=== PATIENT | male | born 1950 | race Caucasian/White ===

== ENCOUNTER 2018-02-27 01:08 | Emergency (ER) | payer OTHER ==
--- NOTE | 2018-02-27 03:27 | ER ---
Nurse's Notes [facility] Name: Kulwinder Zurita Age: 68 yrs Sex: Male : 1950 Arrival Date: 02/27/2018 Time: 01:10 Bed 8 Private MD: Macario Nugent Diagnosis: post procedure bleeding Presentation: 02/27 01:22 Presenting complaint: Patient states: I had a tooth pulled today at 2:00 pm and it tl2 hasn't stopped bleeding. Denies pain. Transition of care: patient was not received from another setting of care. Onset of symptoms was February 26, 2018 at 14:00. Risk Assessment: Do you want to hurt yourself or someone else? Patient reports no desire to harm self or others. Initial Sepsis Screen: Does the patient meet any 2 criteria? No. Patient's initial sepsis screen is negative. Does the patient have a suspected source of infection? No. Patient's initial sepsis screen is negative. Care prior to arrival: None. 01:22 Method Of Arrival: Ambulatory tl2 01:22 Acuity: CHRISTINA 4 tl2 Triage Assessment: :27 General: Appears in no apparent distress. comfortable, Behavior is calm, cooperative, tl2 appropriate for age. Pain: Denies pain. EENT: Absence of teeth noted - upper right first molar (#3) bleeding noted in area where tooth was removed. Neuro: Level of Consciousness is awake, alert, obeys commands, Oriented to person, place, time, situation. Neuro: Denies dizziness. Cardiovascular: Denies chest pain. Respiratory: Airway is patent Respiratory effort is even, unlabored, Respiratory pattern is regular, symmetrical. GI: No signs and/or symptoms were reported involving the gastrointestinal system. : No signs and/or symptoms were reported regarding the genitourinary system. Derm: Skin is pink, warm \T\ dry. Historical: - Allergies: : one form of cortizon; tl2 - Home Meds: metformin 500 mg Oral tab 1 tab 2 times per day [Active]; Toujeo SoloStar 300 unit/mL tl2 (1.5 mL) subcutaneous inpn [Active]; lisinopril 40 mg Oral tab 1 tab BID [Active]; amlodipine 10 mg tab 1 tab once daily [Active]; pravastatin 40 mg oral tab 1 tab once daily [Active]; aspirin 81 mg Oral chew 1 tab once daily [Active]; magnesium oxide 400 mg Oral cap [Active]; - PMHx: 01:27 Diabetes - IDDM; Hyperlipidemia; Hypertension; Prostate Cancer; tl2 - PSHx: 01:27 Tonsillectomy; tl2 - Immunization history:: Adult Immunizations up to date. - Social history:: Smoking status: Patient/guardian denies using tobacco. - Ebola Screening: : No symptoms or risks identified at this time. Screenin:30 Abuse screen: Denies threats or abuse. Nutritional screening: No deficits noted. tl2 Tuberculosis screening: No symptoms or risk factors identified. Fall Risk None identified. Assessment: 01:30 General: see triage assessment. tl2 02:00 Reassessment: instructed pt to gargle ice water. tl2 02:12 Reassessment: gave pt piece of gauze to bite down and apply pressure to area. tl2 03:25 Reassessment: bleeding has slowed down, MD ordered for discharge. tl2 03:38 Reassessment: Patient appears in no apparent distress at this time. Patient and/or tl2 family updated on plan of care and expected duration. Pain level reassessed. Patient is alert, oriented x 3, equal unlabored respirations, skin warm/dry/pink. Pt verbalized understanding of discharge instructions, need for follow up with dentist. Vital Signs: 01:27 BP 166 / 63; Pulse 70; Resp 18; Temp 97.8(O); Pulse Ox 96% on R/A; Weight 163.29 kg; tl2 Height 5 ft. 8 in. (172.72 cm); Pain 0/10; 03:38 BP 143 / 69; Pulse 72; Resp 18; Pulse Ox 96% on R/A; tl2 01:27 Body Mass Index 54.74 (163.29 kg, 172.72 cm) tl2 ED Course: 01:10 Patient arrived in ED. es 01:10 Macario Nugent DO is Private Physician. es 01:22 Varsha Soto, NATALY is Primary Nurse. tl2 01:23 Triage completed. tl2 01:27 Arm band placed on right wrist. tl2 01:30 Patient has correct armband on for positive identification. Bed in low position. Call tl2 light in reach. Side rails up X 1. 01:43 Velasco, Manpreet, MD is Attending Physician. gs 03:38 No provider procedures requiring assistance completed. Patient did not have IV access tl2 during this emergency room visit. Administered Medications: No medications were administered Outcome: 03:26 Discharge ordered by . gs 03:38 Discharged to home ambulatory. tl2 03:38 Condition: stable 03:38 Discharge instructions given to patient, Instructed on discharge instructions, follow up and referral plans. Demonstrated understanding of instructions, follow-up care. 03:39 Patient left the ED. tl2 Signatures: Anila Ribera Taylor RN RN tl2 Manpreet Velasco MD MD
--- NOTE | 2018-02-27 03:27 | EDPHYS ---
Physician Documentation [facility] Name: Kulwinder Zurita Age: 68 yrs Sex: Male : 1950 Arrival Date: 02/27/2018 Time: 01:10 Bed 8 Private MD: Macario Nugent ED Physician Manpreet Velasco HPI: 02/27 03:22 This 68 yrs old Male presents to ER via Ambulatory with complaints of TOOTH gs PULLED WONT STOP BLEEDING. 03:22 The patient presents with bleeding. The problem is located in the upper right second gs molar and upper right first molar extraction site. Onset: The symptoms/episode began/occurred today. Duration: The symptoms are continuous. Associated signs and symptoms: Pertinent negatives: fever. Severity of symptoms: At their worst the symptoms were moderate, in the emergency department the symptoms are unchanged. The patient has been recently seen by a physician: a dentist, with similar presenting complaints. Historical: - Allergies: : one form of cortizon; tl2 - Home Meds: : metformin 500 mg Oral tab 1 tab 2 times per day [Active]; Toujeo SoloStar 300 unit/mL tl2 (1.5 mL) subcutaneous inpn [Active]; lisinopril 40 mg Oral tab 1 tab BID [Active]; amlodipine 10 mg tab 1 tab once daily [Active]; pravastatin 40 mg oral tab 1 tab once daily [Active]; aspirin 81 mg Oral chew 1 tab once daily [Active]; magnesium oxide 400 mg Oral cap [Active]; - PMHx: : Diabetes - IDDM; Hyperlipidemia; Hypertension; Prostate Cancer; tl2 - PSHx: :27 Tonsillectomy; tl2 - Immunization history:: Adult Immunizations up to date. - Social history:: Smoking status: Patient/guardian denies using tobacco. - Ebola Screening: : No symptoms or risks identified at this time. ROS: 03:22 All other systems are negative. gs Exam: 03:22 Eyes: Pupils equal round and reactive to light, extra-ocular motions intact. Lids and gs lashes normal. Conjunctiva and sclera are non-icteric and not injected. Cornea within normal limits. Periorbital areas with no swelling, redness, or edema. Cardiovascular: Regular rate and rhythm with a normal S1 and S2. No gallops, murmurs, or rubs. Normal PMI, no JVD. No pulse deficits. Respiratory: Lungs have equal breath sounds bilaterally, clear to auscultation and percussion. No rales, rhonchi or wheezes noted. No increased work of breathing, no retractions or nasal flaring. 03:22 Constitutional: The patient appears alert, awake. 03:22 ENT: Dental exam: bleeding from extraction site, used guaze surgicel good hemostatsis instructed to use 4x4's and see dentist today. Vital Signs: 01:27 BP 166 / 63; Pulse 70; Resp 18; Temp 97.8(O); Pulse Ox 96% on R/A; Weight 163.29 kg; tl2 Height 5 ft. 8 in. (172.72 cm); Pain 0/10; 03:38 BP 143 / 69; Pulse 72; Resp 18; Pulse Ox 96% on R/A; tl2 01:27 Body Mass Index 54.74 (163.29 kg, 172.72 cm) tl2 MDM: 02:12 Patient medically screened. 03:25 Data reviewed: vital signs, nurses notes. gs Administered Medications: No medications were administered Disposition: 02/27/18 03:26 Discharged to Home. Impression: post procedure bleeding. - Condition is Stable. - Medication Reconciliation Form, Thank You Letter, Antibiotic Education, Prescription Opioid Use form. - Follow up: Private Physician; When: 1 - 2 days; Reason: Re-evaluation by your physician. Signatures: Varsha Soto RN RN tl2 Manpreet Velasco MD MD Corrections: (The following items were deleted from the chart) 03:39 03:26 02/27/2018 03:26 Discharged to Home. Impression: post procedure bleeding. tl2 Condition is Stable. Forms are Medication Reconciliation Form, Thank You Letter, Antibiotic Education, Prescription Opioid Use. Follow up: Private Physician; When: 1 - 2 days; Reason: Re-evaluation by your physician. gs
== END 2018-02-27 03:39 | disposition home or self-care (01) ==
LOC: ER 01:08
DX: K91.840 Postprocedural hemorrhage of a digestive system organ or structure following a digestive system procedure (principal)
CPT/HCPCS: 99281

== ENCOUNTER 2018-05-04 12:08 | Emergency (ER) | payer OTHER ==
--- NOTE | 2018-05-04 14:19 | RAD REPORT ---
EXAM DESCRIPTION: RAD - Chest Single View - 05/04/2018 2:04 pm CLINICAL HISTORY: Cough COMPARISON: None. TECHNIQUE: AP portable chest image was obtained 1401 hours . FINDINGS: No focal lung parenchymal process. Interstitial markings are mildly prominent believed be baseline. Heart and vasculature are normal. No measurable pleural effusion and no pneumothorax. No ac [place] bony abnormality seen. No acute aortic findings suspected. IMPRESSION: No acute cardiopulmonary process.
[2018-05-04 14:45] LABS: Urine Blood TRACE (NEG); Urine Glucose NEGATIVE (NEG); Urine Protein 3+ (NEG)
--- NOTE | 2018-05-04 15:34 | ER ---
Nurse's Notes [facility] Name: Kulwinder Zurita Age: 68 yrs Sex: Male : 1950 Arrival Date: 05/04/2018 Time: 12:12 Bed 26 Private MD: Macario Nugent Diagnosis: Viral infection, unspecified Presentation: 05/04 12:42 Presenting complaint: Patient states: urinary frequency since Friday and chills. Pt aa5 reports cough that began last night. Transition of care: patient was not received from another setting of care. Onset of symptoms was April 2018. Risk Assessment: Do you want to hurt yourself or someone else? Patient reports no desire to harm self or others. Care prior to arrival: None. 12:42 Method Of Arrival: Ambulatory aa5 12:42 Acuity: CHRISTINA 3 aa5 15:46 Initial Sepsis Screen: Does the patient meet any 2 criteria? No. Patient's initial mg2 sepsis screen is negative. Does the patient have a suspected source of infection? No. Patient's initial sepsis screen is negative. Historical: - Allergies: 12:45 Cortisone; aa5 - PMHx: 12:45 Diabetes - IDDM; Hyperlipidemia; Hypertension; Prostate Cancer; aa5 - PSHx: 12:45 Tonsillectomy; aa5 - Immunization history:: Flu vaccine is not up to date. - Social history:: Smoking status: Patient/guardian denies using tobacco. - Ebola Screening: : No symptoms or risks identified at this time. Screenin:45 Abuse screen: Denies threats or abuse. Denies injuries from another. Nutritional aj screening: No deficits noted. Tuberculosis screening: No symptoms or risk factors identified. Fall Risk None identified. Assessment: 13:45 General: Appears in no apparent distress. comfortable, Behavior is calm, cooperative, aj appropriate for age. General: Appears obese. Pain: Denies pain. Neuro: Level of Consciousness is awake, alert, obeys commands, Oriented to person, place, time, situation, Appropriate for age. Respiratory: Reports cough that is persistent Airway is patent Respiratory effort is even, unlabored, Respiratory pattern is regular, symmetrical. Derm: Skin is intact, is healthy with good turgor, Skin is pink, warm \T\ dry. normal. Vital Signs: 12:45 BP 144 / 70; Pulse 77; Resp 18 S; Temp 99.8(O); Pulse Ox 93% on R/A; Weight 163.29 kg aa5 (R); Height 5 ft. 8 in. (172.72 cm) (R); Pain 0/10; 15:44 BP 135 / 80; Pulse 70; Resp 18; Pulse Ox 95% on R/A; Pain 0/10; mg2 12:45 Body Mass Index 54.74 (163.29 kg, 172.72 cm) aa5 ED Course: 12:12 Patient arrived in ED. mr 12:13 Macario Nugent DO is Private Physician. mr 12:42 Arm band placed on. aa5 12:44 Triage completed. aa5 12:47 Aleksandra Kim, NATALY is Primary Nurse. aj 13:02 Moise Ding PA is PHCP. jr8 13:02 Manpreet Velasco MD is Attending Physician. jr8 13:40 Aleksandra Kim RN is Primary Nurse. aj 13:45 Patient has correct armband on for positive identification. aj 13:45 Influenza Screen (a \T\ B) Sent. aj 13:54 Lab(s) recollected, by me, sent to lab. aj 14:01 X-ray completed. Portable x-ray completed in exam room. Patient tolerated procedure sw well. 14:05 XRAY Chest (1 view) In Process Unspecified. EDMS 15:33 Macario Nugent DO is Referral Physician. jr8 15:45 No provider procedures requiring assistance completed. Patient did not have IV access mg2 during this emergency room visit. Administered Medications: No medications were administered Outcome: 15:34 Discharge ordered by . jr8 15:45 Discharged to home ambulatory. mg2 15:45 Condition: stable 15:45 Discharge instructions given to patient, Instructed on discharge instructions, follow up and referral plans. Demonstrated understanding of instructions, follow-up care. 15:46 Patient left the ED. mg2 Signatures: Dispatcher [employer] EDUT Aleksandra Kim, Daria Amador RN mr LaneLeslie RN NATALY aa5 Moise Ding PA PA jr8 Jazmín Schmidt Michele, RN RN mg2
--- NOTE | 2018-05-04 15:35 | EDPHYS ---
Physician Documentation [facility] Name: Kulwinder Zurita Age: 68 yrs Sex: Male : 1950 Arrival Date: 05/04/2018 Time: 12:12 Bed 26 Private MD: Macario Nugent ED Physician Manpreet Velasco HPI: 05/04 14:35 This 68 yrs old Male presents to ER via Ambulatory with complaints of Cough. jr8 14:35 The patient or guardian reports cough, that is intermittent, described as mild, with no jr8 sputum. Onset: The symptoms/episode began/occurred acutely, 3 day(s) ago. Severity of symptoms: At their worst the symptoms were mild, in the emergency department the symptoms are unchanged. Modifying factors: The symptoms are alleviated by nothing, the symptoms are aggravated by nothing. Associated signs and symptoms: Pertinent positives: urinary frequency. The patient has not experienced similar symptoms in the past. The patient has not recently seen a physician. Historical: - Allergies: 12:45 Cortisone; aa5 - PMHx: 12:45 Diabetes - IDDM; Hyperlipidemia; Hypertension; Prostate Cancer; aa5 - PSHx: 12:45 Tonsillectomy; aa5 - Immunization history:: Flu vaccine is not up to date. - Social history:: Smoking status: Patient/guardian denies using tobacco. - Ebola Screening: : No symptoms or risks identified at this time. ROS: 14:35 Eyes: Negative for injury, pain, redness, and discharge, ENT: Negative for injury, jr8 pain, and discharge, Neck: Negative for injury, pain, and swelling, Cardiovascular: Negative for chest pain, palpitations, and edema, Abdomen/GI: Negative for abdominal pain, nausea, vomiting, diarrhea, and constipation, Back: Negative for injury and pain, MS/Extremity: Negative for injury and deformity, Skin: Negative for injury, rash, and discoloration, Neuro: Negative for headache, weakness, numbness, tingling, and seizure. 14:35 Respiratory: Positive for cough, Negative for dyspnea on exertion, shortness of breath, sputum production, wheezing. 14:35 : Positive for urinary symptoms. Exam: 14:35 Eyes: Pupils equal round and reactive to light, extra-ocular motions intact. Lids and jr8 lashes normal. Conjunctiva and sclera are non-icteric and not injected. Cornea within normal limits. Periorbital areas with no swelling, redness, or edema. ENT: Nares patent. No nasal discharge, no septal abnormalities noted. Tympanic membranes are normal and external auditory canals are clear. Oropharynx with no redness, swelling, or masses, exudates, or evidence of obstruction, uvula midline. Mucous membranes moist. Neck: Trachea midline, no thyromegaly or masses palpated, and no cervical lymphadenopathy. Supple, full range of motion without nuchal rigidity, or vertebral point tenderness. No Meningismus. Cardiovascular: Regular rate and rhythm with a normal S1 and S2. No gallops, murmurs, or rubs. Normal PMI, no JVD. No pulse deficits. Respiratory: Lungs have equal breath sounds bilaterally, clear to auscultation and percussion. No rales, rhonchi or wheezes noted. No increased work of breathing, no retractions or nasal flaring. Abdomen/GI: Soft, non-tender, with normal bowel sounds. No distension or tympany. No guarding or rebound. No evidence of tenderness throughout. Back: No spinal tenderness. No costovertebral tenderness. Full range of motion. Skin: Warm, dry with normal turgor. Normal color with no rashes, no lesions, and no evidence of cellulitis. MS/ Extremity: Pulses equal, no cyanosis. Neurovascular intact. Full, normal range of motion. Neuro: Awake and alert, GCS 15, oriented to person, place, time, and situation. Cranial nerves II-XII grossly intact. Motor strength 5/5 in all extremities. Sensory grossly intact. Cerebellar exam normal. Normal gait. Vital Signs: 12:45 BP 144 / 70; Pulse 77; Resp 18 S; Temp 99.8(O); Pulse Ox 93% on R/A; Weight 163.29 kg aa5 (R); Height 5 ft. 8 in. (172.72 cm) (R); Pain 0/10; 15:44 BP 135 / 80; Pulse 70; Resp 18; Pulse Ox 95% on R/A; Pain 0/10; mg2 12:45 Body Mass Index 54.74 (163.29 kg, 172.72 cm) aa5 MDM: 13:06 Patient medically screened. [facility] 15:33 Data reviewed: vital signs, nurses notes, lab test result(s), radiologic studies, plain jr8 films, and as a result, I will discharge patient. Data interpreted: Pulse oximetry: on room air is 95 %. Interpretation: normal. Counseling: I had a detailed discussion with the patient and/or guardian regarding: the historical points, exam findings, and any diagnostic results supporting the discharge/admit diagnosis, lab results, radiology results, the need for outpatient follow up, a family practitioner, to return to the emergency department if symptoms worsen or persist or if there are any questions or concerns that arise at home. 05/04 13:39 Order name: Influenza Screen (a \T\ B); Complete Time: 14:26 jr8 05/04 13:54 Order name: Urine Dipstick--Ancillary (enter results); Complete Time: 14:46 eb 05/04 13:39 Order name: XRAY Chest (1 view); Complete Time: 14:34 jr8 05/04 13:40 Order name: Urine Dipstick-Ancillary (obtain specimen); Complete Time: 14:08 jr8 Administered Medications: No medications were administered Disposition: 17:13 Co-signature as Attending Physician, Manpreet Velasco MD. Disposition: 05/04/18 15:34 Discharged to Home. Impression: Viral infection, unspecified. - Condition is Stable. - Discharge Instructions: Viral Respiratory Infection. - Medication Reconciliation Form, Thank You Letter, Antibiotic Education, Prescription Opioid Use form. - Follow up: Macario Nugent DO; When: 2 - 3 days; Reason: Recheck today's complaints, Continuance of care, Re-evaluation by your physician. - Problem is new. - Symptoms have improved. Signatures: Dispatcher [employer] EDMS Leslie Lane, RN RN aa5 Moise Ding PA PA jr8 Manpreet Velasco MD MD Alex Moreno RN RN mg2 Corrections: (The following items were deleted from the chart) 15:46 15:34 05/04/2018 15:34 Discharged to Home. Impression: Viral infection, unspecified. mg2 Condition is Stable. Forms are Medication Reconciliation Form, Thank You Letter, Antibiotic Education, Prescription Opioid Use. Follow up: Macario Nugent; When: 2 - 3 days; Reason: Recheck today's complaints, Continuance of care, Re-evaluation by your physician. Problem is new. Symptoms have improved. jr8
== END 2018-05-04 15:46 | disposition home or self-care (01) ==
LOC: ER 12:08
DX: B34.9 Viral infection, unspecified (principal); I10 Essential (primary) hypertension; Z85.46 Personal history of malignant neoplasm of prostate; Z88.8 Allergy status to other drugs, medicaments and biological substances
CPT/HCPCS: 71045; 81003; 87804; 99283

== ENCOUNTER 2019-01-02 17:04 | Emergency (ER) | payer OTHER ==
[2019-01-02 18:02] LABS: Urine Bacteria <20 /HPF (NONE SEEN); Urine Culture Reflex Order NOT NEEDED
--- NOTE | 2019-01-02 18:15 | RAD REPORT ---
EXAM DESCRIPTION: CT - Stone Protocol - 01/02/2019 6:05 pm CLINICAL HISTORY: Flank pain. HEMATURIA COMPARISON: Stone Protocol dated 05/06/2017 TECHNIQUE: Axial images were obtained without oral or IV contrast. Lack of contrast limits solid org an and vascular assessment. The [id number] spans the entirety of the system partially obscuring uppermost abdomen and lung bases. Coronal reformatted images were obtained and reviewed. All CT scans are performed using dose optimization technique as appropriate and may include automated exposure control or mA/KV adjustment according to patient size. FINDINGS: The lower lung matute are clear. Diffuse fatty liver is seen. The spleen is normal sized. The pancreas and adrenal glands are normal. No pathologic lymphadenopathy in the abdomen or pelvis. Chronic dilatation left renal pelvis is seen suggesting chronic left UPJ obstruction. There is no obs tructing calculus seen on either side. Several small cysts are present in both kidneys some with comp altagracia hyperdense appearance. Punctate calculus is seen in the inferior calyx of the right kidney. No bowel obstruction, free air, free fluid or abscess. Normal appendix noted.Prostate beads are seen. No significant bony abnormality. IMPRESSION: Chronic left UPJ obstruction is noted. Punctate calculus is seen in the inferior right kidney.
--- NOTE | 2019-01-02 18:23 | ER ---
Nurse's Notes [facility] Name: Kulwinder Zurita Age: 68 yrs Sex: Male : 1950 Arrival Date: 01/02/2019 Time: 17:07 Bed 5 Private MD: Diagnosis: Hematuria, unspecified;Dysuria Presentation: 01/02 17:18 Presenting complaint: Patient states: urinary urgency, blood in urine x 3 days. la1 Transition of care: patient was not received from another setting of care. Onset of symptoms was January 02, 2019. Risk Assessment: Do you want to hurt yourself or someone else? Patient reports no desire to harm self or others. Initial Sepsis Screen: Does the patient meet any 2 criteria? No. Patient's initial sepsis screen is negative. Does the patient have a suspected source of infection? No. Patient's initial sepsis screen is negative. Care prior to arrival: None. 17:18 Method Of Arrival: Ambulatory la1 17:18 Acuity: CHRISTINA 3 la1 Triage Assessment: 17:27 General: Appears in no apparent distress. comfortable, obese, Behavior is calm, bp cooperative, appropriate for age. Pain: Complains of pain in pelvis. EENT: No deficits noted. Neuro: No deficits noted. Cardiovascular: No deficits noted. Respiratory: No deficits noted. GI: No signs and/or symptoms were reported involving the gastrointestinal system. : Reports burning with urination. Derm: No deficits noted. Musculoskeletal: No deficits noted. Historical: - Allergies: 17:18 Cortisone; la1 - PMHx: 17:18 Diabetes - IDDM; Hyperlipidemia; Hypertension; Prostate Cancer; la1 - Immunization history:: Adult Immunizations up to date. - Social history:: Smoking status: Patient/guardian denies using tobacco. - Ebola Screening: : No symptoms or risks identified at this time. Screenin:28 Abuse screen: Denies threats or abuse. Denies injuries from another. Nutritional bp screening: No deficits noted. Tuberculosis screening: No symptoms or risk factors identified. Fall Risk None identified. Assessment: 17:28 General: SEE TRIAGE NOTE. bp 18:29 Reassessment: PT D/C HOME AMBULATORY, DX WITH HEMATURIA AND DYSURIA. bp Vital Signs: 17:18 BP 164 / 96; Pulse 79; Resp 16; Temp 98.4; Pulse Ox 100% on R/A; la1 18:28 BP 157 / 95; Pulse 81; Resp 17; Temp 98.5; Pulse Ox 99% ; bp ED Course: 17:07 Patient arrived in ED. mr 17:18 Triage completed. la1 17:19 Arm band placed on left wrist. la1 17:20 Reginaldo Mix NP is PHCP. pm1 17:20 David Green MD is Attending Physician. pm1 17:20 Kali Tay, RN is Primary Nurse. bp 17:28 Patient has correct armband on for positive identification. Bed in low position. Call bp light in reach. Side rails up X2. 18:02 CT completed. Patient tolerated procedure well. Patient moved back from CT. bq 18:04 CT [facility] Protocol In Process Unspecified. EDMS 18:21 Concha Dunbar MD is Referral Physician. pm1 18:29 No provider procedures requiring assistance completed. Patient did not have IV access bp during this emergency room visit. Administered Medications: No medications were administered Outcome: 18:21 Discharge ordered by MD. pm1 18:29 Discharged to home ambulatory. bp 18:29 Condition: stable 18:29 Discharge instructions given to patient, Instructed on discharge instructions, follow up and referral plans. medication usage, Demonstrated understanding of instructions, follow-up care, medications, Prescriptions given X 1. 18:40 Patient left the ED. bp Signatures: Dispatcher [employer] [facility] Corey Mihaela Duarte Gabriel Rooney RN RN la1 Reginaldo Mix, RADHA [employer] PROFESS[employer] pm1 Kali Tay, RN RN bp
--- NOTE | 2019-01-02 18:23 | EDPHYS ---
Physician Documentation [facility] Name: Kulwinder Zurita Age: 68 yrs Sex: Male : 1950 Arrival Date: 01/02/2019 Time: 17:07 Bed 5 Private MD: ED Physician David Green HPI: 01/02 17:49 This 68 yrs old Male presents to ER via Ambulatory with complaints of Urinary pm1 Problem. 17:49 The patient presents with urinary symptoms, dysuria, urinary frequency, hematuria. pm1 Onset: The symptoms/episode began/occurred yesterday. Modifying factors: The symptoms are alleviated by nothing, the symptoms are aggravated by urinating. Associated signs and symptoms: Pertinent negatives: abdominal pain, diarrhea, fever, nausea, vomiting, flank pain. Severity of symptoms: in the emergency department the symptoms have improved. The patient has experienced similar episodes in the past, a few times, many years ago. had blood work and renal and bladder ultrasound on 12/23/2018 with sleeve bottom feller. Has not gotten results yet. Has history of prostate cancer in remission and chronic kidney disease. Historical: - Allergies: 17:18 Cortisone; la1 - PMHx: 17:18 Diabetes - IDDM; Hyperlipidemia; Hypertension; Prostate Cancer; la1 - Immunization history:: Adult Immunizations up to date. - Social history:: Smoking status: Patient/guardian denies using tobacco. - Ebola Screening: : No symptoms or risks identified at this time. ROS: 17:49 Constitutional: Negative for fever, chills, and weight loss, Cardiovascular: Negative pm1 for chest pain, palpitations, and edema, Respiratory: Negative for shortness of breath, cough, wheezing, and pleuritic chest pain, Abdomen/GI: Negative for abdominal pain, nausea, vomiting, diarrhea, and constipation, Back: Negative for injury and pain. 17:49 Skin: Negative for injury, rash, and discoloration, Neuro: Negative for headache, weakness, numbness, tingling, and seizure. 17:49 : Positive for urinary frequency, hematuria, burning with urination, Negative for flank pain, penile discharge, testicular pain Exam: 17:49 Constitutional: This is a well developed, well nourished patient who is awake, alert, pm1 and in no acute distress. Head/Face: Normocephalic, atraumatic. Neck: Trachea midline, no thyromegaly or masses palpated, and no cervical lymphadenopathy. Supple, full range of motion without nuchal rigidity, or vertebral point tenderness. No Meningismus. Chest/axilla: Normal chest wall appearance and motion. Nontender with no deformity. No lesions are appreciated. Cardiovascular: Regular rate and rhythm with a normal S1 and S2. No gallops, murmurs, or rubs. Normal PMI, no JVD. No pulse deficits. Respiratory: Lungs have equal breath sounds bilaterally, clear to auscultation and percussion. No rales, rhonchi or wheezes noted. No increased work of breathing, no retractions or nasal flaring. Abdomen/GI: Soft, non-tender, with normal bowel sounds. No distension or tympany. No guarding or rebound. No evidence of tenderness throughout. Back: No spinal tenderness. No costovertebral tenderness. Full range of motion. Skin: Warm, dry with normal turgor. Normal color with no rashes, no lesions, and no evidence of cellulitis. MS/ Extremity: Pulses equal, no cyanosis. Neurovascular intact. Full, normal range of motion. 17:49 Neuro: Orientation: is normal, Motor: is normal, moves all fours, Gait: is steady, at a normal pace, without difficulty. Vital Signs: 17:18 BP 164 / 96; Pulse 79; Resp 16; Temp 98.4; Pulse Ox 100% on R/A; la1 18:28 BP 157 / 95; Pulse 81; Resp 17; Temp 98.5; Pulse Ox 99% ; bp MDM: 17:41 Patient medically screened. pm1 18:20 Data reviewed: vital signs. Data interpreted: Pulse oximetry: on room air is 100 %. pm1 Interpretation: normal. Counseling: I had a detailed discussion with the patient and/or guardian regarding: the historical points, exam findings, and any diagnostic results supporting the discharge/admit diagnosis, lab results, radiology results, the need for outpatient follow up, for definitive care, a urologist, to return to the emergency department if symptoms worsen or persist or if there are any questions or concerns that arise at home. 18:20 ED course: Creatinine clearance greater than 81.5 on Cockcroft-Gault. Patient with pm1 symptoms suggesting UTI. Will treat with Bactrim and instructed patient to follow up with urology for evaluation of hematuria. 01/02 17:44 Order name: Urine Microscopic Only; Complete Time: 18:03 pm1 01/02 17:56 Order name: Urine Dipstick--Ancillary (enter results) ms 01/02 17:44 Order name: Urine Dipstick-Ancillary (obtain specimen); Complete Time: 17:52 pm1 01/02 17:44 Order name: CT Stone Protocol; Complete Time: 18:19 pm1 Administered Medications: No medications were administered Disposition: 01/03 07:16 Co-signature as Attending Physician, David Green MD I agree with the assessment and kdr plan of care. Disposition: 01/02/19 18:21 Discharged to Home. Impression: Hematuria, unspecified, Dysuria. - Condition is Stable. - Discharge Instructions: Dysuria, Hematuria, Adult. - Prescriptions for Bactrim DS 800- 160 mg Oral Tablet - take 1 tablet by ORAL route every 12 hours for 10 days; 20 tablet. - Medication Reconciliation Form, Thank You Letter, Antibiotic Education, Prescription Opioid Use form. - Follow up: Emergency Department; When: As needed; Reason: Worsening of condition. Follow up: Private Physician; When: 2 - 3 days; Reason: Recheck today's complaints, Continuance of care, Re-evaluation by your physician. Follow up: Concha Dunbar MD; When: 2 - 3 days; Reason: Recheck today's complaints, Continuance of care, Re-evaluation by your physician. - Problem is new. - Symptoms have improved. Signatures: Dispatcher [employer] EDMS David Green MD MD kdr Attema, Lee RN RN la1 Reginaldo Mix NP [employer] pm1 Kali Tay, NATALY RN bp Corrections: (The following items were deleted from the chart) 01/02 18:40 18:21 01/02/2019 18:21 Discharged to Home. Impression: Hematuria, unspecified; Dysuria. bp Condition is Stable. Forms are Medication Reconciliation Form, Thank You Letter, Antibiotic Education, Prescription Opioid Use. Follow up: Emergency Department; When: As needed; Reason: Worsening of condition. Follow up: Private Physician; When: 2 - 3 days; Reason: Recheck today's complaints, Continuance of care, Re-evaluation by your physician. Follow up: Concha Dunbar; When: 2 - 3 days; Reason: Recheck today's complaints, Continuance of care, Re-evaluation by your physician. Problem is new. Symptoms have improved. pm1
[2019-01-02 19:33] VITALS: BP 157/95; TEMP 98.5; O2SAT 99
[2019-01-02 20:13] LABS: Urine Blood 3+ (NEG); Urine Glucose NEGATIVE (NEG); Urine Protein 3+ (NEG); Urine Specific Gravity 1.025 (1.005-1.030)
== END 2019-01-02 18:40 | disposition home or self-care (01) ==
LOC: ER 17:04
DX: R31.9 Hematuria, unspecified (principal); I10 Essential (primary) hypertension; Z85.46 Personal history of malignant neoplasm of prostate; Z88.8 Allergy status to other drugs, medicaments and biological substances
CPT/HCPCS: 74176; 76377; 81003; 81015; 99284

== ENCOUNTER 2019-01-31 17:08 | Emergency (ER) | payer OTHER ==
[2019-01-31 17:59] LABS: Absolute Lymphocytes (CBC) 1.3 K/uL (0.7-4.9); Basophils % 0.6 % (0-1.3); Hematocrit 39.1 % (39.6-49.0); Lymphocytes % 20.3 % (15.3-44.8); MPV 7.7 fL (7.6-11.3); RBC Red Blood Cell Count 4.47 M/uL (4.33-5.43)
[2019-01-31 18:14] LABS: ALT/SGPT 54 U/L (12-78); AST/SGOT 28 U/L (15-37); Albumin 3.3 g/dL (3.4-5.0); Alkaline Phosphatase 54 U/L (45-117); BUN Blood Urea Nitrogen 28 mg/dL (7-18); Bicarbonate 24 mmol/L (21-32); Bilirubin Direct < 0.1 mg/dL (0-0.2); Bilirubin Total 0.2 mg/dL (0.2-1.0); Glucose Level 160 mg/dL (74-106); Lipase 101 U/L (73-393); Potassium 4.1 mmol/L (3.5-5.1); Protein, Total 7.2 g/dL (6.4-8.2); Sodium Level 141 mmol/L (136-145)
--- NOTE | 2019-01-31 18:36 | RAD REPORT ---
EXAM DESCRIPTION: CT - Stone Protocol - 01/31/2019 6:07 pm CLINICAL HISTORY: Abdominal pain. Left flank pain COMPARISON: December 2018 TECHNIQUE: Computed axial tomography of the abdomen pelvis was obtained without oral or IV contrast. Lack of IV and oral contrast limits evaluation of solid organs, bowel, and vessels. Coronal reformat janes images were obtained and reviewed. All CT scans are performed using dose optimization technique as appropriate and may include automated exposure control or mA/KV adjustment according to patient size. FINDINGS: 1 millimeter nonobstructing right renal calculus. Small right renal cyst 7 centimeter cystic structure in the region of the left renal pelvis. It is without significant simental e from the prior exam but is more prominent than in 2018. Areas of left renal cortical thinning are p resent. Tiny bilateral proteinaceous/hemorrhagic renal cysts Fatty liver Spleen, pancreas and left adrenal appear grossly normal. Small right adrenal adenoma is suspected There is no evidence of diverticulitis. . Prostatic internal radiation beams are in place IMPRESSION: 7 centimeter cystic structure in the region of the left renal pelvis. This may represent a parapelvic cyst or UPJ obstruction secondary to stricture. Further evaluation with either an enhan tiffanie CT scan with delayed images or a renal nuclear Medicine scan recommended
--- NOTE | 2019-01-31 18:59 | ER ---
Nurse's Notes [facility] Name: Kulwinder Zurita Age: 69 yrs Sex: Male : 1950 Arrival Date: 01/31/2019 Time: 17:12 Bed 8 Private MD: Diagnosis: Other abdominal pain Presentation: 01/31 17:14 Presenting complaint: Patient states: I have been having pain in my left flank area for la1 the last few days but today it is much worse, pt denies N/V/D or fevers at home, denies urinary sx. Transition of care: patient was not received from another setting of care. Onset of symptoms was January 31, 2019. Risk Assessment: Do you want to hurt yourself or someone else? Patient reports no desire to harm self or others. Initial Sepsis Screen: Does the patient meet any 2 criteria? No. Patient's initial sepsis screen is negative. Does the patient have a suspected source of infection? No. Patient's initial sepsis screen is negative. Care prior to arrival: None. 17:14 Method Of Arrival: Ambulatory la1 17:14 Acuity: CHRISTINA 3 la1 Triage Assessment: 19:06 General: Appears. hb Historical: - Allergies: 17:15 Cortisone; la1 - PMHx: 17:15 Diabetes - IDDM; Hyperlipidemia; Hypertension; Prostate Cancer; la1 - Immunization history:: Adult Immunizations up to date. - Social history:: Smoking status: Patient/guardian denies using tobacco, Patient/guardian denies using alcohol, street drugs, The patient lives with family. - Ebola Screening: : No symptoms or risks identified at this time. - Family history:: not pertinent. Screenin:15 Abuse screen: Denies threats or abuse. Denies injuries from another. Nutritional hb screening: No deficits noted. Tuberculosis screening: No symptoms or risk factors identified. Fall Risk None identified. Assessment: 17:20 Reassessment: Patient appears in no apparent distress at this time. Patient and/or sg family updated on plan of care and expected duration. Pain level reassessed. 18:15 Reassessment: Patient appears in no apparent distress at this time. Patient and/or hb family updated on plan of care and expected duration. Pain level reassessed. Patient is alert, oriented x 3, equal unlabored respirations, skin warm/dry/pink. Vital Signs: 17:16 BP 198 / 80; Pulse 78; Resp 16; Temp 98.6; Pulse Ox 100% on R/A; Weight 158.76 kg; la1 Height 5 ft. 8 in. (172.72 cm); 17:16 Body Mass Index 53.22 (158.76 kg, 172.72 cm) ct1 ED Course: 17:12 Patient arrived in ED. mr 17:15 Triage completed. la1 17:15 Inserted saline lock: 20 gauge in right antecubital area, using aseptic technique. hb Blood collected. 17:16 Arm band placed on right wrist. la1 17:19 Mala Polk MD is Attending Physician. ma2 17:57 Sobia Prasad, RN is Primary Nurse. hb 18:07 CT completed. Patient tolerated procedure well. Patient moved back from CT. 2 18:08 CT Stone Protocol In Process Unspecified. EDMS 18:15 Patient has correct armband on for positive identification. Bed in low position. Call hb light in reach. Side rails up X 1. 19:06 No provider procedures requiring assistance completed. IV discontinued, intact, hb bleeding controlled, No redness/swelling at site. Pressure dressing applied. Administered Medications: No medications were administered Outcome: 18:58 Discharge ordered by . [facility] 19:06 Discharged to home ambulatory. hb 19:06 Condition: stable 19:06 Discharge instructions given to patient, Instructed on discharge instructions, follow up and referral plans. medication usage, Demonstrated understanding of instructions, follow-up care, medications. 19:07 Patient left the ED. hb Signatures: Dispatcher [employer] EDMS Raphael Vázquez RN RN sg Corey Daria Ledesma, NATALY Rios RN [facility] Sobia Prasad, Andreia Rice RN 2 Mala Polk MD MD nhJustin
--- NOTE | 2019-01-31 18:59 | EDPHYS ---
Physician Documentation [facility] Name: Kulwinder Zurita Age: 69 yrs Sex: Male : 1950 Arrival Date: 01/31/2019 Time: 17:12 Bed 8 Private MD: ED Physician Mala Polk HPI: 01/31 17:38 This 69 yrs old Male presents to ER via Ambulatory with complaints of Flank ma2 Pain. 17:38 The patient complains of pain in the mid back area and left mid back. The pain does not ma2 radiate. Associated signs and symptoms: Pertinent negatives: dysuria, urinary frequency, hematuria, nausea. Severity of pain: At its worst the pain was mild in the emergency department the pain is unchanged. The patient has not experienced similar symptoms in the past. decline pain medicine . Historical: - Allergies: 17:15 Cortisone; la1 - PMHx: 17:15 Diabetes - IDDM; Hyperlipidemia; Hypertension; Prostate Cancer; la1 - Immunization history:: Adult Immunizations up to date. - Social history:: Smoking status: Patient/guardian denies using tobacco, Patient/guardian denies using alcohol, street drugs, The patient lives with family. - Ebola Screening: : No symptoms or risks identified at this time. - Family history:: not pertinent. ROS: 17:38 Constitutional: Negative for fever, chills, and weight loss. ma2 17:38 All other systems are negative. Exam: 17:38 Constitutional: This is a well developed, well nourished patient who is awake, alert, ma2 and in no acute distress. Chest/axilla: Normal chest wall appearance and motion. Nontender with no deformity. No lesions are appreciated. Cardiovascular: Regular rate and rhythm with a normal S1 and S2. No gallops, murmurs, or rubs. Normal PMI, no JVD. No pulse deficits. Respiratory: Lungs have equal breath sounds bilaterally, clear to auscultation and percussion. No rales, rhonchi or wheezes noted. No increased work of breathing, no retractions or nasal flaring. Abdomen/GI: Soft, non-tender, with normal bowel sounds. No distension or tympany. No guarding or rebound. No evidence of tenderness throughout. Back: No spinal tenderness. No costovertebral tenderness. Full range of motion. MS/ Extremity: Pulses equal, no cyanosis. Neurovascular intact. Full, normal range of motion. Neuro: Awake and alert, GCS 15, oriented to person, place, time, and situation. Cranial nerves II-XII grossly intact. Motor strength 5/5 in all extremities. Sensory grossly intact. Cerebellar exam normal. Normal gait. Vital Signs: 17:16 BP 198 / 80; Pulse 78; Resp 16; Temp 98.6; Pulse Ox 100% on R/A; Weight 158.76 kg; la1 Height 5 ft. 8 in. (172.72 cm); 17:16 Body Mass Index 53.22 (158.76 kg, 172.72 cm) la1 MDM: 17:19 Patient medically screened. ar2 17:38 Differential diagnosis: nephrolithiasis, pyelonephritis, UTI, muscle sprain. [facility] 18:57 Data reviewed: vital signs, nurses notes. Counseling: I had a detailed discussion with ma2 the patient and/or guardian regarding: the historical points, exam findings, and any diagnostic results supporting the discharge/admit diagnosis, the presence of at least one elevated blood pressure reading (>120/80) during this emergency department visit, the need for outpatient follow up. Response to treatment: the patient's symptoms have markedly improved after treatment. 01/31 17:37 Order name: Basic Metabolic Panel; Complete Time: 18:49 [facility] 01/31 18:58 Interpretation: Within normal limits: GFR 32. [facility] 01/31 17:37 Order name: CBC with Diff; Complete Time: 18:11 [facility] 01/31 17:37 Order name: Creatinine for Radiology; Complete Time: 18:49 ar2 01/31 17:37 Order name: Hepatic Function; Complete Time: 18:49 [facility] 01/31 17:37 Order name: Lipase; Complete Time: 18:49 [facility] 01/31 18:35 Order name: Urine Dipstick--Ancillary (enter results) 01/31 17:37 Order name: IV Saline Lock; Complete Time: 17:57 [facility] 01/31 17:37 Order name: Labs collected and sent; Complete Time: 17:57 [facility] 01/31 17:37 Order name: CT Stone Protocol [facility] 01/31 17:37 Order name: Urine Dipstick-Ancillary (obtain specimen); Complete Time: 18:34 ma2 Administered Medications: No medications were administered Disposition: 01/31/19 18:58 Discharged to Home. Impression: Other abdominal pain. - Condition is Stable. - Discharge Instructions: Abdominal Pain, Adult. - Medication Reconciliation Form, Thank You Letter, Antibiotic Education, Prescription Opioid Use form. - Follow up: Private Physician; When: Tomorrow; Reason: Continuance of care. Signatures: Dispatcher [employer] EDSC Gabriel Ledesma RN RN la Sobia Prasad RN RN Mala Polk MD MD ma2 Corrections: (The following items were deleted from the chart) 19:07 18:58 01/31/2019 18:58 Discharged to Home. Impression: Other abdominal pain. Condition hb is Stable. Forms are Medication Reconciliation Form, Thank You Letter, Antibiotic Education, Prescription Opioid Use. Follow up: Private Physician; When: Tomorrow; Reason: Continuance of care. ma2
[2019-01-31 19:17] VITALS: BP 198/80; TEMP 98.6; O2SAT 100
[2019-01-31 20:45] LABS: Urine Blood TRACE (NEG); Urine Glucose NEGATIVE (NEG); Urine Protein 3+ (NEG); Urine pH 5.5 (5.0-7.0)
== END 2019-01-31 19:07 | disposition home or self-care (01) ==
LOC: ER 17:08
DX: R10.9 Unspecified abdominal pain (principal); I10 Essential (primary) hypertension; Z88.8 Allergy status to other drugs, medicaments and biological substances; Z85.46 Personal history of malignant neoplasm of prostate
CPT/HCPCS: 36415; 74176; 76377; 80048; 80076; 81003; 83690; 85025; 99284

== ENCOUNTER 2019-05-03 14:43 | Emergency (ER) | payer OTHER ==
--- OUTSIDE RECORDS SUMMARY | 2019-05-03 14:45 | XMS REPORT ---
:1950 Author Organization [facility] Address [address] [place] [address] Dr. Gu [address] [place] [id number] Care Team Providers Name Role Phone Unavailable Unavailable Unavailable Problems This patient has no known problems. Allergies, Adverse Reactions, Alerts This patient has no known allergies or adverse reactions. Medications This patient has no known medications.
[2019-05-03] MEDS ORDERED: AZITHROMYCIN 250 MG TAB ONE (16:23)
[2019-05-03] MEDS ORDERED: OSELTAMIVIR 75 MG CAP ONE (17:10)
--- NOTE | 2019-05-03 19:14 | ER ---
Nurse's Notes [facility] Name: Kulwinder Zurita Age: 69 yrs Sex: Male : 1950 Arrival Date: 05/03/2019 Time: 14:50 Bed 10 Private MD: Diagnosis: Acute upper respiratory infection, unspecified;Fever, unspecified;Influenza due to identified novel influenza A virus Presentation: 05/03 15:19 Presenting complaint: Patient states: Congestion and cough started yesterday evening. ca1 C/O throat irritation from coughing and headache. "I am worried this is the flu since I am taking care of my 90yo parent". Transition of care: patient was not received from another setting of care. Onset of symptoms was May 03, 2019. Risk Assessment: Do you want to hurt yourself or someone else? Patient reports no desire to harm self or others. Initial Sepsis Screen: Does the patient meet any 2 criteria? No. Patient's initial sepsis screen is negative. Does the patient have a suspected source of infection? No. Patient's initial sepsis screen is negative. Care prior to arrival: None. 15:19 Method Of Arrival: Ambulatory ca1 15:19 Acuity: CHRISTINA 4 ca1 Historical: - Allergies: 15:25 Cortisone; ca1 - Home Meds: 15:25 metformin 500 mg Oral tab 1 tab 2 times per day [Active]; lisinopril 40 mg Oral tab 1 ca1 tab BID [Active]; aspirin 81 mg Oral chew 1 tab once daily [Active]; magnesium oxide 400 mg Oral cap [Active]; terazosin 2 mg oral cap 1 cap once daily [Active]; Tresiba FlexTouch U-100 100 unit/mL (3 mL) subcutaneous inpn [Active]; finasteride 1 mg oral tab 1 tab once daily [Active]; allopurinol 300 mg Oral tab 1 tab once daily [Active]; - PMHx: 15:25 Diabetes - IDDM; Hyperlipidemia; Hypertension; Prostate Cancer; ca1 - PSHx: 15:25 Tonsillectomy; Vasectomy; ca1 - Immunization history:: Adult Immunizations up to date, Pneumococcal vaccine is not up to date, Flu vaccine is not up to date. - Coronavirus screen:: The patient has NOT traveled to [place], [place], or [place] in the past 14 days. The patient has NOT had contact with known/suspected case of Coronavirus?. - Social history:: Smoking status: Patient denies any tobacco usage or history of. - Family history:: not pertinent. - Ebola Screening: : Patient negative for fever greater than or equal to 101.5 degrees Fahrenheit, and additional compatible Ebola Virus Disease symptoms Patient denies exposure to infectious person Patient denies travel to an Ebola-affected area in the 21 days before illness onset No symptoms or risks identified at this time. Screenin:01 Abuse screen: Denies threats or abuse. Denies injuries from another. Nutritional ca1 screening: No deficits noted. Tuberculosis screening: No symptoms or risk factors identified. Fall Risk None identified. Assessment: 16:01 General: Appears in no apparent distress. comfortable, Behavior is calm, cooperative, ca1 appropriate for age. Pain: Denies pain. Neuro: Level of Consciousness is awake, alert, obeys commands, Oriented to person, place, time, situation, Appropriate for age Reports headache in entire since last night. Respiratory: Reports cough that is since last night Airway is patent Respiratory effort is even, unlabored, Respiratory pattern is regular, symmetrical, Breath sounds are clear bilaterally. EENT: Reports nasal congestion since last night. Derm: Skin is intact, is healthy with good turgor, Skin is pink, warm \\T\\ dry. Musculoskeletal: Circulation, motion, and sensation intact. Capillary refill < 3 seconds. Vital Signs: 15:25 BP 191 / 96; Pulse 73 RA; Resp 19 S; Temp 98.3(O); Pulse Ox 96% on R/A; Weight 158.76 ca1 kg (R); Height 5 ft. 8 in. (172.72 cm) (R); 15:25 Body Mass Index 53.22 (158.76 kg, 172.72 cm) ca1 ED Course: 14:50 Patient arrived in ED. fj1 15:21 Triage completed. ca1 15:25 Arm band placed on right wrist. ca1 15:30 Flu and/or RSV swab sent to lab. Strep swab sent to lab. ca1 15:59 Abel Lancaster MD is Attending Physician. [facility] 16:00 Kathryn López, NATALY is Primary Nurse. iw 16:01 Patient has correct armband on for positive identification. Bed in low position. Call ca1 light in reach. Side rails up X 1. 17:14 No provider procedures requiring assistance completed. Patient did not have IV access iw during this emergency room visit. Administered Medications: 16:20 Drug: Zithromax 500 mg Route: PO; ca1 Outcome: 16:36 Discharge ordered by . genie 17:14 Discharged to home ambulatory. iw 17:14 Condition: good 17:14 Discharge instructions given to patient, Instructed on discharge instructions, follow up and referral plans. medication usage, Demonstrated understanding of instructions, follow-up care, medications, Prescriptions given X 2. 17:15 Patient left the ED. iw Signatures: Abel Lancaster MD MD cha Williams, Irene, RN RN iw Bonita Ennis RN RN ca1 Camilo Lizarraga fj1 Corrections: (The following items were deleted from the chart) 16:00 15:19 Presenting complaint: Patient states: Congestion and cough started yesterday ca1 evening. C/O throat irritation from coughing headache. ca1
--- NOTE | 2019-05-03 19:14 | EDPHYS ---
Physician Documentation [facility] Name: Kulwinder Zurita Age: 69 yrs Sex: Male : 1950 Arrival Date: 05/03/2019 Time: 14:50 Bed 10 Private MD: CM Physician Abel Lancaster HPI: 05/03 16:12 This 69 yrs old Male presents to ER via Ambulatory with complaints of genie Headache > 24hrs Old, Congestion, Stiff Neck. 16:12 The patient complains of pain to the top of head, forehead, left frontal area, left genie side of the back of head, left occipital area, right frontal area, right side of the back of head and right occipital area. 16:13 The patient describes the headache as aching. fever , cough, malaise. Severity of genie symptoms: At its worst the pain was mild, in the emergency department the pain is unchanged. The patient or guardian reports cough, flu symptoms, arthralgias, low-grade fever, myalgias. Historical: - Allergies: 15:25 Cortisone; ca1 - Home Meds: 15:25 metformin 500 mg Oral tab 1 tab 2 times per day [Active]; lisinopril 40 mg Oral tab 1 ca1 tab BID [Active]; aspirin 81 mg Oral chew 1 tab once daily [Active]; magnesium oxide 400 mg Oral cap [Active]; terazosin 2 mg oral cap 1 cap once daily [Active]; Tresiba FlexTouch U-100 100 unit/mL (3 mL) subcutaneous inpn [Active]; finasteride 1 mg oral tab 1 tab once daily [Active]; allopurinol 300 mg Oral tab 1 tab once daily [Active]; - PMHx: 15:25 Diabetes - IDDM; Hyperlipidemia; Hypertension; Prostate Cancer; ca1 - PSHx: 15:25 Tonsillectomy; Vasectomy; ca1 - Immunization history:: Adult Immunizations up to date, Pneumococcal vaccine is not up to date, Flu vaccine is not up to date. - Coronavirus screen:: The patient has NOT traveled to [place], [place], or [place] in the past 14 days. The patient has NOT had contact with known/suspected case of Coronavirus?. - Social history:: Smoking status: Patient denies any tobacco usage or history of. - Family history:: not pertinent. - Ebola Screening: : Patient negative for fever greater than or equal to 101.5 degrees Fahrenheit, and additional compatible Ebola Virus Disease symptoms Patient denies exposure to infectious person Patient denies travel to an Ebola-affected area in the 21 days before illness onset No symptoms or risks identified at this time. ROS: 16:13 Constitutional: Negative for fever, chills, and weight loss, Eyes: Negative for injury, genie pain, redness, and discharge, ENT: Negative for injury, pain, and discharge, Neck: Negative for injury, pain, and swelling, Cardiovascular: Negative for chest pain, palpitations, and edema, Back: Negative for injury and pain, : Negative for injury, bleeding, discharge, and swelling, MS/Extremity: Negative for injury and deformity, Skin: Negative for injury, rash, and discoloration, Neuro: Negative for headache, weakness, numbness, tingling, and seizure. 16:13 ENT: Positive for sore throat. 16:13 Respiratory: Positive for cough, shortness of breath. Exam: 16:13 Constitutional: This is a well developed, well nourished patient who is awake, alert, genie and in no acute distress. Head/Face: Normocephalic, atraumatic. Eyes: Pupils equal round and reactive to light, extra-ocular motions intact. Lids and lashes normal. Conjunctiva and sclera are non-icteric and not injected. Cornea within normal limits. Periorbital areas with no swelling, redness, or edema. Neck: Trachea midline, no thyromegaly or masses palpated, and no cervical lymphadenopathy. Supple, full range of motion without nuchal rigidity, or vertebral point tenderness. No Meningismus. Chest/axilla: Normal chest wall appearance and motion. Nontender with no deformity. No lesions are appreciated. Cardiovascular: Regular rate and rhythm with a normal S1 and S2. No gallops, murmurs, or rubs. Normal PMI, no JVD. No pulse deficits. Abdomen/GI: Soft, non-tender, with normal bowel sounds. No distension or tympany. No guarding or rebound. No evidence of tenderness throughout. Back: No spinal tenderness. No costovertebral tenderness. Full range of motion. Male : Normal genitalia with no discharge or lesions. Skin: Warm, dry with normal turgor. Normal color with no rashes, no lesions, and no evidence of cellulitis. MS/ Extremity: Pulses equal, no cyanosis. Neurovascular intact. Full, normal range of motion. Neuro: Awake and alert, GCS 15, oriented to person, place, time, and situation. Cranial nerves II-XII grossly intact. Motor strength 5/5 in all extremities. Sensory grossly intact. Cerebellar exam normal. Normal gait. Psych: Awake, alert, with orientation to person, place and time. Behavior, mood, and affect are within normal limits. 16:13 ENT: Posterior pharynx: erythema, that is mild. 16:13 Respiratory: the patient does not display signs of respiratory distress, Respirations: normal, no acute changes, labored breathing, is not present, Breath sounds: bronchial sounds, that are mild, are scattered, rhonchi, that are mild, are scattered. Vital Signs: 15:25 BP 191 / 96; Pulse 73 RA; Resp 19 S; Temp 98.3(O); Pulse Ox 96% on R/A; Weight 158.76 ca1 kg (R); Height 5 ft. 8 in. (172.72 cm) (R); 15:25 Body Mass Index 53.22 (158.76 kg, 172.72 cm) ca1 MDM: 15:59 Patient medically screened. [facility] 16:16 Data reviewed: vital signs, nurses notes, lab test result(s). [facility] 05/03 15:24 Order name: Strep rv 05/03 15:24 Order name: Flu 05/03 16:29 Order name: Group A Streptococcus Rapid Sc; Complete Time: 16:36 EDMS 05/03 16:29 Order name: Influenza Screen (A ; Complete Time: 16:36 EDMS Administered Medications: 16:20 Drug: Zithromax 500 mg Route: PO; ca1 Disposition: 05/03/19 16:36 Discharged to Home. Impression: Acute upper respiratory infection, unspecified, Fever, unspecified, Influenza due to identified novel influenza A virus. - Condition is Fair. - Discharge Instructions: Fever, Adult, Influenza, Adult, Upper Respiratory Infection, Adult, Cool Mist Vaporizer, Upper Respiratory Infection, Adult, [id number], Influenza, Adult, [id number], Cough, Adult. - Prescriptions for Tamiflu 75 mg Oral Capsule - take 1 tablet by ORAL route every 12 hours for 5 days; 10 tablet. Zithromax 500 mg Oral Tablet - take 1 tablet by ORAL route once daily for 5 days; 5 tablet. Cheratussin AC 10- 100 mg/5 mL Oral liquid - take 10 milliliter by ORAL route every 6 hours; 160 milliliter. - Medication Reconciliation Form, Thank You Letter, Antibiotic Education, Prescription Opioid Use form. - Follow up: Private Physician; When: 2 - 3 days; Reason: Recheck today's complaints, Continuance of care, Re-evaluation by your physician. - Problem is new. - Symptoms have improved. Signatures: Dispatcher [employer] EDAbel Clay MD MD cha Williams, Irene, RN RN iw Robertoob, Bonita RN RN ca1 Corrections: (The following items were deleted from the chart) 17:15 16:36 05/03/2019 16:36 Discharged to Home. Impression: Acute upper respiratory iw infection, unspecified; Fever, unspecified; Influenza due to identified novel influenza A virus. Condition is Fair. Discharge Instructions: Fever, Adult, Upper Respiratory Infection, Adult, Cool Mist Vaporizer, Upper Respiratory Infection, Adult, [id number], Cough, Adult. Prescriptions for Tamiflu 75 mg Oral Capsule - take 1 tablet by ORAL route every 12 hours for 5 days; 10 tablet, Zithromax 500 mg Oral Tablet - take 1 tablet by ORAL route once daily for 5 days; 5 tablet, Cheratussin AC 10-100 mg/5 mL Oral liquid - take 10 milliliter by ORAL route every 6 hours; 160 milliliter. and Forms are Medication Reconciliation Form, Thank You Letter, Antibiotic Education, Prescription Opioid Use. Follow up: Private Physician; When: 2 - 3 days; Reason: Recheck today's complaints, Continuance of care, Re-evaluation by your physician. Problem is new. Symptoms have improved. genie
[2019-05-05 00:39] VITALS: BP 191/96; TEMP 98.3; O2SAT 96
== END 2019-05-03 17:15 | disposition home or self-care (01) ==
LOC: ER 14:43
DX: J10.1 Influenza due to other identified influenza virus with other respiratory manifestations (principal); R50.9 Fever, unspecified; I10 Essential (primary) hypertension; E11.9 Type 2 diabetes mellitus without complications; E78.5 Hyperlipidemia, unspecified; Z79.82 Long term (current) use of aspirin; Z79.4 Long term (current) use of insulin; Z88.8 Allergy status to other drugs, medicaments and biological substances; Z85.46 Personal history of malignant neoplasm of prostate
CPT/HCPCS: 87070; 87081; 87804; 99283

== ENCOUNTER 2019-07-19 21:47 | Emergency (ER) | payer OTHER, BC ==
--- OUTSIDE RECORDS SUMMARY | 2019-07-19 21:50 | XMS REPORT ---
:1950 Author Organization [facility] t Address [address] [place] [address] Dr. Gu [address] [place] [id number] Care Team Providers Name Role Phone Unavailable Unavailable Unavailable Problems This patient has no known problems. Allergies, Adverse Reactions, Alerts This patient has no known allergies or adverse reactions. Medications This patient has no known medications.
[2019-07-19] MEDS ORDERED: ACETAMINOPHEN 500 MG TAB ONE (23:26)
[2019-07-19] MEDS ORDERED: NA CHLORIDE 0.9% 1,000 ML ONE (23:46)
[2019-07-19 23:50] LABS: Absolute Lymphocytes (CBC) 0.9 K/uL (0.7-4.9); Basophils % 0.2 % (0-1.3); Hematocrit 40.8 % (39.6-49.0); Lymphocytes % 5.8 % (15.3-44.8); MPV 7.5 fL (7.6-11.3); RBC Red Blood Cell Count 4.58 M/uL (4.33-5.43)
[2019-07-19 23:54] LABS: Protime INR 1.08
[2019-07-20] MEDS ORDERED: CEFTRIAXONE/SWI 1gm 1 GM/10 ML SYR ONE (00:20)
[2019-07-20 00:24] LABS: Albumin 3.3 g/dL (3.4-5.0); Bilirubin Direct 0.1 mg/dL (0-0.2); Bilirubin Total 0.2 mg/dL (0.2-1.0); CKMB Creatine Kinase MB 1.3 ng/mL (0.3-3.6); Potassium 4.4 mmol/L (3.5-5.1); Protein, Total 7.6 g/dL (6.4-8.2)
[2019-07-20 01:05] LABS: Blood Morphology Comment NOT SEEN (NOT SEEN); Platelet Estimate ADEQ
[2019-07-20 01:20] LABS: Urine Blood TRACE (NEG); Urine Glucose NEGATIVE (NEG); Urine Protein 3+ (NEG); Urine Specific Gravity 1.025 (1.005-1.030); Urine pH 5.5 (5.0-7.0)
[2019-07-20 01:20] LABS: Urine Bacteria <20 /HPF (NONE SEEN); Urine RBC <5 /HPF (NONE SEEN)
[2019-07-20] MEDS ORDERED: NA CHLORIDE 0.9% 1,000 ML ONE (01:22)
[2019-07-20 01:27] LABS: Urine Culture Reflex Order NOT NEEDED
--- NOTE | 2019-07-20 01:54 | EDPHYS ---
Physician Documentation [facility] Name: Kulwinder Zurita Age: 69 yrs Sex: Male : 1950 Arrival Date: 07/19/2019 Time: 21:49 Bed 8 Private MD: ED Physician Abel Lancaster HPI: 07/18 22:31 This 69 yrs old Male presents to ER via Ambulatory with complaints of chills. pm1 22:31 The patient or guardian reports Chills. Onset: The symptoms/episode began/occurred 1.5 pm1 hour(s) ago. Severity of symptoms: in the emergency department the symptoms are unchanged, a " 0" out of "10". Modifying factors: The symptoms are alleviated by nothing, the symptoms are aggravated by nothing. Associated signs and symptoms: Pertinent positives: urinary frequency, Pertinent negatives: chest pain, diarrhea, nausea, sore throat, vomiting, cough, burning with urination. Historical: - Allergies: 22:28 Cortisone; jd3 - Home Meds: 22:28 terazosin 2 mg Oral cap 1 cap once daily [Active]; allopurinol 300 mg Oral tab 1 tab jd3 once daily [Active]; amlodipine 10 mg tab 1 tab once daily [Active]; finasteride 1 mg Oral tab 1 tab once daily [Active]; aspirin 81 mg Oral chew 1 tab once daily [Active]; lisinopril 40 mg Oral tab 1 tab BID [Active]; magnesium oxide 400 mg Oral cap [Active]; metformin 500 mg Oral tab 1 tab 2 times per day [Active]; pravastatin 40 mg Oral tab 1 tab once daily [Active]; Toujeo SoloStar 300 unit/mL (1.5 mL) subcutaneous inpn [Active]; Tresiba FlexTouch U-100 100 unit/mL (3 mL) subcutaneous inpn [Active]; - PMHx: 22:28 Hypertension; Hyperlipidemia; Prostate Cancer; Diabetes - IDDM; jd3 - PSHx: 22:28 Tonsillectomy; Vasectomy; jd3 - Immunization history:: Adult Immunizations up to date. - Social history:: Smoking status: Patient denies any tobacco usage or history of. ROS: 22:31 Eyes: Negative for injury, pain, redness, and discharge, ENT: Negative for injury, pm1 pain, and discharge, Neck: Negative for injury, pain, and swelling, Cardiovascular: Negative for chest pain, palpitations, and edema, Respiratory: Negative for shortness of breath, cough, wheezing, and pleuritic chest pain, Abdomen/GI: Negative for abdominal pain, nausea, vomiting, diarrhea, and constipation, Back: Negative for injury and pain. 22:31 MS/Extremity: Negative for injury and deformity, Skin: Negative for injury, rash, and discoloration, Neuro: Negative for headache, weakness, numbness, tingling, and seizure. 22:31 Constitutional: Positive for chills, Negative for body aches, fever, poor PO intake. 22:31 : Positive for urinary frequency, his baseline, Negative for flank pain, burning with urination. Exam: 22:31 Constitutional: This is a well developed, well nourished patient who is awake, alert, pm1 and in no acute distress. Head/Face: Normocephalic, atraumatic. Eyes: Pupils equal round and reactive to light, extra-ocular motions intact. Lids and lashes normal. Conjunctiva and sclera are non-icteric and not injected. Cornea within normal limits. Periorbital areas with no swelling, redness, or edema. ENT: Nares patent. No nasal discharge, no septal abnormalities noted. Tympanic membranes are normal and external auditory canals are clear. Oropharynx with no redness, swelling, or masses, exudates, or evidence of obstruction, uvula midline. Mucous membranes moist. Neck: Trachea midline, no thyromegaly or masses palpated, and no cervical lymphadenopathy. Supple, full range of motion without nuchal rigidity, or vertebral point tenderness. No Meningismus. Chest/axilla: Normal chest wall appearance and motion. Nontender with no deformity. No lesions are appreciated. 22:31 Abdomen/GI: Soft, non-tender, with normal bowel sounds. No distension or tympany. No guarding or rebound. No evidence of tenderness throughout. Back: No spinal tenderness. No costovertebral tenderness. Full range of motion. Skin: Warm, dry with normal turgor. Normal color with no rashes, no lesions, and no evidence of cellulitis. MS/ Extremity: Pulses equal, no cyanosis. Neurovascular intact. Full, normal range of motion. 22:31 Cardiovascular: Rate: tachycardic, Rhythm: regular, Pulses: no pulse deficits are appreciated, Edema: is not appreciated. 22:31 Respiratory: Exam negative for acute changes, chest pain, respiratory distress, shortness of breath, wheezing. 22:31 Neuro: Exam negative for acute changes, Orientation: is normal, Mentation: is normal, Motor: is normal, moves all fours, Sensation: is normal, no obvious gross deficits. Vital Signs: 22:23 BP 195 / 93; Pulse 107; Resp 20 S; Temp 102.5(A); Pulse Ox 95% on R/A; Weight 104.33 kg [facility] (R); Height 5 ft. 8 in. (172.72 cm) (R); Pain 0/10; 23:51 Pulse 110; Resp 20 S; Pulse Ox 96% on R/A; [facility] 07/19 00:27 BP 164 / 65; Pulse 108; Resp 19 S; Pulse Ox 98% on 2 lpm NC; [facility] 01:25 BP 154 / 57; Pulse 107; Resp 19 S; Temp 101.4(O); Pulse Ox 93% on 2 lpm NC; d3 02:40 BP 150 / 69; Pulse 105; Resp 19 S; Temp 100.4(O); Pulse Ox 96% on 2 lpm NC; [facility] 07/18 22:23 Body Mass Index 34.97 (104.33 kg, 172.72 cm) [facility] MDM: 07/18 22:06 Patient medically screened. [facility] 07/19 01:52 Data reviewed: vital signs. Data interpreted: Pulse oximetry: on room air is 95 %. pm1 Interpretation: normal. Counseling: I had a detailed discussion with the patient and/or guardian regarding: the historical points, exam findings, and any diagnostic results supporting the discharge/admit diagnosis, lab results, radiology results, the need for outpatient follow up, to return to the emergency department if symptoms worsen or persist or if there are any questions or concerns that arise at home. 02:14 ED course: Patient without any other complaints than chills. No pneumonia present on pm1 chest X-ray. Urine negative. Negative flu and strep. Patient swabbed for COVID. Informed patient on taking Tylenol. Possible benefit for treatment with azithromycin early during infection of COVID. Will discharge home with azithromycin . 07/18 22:29 Order name: Amylase, Serum pm1 07/18 22:29 Order name: Basic Metabolic Panel 07/18 22:29 Order name: Blood Culture Adult (2) pm07/18 22:29 Order name: CBC with Diff 07/18 22:29 Order name: Ckmb 07/18 22:29 Order name: CPK pm07/18 22:29 Order name: Lactate 07/18 22:29 Order name: LFT's pm07/18 22:29 Order name: Lipase 07/18 22:29 Order name: Procalcitonin 07/18 22:29 Order name: Protime (+inr) 07/18 22:29 Order name: Ptt, Activated; Complete Time: 00:10 pm07/18 22:29 Order name: Urine Microscopic Only; Complete Time: 01:43 pm07/18 22:29 Order name: COVID-19; Complete Time: 22:19 pm07/18 22:29 Order name: Flu; Complete Time: 00:10 pm07/18 22:29 Order name: Strep; Complete Time: 00:10 pm07/18 22:30 Order name: Amylase Level; Complete Time: 00:41 EDMS 07/18 22:30 Order name: Basic Metabolic Panel; Complete Time: 00:41 EDMS 07/18 22:30 Order name: Blood Culture ED07/18 22:30 Order name: CBC with Automated Diff; Complete Time: 01:07 ED07/18 22:30 Order name: CKMB Creatine Kinase MB; Complete Time: 00:41 ED07/18 22:30 Order name: Creatine Phosphokinase; Complete Time: 00:41 EDMS 07/18 22:30 Order name: Lactate; Complete Time: 00:41 EDMS 07/18 22:30 Order name: Liver (Hepatic) Function; Complete Time: 00:41 EDMS 07/18 22:30 Order name: Lipase; Complete Time: 00:41 EDMS 07/18 22:30 Order name: Procalcitonin; Complete Time: 00:41 EDMS 07/18 22:30 Order name: Protime (+INR); Complete Time: 00:10 EDMS 07/18 23:53 Order name: Manual Differential; Complete Time: 01:07 EDMS 07/19 00:13 Order name: Throat Culture EDMS 07/19 01:07 Order name: Urine Dipstick--Ancillary (enter results); Complete Time: 01:23 mt 07/18 22:29 Order name: Chest Single View XRAY; Complete Time: 22:19 pm1 07/18 22:29 Order name: Accucheck; Complete Time: 23:51 pm1 07/18 22:29 Order name: Cardiac monitoring; Complete Time: 23:50 pm1 07/18 22:29 Order name: EKG - Nurse/Tech; Complete Time: 23:50 pm1 07/18 22:29 Order name: IV Saline Lock - Large Bore; Complete Time: 23:51 pm1 07/18 22:29 Order name: Labs collected and sent; Complete Time: 23:51 pm1 07/18 22:29 Order name: O2 Per Protocol; Complete Time: 22:33 pm1 07/18 22:29 Order name: O2 Sat Monitoring; Complete Time: 22:33 pm1 07/18 22:29 Order name: Urine Dipstick-Ancillary (obtain specimen); Complete Time: 22:33 pm1 Administered Medications: 07/18 23:50 Drug: Tylenol 1000 mg Route: PO; [facility] 07/19 00:50 Follow up: Response: No adverse reaction [facility] 07/18 23:50 Drug: NS 0.9% 1000 ml Route: IV; Rate: 1000 ml; Site: right forearm; jd3 07/19 00:50 Follow up: Response: No adverse reaction; IV Status: Completed infusion; IV Intake: jd3 1000ml 00:26 Drug: Rocephin 1 grams Route: IV; Rate: calculated rate; Site: right forearm; jd3 00:30 Follow up: Response: No adverse reaction; IV Status: Completed infusion; IV Intake: [id number] 01:23 Drug: NS 0.9% 1000 ml Route: IV; Rate: 1000 ml; Site: right forearm; jd3 02:20 Follow up: Response: No adverse reaction; IV Status: Completed infusion; IV Intake: jd3 1000ml Disposition: 11:07 Co-signature as Attending Physician, Abel JENSEN I agree with the assessment and genie plan of care. Disposition: 07/20/19 01:54 Discharged to Home. Impression: Viral infection, unspecified. - Condition is Stable. - Discharge Instructions: Viral Respiratory Infection. - Prescriptions for Zithromax Z- Rory 250 mg Oral Tablet - take 1 tablet by ORAL route as directed for 5 days Day 1 - take two (2) tablets one time. Day 2, 3, 4 , 5 take one (1) tablet once daily.; 6 tablet. - Medication Reconciliation Form, Thank You Letter, Antibiotic Education, Prescription Opioid Use form. - Follow up: Emergency Department; When: As needed; Reason: Worsening of condition. Follow up: Private Physician; When: 2 - 3 days; Reason: Recheck today's complaints, Continuance of care, Re-evaluation by your physician. - Problem is new. - Symptoms have improved. Signatures: Dispatcher [employer] EDMS Abel Lancaster MD MD cha Marinas, Patrick PLATEN PRESS OPERATOR APPRENTICE PLATEN PRESS OPERATOR APPRENTICE pm1 Richardson Garcias RN RN jd3 Corrections: (The following items were deleted from the chart) 02:41 01:54 07/20/2019 01:54 Discharged to Home. Impression: Viral infection, unspecified. jd3 Condition is Stable. Forms are Medication Reconciliation Form, Thank You Letter, Antibiotic Education, Prescription Opioid Use. Follow up: Emergency Department; When: As needed; Reason: Worsening of condition. Follow up: Private Physician; When: 2 - 3 days; Reason: Recheck today's complaints, Continuance of care, Re-evaluation by your physician. Problem is new. Symptoms have improved. pm1
--- NOTE | 2019-07-20 01:54 | ER ---
Nurse's Notes [facility] Name: Kulwinder Zurita Age: 69 yrs Sex: Male : 1950 Arrival Date: 07/19/2019 Time: 21:49 Bed 8 Private MD: Diagnosis: Viral infection, unspecified Presentation: 07/18 22:24 Chief complaint: Patient states: "Here in the last hour and a half or so I just started jd3 getting really cold and can't stop shivering. I don't have a fever that I know of. no pain and I don't have a cough. I just keep shivering.". Coronavirus screen: Surgical mask placed on patient. Patient moved to private room, placed in contact and droplet isolation with eye protection until further assessment. Patient denies a cough. Patient denies shortness of breath or difficulty breathing. Patient reports a measured and/or subjective temperature greater than 100.4F. Patient denies travel on a cruise ship or to a country the [facility] currently lists as an affected area. Patient denies contact with known and/or suspected case of COVID-19. Ebola Screen: Patient negative for fever greater than or equal to 101.5 degrees Fahrenheit, and additional compatible Ebola Virus Disease symptoms. Initial Sepsis Screen: Does the patient meet any 2 criteria? Temp <36.0*C (96.8*F)) or > 38.3*C (100.9*F). HR > 90 bpm. Yes Does the patient have a suspected source of infection? No. Patient's initial sepsis screen is negative. Risk Assessment: Do you want to hurt yourself or someone else? Patient reports no desire to harm self or others. Onset of symptoms was July 19, 2019. 22:24 Method Of Arrival: Ambulatory jd3 22:24 Acuity: CHRISTINA 3 jd3 Historical: - Allergies: 22:28 Cortisone; jd3 - Home Meds: 22:28 terazosin 2 mg Oral cap 1 cap once daily [Active]; allopurinol 300 mg Oral tab 1 tab jd3 once daily [Active]; amlodipine 10 mg tab 1 tab once daily [Active]; finasteride 1 mg Oral tab 1 tab once daily [Active]; aspirin 81 mg Oral chew 1 tab once daily [Active]; lisinopril 40 mg Oral tab 1 tab BID [Active]; magnesium oxide 400 mg Oral cap [Active]; metformin 500 mg Oral tab 1 tab 2 times per day [Active]; pravastatin 40 mg Oral tab 1 tab once daily [Active]; Toujeo SoloStar 300 unit/mL (1.5 mL) subcutaneous inpn [Active]; Tresiba FlexTouch U-100 100 unit/mL (3 mL) subcutaneous inpn [Active]; - PMHx: 22:28 Hypertension; Hyperlipidemia; Prostate Cancer; Diabetes - IDDM; jd3 - PSHx: 22:28 Tonsillectomy; Vasectomy; jd3 - Immunization history:: Adult Immunizations up to date. - Social history:: Smoking status: Patient denies any tobacco usage or history of. Screenin:31 Abuse screen: Denies threats or abuse. Nutritional screening: No deficits noted. jd3 Tuberculosis screening: No symptoms or risk factors identified. Fall Risk Ambulatory Aid- None/Bed Rest/Nurse Assist (0 pts). Gait- Normal/Bed Rest/Wheelchair (0 pts) Mental Status- Oriented to own ability (0 pts). Total Canales Fall Scale indicates No Risk (0-24 pts). Assessment: 22:28 General: Appears in no apparent distress. comfortable, Behavior is calm, cooperative, jd3 appropriate for age, Reports chills for 0-12 hours. Pain: Denies pain. Neuro: Level of Consciousness is awake, alert, obeys commands, Oriented to person, place, time, situation. Cardiovascular: Denies chest pain, Capillary refill < 3 seconds Patient's skin is warm and dry. Respiratory: Airway is patent Respiratory effort is even, unlabored, Respiratory pattern is regular, symmetrical, Denies cough, shortness of breath. GI: No signs and/or symptoms were reported involving the gastrointestinal system. Patient currently denies constipation, diarrhea, nausea, vomiting. : No signs and/or symptoms were reported regarding the genitourinary system. EENT: No signs and/or symptoms were reported regarding the EENT system. Derm: Skin is intact, Skin is dry, Skin is normal, Skin temperature is warm. Musculoskeletal: Circulation, motion, and sensation intact. Range of motion: intact in all extremities. 23:51 Reassessment: No changes from previously documented assessment. Patient and/or family jd3 updated on plan of care and expected duration. Pain level reassessed. Patient is alert, oriented x 3, equal unlabored respirations, skin warm/dry/pink. phlebotomy at bedside drawing remainder of blood. 07/19 00:27 Reassessment: No changes from previously documented assessment. Patient and/or family jd3 updated on plan of care and expected duration. Pain level reassessed. Patient is alert, oriented x 3, equal unlabored respirations, skin warm/dry/pink. General: Reports chills for 0-12 hours. Pain: Denies pain. Cardiovascular: Denies chest pain. Respiratory: Denies cough, shortness of breath. GI: No signs and/or symptoms were reported involving the gastrointestinal system. 01:25 Reassessment: Patient and/or family updated on plan of care and expected duration. Pain jd3 level reassessed. Patient is alert, oriented x 3, equal unlabored respirations, skin warm/dry/pink. Patient denies pain at this time. Patient states feeling better. General: Denies chills. 02:40 Reassessment: Patient appears in no apparent distress at this time. Patient and/or jd3 family updated on plan of care and expected duration. Pain level reassessed. Patient is alert, oriented x 3, equal unlabored respirations, skin warm/dry/pink. Patient denies pain at this time. Patient states feeling better. Vital Signs: 07/18 22:23 BP 195 / 93; Pulse 107; Resp 20 S; Temp 102.5(A); Pulse Ox 95% on R/A; Weight 104.33 kg j (R); Height 5 ft. 8 in. (172.72 cm) (R); Pain 0/10; 23:51 Pulse 110; Resp 20 S; Pulse Ox 96% on R/A; jd3 07/19 00:27 BP 164 / 65; Pulse 108; Resp 19 S; Pulse Ox 98% on 2 lpm NC; jd3 01:25 BP 154 / 57; Pulse 107; Resp 19 S; Temp 101.4(O); Pulse Ox 93% on 2 lpm NC; jd3 02:40 BP 150 / 69; Pulse 105; Resp 19 S; Temp 100.4(O); Pulse Ox 96% on 2 lpm NC; jd3 07/18 22:23 Body Mass Index 34.97 (104.33 kg, 172.72 cm) jd3 ED Course: 07/18 21:49 Patient arrived in ED. fj1 22:00 Reginaldo Mix NP is PHCP. pm1 22:00 Abel Lancaster MD is Attending Physician. pm1 22:23 Richardson Garcias RN is Primary Nurse. jd3 22:24 Arm band placed on. jd3 22:27 Triage completed. jd3 22:31 Patient has correct armband on for positive identification. Bed in low position. Call jd3 light in reach. Side rails up X 1. child monitor on. Pulse ox on. NIBP on. 22:56 Chest Single View XRAY In Process Unspecified. EDMS 07/19 02:40 No provider procedures requiring assistance completed. IV discontinued, intact, jd3 bleeding controlled, No redness/swelling at site. Pressure dressing applied. Administered Medications: 07/18 23:50 Drug: Tylenol 1000 mg Route: PO; jd3 07/19 00:50 Follow up: Response: No adverse reaction jd3 07/18 23:50 Drug: NS 0.9% 1000 ml Route: IV; Rate: 1000 ml; Site: right forearm; jd3 07/19 00:50 Follow up: Response: No adverse reaction; IV Status: Completed infusion; IV Intake: jd3 1000ml 00:26 Drug: Rocephin 1 grams Route: IV; Rate: calculated rate; Site: right forearm; jd3 00:30 Follow up: Response: No adverse reaction; IV Status: Completed infusion; IV Intake: [id number] 01:23 Drug: NS 0.9% 1000 ml Route: IV; Rate: 1000 ml; Site: right forearm; jd3 02:20 Follow up: Response: No adverse reaction; IV Status: Completed infusion; IV Intake: jd3 1000ml Intake: 00:30 IV: 10ml; Total: 10ml. jd3 00:50 IV: 1000ml; Total: 1010ml. jd3 02:20 IV: 1000ml; Total: 2010ml. jd3 Outcome: 01:54 Discharge ordered by . pm1 02:41 Discharged to home via wheelchair. jd3 02:41 Condition: stable 02:41 Discharge instructions given to patient, Instructed on discharge instructions, follow up and referral plans. medication usage, Demonstrated understanding of instructions, follow-up care, medications, Prescriptions given X 1. 02:41 Patient left the ED. jd3 Addendum: 07/21/2019 18:35 Addendum: Other Pt notified of negative covid swab results, instructed to remain h b isolated until fever free for 3 days without medication and 7 days from s/s onset, and to return to ED if symptoms worsen. Pt verbalized understanding of instructions. Signatures: Dispatcher [employer] EDGA Rgeinaldo Mix, RADHA ENZYME CHEMIST pm1 Sobia Prasad RN RN Richardson Garcias RN RN jd3 James, Frank fj1 Corrections: (The following items were deleted from the chart) 07/18 23:59 23:51 Reassessment: No changes from previously documented assessment. Patient and/or jd3 family updated on plan of care and expected duration. Pain level reassessed. Patient is alert, oriented x 3, equal unlabored respirations, skin warm/dry/pink. jd3 07/19 00:27 07/18 22:28 General: Appears in no apparent distress. comfortable, Behavior is calm, jd3 cooperative, appropriate for age, jd3
[2019-07-20 02:53] VITALS: BP 150/69; TEMP 100.4; O2SAT 96
--- NOTE | 2019-07-20 08:16 | RAD REPORT ---
EXAM DESCRIPTION: RAD - Chest Single View - 07/19/2019 10:56 pm CLINICAL HISTORY: FEVER COMPARISON: Portable May 04, 2018 TECHNIQUE: AP portable chest image was obtained 07/19/2019 10:56 pm . FINDINGS: No peripheral mass or consolidation. Interstitial pattern is not clearly different from co mparison. Lung volume is slightly reduced which accentuates vasculature and lung markings. Large body habitus contribute to the exam limitations. Heart and vasculature are normal. No measurable pleural effusion and no pneumothorax. No acute bony abnormality seen. No acute aortic findings suspected. IMPRESSION: No focal mass or consolidation. Vasculature and lung markings are accentuated due to shallow inspiration. Minimal edema or infiltrate not entirely excluded. As warranted, follow-up two-view examination could be obtained if the patient remains symptomatic
--- NOTE | 2019-07-21 06:51 | EKG ---
Test Date: 2019-07-19 Test Time: 23:44:11 Coffee Host: STANLEY MEASUREMENT RESULTS: Intervals: Rate: 109 SD: 196 QRSD: 92 QT: 334 QTc: 449 [place]: P: 39 SD: 196 QRS: 35 T: 68 INTERPRETIVE STATEMENTS: Poor data quality, interpretation may be adversely affected Sinus tachycardia Nonspecific ST and T wave abnormality Abnormal ECG No previous ECG available for comparison Electronically Signed On 07-21-19 06:49:17 CDT by Be Rivera
== END 2019-07-20 02:41 | disposition home or self-care (01) ==
LOC: ER 21:47
DX: B34.9 Viral infection, unspecified (principal); Z20.828 Contact with and (suspected) exposure to other viral communicable diseases; I10 Essential (primary) hypertension; E78.5 Hyperlipidemia, unspecified; E11.9 Type 2 diabetes mellitus without complications; Z79.82 Long term (current) use of aspirin; Z79.4 Long term (current) use of insulin; Z85.46 Personal history of malignant neoplasm of prostate
CPT/HCPCS: 96361; 93005; 87040 ×2; 87070; 85025; 80048; 36415; 82150; 82550; 87205; 85610; 80076; 87081; 83605; 85730; 81003; 81015; 82553; 83690; 84145; 87804 ×2; 71045; 96374; 99284; U0001; J0696; J7030 ×2

== ENCOUNTER 2019-12-25 22:14 | Emergency (ER) | payer OTHER, BC ==
--- NOTE | 2019-12-26 01:29 | EDPHYS ---
Physician Documentation [facility] Name: Kulwinder Zurita Age: 69 yrs Sex: Male : 1950 Arrival Date: 12/25/2019 Time: 22:18 Bed 19 Private MD: ED Physician Amanuel Gonzalez HPI: 12/25 01:24 This 69 yrs old Male presents to ER via Ambulatory with complaints of High mh7 Blood Pressure. 01:24 The patient has elevated blood pressure and discovered this at home, with a home mh7 device. Onset: The symptoms/episode began/occurred yesterday. Modifying factors: The symptoms are aggravated by nothing, The symptoms are alleviated by prescription meds, clonidine. Associated signs and symptoms: Pertinent negatives: chest pain, dizziness, dyspnea, headache, lightheadedness, nausea, visual changes, vomiting, weakness. Severity of symptoms: At its worst the blood pressure was moderate, yesterday, in the emergency department the blood pressure is improved, markedly, 147 mm Hg. The patient has experienced similar episodes in the past, multiple times. Historical: - Allergies: 12/24 22:47 Cortisone; lp1 - Home Meds: 22:47 allopurinol 300 mg Oral tab 1 tab once daily [Active]; clonidine HCl 0.2 mg Oral tab 2 lp1 tabs [Active]; metoprolol tartrate 50 mg Oral tab 1 tab 2 times per day [Active]; hydroxychloroquine 200 mg oral tab 2 times per day [Active]; lisinopril 40 mg Oral tab 1 tab BID [Active]; terazosin 2 mg Oral cap 1 cap once daily [Active]; pravastatin 40 mg Oral tab 1 tab once daily [Active]; aspirin 81 mg Oral chew 1 tab once daily [Active]; magnesium oxide 400 mg Oral cap daily [Active]; Tresiba FlexTouch U-100 100 unit/mL (3 mL) subcutaneous inpn 50 unit daily [Active]; finasteride 5 mg oral tab once daily [Active]; - PMHx: 22:47 Diabetes - IDDM; Hyperlipidemia; Hypertension; Prostate Cancer; lp1 - PSHx: 22:47 Tonsillectomy; Vasectomy; lp1 - Immunization history:: Adult Immunizations up to date. - Social history:: Smoking status: Patient denies any tobacco usage or history of. ROS: 10/04 01:24 Constitutional: Negative for fever, chills, and weight loss, Eyes: Negative for injury, mh7 pain, redness, and discharge, ENT: Negative for injury, pain, and discharge, Neck: Negative for injury, pain, and swelling, Cardiovascular: Negative for chest pain, palpitations, and edema, Respiratory: Negative for shortness of breath, cough, wheezing, and pleuritic chest pain, Abdomen/GI: Negative for abdominal pain, nausea, vomiting, diarrhea, and constipation, Back: Negative for injury and pain, : Negative for injury, bleeding, discharge, and swelling, MS/Extremity: Negative for injury and deformity, Skin: Negative for injury, rash, and discoloration, Neuro: Negative for headache, weakness, numbness, tingling, and seizure, Psych: Negative for depression, anxiety, suicide ideation, homicidal ideation, and hallucinations, Allergy/Immunology: Negative for hives, rash, and allergies, Endocrine: Negative for neck swelling, polydipsia, polyuria, polyphagia, and marked weight changes, Hematologic/Lymphatic: Negative for swollen nodes, abnormal bleeding, and unusual bruising. Exam: 01:24 Constitutional: This is a well developed, well nourished patient who is awake, alert, mh7 and in no acute distress. Head/Face: Normocephalic, atraumatic. Eyes: Pupils equal round and reactive to light, extra-ocular motions intact. Lids and lashes normal. Conjunctiva and sclera are non-icteric and not injected. Cornea within normal limits. Periorbital areas with no swelling, redness, or edema. Neck: Trachea midline, no thyromegaly or masses palpated, and no cervical lymphadenopathy. Supple, full range of motion without nuchal rigidity, or vertebral point tenderness. No Meningismus. Chest/axilla: Normal chest wall appearance and motion. Nontender with no deformity. No lesions are appreciated. Cardiovascular: Regular rate and rhythm with a normal S1 and S2. No gallops, murmurs, or rubs. Normal PMI, no JVD. No pulse deficits. Respiratory: Lungs have equal breath sounds bilaterally, clear to auscultation and percussion. No rales, rhonchi or wheezes noted. No increased work of breathing, no retractions or nasal flaring. Abdomen/GI: Soft, non-tender, with normal bowel sounds. No distension or tympany. No guarding or rebound. No evidence of tenderness throughout. Back: No spinal tenderness. No costovertebral tenderness. Full range of motion. Skin: Warm, dry with normal turgor. Normal color with no rashes, no lesions, and no evidence of cellulitis. MS/ Extremity: Pulses equal, no cyanosis. Neurovascular intact. Full, normal range of motion. Neuro: Awake and alert, GCS 15, oriented to person, place, time, and situation. Cranial nerves II-XII grossly intact. Motor strength 5/5 in all extremities. Sensory grossly intact. Cerebellar exam normal. Normal gait. Psych: Awake, alert, with orientation to person, place and time. Behavior, mood, and affect are within normal limits. Vital Signs: 12/24 22:48 BP 143 / 56 RA; Pulse 61; Resp 18; Temp 97.6(TE); Pulse Ox 97% on R/A; Weight 154.22 kg lp1 (R); Height 5 ft. 8 in. (172.72 cm); Pain 0/10; 22:55 BP 158 / 72 LA; Pulse 60; lp1 12/25 01:00 BP 147 / 66; Pulse 59; Resp 17; Pulse Ox 96% on R/A; ll2 12/24 22:48 Body Mass Index 51.70 (154.22 kg, 172.72 cm) lp1 MDM: 01:24 Patient medically screened. mh7 01:24 Differential diagnosis: hypertensive crisis, Malignant HTN, Hypertension, Medication mh7 Noncompliance. Data reviewed: vital signs, nurses notes. Data interpreted: Pulse oximetry: on room air is 96 %. Interpretation: normal. Counseling: I had a detailed discussion with the patient and/or guardian regarding: the historical points, exam findings, and any diagnostic results supporting the discharge/admit diagnosis, the presence of at least one elevated blood pressure reading (>120/80) during this emergency department visit, the need for outpatient follow up, to return to the emergency department if symptoms worsen or persist or if there are any questions or concerns that arise at home. Response to treatment: the patient's symptoms have markedly improved after treatment. Administered Medications: No medications were administered Disposition: 12/26/19 01:29 Discharged to Home. Impression: Hypertension. - Condition is Stable. - Discharge Instructions: Hypertension, [id number]. - Medication Reconciliation Form, Thank You Letter, Antibiotic Education, Prescription Opioid Use form. - Follow up: Private Physician; When: 1 - 2 days; Reason: Worsening of condition, Recheck today's complaints, Continuance of care, Re-evaluation by your physician. - Problem is an ongoing problem. - Symptoms have improved. Signatures: Joanne Lloyd RN RN lp1 Mireya Garza RN RN ll2 Amanuel Gonzalez MD MD mh7 Corrections: (The following items were deleted from the chart) 01:33 01:29 12/26/2019 01:29 Discharged to Home. Impression: Hypertension. Condition is ll2 Stable. Forms are Medication Reconciliation Form, Thank You Letter, Antibiotic Education, Prescription Opioid Use. Follow up: Private Physician; When: 1 - 2 days; Reason: Worsening of condition, Recheck today's complaints, Continuance of care, Re-evaluation by your physician. Problem is an ongoing problem. Symptoms have improved. mh7
--- NOTE | 2019-12-26 01:29 | ER ---
Nurse's Notes [facility] Name: Kulwinder Zurita Age: 69 yrs Sex: Male : 1950 Arrival Date: 12/25/2019 Time: 22:18 Bed 19 Private MD: Diagnosis: Hypertension Presentation: 12/24 22:48 Chief complaint: Patient states: Went to arthritis doctor this week, BP was 200 lp1 systolic, recommended to go to ER for check up; Prescribed Clonidine; Patient took BP throughout today, elevated BP's; Denies chest pain, shortness of breath, headache, dizziness; "I feel fine". Coronavirus screen: Client denies travel out of the [place] in the last 14 days. At this time, the client does not indicate any symptoms associated with coronavirus-19. Ebola Screen: No symptoms or risks identified at this time. Initial Sepsis Screen: Does the patient meet any 2 criteria? No. Patient's initial sepsis screen is negative. Does the patient have a suspected source of infection? No. Patient's initial sepsis screen is negative. Risk Assessment: Do you want to hurt yourself or someone else? Patient reports no desire to harm self or others. Onset of symptoms was December 25, 2019. 22:48 Method Of Arrival: Ambulatory lp1 22:48 Acuity: CHRISTINA 3 lp1 Historical: - Allergies: 22:47 Cortisone; lp1 - Home Meds: 22:47 allopurinol 300 mg Oral tab 1 tab once daily [Active]; clonidine HCl 0.2 mg Oral tab 2 lp1 tabs [Active]; metoprolol tartrate 50 mg Oral tab 1 tab 2 times per day [Active]; hydroxychloroquine 200 mg oral tab 2 times per day [Active]; lisinopril 40 mg Oral tab 1 tab BID [Active]; terazosin 2 mg Oral cap 1 cap once daily [Active]; pravastatin 40 mg Oral tab 1 tab once daily [Active]; aspirin 81 mg Oral chew 1 tab once daily [Active]; magnesium oxide 400 mg Oral cap daily [Active]; Tresiba FlexTouch U-100 100 unit/mL (3 mL) subcutaneous inpn 50 unit daily [Active]; finasteride 5 mg oral tab once daily [Active]; - PMHx: 22:47 Diabetes - IDDM; Hyperlipidemia; Hypertension; Prostate Cancer; lp1 - PSHx: 22:47 Tonsillectomy; Vasectomy; lp1 - Immunization history:: Adult Immunizations up to date. - Social history:: Smoking status: Patient denies any tobacco usage or history of. Screenin/04 00:59 Abuse screen: Denies threats or abuse. Nutritional screening: No deficits noted. ll2 Tuberculosis screening: No symptoms or risk factors identified. Fall Risk None identified. Assessment: 00:58 Reassessment: see triage assessment. General: Appears in no apparent distress. Behavior ll2 is calm, cooperative, appropriate for age. Pain: Denies pain. Neuro: Level of Consciousness is awake, alert, obeys commands, Oriented to person, place, time, situation. Cardiovascular: Capillary refill < 3 seconds Patient's skin is warm and dry. Respiratory: Airway is patent Respiratory effort is even, unlabored, Respiratory pattern is regular, symmetrical. GI: No signs and/or symptoms were reported involving the gastrointestinal system. : No signs and/or symptoms were reported regarding the genitourinary system. EENT: No signs and/or symptoms were reported regarding the EENT system. Derm: Skin is intact, is healthy with good turgor, Skin is dry, Skin is pink, warm \\T\\ dry. Skin temperature is warm. Musculoskeletal: Circulation, motion, and sensation intact. Range of motion: intact in all extremities. 01:14 Reassessment: Pt reports he had labs drawn on at [facility], brought them in to [facility] the er, reviewed by CARMELA. 01:33 Reassessment: Patient and/or family updated on plan of care and expected duration. Pain ea level reassessed. Patient is alert, oriented x 3, equal unlabored respirations, skin warm/dry/pink. Discharge instruction given to patient,verbalized the understanding of instruction. Pt left ED ambulatory tolerating well. Vital Signs: 12/24 22:48 BP 143 / 56 RA; Pulse 61; Resp 18; Temp 97.6(TE); Pulse Ox 97% on R/A; Weight 154.22 kg lp1 (R); Height 5 ft. 8 in. (172.72 cm); Pain 0/10; 22:55 BP 158 / 72 LA; Pulse 60; lp1 12/25 01:00 BP 147 / 66; Pulse 59; Resp 17; Pulse Ox 96% on R/A; ll2 12/24 22:48 Body Mass Index 51.70 (154.22 kg, 172.72 cm) lp1 ED Course: 12/24 22:18 Patient arrived in ED. bp1 22:47 Arm band placed on. lp1 22:54 Triage completed. lp1 12/25 00:58 Mireya Garza, RN is Primary Nurse. ll2 01:00 Patient has correct armband on for positive identification. Bed in low position. Call ll2 light in reach. Side rails up X 1. warping machine operator on. Pulse ox on. NIBP on. Warm blanket given. Pillow given. 01:00 EKG done, by reliability technologist. 2 01:06 Amanuel Gonzalez MD is Attending Physician. [facility] 01:32 No provider procedures requiring assistance completed. Patient did not have IV access ea during this emergency room visit. Administered Medications: No medications were administered Outcome: 01:29 Discharge ordered by . [facility] 01:32 Discharged to home ambulatory. ea 01:32 Condition: stable 01:32 Discharge instructions given to patient, Instructed on discharge instructions, follow up and referral plans. Demonstrated understanding of instructions, follow-up care. 01:33 Patient left the ED. 2 Signatures: Joanne Lloyd RN NATALY 1 Blanka Wood RN RN ea [place], Lacie, RN NATALY 2 Chayo Benoit Maurice, MD MD [facility]
[2019-12-26 01:59] VITALS: TEMP 97.6
[2019-12-26 02:02] VITALS: BP 147/66; O2SAT 96
--- OUTSIDE RECORDS SUMMARY | 2019-12-29 23:39 | XMS REPORT | Continuity of Care Document ---
:1950 Author Organization [facility] t Address 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, Not In Primary Care Physician Unavailable Monroe JENSEN, Elmo Attending Clinician Krysta Prado MD Attending Clinician Radha JENSEN Attending Clinician Payers Payer Name Policy Type Policy Effective Date Expiration Date Sour ce Number MEDICAREMEDICARE PART [id number] 2014 Frankie harpreet Carl AND 00:00:00 Zoroastrianism [id number] 2014 [place], [place]BS [id number] 2019 [place] MEDICARE 9 00:00:00 Zoroastrianism [id number] -Present[facility] BCBSBCBS OUT OF [id number] 2019 [facility]:00:00 Met abril 2019-PPO Problems This patient has no known problems. Allergies, Adverse Reactions, Alerts Allergy Allergy Status Severity Reaction(s) Onset Inactive Treating Comm ents Source Name Type Date Date Clinician Marsha Cordova Active Unknown [place] ty to Reaction 09-27 [facility] adverse 00:00: st reaction 00 s to drug Social History Social Habit Start Date Stop Date Quantity Comments Source History SDOH [place] [facility] Alcohol Std Drinks History [facility] Meth odist Alcohol Binge Sex Assigned At [facility] ethodist Tobacco use and 2019-12-23 2019-12-23 Never used [facility] ethodist exposure 00:00:00 00:00:00 Alcohol intake 2019-12-23 2019-12-23 Lifetime [facility] thodist 00:00:00 00:00:00 non-drinker (finding) History SDOH 2019-12-23 2019-12-23 1 [facility] odist Alcohol Frequency 00:00:00 00:00:00 Smoking Status Start Date Stop Date Source Never smoker [place] [facility] t Medications Ordered Filled Start Stop Current Ordering Indication Dosage Frequency Signature Comments Components Source Medication Medication Date Date Medication? Clinician (SIG) Name Name clonIDINE 2019-03 2020- Yes .2mg Q.5D Take 1 [place] HCl 01-21 tablet [facility] (CATAPRES) 00:00: 23:59 (0.[address] 0.2 MG 00 :00 total) by tablet mouth 2 (two) times a day for 30 days. cholecalcif 2019- Yes 1{capsu Take 1 [place] oukem thompson, 09-27 le} capsule by [facility] vitamin D3, 10:14: mouth. st 1,250 mcg 54 (50,000 unit) capsule diclofenac 2019-0 Yes [place] (VOLTAREN) 7 [facility] 1 % gel 00:00: st 00 hydrOXYchlo 2019-0 Yes [place] roQUINE 09-22 [facility] (PLAQUENIL) 00:00: st 200 mg 00 tablet Tresiba 2019-0 Yes [place] U-100 6-17 [facility] Insulin 100 00:00: st unit/mL 00 solution terazosin 2019-0 Yes [place] (HYTRIN) 2 6-17 [facility] MG capsule 00:00: st 00 allopurinoL 2019-0 Yes TAKE 1 [place] (ZYLOPRIM) 518 TABLET BY Meth vladimir 300 MG 00:00: MOUTH st tablet 00 EVERY DAY lisinopriL 2019-0 Yes [place] (PRINIVIL) 5- [facility] 40 mg 00:00: st tablet 00 metoprolol 2019-0 Yes [place] tartrate 5- [facility] (LOPRESSOR) 00:00: st 50 mg 00 tablet pravastatin 2019-0 Yes [place] (PRAVACHOL) 5-01 [facility] 40 mg 00:00: st tablet 00 finasteride 2019-0 Yes [place] (PROSCAR) 5 4-17 [facility] mg tablet 00:00: st 00 Vital Signs Vital Name Observation Time Observation Value Comments Source Systolic blood 2019-12-23 16:15:00 138 mm[Hg] [place] Zoroastrianism pressure Diastolic blood 2019-12-23 16:15:00 69 mm[Hg] [place] Zoroastrianism pressure Heart rate 2019-12-23 16:15:00 62 /min Ryan Alfredo Respiratory rate 2019-12-23 16:15:00 18 /min [place] Alfredo Oxygen saturation in 2019-12-23 16:15:00 96 /min Ryan Alfredo Arterial blood by Pulse oximetry Body temperature 2019-12-23 14:30:00 37.11 Madeline Calderon Alfredo Body height 2019-12-23 14:28:00 172.7 cm Ryan Alfredo Procedures Procedure Date / Time Performing Clinician Source Performed HC COMPLETE BLD COUNT 2019-12-23 15:08:00 Tu, Jg Alfredo W/AUTO DIFF PROTHROMBIN TIME WITH INR 2019-12-23 15:08:00 Tu, Jg Alfredo PARTIAL THROMBOPLASTIN 2019-12-23 15:08:00 Tu, Jg Alfredo TIME (PTT) COMPREHENSIVE METABOLIC 2019-12-23 15:08:00 Tu, Jg Alfredo PANEL TROPONIN 2019-12-23 15:08:00 Tu, Jg Alfredo B NATRIURETIC PEPTIDE 2019-12-23 15:08:00 Tu, Jg Alfredo ESTIMATED GFR 2019-12-23 15:08:00 Tu, Jg Alfredo ECG 12-LEAD 2019-12-23 14:43:08 Tu, Jg Alfredo XR CHEST 1 VW PORTABLE 2019-12-23 14:43:00 Tu, Jg Alfredo LA ARTHROCENTESIS 2019-09-28 10:00:00 Sima Prado ethodist ASPIR&/INJ SMALL JT/BURSA W/O US XR HANDS 3 VW BILATERAL 2019-09-02 16:35:30 Leatha Garcia XR FOOT 3 VW BILATERAL 2019-09-02 16:35:00 Alim, Leatha [place] Zoroastrianism Plan of Care Planned Activity Planned Date Details Comments Source Future Scheduled 2019-10-23 INFLUENZA VACCINE [place] [facility] Test 00:00:00 [code = INFLUENZA VACCINE] Future Scheduled 2015 65+ PNEUMOCOCCAL [place] [facility] Test 00:00:00 VACCINE (1 of 1 - PPSV23) [code = 65+ PNEUMOCOCCAL VACCINE (1 of 1 - PPSV23)] Future Scheduled 2000-01-17 COLONOSCOPY SCREENING Ho harpreet Zoroastrianism Test 00:00:00 [code = COLONOSCOPY SCREENING] Future Scheduled 2000-01-17 SHINGLES VACCINES (#1) [place] [facility] Test 00:00:00 [code = SHINGLES VACCINES (#1)] Future Scheduled 1960-01-17 DIABETIC FOOT EXAM [place] [facility]astrianism Test 00:00:00 [code = DIABETIC FOOT EXAM] Future Scheduled 1950 DIABETIC RETINAL EYE Rachael stomanuela Zoroastrianism Test 00:00:00 EXAM [code = DIABETIC RETINAL EYE EXAM] Encounters Start End Encounter Admission Attending Care Care Encounter Source Date/Time Date/Time Type Type Clinicians Facility Department ID 2019-12-23 2019-12-23 Emergency TU, YEN-TE [facility] [id number] [place] 00:00:00 00:00:[address] 2019-09-28 2019-09-28 Outpatient PRADO, [facility] [id number] [place] 00:00:00 00:00:00 SIMA [address] 2019-09-02 2019-09-02 Outpatient ALI, [facility] [id number] 925 [place] 00:00:00 00:00:00 LEATHA [address] 2019-09-02 2019-09-02 Outpatient ALIM, [facility] [id number] 926 [place] 00:00:00 00:00:[address] LEATHA [address] Results Test Description Test Time Test Comments Results Result Comments Source ECG 12 lead 2019-12-24 22:33:13 Test Item Value Reference Range Interpretation Comme nts Ventricular rate (test code = 253) 62 Atrial rate (test code = 255) 300 QRSD interval (test code = 260) 108 QT interval (test code = 264) 454 QTC interval (test code = 265) 460 QRS axis 1 (test code = 268) 50 T wave axis (test code = 270) 60 EKG impression (test code = 273) ^^^ Poor data quality, interpretat ion may be adversely affected-Normal sinus rhythm-Abnormal ECG-No previous ECGs available- anuela (test code = PXN) Jg Childress MD - 12/23/2019 2:43 PM CDT Emergency Department Provider NoteLocation[facility]PARTMENTPatient ID: Tejas Sauceda is a 69 y.o. male.Arrival Date/Time: 12/23/2019 1425Chief Complaint Chief Complaint Patient presents with Hypertension pt was seen by PCP and was advised to come to ED due to HTN (213/98) pt reports taking prescribed lisinopril and metoprolol. Pt denies any OLMEDO,CP, SOB. Pt has no complaints at this time History of Present Illness Tejas Sauceda is a 69 y.o. male with a PMHx of HTN and DM. The pt presents to the ED with HTN. Patient was sent in by his PCP for a bp of 213/98, otherwise patient is currently asymptomatic and denies any other sxs otherwise. The patient is currently on lisinopril and metoprolol and appears to have been taking them as prescribed. The patient is currently asymptomatic and is only hypertensive. 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 blood pressures: 213/98Context: not medication change Associated symptoms: no blurred vision, no chest pain, no dizziness, no fever, no headaches, no nausea, no shortness of breath and not vomiting Risk factors: diabetes History AllergiesNo Known AllergiesPast Medical HistoryPast Medical History: Diagnosis Date Cancer (HCC) Diabetes mellitus (HCC) Hypertension Past Surgical HistoryPast Surgical History: Procedure Laterality Date TONSILLECTOMY VASECTOMY Past Family HistoryNo family history on file.Past Social HistorySocial History Tobacco Use Smoking status: Never Smoke r Smokeless tobacco: Never Used Substance and Sexual Activity Alcohol use: Never Freque ncy: Never Drug use: Never Sexual activity: Not on file Social History Narrative Not on file Medications ED Medications Medication Sig Disc. Start Date End Date Taking? Authorizing Provider clonIDINE HCl (CATAPRES) 0.2 MG tablet Take 1 tablet (0.2 mg total) by mouth 2 (two) times a day for 30 days. 12/23/19 01/22/20 Jg Childress MD Review of Systems Review of Systems Constitutional: Negative for chills and fever. HENT: Negative for sore throat. Eyes: Negative for blurred vision and blurred vision. Respiratory: Negative for shortness of breath. Cardiovascular: Negative for chest pain. Gastrointestinal: Negative for diarrhea, nausea and vomiting. Allergic/Immunologic: Negative for recurrent infections. Neurological: Negative for dizziness and headaches. All other systems reviewed and are negative. Physical Exam ED Triage Vitals [12/23/19 1430] Temp Pulse Resp BP SpO2 98.8 F 63 18 (!) 209/96 98 % Temp src Heart Rate Source Patient Position BP Location FiO2 % Oral Monitor Sitting Right arm -- Physical ExamVitals signs and nursing note reviewed. Constitutional: General: He is not in acute distress. Appearance: He is well-developed. He is obese. HENT: Head: Normocephalic and atraumatic. Eyes: Conjunctiva/sclera: Right eye: Right conjunctiva is not injected. Left eye: Left conjunctiva is not injected. Neck: Vascular: No JVD. Trachea: No tracheal deviation. Cardiovascular: Rate and Rhythm: Normal rate and regular rhythm. Pulmonary: Effort: No respiratory distress. Chest: Chest wall: No tenderness. Abdominal: General: Bowel sounds are normal. There is no distension. Palpations: Abdomen is soft. Tenderness: There is no abdominal tenderness. There is no guarding or rebound. Comments: No tympany. Skin: Findings: No rash. Neurological: Mental Status: He is alert and oriented to person, place, and time. Cranial Nerves: No cranial nerve deficit. Comments: Moving all extremities ED Course ED Course as of Dec 22 1706 Delphine Dec 23, 20191607 The patient's blood pressure has improved, will discharge the patient. [AR] 1638 Revaluated the patient, they were made aware of the results of the labs and scans. The patient was informed of their disposition as well as return precautions. [AR] ED Course User Index[AR] Trey Ybarra Clinical Impressions as of Dec 22 1706 Secondary hypertension MDM MDMNumber of Diagnoses or Management OptionsSecondary hypertension: new and requires workup Amount and/or Complexity of Data ReviewedClinical lab tests: reviewed and orderedTests in the radiology section of CPT: ordered and reviewedTests in the medicine section of CPT: ordered and reviewedReview and summarize past medical records: yesIndependent visualization of images, tracings, or specimens: yesRisk of Complications, Morbidity, and/or MortalityPresenting problems: highDiagnostic procedures: highManagement options: highPatient ProgressPatient progress: improvedLabsResults for orders placed or performed during the hospital encounter of 12/23/19 CBC with platelet and differential Result Value Ref Range WBC 6.47 4.50 - 11.00 k/uL RBC 4.48 4.40 - 6.00 m/uL HGB 12.9 (L) 14.0 - 18.0 g/dL HCT 40.3 (L) 41.0 - 51.0 % MCV 90.0 82.0 - 100.0 fL MCH 28.8 27.0 - 34.0 pg MCHC 32.0 31.0 - 37.0 g/dL RDW - SD 43.5 37.0 - 55.0 fL MPV 9.3 8.8 - 13.2 fL Platelet count 184 150 - 400 k/uL Nucleated RBC 0.00 /100 WBC Neutrophils 60.7 39.0 - 69.0 % Lymphocytes 24.7 (L) 25.0 - 45.0 % Monocytes 9.6 0.0 - 10.0 % Eosinophils 4.2 0.0 - 5.0 % Basophils 0.3 0.0 - 1.0 % Immature granulocytes 0.5 0.0 - 1.0 % Prothrombin time with INR Result Value Ref Range Prothrombin time 14.0 11.5 - 14.5 sec INR 1.1 Partial thromboplastin time, activated Result Value Ref Range PTT 30.4 23.0 - 36.0 sec Comprehensive metabolic panel Result Value Ref Range Sodium 144 135 - 148 mEq/L Potassium 4.4 3.5 - 5.0 mEq/L Chloride 105 98 - 112 mEq/L CO2 25 24 - 31 mEq/L Anion gap 14@ANIO 7 - 15 mEq/L BUN 32 (H) 8 - 23 mg/dL Creatinine 2.19 (H) 0.70 - 1.20 mg/dL Glucose 89 65 - 99 mg/dL Calcium 9.2 8.8 - 10.2 mg/dL Protein 7.0 6.3 - 8.3 g/dL Albumin 3.5 3.5 - 5.0 g/dL A/G ratio 1.0 0.7 - 3.8 Alkaline phosphatase 49 40 - 129 U/L AST 22 10 - 50 U/L ALT 32 5 - 50 U/L Total bilirubin <0.2 0.0 - 1.2 mg/dL Troponin Result Value Ref Range Troponin 0.012 0.000 - 0.040 ng/mL B natriuretic peptide Result Value Ref Range BNP 162 (H) 0 - 100 pg/mL Estimated GFR Result Value Ref Range Estimated GFR 29 (A) mL/min/1.73 m2 ECG 12 lead Result Value Ref Range Ventricular rate 62 Atrial rate 300 QRSD interval 108 QT interval 454 QTC interval 460 QRS axis 1 50 T wave axis 60 EKG impression Junctional rhythm-T wave abnormality, consider lateral ischemia-Prolonged QT-Abnormal ECG-No previous ECGs available RadiologyXr Chest 1 Vw PortableResult Date: 12/23/2019Narrative: EXAMINATION: XR CHEST 1 VW PORTABLE CLINICAL HISTORY: chest pain COMPARISON: None. IMPRESSION: 1.Lungs are clear. 2.No evidence of pleural effusion. 3.Mediastinal contours and cardiac silhouette are unremarkable. 4.No acute osseous abnormality. [id number] ProceduresECG 12 leadDate/Time: 12/23/2019 2:43 PMPerformed by: Jg Childress MDAuthorized by: Jg Childress MD ECG reviewed by ED Physician in the absence of a focus puller: yes Interpretation: Interpretation: abnormal Quality: Tracing quality: Limited by artifact (movement)Rate: ECG rate: 62 ECG rate assessment: normal Rhythm: Rhythm: sinus rhythm Ectopy: Ectopy: none Conduction: Conduction: normal ST segments: ST segments: NormalT waves: T waves: normal Differential Diagnoses This patient has a differential diagnosis that includes but is not limited to: hypertensive urgency, hypertensive emergency, essential hypertension, noncompliance, uncontrolled HTN.Final Diagnoses Final diagnoses: Secondary hypertension Disposition This patient has a disposition of Discharge.Pt feeling better and declining further medical evaluation and treatment. Pt wishes to go home and will return if condition worsens. Will comply with pt s request. Follow up with outpatient and return to ED if problem worsens. Labs ordered, reviewed, and interpreted by me.ED Attestations Scribe Attestation: This document is recorded by Sabrina Ward and Trey Ybarra acting as a scribe under the direction and presence of Jg Childress MD.Provider attestation of scribe: Jg Childress MD: I personally performed the services recorded by the scribe in my presence. I confirm the scribe's documentation has been reviewed by me to accurately record my work, treatment, procedures, and medical decision making.Sabrina Ward12/23/19 1645 Trey Ybarra12/23/19 1707 Jg Childress MD12/25/19 0940 Lab Interpretation (test code = Abnormal 32829-3) Ryan [id number] 15:56:58 Test Item Value Reference Range Interpretation Comments Troponin (test code 0.012 ng/mL 0-0.04 In patie nts suspected = 21830-8) of having a raymond cardial infarction, navjot perkins with all other appro priate clinical measur es and actions includi ng ECG and other diagn ostics as appropriate, measure Ultra TnI at 0 hrs and at 3 hrs.Myocar dial infarction VERY LIKELYThe 0 hr TnI level is > 0.10 ng/mL -------- -------- -------- --------Myocard ial infarction LIKE LYThe 0 hr TnI level is > 0.04 ng/mL and 3 hr level is increased or de creased by at least 0.0 20 ng/mL -------- -------- -------- ---Myocardial infarction VERY UNLIKELYBoth th e 0 hr and 3 hr TnI le vels <= 0.04 ng/mL(with in normal limits) OR 0 hr is > 0.04 ng/mL and 3 hr is increased OR decreased by le ss than 0.020 ng/mL [facility] MethodistB natriuretic [id number] 15:56:44 Test Item Value Reference Range Interpretation Comments BNP (test code = 05127-7) 162 pg/mL 0-100 H Lab Interpretation (test code = Abnormal 48613-4) Ryan AlfredoComprehensive metabolic [id number] 15:55:03 Test Item Value Reference Range Interpretation Comments Sodium (test code = 144 135- 148 mEq/L 2951-2) Potassium (test code = 4.4 3.5- 5.0 mEq/L 2823-3) Chloride (test code = 105 98- 112 mEq/L 2074-0) CO2 (test code = 2027-9) 25 24- 31 mEq/L Anion gap (test code = 14@ANIO 7- 15 mEq/L 49964-5) BUN (test code = 3094-0) 32 mg/dL 8-23 H Creatinine (test code = 2.19 mg/dL 0.7-1.2 H 2160-0) Glucose (test code = 89 mg/dL 65-99 5-7) Calcium (test code = 9.2 mg/dL 8.8-10.2 20840-7) Protein (test code = 7.0 g/dL 6.3-8.3 -[place] n 2885-2) 4.6-7.0 g/dL1 week 4.4-7 .6 g/dL7 months-1y ear 5.1-7 .3 g/dL1-2 years 5.6-7 .5 g/dL>3 years 6.0-8 .0 g/nF09-755 6.3-8 .3 g/dL Albumin (test code = 3.5 g/dL 3.5-5 1750-7) A/G ratio (test code = 1.0 0.7-3.8 1759-0) Alkaline phosphatase 49 U/L 40-129 (test code = 6768-6) AST (test code = 1920-8) 22 U/L 10-50 ALT (test code = 1742-6) 32 U/L 5-50 Total bilirubin (test <0.2 0-1.2 code = 1975-2) Lab Interpretation (test Abnormal code = 87478-4) Ryan MethodistEstimated [id number] 15:55:03 Test Item Value Reference Range Interpretation Comments Estimated GFR (test 29 mL/min/1.73 m2 Siddhartha douglas Units code = 5488) InterpretationG 1 >=90 Harper l or highG2 60-89 Mildly decrease dG3a 45-59 Mil dly to moderately decr ixlhrX3b 30-44 Moderately to s everely decreasedG4 15-29 Severe ly decreasedG5 <15 Kidney garret lureThe eGFR was calcul ated using the [facility] Kidney Disease Epidemiology Collaboration ( CKD-EPI) equation. Interpretation is based on recommendati ons of the National [facility]-Kidn ey Disease Outcome s Quality Initiat emily (NKF-KDOQI) pub lished in 2013. Lab Interpretation Abnormal (test code = 28695-0) Ryan MethodistPartial thromboplastin time, [id number] 15:46:18 Test Item Value Reference Range Interpretation Comments PTT (test code = 30.4 23.0- 36.0 [place] [address]-8) unfractionated heparin is61.0-112.0 se conds which corresponds to Anti-Xa0.3-0.7 U/ml. Ryan MethodistProthrombin time with [id number] 15:45:41 Test Item Value Reference Range Interpretation Comments Prothrombin time (test 14.0 11.5- 14.5 sec code = 5902-2) INR (test code = 1.1 The Interna tional 36543-1) Normalized Rati o (INR) is a therapeutic m onitoring tool for patien ts who are stable on oral anticoagulant t herapy. An INR of 2.0-3.0 is suggested for d eep vein thrombosis/pulm onary embolism. Ryan MethodistCBC with platelet and [id number] 15:27:33 Test Item Value Reference Range Interpretation Comments WBC (test code = 28339-5) 6.47 4.50- 11.00 k/uL RBC (test code = 14100-6) 4.48 m/uL 4.4-6 HGB (test code = 718-7) 12.9 g/dL 14-18 L HCT (test code = 4544-3) 40.3 % 41-51 L MCV (test code = 787-2) 90.0 fL 82-100 MCH (test code = 785-6) 28.8 pg 27-34 MCHC (test code = 786-4) 32.0 g/dL 31-37 RDW - SD (test code = 43.5 fL 37-55 19783-2) MPV (test code = 49708-4) 9.3 fL 8.8-13.2 Platelet count (test code 184 150- 400 k/uL = 38605-1) Nucleated RBC (test code 0.00 /100 WBC = 43624-7) Neutrophils (test code = 60.7 % 39-69 23443-1) Lymphocytes (test code = 24.7 % 25-45 L 44812-3) Monocytes (test code = 9.6 % 0-10 14951-8) Eosinophils (test code = 4.2 % 0-5 66999-1) Basophils (test code = 0.3 % 0-1 40737-0) Immature granulocytes 0.5 % 0-1 "Immat ure (test code = 97117-0) granul ocytes" (promyelocytes, myelocytes, metamyelocytes) Lab Interpretation (test Abnormal code = 82632-7) [facility] MethodistXR Chest 1 [id number] 14:59:04Hm Interface, Radiology Results - 12/23/2019 3:02 PM CDTEXAMINATION: XR CHEST 1 VW PORTABLECLINICAL HISTORY: chest painCOMPARISON: None.IMPRESSION:1.Lungs are clear.2.No evidence of pleural effusion.3.Mediastinal contours and cardiac silhouette are unremarkable.4.No acute osseous abnormality.[id number] [facility] MethodistSmall Joint Arthrocentesis: index finger, L index [id number] 10:00:00Sima Prado MD 09/28/2019 10:37 AMSmall Joint Arthrocentesis: index finger, L index PIPConsent given by: patientSupporting DocumentationIndications: pain and joint swelling Procedure DetailsLocation: index finger - L index PIP Left side:Needle size: 25 GLeft index finger medications administered: 6 mg betamethasone acetate & sodium phosphate 6 mg/mL; 1 mL lidocaine 10 mg/mL (1 %)Patient tolerance: patient tolerated the procedure well with no immediate complicationsFort Worth MethodistXR Hands 3 Vw [id number] 21:41:10Hm Interface, Radiology Results 09/02/2019 9:44 PM CDTEXAMINATIONS: XR HANDS 3 VW BILATERALCLINICAL HISTORY: M25.50 Pain in unspecified joint, m25.50COMPARISON: None availableFINDINGS:1. Ra diographs of the right and left hand are submitted for interpretation.2. The bones are mildly demineralized.3. No acute fracture of the right hand. Severe right small finger proximal interphalangeal joint narrowing with suspected central erosions raising the possibility of an element of erosive and/or inflammatory arthropathy, clinical correlation recommended. Moderate to severe thumb carpometacarpaland mild triscaphe joint osteoarthritis. Multifocal moderate proximal and distal interphalangeal joint osteoarthritis.4. No acute fracture of the left hand. Severe index finger distal interphalangeal and thumb interphalangeal joint pace narrowing with suspected central erosions raising the possibilityof an element of erosive and/or inflammatory arthropathy, clinical correlation recommended. Moderateto severe thumb carpometacarpal and mild triscaphe joint osteoarthritis. Multifocal severe proximal and distal interphalangeal joint osteoarthritis.5. Multifocal periarticular soft tissue prominence.IMPRESSION: Findings suspicious for an inflammatory or erosive arthropathy. While erosive osteoarthritis is possible, other inflammatory (non rheumatoid) arthropathies may be entertained. Correlation withrheumatology serologies as indicatedNo acute fracture of either hand.[facility]-[id number] MethodistXR Foot 3 Vw [id number] 18:35:19Hm Interface, Radiology Results 09/02/2019 6:38 PM CDTEXAMINATIONS: XR FOOT 3 VW BILATERA LCLINICAL HISTORY: M25.50 Pain in unspecified joint, m25.50COMPARISON: None availableFINDINGS: 1. Radiographs of the left and right foot are submitted for interpretation.2. Approximately age and gender appropriate mineralization of the osseous structures. 3. No acute fracture of the left foot. Chronic subluxation at the right second toe distal interphalangeal joint. Mild midfoot osteoarthritis. No radiographically evident osseous erosion. Mild hallux metatarsophalangeal.4. No acute fracture of the right foot. Chronic subluxation at the right second toe distal interphalangeal joint. Moderate midfoot osteoarthritis. No radiographically evident osseous erosion. Mild hallux metatarsophalangeal and hallux interphalangeal joint osteoarthritis.5. No focal soft tissue abnormality. Heterotopic ossification at the Achilles insertions bilaterally.IMPRESSION:No radiographic evidence of acute inflammatory or erosive arthropathy.[facility]-[id number] Zoroastrianism
--- OUTSIDE RECORDS SUMMARY | 2019-12-29 23:39 | XMS REPORT | Clinical Summary ---
:1950 Author Organization [facility] Address [address] [place] [address] Care Team Providers Name Role Phone System, Not In KNOCK OUT HAND-C Primary Care Provider Unavailable Allergies Active Allergy Reactions Severity Noted Date Comments Cortisone Unknown Reaction 09/28/2019 Medications Medication Sig Dispensed Refills Start Date End Date Status allopurinoL (ZYLOPRIM) TAKE 1 TABLET 0 08/09/2019 Active 300 MG tablet BY MOUTH EVERY DAY cholecalciferol, vitamin Take 1 capsule 0 Active D3, 1,250 mcg (50,000 by mouth. unit) capsule diclofenac (VOLTAREN) 1 % 0 09/24/2019 Active gel finasteride (PROSCAR) 5 0 07/09/2019 Active mg tablet hydrOXYchloroQUINE 0 09/23/2019 Active (PLAQUENIL) 200 mg tablet Tresiba U-100 Insulin 100 0 09/08/2019 Active unit/mL solution lisinopriL (PRINIVIL) 40 0 07/23/2019 Active mg tablet metoprolol tartrate 0 07/23/2019 Active (LOPRESSOR) 50 mg tablet pravastatin (PRAVACHOL) 0 07/23/2019 Active 40 mg tablet terazosin (HYTRIN) 2 MG 0 09/08/2019 Active capsule clonIDINE HCl (CATAPRES) Take 1 tablet 60 tablet 0 12/23/2019 01/22/2020 Active 0.2 MG tablet (0.2 mg total) by mouth 2 (two) times a day for 30 days. Active Problems Not on file Encounters Date Type Specialty Care Team Description 12/23/2019 Emergency Emergency Medicine Jg Childress Secondary hypertension MD Elmo (Primary Dx) 09/28/2019 Office Visit Orthopedic Surgery Melo Prado of finger of left hand (Primary Dx); MD Krysta Pain of hand, u nspecified laterality 09/28/2019 Travel 09/22/2019 Travel 09/02/2019 Hospital Encounter Radiology Vashti Garcia, Pain in unspecified MD joint 09/02/2019 Hospital Encounter Radiology Lakshmi Garciaureen, Pain in unspecified MD joint 09/02/2019 Travel 09/02/2019 Transcribe Orders Access Vashti Garcia, Pain in unspecified MD joint (Primary Dx) after 12/28/2018 Surgical History Surgery Date Site/Laterality Comments VASECTOMY TONSILLECTOMY Medical History Medical History Date Comments Hypertension Diabetes mellitus (HCC) Cancer (HCC) Social History Tobacco Use Types Packs/Day Years Used Date Never Smoker Smokeless Tobacco: Never Used Alcohol Use Drinks/Week oz/Week Comments Never Alcohol Habits Answer Date Recorded How often do you have a drink containing alcohol? Never 12/23/2019 How many drinks containing alcohol do you have on a typical Not asked day when you are drinking? How often do you have six or more drinks on one occasion? No t asked Sex Assigned at Date Recorded Not on file Last Filed Vital Signs Vital Sign Reading Time Taken Comments Blood Pressure 138/69 12/23/2019 4:15 PM CDT Pulse 62 12/23/2019 4:15 PM CDT Temperature 37.1 C (98.8 F) 12/23/2019 2:30 PM CDT Respiratory Rate 18 12/23/2019 4:15 PM CDT Oxygen Saturation 96% 12/23/2019 4:15 PM CDT Inhaled Oxygen Concentration - - Weight - - Height 172.7 cm (5' 8") 12/23/2019 2:28 PM CDT Body Mass Index - - Plan of Treatment Health Maintenance Due Date Last Done Comments DIABETIC RETINAL EYE EXAM 1950 DIABETIC FOOT EXAM 01/17/1960 COLONOSCOPY SCREENING 01/17/2000 SHINGLES VACCINES (#1) 01/17/2000 65+ PNEUMOCOCCAL VACCINE (1 of 1 - PPSV23) 2015 INFLUENZA VACCINE 10/23/2019 Procedures Procedure Name Priority Date/Time Associated Comments Diagnosis ESTIMATED GFR Routine 12/23/2019 3:08 Results fo r this PM CDT procedure are i n the results section. B NATRIURETIC PEPTIDE Routine 12/23/2019 3:08 Re sults for this PM CDT procedure are i n the results section. TROPONIN Routine 12/23/2019 3:08 Results for this PM CDT procedure are i n the results section. COMPREHENSIVE METABOLIC Routine 12/23/2019 3:08 Results for this PANEL PM CDT procedure are i n the results section. PARTIAL THROMBOPLASTIN Routine 12/23/2019 3:08 R esults for this TIME (PTT) PM CDT procedure are i n the results section. PROTHROMBIN TIME WITH Routine 12/23/2019 3:08 Re sults for this INR PM CDT procedure are i n the results section. HC COMPLETE BLD COUNT Routine 12/23/2019 3:08 Re sults for this W/AUTO DIFF PM CDT procedure are i n the results section. ECG 12-LEAD STAT 12/23/2019 2:43 Results for this PM CDT procedure are i n the results section. XR CHEST 1 VW PORTABLE STAT 12/23/2019 2:43 R esults for this PM CDT procedure are i n the results section. KS ARTHROCENTESIS Routine 09/28/2019 10:00 Arthritis of finger Results for this ASPIR&/INJ SMALL AM CDT of left hand procedure a re in JT/BURSA W/O US the results section. XR HANDS 3 VW BILATERAL Routine 09/02/2019 4:35 Pain in unspe cified Results for this PM CDT joint procedure are i n the results section. XR FOOT 3 VW BILATERAL Routine 09/02/2019 4:35 Pain in unspec ified Results for this PM CDT joint procedure are i n the results section. after 12/28/2018 Results Estimated GFR (12/23/2019 3:08 PM CDT) Estimated GFR 29 (A) mL/min/1.73 [facility] Comment: m2 HOSPITAL Catergory Units Interpretation G1 >=90 Normal or high G2 60-89 Mildly decreased G3a 45-59 Mildly to moderately decreas ed G3b 30-44 Moderately to severely decre ased G4 15-29 Severely decreased G5 <15 Kidney failure The eGFR was calculated using the Chronic Kidney Disea se Epidemiology Collaboration (CKD-EPI) equation. Interpretation is based on recommendations of the National Kidney Foundation-Kidney Disease Outcomes Migule lity Initiative (NKF-KDOQI) published in 2014. Specimen Performing Organization Address City/State/ZIP Code Phon e Number [facility] DEPARTMENT OF PATHOLOGY AND [address] [place], [place] [address] [facility] [address] [place] [address] Troponin (12/23/2019 3:08 PM CDT) [facility] Troponin 0.012 0.000 - 0.040 [facility] Comment: ng/mL HOSPITAL In patients suspected of having a myocardial infarctio n, along with all other appropriate clinical measures and actions includ ing ECG and other diagnostics as appropriate, measure Ultra TnI at 0 hrs and at 3 hrs. Myocardial infarction VERY LIKELY The 0 hr TnI level is > 0.10 ng/mL Myocardial infarction LIKELY The 0 hr TnI level is > 0.04 ng/mL and 3 hr level is i ncreased or decreased by at least 0.020 ng/mL Myocardial infarction VERY UNLIKELY Both the 0 hr and 3 hr TnI levels <= 0.04 ng/mL(within normal limits) OR 0 hr is > 0.04 ng/mL and 3 hr is increased OR decreased by less than 0.020 ng/mL Specimen Blood Performing Organization Address City/State/[facility] Code Phon e Number [facility] DEPARTMENT OF PATHOLOGY AND [address] [place], [place] [address] [facility] [address] [place] [address] Partial thromboplastin time, activated (12/23/2019 3:08 PM CDT) [facility] PTT 30.4 23.0 - 36.0 [facility] Comment: [facility] HOSPITAL PTT therapeutic range for unfractionated heparin is 61.0-112.0 seconds which corresponds to Anti-Xa 0.3-0.7 U/ml. Specimen Blood Performing Organization Address City/[facility] Phon e Number [facility] DEPARTMENT OF PATHOLOGY AND [address], [place] [address] [facility] [address] [place] [address] Prothrombin time with INR (12/23/2019 3:08 PM CDT) Prothrombin time 14.0 11.5 - 14.5 [facility] INR 1.1 [facility] Comment: [facility] International Normalized Ratio (INR) is a [facility] HOSPITAL monitoring tool for patients who are stable on oral anticoagulant therapy. An INR of 2.0-3.0 is suggested for deep vein thrombosis/pulmonary embolism. Specimen Blood Performing Organization Address City/[facility] Phon e Number [facility] DEPARTMENT OF PATHOLOGY AND [address] [place] [address] [phone] [address] CBC with platelet and differential (12/23/2019 3:08 PM CDT) WBC 6.47 4.50 - 11.00 [facility] [place] RBC 4.48 4.40 - 6.00 [facility] HGB 12.9 (L) 14.0 - 18.0 [facility] HCT 40.3 (L) 41.0 - 51.0 % [facility] MCV 90.0 82.0 - 100.0 [facility] MCH 28.8 27.0 - 34.0 pg [facility] MCHC 32.0 31.0 - 37.0 [facility] RDW - SD 43.5 37.0 - 55.0 fL [facility] MPV 9.3 8.8 - 13.2 fL [facility] Platelet count 184 150 - 400 k/uL [facility] Nucleated RBC 0.00 /100 WBC [facility] Neutrophils 60.7 39.0 - 69.0 % [facility] Lymphocytes 24.7 (L) 25.0 - 45.0 % [facility] Monocytes 9.6 0.0 - 10.0 % [facility] Eosinophils 4.2 0.0 - 5.0 % [facility] Basophils 0.3 0.0 - 1.0 % [facility] Immature granulocytes 0.5Comment: 0.0 - 1.0 % [facility] "Immature HOSPITAL granulocytes" (promyelocytes , myelocytes, metamyelocytes ) Specimen Blood Performing Organization Address City/[facility] Phon e Number [facility] DEPARTMENT OF PATHOLOGY AND [address] [place] [phone] [facility] [address] [place] [address] B natriuretic peptide (12/23/2019 3:08 PM CDT) Pathologist Sig nature BNP 162 (H) 0 - 100 pg/mL [facility] Specimen Blood Performing Organization Address City/[facility] Phon e Number [facility] DEPARTMENT OF PATHOLOGY AND [address] [place] [phone] [facility] [address] [place] [phone] Comprehensive metabolic panel (12/23/2019 3:08 PM CDT) Sodium 144 135 - 148 [facility] mEq/L [facility] Potassium 4.4 3.5 - 5.0 [facility] mEq/L [facility] Chloride 105 98 - 112 [facility] mEq/L [facility] CO2 25 24 - 31 mEq/L [facility] Anion gap 14@ANIO 7 - 15 mEq/L [facility] BUN 32 (H) 8 - 23 mg/dL [facility] Creatinine 2.19 (H) 0.70 - 1.20 [facility] mg/dL [facility] Glucose 89 65 - 99 mg/dL [facility] Calcium 9.2 8.8 - 10.2 [facility] mg/dL [facility] Protein 7.0 6.3 - 8.3 [facility] Comment: g/dL HOSPITAL - 4.6-7.0 g/dL 1 week 4.4-7.6 g/dL 7 months-1year 5.1-7.3 g/dL 1-2 years 5.6-7.5 g/dL >3 years 6.0-8.0 g/dL 18-150 6.3-8.3 g/dL Albumin 3.5 3.5 - 5.0 [facility] g/dL [facility] A/G ratio 1.0 0.7 - 3.8 [facility] Alkaline phosphatase 49 40 - 129 U/L [facility] AST 22 10 - 50 U/L [facility] ALT 32 5 - 50 U/L [facility] Total bilirubin <0.2 0.0 - 1.2 [facility] mg/dL HOSPITAL Specimen Blood Performing Organization Address City/State/ZIP Code Phon e Number [facility] DEPARTMENT OF PATHOLOGY AND [address], [place] [address] [facility]IC[facility] [address] [place] [address] ECG 12 lead (12/23/2019 2:43 PM CDT) Pathologist Sig nature Ventricular rate 62 [facility] Atrial rate 300 [facility] QRSD interval 108 [facility] QT interval 454 [facility] QTC interval 460 [facility] QRS axis 1 50 [facility] T wave axis 60 [facility] EKG impression ^^^ Poor data quality, [facility] interpretation may be adversely affected-Normal sinus rhythm-Abnormal ECG-No previous ECGs available- Specimen Narrative Performed At This result has an attachment that is no t available. Procedure Note Jg Childress MD - 12/23/2019 2 :43 PM CDT Emergency Department Provider Note Location: [facility] DE[facility] Patient ID: Kulwinder Zurita is a 69 y.o. ma le. Arrival Date/Time: 12/23/2019 1425 Chief Complaint Chief Complaint Patient presents with Hypertension pt was seen by PCP and was adv ised to come to ED due to HTN (213/98) pt reports taking prescribed lisinopril and metoprolol. Pt denies any OLMEDO,CP, SOB. Pt has no complaints at this time History of Present Illness Kulwinder Zurita is a 69 y.o. male with a PM Hx of HTN and DM. The pt presents to the ED with HTN. Patient was sent in by his PCP for a bp of 213/98, otherwise patient is currently asymptomatic and denies any other sxs otherwise. The patient is currently on l isinopril and metoprolol and appears to have been taking them as prescribed. The patient is currently asymptomatic and is only hypertensive. 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 Past Social History Social History Tobacco Use Smoking status: Never Smoker Smokeless tobacco: Never Used Substance and Sexual Activity Alcohol use: Never Frequency: Never Drug use: Never Sexual activity: Not on file Social History Narrative Not on file Medications ED Medications Medication Sig Disc. Start Date End Date Taking? Authorizing Provider clonIDINE HCl (CATAPRES) 0.2 MG tablet T omkar 1 tablet (0.2 mg total) by mouth 2 (two) times a day for 30 days. 12/23/19 01/22/20 Jg Childress MD Review of Systems Review of Systems Constitutional: Negative for chills and fever. HENT: Negative for sore throat. Eyes: Negative for blurred vision and bl urred vision. Respiratory: Negative for shortness of b reath. Cardiovascular: Negative for chest pain. Gastrointestinal: Negative for diarrhea, nausea and vomiting. Allergic/Immunologic: Negative for recur rent infections. Neurological: Negative for dizziness and headaches. All other systems reviewed and are negat emily. Physical Exam ED Triage Vitals [12/23/19 1430] Temp Pulse Resp BP SpO2 98.8 F 63 18 (!) 209/96 98 % Temp src Heart Rate Source Patient Posit ion BP Location FiO2 % Oral Monitor Sitting Right arm -- Physical Exam Vitals signs and nursing note reviewed. Constitutional: General: He is not in acute distress. Appearance: He is well-developed. He is obese. HENT: Head: Normocephalic and atraumatic. Eyes: Conjunctiva/sclera: Right eye: Right conjunctiva is not i njected. Left eye: Left conjunctiva is not inj ected. Neck: Vascular: No JVD. Trachea: No tracheal deviation. Cardiovascular: Rate and Rhythm: Normal rate and regu lar rhythm. Pulmonary: Effort: No respiratory distress. Chest: Chest wall: No tenderness. Abdominal: General: Bowel sounds are normal. The re is no distension. Palpations: Abdomen is soft. Tenderness: There is no abdominal ten derness. There is no guarding or rebound. Comments: No tympany. Skin: Findings: No rash. Neurological: Mental Status: He is alert and orient ed to person, place, and time. Cranial Nerves: No cranial nerve defi cit. Comments: Moving all extremities ED Course ED Course as of Dec 22 1706 Delphine Dec 23, 2019 1608 The patient's blood pressure has im proved, will discharge the patient. [AR] 1638 Revaluated the patient, they were m mahin aware of the results of the labs and scans. The patient was informed of their disposition as well as return precautions. [AR] ED Course User Index [AR] Trey Ybarra Clinical Impressions as of Dec 22 1706 Secondary hypertension MDM MDM Number of Diagnoses or Management Option s Secondary hypertension: new and requires workup Amount and/or Complexity of Data Reviewe d Clinical lab tests: reviewed and ordered Tests in the radiology section of CPT: ordered and reviewed Tests in the medicine section of CPT: ordered and reviewed Review and summarize past medical record s: yes Independent visualization of images, tra cings, or specimens: yes Risk of Complications, Morbidity, and/or Mortality Presenting problems: high Diagnostic procedures: high Management options: high Patient Progress Patient progress: improved Labs Results for orders placed or performed d uring the hospital encounter of 12/23/19 CBC with [...] Junctional rhythm-T wave abnormality, consider lateral ischemia-Prolonged QT- Abnormal ECG-No previous ECGs available Radiology Xr Chest 1 Vw Portable Result Date: 12/23/2019 Narrative: EXAMINATION: XR CHEST 1 VW P ORTABLE CLINICAL HISTORY: chest pain COMPARISON: None. IMPRESSION: 1.Lungs are clear. 2.No evidence of pleural effusion. 3.Mediastinal contours and cardiac silhouette are unremarkable. 4.No acute osseous abnorma lity. [id number] Procedures ECG 12 lead Date/Time: 12/23/2019 2:43 PM Performed by: Jg Childress MD Authorized by: Jg Childress MD ECG reviewed by ED Physician in the abse nce of a licensed sales assistant: yes Interpretation: Interpretation: abnormal Quality: Tracing quality: Limited by artifact (movement) Rate: ECG rate: 62 ECG rate assessment: normal Rhythm: Rhythm: sinus rhythm Ectopy: Ectopy: none Conduction: Conduction: normal ST segments: ST segments: Normal T waves: T waves: normal Differential Diagnoses This patient has a differential diagnosi s that includes but is not limited to: hypertensive urgency, hypertensive emergency, essential hypertension, noncompliance, uncontrolled HTN. Final Diagnoses Final diagnoses: Secondary hypertension Disposition This patient has a disposition of Discha rge. Pt feeling better and declining further medical evaluation and treatment. Pt wishes to go home and will return if condition worsens. Will comply with pt s request. Follow up with outpatient and return to ED if problem worsens. Labs ordered, reviewed, and int erpreted by me. ED Attestations Scribe Attestation: This document is rec orded by Sabrina Ward and Trey Ybarra acting as a scribe under the direction and presence of Jg Childress MD. Provider attestation of scribe: Jg Childress MD: I personally performed the services recorded by the scribe in my presence. I confirm the scribe's documentation has been reviewed by me to accurately record my work, treatment, procedures, and medical decision making. Sabrina Ward 12/23/19 1645 Trey Ybarra 12/23/19 1707 Jg Childress MD 12/25/19 0900 Performing Organization Address City/State/ZIP Code Phon e Number [facility] [address] [place] [address] XR Chest 1 Vw Portable (12/23/2019 2:43 PM CDT) Specimen Narrative Performed At EXAMINATION: XR CHEST 1 VW PORTABLE RADIANT CLINICAL HISTORY: chest pain COMPARISON: None. IMPRESSION: 1.Lungs are clear. 2.No evidence of pleural effusion. 3.Mediastinal contours and cardiac silho uette are unremarkable. 4.No acute osseous abnormality. [id number] Procedure Note Hm Interface, Radiology Results Incoming - 12/23/2019 3:02 PM CDT EXAMINATION: XR CHEST 1 VW PORTABLE CLINICAL HISTORY: chest pain COMPARISON: None. IMPRESSION: 1.Lungs are clear. 2.No evidence of pleural effusion. 3.Mediastinal contours and cardiac silho uette are unremarkable. 4.No acute osseous abnormality. [id number] Performing Organization Address City/State/ZIP Code Phon e Number [facility] [address] [place] [address] Small Joint Arthrocentesis: index finger, L index PIP (09/28/2019 10:00 AM CDT) Narrative Performed At Melo Prado MD 09/28/2019 10:3 7 AM Small Joint Arthrocentesis: index finger , L index PIP Consent given by: patient Supporting Documentation Indications: pain and joint swelling Procedure Details Location: index finger - L index PIP Left side: Needle size: 25 G Left index finger medications administered: 6 mg betam ethasone acetate & sodium phosphate 6 mg/mL; 1 mL lidocaine 10 mg/mL (1 %) Patient tolerance: patient tolerated the procedure wel l with no immediate complications XR Hands 3 Vw Bilateral (09/02/2019 4:35 PM CDT) Specimen Narrative Performed At EXAMINATIONS: [facility] XR HANDS 3 VW BILATERAL CLINICAL HISTORY: M25.50 Pain in unspe cified joint, m25.50 COMPARISON: None available FINDINGS: 1. Radiographs of the right and left hand are submitte d for interpretation. 2. The bones are mildly demineralized. 3. No acute fracture of the right hand. Severe right s mall finger proximal interphalangeal joint narrowing with suspecte d central erosions raising the possibility of an element of erosive and/o r inflammatory arthropathy, clinical correlation recomm ended. Moderate to severe thumb carpometacarpal and mild tri scaphe joint osteoarthritis. Multifocal moderate proximal and dista l interphalangeal joint osteoarthritis. 4. No acute fracture of the left hand. Severe index fi nger distal interphalangeal and thumb interphalangeal joint pace n arrowing with suspected central erosions raising the possibility of an element of erosive and/or inflammatory arthropathy, clinical correlation recommended. Moderate to severe thumb carp ometacarpal and mild triscaphe joint osteoarthritis. Multifocal severe proximal and distal interphalangeal joint osteoarthri tis. 5. Multifocal periarticular soft tissue prominence. IMPRESSION: Findings suspicious for an inflammatory or erosive art hropathy. While erosive osteoarthritis is possible, other inflammatory (non rheumatoid) arthropathies may be entertained. Correlation with rhe umatology serologies as indicated No acute fracture of either hand. [id number] Procedure Note Hm Interface, Radiology Results Incoming - 09/02/2019 9:44 PM CDT EXAMINATIONS: XR HANDS 3 VW BILATERAL CLINICAL HISTORY: M25.50 Pain in unspec ified joint, m25.50 COMPARISON: None available FINDINGS: 1. Radiographs of the right and left gibbs d are submitted for interpretation. 2. The bones are mildly demineralized. 3. No acute fracture of the right hand. Severe right small finger proximal interphalangeal joint narrowing with suspected central erosions raising the possibility of an element of erosive and/or inflammatory arthropathy, clinical correlation recommended. Moderate to severe thumb carpometacarpa l and mild triscaphe joint osteoarthritis. Multifocal moderate proximal and distal interphalangeal joint osteoarthritis. 4. No acute fracture of the left hand. S evere index finger distal interphalangeal and thumb interphalangeal joint pace narrowing with suspected central erosions raising the possibility of an element of erosive and/or inflammatory arthropathy, clinical correlation recommended. Moderate to sev ere thumb carpometacarpal and mild triscaphe joint osteoarthritis. Multifocal severe proximal and distal interphalangeal joint osteoarthritis. 5. Multifocal periarticular soft tissue prominence. IMPRESSION: Findings suspicious for an inflammatory or erosive arthropathy. While erosive osteoarthritis is possible, other inflammatory (non rheumatoid) arthropathies may be entertained. Correlation with rheumatology serologies as indicated No acute fracture of either hand. [id number] Performing Organization Address City/State/ZIP Code Phon e Number [facility] [address] [place] [address] XR Foot 3 Vw Bilateral (09/02/2019 4:35 PM CDT) Specimen Narrative Performed At EXAMINATIONS: [facility] XR FOOT 3 VW BILATERAL CLINICAL HISTORY: M25.50 Pain in unspe cified joint, m25.50 COMPARISON: None available FINDINGS: 1. Radiographs of the left and right foot are submitte d for interpretation. 2. Approximately age and gender appropriate mineraliza tion of the osseous structures. 3. No acute fracture of the left foot. Chronic subluxa tion at the right second toe distal interphalangeal joint. Mild midfoot osteoarthritis. No radiographically evident osseous erosion. Mild hallux metatarsophalangeal. 4. No acute fracture of the right foot. Chronic sublux ation at the right second toe distal interphalangeal joint. Moderate midf oot osteoarthritis. No radiographically evident osseous er osion. Mild hallux metatarsophalangeal and hallux interphal angeal joint osteoarthritis. 5. No focal soft tissue abnormality. Heterotopic ossif ication at the Achilles insertions bilaterally. IMPRESSION: No radiographic evidence of acute inflam matory or erosive arthropathy. [facility]-[id number] Procedure Note Interface, Radiology Results Incoming - 09/02/2019 6:38 PM CDT EXAMINATIONS: XR FOOT 3 VW BILATERAL CLINICAL HISTORY: M25.50 Pain in unspec ified joint, m25.50 COMPARISON: None available FINDINGS: 1. Radiographs of the left and right neil t are submitted for interpretation. 2. Approximately age and gender appropri ate mineralization of the osseous structures. 3. No acute fracture of the left foot. C hronic subluxation at the right second toe distal interphalangeal joint. Mild midfoot osteoarthritis. No radiographically evident osseous erosion. Mild hallux metatarsophalangeal. 4. No acute fracture of the right foot. Chronic subluxation at the right second toe distal interphalangeal joint. Moderate midfoot osteoarthritis. No radiographically evident osseous erosion. Mild hallux metatarsophalangeal and hallux interphal angeal joint osteoarthritis. 5. No focal soft tissue abnormality. Het erotopic ossification at the Achilles insertions bilaterally. IMPRESSION: No radiographic evidence of acute inflam matory or erosive arthropathy. [facility]-[id number] Performing Organization Address City/State/ZIP Code Phon e Number [facility] [address] [place] [address] after 12/28/2018 Insurance Payer Benefit Plan / Subscriber ID Effective Phone Address T ype Group Dates MEDICARE MEDICARE PART A [id number] 2014-Pre [place], [place] Medicare AND B sent MEDICARE MEDICARE PART A [id number] 2014-Pre [place], [place] Medicare AND B sent BCBS COMMERCIAL BCBS MEDICARE [id number] 2019-Pres Commercial SUPPLEMENT ent BCBS BCBS OUT OF [id number] 2019-Pres P STATE ent Advance Directives For more information, please contact: [phone] Type Date Recorded Patient Pit Tanner Explanati on Advance Directives, Living Will and Medical Power of Customer Agent Advance Directives, Living Will 12/23/2019 3:13 PM and Medical Power of Customer Agent
== END 2019-12-26 01:33 | disposition home or self-care (01) ==
LOC: ER 22:14
DX: I10 Essential (primary) hypertension (principal); E11.9 Type 2 diabetes mellitus without complications; E78.5 Hyperlipidemia, unspecified; Z79.82 Long term (current) use of aspirin; Z79.4 Long term (current) use of insulin; Z85.46 Personal history of malignant neoplasm of prostate
CPT/HCPCS: 93005; 99284

== ENCOUNTER 2020-01-17 07:20 | Day surgery (SDC) | payer OTHER, BC ==
[2020-01-12 13:39] LABS: Potassium 4.3 mmol/L (3.5-5.1)
[2020-01-12 13:47] LABS: Absolute Lymphocytes (CBC) 1.7 K/uL (0.7-4.9); Basophils % 0.4 % (0-1.3); Hematocrit 38.4 % (39.6-49.0); Lymphocytes % 25.3 % (15.3-44.8); RBC Red Blood Cell Count 4.44 M/uL (4.33-5.43)
[2020-01-12 13:51] LABS: Protime INR 1.05
[~2020-01-17 07:20] MED LIST: HEPA 1000U/500MLS 1,000 UNIT/500 ML BAG IV ONE; LIDOCAINE 1% MPF 30 ML VIAL ONE
--- OUTSIDE RECORDS SUMMARY | 2020-01-17 07:23 | XMS REPORT | Clinical Summary ---
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 [place] ARTHROCENTESIS Routine 09/28/2019 10:00 Arthritis of finger [...] are i n the results section. after 2019 Results Estimated GFR (12/23/2019 3:08 PM CDT) Estimated GFR 29 (A) mL/min/1.73 [facility] Comment: m2 HOSPITAL Catergory Units Interpretation G1 >=90 Normal or high G2 60-89 Mildly decreased G3a 45-59 Mildly to moderately decreas ed G3b 30-44 Moderately to severely decre ased G4 15-29 Severely decreased G5 <15 Kidney failure The eGFR was calculated using the Chronic Kidney Disea se Epidemiology Collaboration (CKD-EPI) equation. Interpretation is based on recommendations of the National Kidney Foundation-Kidney Disease Outcomes Miguel lity Initiative (NKF-KDOQI) published in 2014. Specimen Performing Organization Address City/State/ZIP Code Phon e Number [facility] DEPARTMENT OF PATHOLOGY AND [address] [place], [place] [address] [facility] [address] [place] [id number] Troponin (12/23/2019 3:08 PM CDT) [facility] Troponin 0.012 0.000 - 0.040 [facility] Comment: ng/mL HOSPITAL In patients suspected [...] [place] Code Phon e Number [facility] DEPARTMENT OF PATHOLOGY AND [address] [place], [place] [address] [facility] [address] [place] [address] Partial thromboplastin time, activated (12/23/2019 3:08 PM CDT) [facility] PTT 30.4 23.0 - 36.0 [facility] Comment: [facility] HOSPITAL PTT therapeutic range for unfractionated heparin is 61.0-112.0 seconds which corresponds to Anti-Xa 0.3-0.7 U/ml. Specimen Blood Performing Organization Address City/[facility]/ZIP [facility] Phon e Number [facility] DEPARTMENT OF PATHOLOGY AND [address] [place] [address] [phone] [address] Prothrombin time with INR (12/23/2019 3:08 PM CDT) Pathologist [facility] Prothrombin time 14.0 11.5 - 14.5 [facility] INR 1.1 [place] Comment: [facility] International Normalized Ratio (INR) is a [facility] monitoring tool for patients who are stable on oral anticoagulant therapy. An INR of 2.0-3.0 is suggested for deep vein thrombosis/pulmonary embolism. Specimen Blood Performing Organization Address City/[facility] Phon e Number [facility] DEPARTMENT OF PATHOLOGY AND [address] [place] [address] [phone] [address] CBC with platelet and differential (12/23/2019 3:08 PM CDT) Pathologist [facility] WBC 6.47 4.50 - 11.00 [facility] RBC 4.48 4.40 - 6.[address] [facility] HGB 12.9 (L) 14.0 - 18.0 [facility] HCT 40.3 (L) 41.0 - 51.0 % [facility] MCV 90.0 82.0 - 100.0 [facility] MCH 28.8 27.0 - 34.0 pg [facility] MCHC 32.0 31.0 - 37.0 [facility] RDW - SD 43.5 37.0 - 55.0 fL [facility] MPV 9.3 8.8 - 13.2 fL [facility] Platelet count 184 150 - 400 k/uL [facility] Nucleated RBC 0.00 /100 WBC [facility] Neutrophils 60.7 39.0 - 69.0 % [facility] Lymphocytes 24.7 (L) 25.0 - 45.0 % [facility] Monocytes 9.6 0.0 - 10.0 % [facility] Eosinophils 4.2 0.0 - 5.0 % [facility] Basophils 0.3 0.0 - 1.0 % [facility] Immature granulocytes 0.5Comment: 0.0 - 1.0 % [facility] "Immature HOSPITAL granulocytes" (promyelocytes , myelocytes, metamyelocytes ) Specimen Blood Performing Organization Address City/[facility] Phon e Number [facility] DEPARTMENT OF PATHOLOGY AND [address] [place] [phone] [facility] [address] [place] [address] B natriuretic peptide (12/23/2019 3:08 PM CDT) Pathologist Sig nature BNP 162 (H) 0 - 100 pg/mL [facility] Specimen Blood Performing Organization Address City/[facility] Phon e Number [facility] DEPARTMENT OF PATHOLOGY AND [address] [place] [address] [phone] [address] Comprehensive metabolic panel (12/23/2019 3:08 PM CDT) Sodium 144 135 - 148 [facility] mEq/L [facility] Potassium 4.4 3.5 - 5.0 [facility] mEq/L [facility] Chloride 105 98 - 112 [facility] mEq/L [facility] CO2 25 24 - 31 mEq/L [facility] Anion gap 14@ANIO 7 - 15 mEq/L [facility] BUN 32 (H) 8 - 23 mg/dL [facility] Creatinine 2.19 (H) 0.70 - 1.20 [facility] mg/dL [facility] Glucose 89 65 - 99 mg/dL [facility] Calcium 9.2 8.8 - 10.2 [facility] mg/dL [facility] Protein 7.0 6.3 - 8.3 [facility] Comment: g/dL HOSPITAL - [place] 4.6-7.0 g/dL 1 week 4.4-7.6 g/dL 7 months-1year 5.1-7.3 g/dL 1-2 years 5.6-7.5 g/dL >3 years 6.0-8.0 g/dL 18-150 6.3-8.3 g/dL Albumin 3.5 3.5 - 5.0 [facility] g/dL [facility] A/G ratio 1.0 0.7 - 3.8 [facility] Alkaline phosphatase 49 40 - 129 U/L [facility] AST 22 10 - 50 U/L [facility] ALT 32 5 - 50 U/L [facility] Total bilirubin <0.2 0.0 - 1.2 [facility] mg/dL HOSPITAL Specimen Blood Performing Organization Address City/State/ZIP Code Phon e Number [facility] DEPARTMENT OF PATHOLOGY AND [address] [place], [place] [address] GENOMIC MEDICINE [facility] [address] [place] [address] ECG 12 lead (12/23/2019 2:43 PM CDT) Pathologist Sig nature Ventricular rate 62 [facility] Atrial rate 300 [facility] QRSD interval 108 [facility] QT interval 454 [facility] QTC interval 460 [facility] QRS axis 1 50 [facility] T wave axis 60 [facility] EKG impression ^^^ Poor data quality, [facility] MUSE interpretation may be adversely affected-Normal sinus rhythm-Abnormal ECG-No previous ECGs available- Specimen Narrative Performed At This result has an attachment that is no t available. Procedure Note Jg Childress MD - 12/23/2019 2 :43 PM CDT Emergency Department Provider Note Location: [facility] DEPARTMENT Patient ID: Kulwinder Zurita is a [...] provided by: Patient and medica l records science interpreter used: No Hypertension Severity: Severe Onset quality: Sudden Timing: Constant Progression: Worsening Chronicity: New Notable FILM LIBRARY CLERK blood pressures: 213/98 Context: not medication change [...] Results for orders placed or performed d nichelleing the hospital encounter of 12/23/19 CBC with [...] are unremarkable. 4.No acute osseous abnorma lity. [id number] Procedures ECG 12 lead Date/Time: 12/23/2019 2:43 PM Performed by: Jg Childress MD Authorized by: Jg Childress MD ECG reviewed by ED Physician in the abse nce of a mattress maker: yes Interpretation: Interpretation: abnormal Quality: Tracing quality: [...] medical decision making. Sabrina Ward 12/23/19 1645 rTey Ybarra 12/23/19 1707 Jg Childress MD 12/25/19 0972 Performing Organization Address City/State/ZIP Code [facility] e Number [facility] MUSE [address] [place] [address] XR Chest 1 Vw Portable (12/23/2019 2:43 PM CDT) Specimen Narrative Performed At EXAMINATION: XR CHEST 1 VW PORTABLE [facility] CLINICAL HISTORY: chest pain COMPARISON: None. IMPRESSION: 1.Lungs are clear. 2.No evidence of pleural effusion. 3.Mediastinal contours and cardiac silho uette are unremarkable. 4.No acute osseous abnormality. [id number] Procedure Note Hm Interface, Radiology Results Incoming - 12/23/2019 3:02 PM CDT EXAMINATION: XR CHEST 1 VW PORTABLE CLINICAL HISTORY: chest pain COMPARISON: None. IMPRESSION: 1.Lungs are clear. 2.No evidence of pleural effusion. 3.Mediastinal contours and cardiac silho uette are unremarkable. 4.No acute osseous abnormality. [id number] Performing Organization Address City/State/ZIP Code Phon e Number [facility] [address] [place] [address] Small Joint Arthrocentesis: index finger, L index [...] PM CDT) Specimen Narrative Performed At EXAMINATIONS: ANGELAANSHU XR HANDS 3 VW BILATERAL CLINICAL HISTORY: [...] indicated No acute fracture of either hand. [facility]-[id number] Procedure Note Hm Interface, Radiology Results Incoming [...] indicated No acute fracture of either hand. [facility]-[id number] Performing Organization Address City/State/ZIP Code Phon e Number [facility] [address] [place] [address] XR Foot 3 Vw Bilateral (09/02/2019 4:35 PM CDT) Specimen Narrative Performed At EXAMINATIONS: ANGELAANSHU XR FOOT 3 VW BILATERAL CLINICAL HISTORY: [...] of acute inflam matory or erosive arthropathy. [facility]-[id number] Procedure Note Interface, Radiology Results Incoming - [...] of acute inflam matory or erosive arthropathy. [facility]-[id number] Performing Organization Address City/State/ZIP Code Phon e Number [facility] [address] [place] [address] after 2019 Insurance Payer Benefit Plan / Subscriber ID Effective Phone Address T ype Group Dates MEDICARE MEDICARE PART A [id number] 2014-Pre [place], [place] Medicare AND B sent MEDICARE MEDICARE PART A [id number] 2014-Pre [place], [place] Medicare AND B sent BCBS COMMERCIAL BCBS MEDICARE [id number] 2019-Pres Commercial SUPPLEMENT ent BCBS BCBS OUT OF [id number] 2019-Pres P STATE ent Advance Directives For more information, please contact: [phone] Type Date Recorded Patient Quiller Runner Explanati on Advance Directives, Living Will and 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
--- OUTSIDE RECORDS SUMMARY | 2020-01-17 07:23 | XMS REPORT | Continuity of Care Document ---
:1950 Author Organization [facility] t Address 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, Not In Primary Care Physician Unavailable Monroe JENSEN, Elmo Attending Clinician Krysta Prado MD Attending Clinician Issa JENSEN Attending Clinician Payers Payer Name Policy Type Policy Effective Date Expiration Date Sour ce Number MEDICAREMEDICARE PART [id number] 2014 Frankie harpreet Carl AND 00:00:00 [employer] [id number] 2014 [place], [place] [id number] 2019 [place] MEDICARE 9 00:00:00 [employer] [id number] -PresentFormerly [facility] ercial BCBSBCBS OUT OF [id number] 2019 [facility] Met hodist 2019-PPO Problems This patient has no known problems. Allergies, Adverse Reactions, Alerts Allergy Allergy Status Severity Reaction(s) Onset Inactive Treating Comm ents Source Name Type Date Date Clinician Marsha Cordova Active Unknown [place] e ty to Reaction 09-27 [facility] adverse 00:00: st reaction 00 s to drug Social History Social Habit Start Date Stop Date Quantity Comments Source History SDOH [place] [facility] Alcohol Std Drinks History [facility] Meth odist Alcohol Binge Sex Assigned At [place] [facility] ethodist Tobacco use and 2019-12-23 2019-12-23 Never used [facility] ethodist exposure 00:00:00 00:00:00 Alcohol intake 2019-12-23 2019-12-23 Lifetime [facility] thodist 00:00:00 00:00:00 non-drinker (finding) History SDOH 2019-12-23 2019-12-23 1 [place] [facility] Alcohol Frequency 00:00:00 00:00:00 Smoking Status Start Date Stop Date Source Never smoker [place] [facility] t Medications Ordered Filled Start Stop Current Ordering Indication Dosage Frequency Signature Comments Components Source Medication Medication Date Date Medication? Clinician (SIG) Name Name clonIDINE 2019-03- Yes .2mg Q.5D Take 1 [place] HCl 01-21 tablet [facility] (CATAPRES) 00:00: 23:59 (0.[address] 0.2 MG 00 :00 total) by tablet mouth 2 (two) times a day for 30 days. cholecalcif 2019- Yes 1{capsu Take 1 H rianna thompson 09-27 le} capsule by [facility] vitamin D3, 10:14: mouth. st 1,250 mcg 54 (50,000 unit) capsule diclofenac Yes [place] (VOLTAREN) 09-23 [facility] 1 % gel 00:00: st 00 hydrOXYchlo Yes [place] roQUINE 09-22 [facility] (PLAQUENIL) 00:00: st 200 mg 00 tablet Tresiba 2019- Yes [place] U-100 6-17 [facility] Insulin 100 00:00: st unit/mL 00 solution terazosin Yes [place] (HYTRIN) 2 6-17 [facility] MG capsule 00:00: st 00 allopurinoL Yes TAKE 1 [place] (ZYLOPRIM) 08-08 TABLET BY Meth vladimir 300 MG 00:00: MOUTH st tablet 00 EVERY DAY lisinopriL 2019-0 Yes [place] (PRINIVIL) 07-22 [facility] 40 mg 00:00: st tablet 00 metoprolol 2019- Yes [place] tartrate 07-22 [facility] (LOPRESSOR) 00:00: st 50 mg 00 tablet pravastatin Yes [place] (PRAVACHOL) 07-22 [facility] 40 mg 00:00: st tablet 00 finasteride 2020-0 Yes [place] (PROSCAR) 5 4-17 [facility] mg tablet 00:00: st 00 Vital Signs Vital Name Observation Time Observation Value Comments Source Systolic blood 2019-12-23 16:15:00 138 mm[Hg] [place] [facility] pressure Diastolic blood 2019-12-23 16:15:00 69 mm[Hg] [place] [facility] pressure Heart rate 2019-12-23 16:15:00 62 /min [...] VW PORTABLE 2019-12-23 14:43:00 Tu, Jg Alfredo DE ARTHROCENTESIS 2019-09-28 10:00:00 Sima Prado ethodist ASPIR&/INJ SMALL JT/BURSA W/O US XR HANDS 3 VW BILATERAL 2019-09-02 16:35:30 Leatha Garcia XR FOOT 3 VW BILATERAL 2019-09-02 16:35:00 Leatha Garica on [facility] Plan of Care Planned Activity Planned Date Details Comments Source Future Scheduled 2019-10-23 INFLUENZA VACCINE [place] [facility] Test 00:00:00 [code = INFLUENZA VACCINE] Future Scheduled 2015 65+ PNEUMOCOCCAL [place] [facility] Test 00:00:00 VACCINE (1 of 1 - PPSV23) [code = 65+ PNEUMOCOCCAL VACCINE (1 of 1 - PPSV23)] Future Scheduled 2000-01-17 COLONOSCOPY SCREENING [place] [facility] Test 00:00:00 [code = COLONOSCOPY SCREENING] Future Scheduled 2000-01-17 SHINGLES VACCINES (#1) [place] [facility] Test 00:00:00 [code = SHINGLES VACCINES (#1)] Future Scheduled 1960-01-17 DIABETES: RETINAL EYE [place] [facility] Test 00:00:00 EXAM [code = DIABETES: RETINAL EYE EXAM] Future Scheduled 1960-01-17 DIABETIC FOOT EXAM [place] on [facility] Test 00:00:00 [code = DIABETIC FOOT EXAM] Encounters Start End Encounter Admission Attending Care Care Encounter Source Date/Time Date/Time Type Type Clinicians Facility Department ID 2019-12-23 2019-12-23 Emergency TU, YEN-TE [facility] [id number] [place] 00:00:00 00:00:[address] 2019-09-28 2019-09-28 Outpatient PRADO [facility] [id number] [place] 00:00:00 00:00:00 SIMA [address] 2019-09-02 2019-09-02 Outpatient ISSA [facility] [id number] [place] 00:00:00 00:00:00 LEATHA [address] 2019-09-02 2019-09-02 Outpatient ISSA, [facility] [id number] [place] 00:00:00 00:00:00 LEATHA [address] [...] affected-Normal sinus rhythm-Abnormal ECG-No previous ECGs available- (test code = PXN) Jg Childress MD - 12/23/2019 2:43 PM CDT Emergency Department Provider NoteLocation: [facility]ENCY DEPARTMENTPatient ID: Tejas Sauceda is a [...] History provided by: Patient and medical recordsLanguage american sign language interpreter used: No HypertensionSeverity: SevereOnset quality: SuddenTiming: ConstantProgression: WorseningChronicity: NewNotable ON SITE SERVICES SPECIALIST blood pressures: 213/98Context: not medication change Associated [...] Course ED Course as of Dec 22 1707 Delphine Dec 23, 2019 1608 The patient's blood pressure has improved, will [...] silhouette are unremarkable. 4.No acute osseous abnormality. [id number] ProceduresECG 12 leadDate/Time: 12/23/2019 2:43 PMPerformed by: Jg Childress MDAuthorized by: Jg Childress MD ECG reviewed by ED Physician in the absence of a seafood manager: yes Interpretation: Interpretation: abnormal Quality: Tracing quality: [...] 1645 Trey Ybarra12/23/19 1707 Jg Childress MD12/25/19 0942 Lab Interpretation (test code = Abnormal 55156-7) [place] PtapjegdtIoqjrcle5446-28-70 15:56:58 Test Item Value Reference Range Interpretation Comments Troponin (test code 0.012 ng/mL 0-0.04 In patie nts suspected = 12717-4) of having a raymond cardial infarction, navjot [...] by le ss than 0.020 ng/mL Ryan AlfredoB natriuretic [id number] 15:56:44 Test Item Value Reference Range Interpretation Comments BNP (test code = 26818-1) 162 pg/mL 0-100 H Lab Interpretation (test code = Abnormal 48528-7) [place] ScientologyComprehensive metabolic [id number] 15:55:03 Test Item Value Reference Range Interpretation Comments Sodium (test code = 144 135- 148 mEq/L 2951-2) Potassium (test code = 4.4 3.5- 5.0 mEq/L 2823-3) Chloride (test code = 105 98- 112 mEq/L 5-0) CO2 (test code = 2027-9) 25 24- 31 mEq/L Anion gap (test code = 14@ANIO 7- 15 mEq/L 85039-6) BUN (test code = 3094-0) 32 mg/dL 8-23 H Creatinine (test code = 2.19 mg/dL 0.7-1.2 H 2160-0) Glucose (test code = 89 mg/dL 65-99 5-7) Calcium (test code = 9.2 mg/dL 8.8-10.2 14813-4) Protein (test code = 7.0 g/dL 6.3-8.3 -[place] n 2885-2) 4.6-7.0 g/dL1 week 4.4-7 .6 g/dL7 months-1y ear 5.1-7 .3 g/dL1-2 years 5.6-7 .5 g/dL>3 years 6.0-8 .0 g/cB65-413 6.3-8 .3 g/dL Albumin (test code = 3.5 g/dL 3.5-5 1750-7) A/G ratio (test code = 1.0 0.7-3.8 1759-0) Alkaline phosphatase 49 U/L 40-129 (test code = 6768-6) AST (test code = 1920-8) 22 U/L 10-50 ALT (test code = 1742-6) 32 U/L 5-50 Total bilirubin (test <0.2 0-1.2 code = 1975-2) Lab Interpretation (test Abnormal code = 89193-1) [facility] MethodistEstimated [id number] 15:55:03 Test Item Value Reference Range Interpretation Comments Estimated GFR (test 29 mL/min/1.73 m2 Siddhartha douglas Units code = 5488) InterpretationG 1 >=90 Harper l or highG2 60-89 Mildly decrease dG3a 45-59 Mil dly to moderately decr hlcvwO4a 30-44 Moderately to s everely decreasedG4 15-29 Severe ly decreasedG5 <15 Kidney garret lureThe eGFR was calcul ated using the Chron Kidney Disease Epidemiology Collaboration ( CKD-EPI) equation. Interpretation is based on recommendati ons of the [facility]-Kidn ey Disease Outcome s Quality Initiat emily (NKF-KDOQI) pub lished in 2013. Lab Interpretation Abnormal (test code = 37051-6) [facility] MethodistPartial thromboplastin time, [id number] 15:46:18 Test Item Value Reference Range Interpretation Comments PTT (test code = 30.4 23.0- 36.0 [place] [address]-3) unfractionated heparin is61.0-112.0 se conds which corresponds to Anti-Xa0.3-0.7 U/ml. [facility] MethodistProthrombin time with [id number] 15:45:41 Test Item Value Reference Range Interpretation Comments Prothrombin time (test 14.0 11.5- 14.5 sec code = 5902-2) INR (test code = 1.1 The Interna tional 33630-7) Normalized Rati o (INR) is a therapeutic m onitoring tool for patien ts who are stable on oral anticoagulant t herapy. An INR of 2.0-3.0 is suggested for d eep vein thrombosis/pulm onary embolism. [facility] MethodistCBC with platelet and [id number] 15:27:33 Test Item Value Reference Range Interpretation Comments WBC (test code = 24615-0) 6.47 4.50- 11.00 k/uL RBC (test code = 87538-3) 4.48 m/uL 4.4-6 HGB (test code = 718-7) 12.9 g/dL 14-18 L HCT (test code = 4544-3) 40.3 % 41-51 L MCV (test code = 787-2) 90.0 fL 82-100 MCH (test code = 785-6) 28.8 pg 27-34 MCHC (test code = 786-4) 32.0 g/dL 31-37 RDW - SD (test code = 43.5 fL 37-55 57177-2) MPV (test code = 96020-3) 9.3 fL 8.8-13.2 Platelet count (test code 184 150- 400 k/uL = 25962-4) Nucleated RBC (test code 0.00 /100 WBC = 06426-0) Neutrophils (test code = 60.7 % 39-69 63943-0) Lymphocytes (test code = 24.7 % 25-45 L 84069-2) Monocytes (test code = 9.6 % 0-10 21271-8) Eosinophils (test code = 4.2 % 0-5 27182-0) Basophils (test code = 0.3 % 0-1 85700-6) Immature granulocytes 0.5 % 0-1 "Immat ure (test code = 46245-7) granul ocytes" (promyelocytes, myelocytes, metamyelocytes) Lab Interpretation (test Abnormal code = 95681-8) [place] MethodistXR Chest 1 [id number] 14:59:04Hm Interface, Radiology Results 12/23/2019 3:02 PM CDTEXAMINATION: XR CHEST 1 PORTABLECLINICAL HISTORY: chest painCOMPARISON: None.IMPRESSION:1.Lungs are clear.2.No evidence of pleural effusion.3.Mediastinal contours and cardiac silhouette are unremarkable.4.No acute osseous abnormality.[id number] [place] MethodistSmall Joint Arthrocentesis: index finger, L index [id number] 10:00:00Sima Prado MD 09/28/2019 10:37 AMSmall Joint Arthrocentesis: index finger, L index PIPConsent given by: patientSupporting DocumentationIndications: pain and joint swelling Procedure DetailsLocation: index finger - L index PIP Left side:Needle size: 25 GLeft index finger medications administered: 6 mg betamethasone acetate & sodium phosphate 6 mg/mL; 1 mL lidocaine 10 mg/mL (1 %)Patient tolerance: patient tolerated the procedure well with no immediate complicationsB[place] MethodistXR Hands 3 Vw [id number] 21:41:10Hm Interface, Radiology Results 09/02/2019 9:44 PM [...] serologies as indicatedNo acute fracture of either hand.H-FJ37TSNYSxaghel MethodistXR Foot 3 Vw [id number] 18:35:19Hm Interface, Radiology Results 09/02/2019 6:38 PM [...] radiographic evidence of acute inflammatory or erosive arthropathy.[facility]-QV60YNSOYkxztza Scientology
[2020-01-17] MEDS ORDERED: NA CHLORIDE 0.9% 500 ML ONE (07:40)
[2020-01-17] MEDS ORDERED: HEPARIN 5000 UNIT/ML 1 ML VIAL ONE (08:01)
[2020-01-17] MEDS ORDERED: MIDAZOLAM HCL 2 MG/2 ML INJ ONE (08:01)
[2020-01-17] MEDS ORDERED: FENTANYL CITR 100 MCG/2 ML ONE (08:01)
[2020-01-17] MEDS ORDERED: ATROPINE SULF 1 MG/10 ML SYR IV ONE (08:02)
[2020-01-17] MEDS ORDERED: HEPA 1000U/500MLS 1,000 UNIT/500 ML BAG IV ONE (08:06)
[2020-01-17] MEDS ORDERED: FLUMAZENIL 0.1 MG/ML (5 mL VIAL) IV ONE (08:17)
[2020-01-17 09:50] VITALS: TEMP 97.1
[2020-01-17 10:42] VITALS: BP 145/55; O2SAT 99
--- NOTE | 2020-01-17 13:28 | OP ---
Date of Procedure: 01/17/2020 Surgeon: Be Rivera MD Supervisor [employer]: Prosper Velasquez. Procedure: Abdominal aortic angiogram and selective bilateral renal angiogram. Indication: Uncontrolled hypertension and abnormal renal artery Doppler. Description Of Procedure: Mr. Zurita is a 70-year-old white male, who is a patient of Dr. Nugent. Has severe hypertension, uncontrolled with multiple medications. Renal Doppler was able to detect a normal renal artery and normal right kidney, but could not visualize the left kidney. We decided ang iography was the best approach. He was brought to the lab director as an outpatient. Given Versed for s edation. A 6-Upper Sorbian sheath introduced in the right common femoral artery successfully. A JR4 cathet er was initially used to select the right coronary and the right and left renal, but the visualizatio n was very poor. This was exchanged with a long wire to a pigtail catheter. Angiography there showe d normal right renal artery, normal right kidney. The left renal artery was small. The left kidney appeared to be small and atrophied with a very few blood vessels in it. There was about a 70% stenos is in the left renal artery. The patient tolerated the procedure well. Blood Loss: 5 mL. Complications: There were no complications. Final Diagnosis: Renal artery stenosis on the left plus possible atrophy of the left kidney. Anesthesia: Total conscious sedation was 30 minutes. Plan: The plan is for him to go home. We will increase his metoprolol to 100 b.i.d. We will contin ue the Lotrel as well as Hytrin. We will be happy to start him on hydrochlorothiazide. I think he m ay be taking hydralazine as well. He also takes clonidine p.r.n. with intent to stop down the road. I may have him do a CT angio of the abdomen to look at the left kidney more in the morning details, keep Dr. Nugent up-to-date. Angiography done of the right common femoral artery was normal. Angio- Seal was used to close the case. The patient will remain at bedrest for 2 hours. He will go home. He will see me in the office next week. HENRIK/ROBBL Voice ID: [id number] Report ID: [id number]
== END 2020-01-17 11:07 | disposition home or self-care (01) ==
LOC: CCL 07:20
DX: I70.1 Atherosclerosis of renal artery (principal); N26.1 Atrophy of kidney (terminal); I10 Essential (primary) hypertension; Z20.828 Contact with and (suspected) exposure to other viral communicable diseases
CPT/HCPCS: 85025; 80048; 36415; 85610; 82947; 85730; 36200; 36252; U0002; C1893; C1760; J2250; J3010; J7040; J1644 ×2

== ENCOUNTER 2020-04-08 18:23 | Emergency (ER) | payer BC, OTHER ==
--- OUTSIDE RECORDS SUMMARY | 2020-04-08 18:26 | XMS REPORT | Continuity of Care Document ---
:1950 Author Organization [facility] t Address [address] [place] [address] Care Team Providers Name Role Phone System ROVING CARRIER-C, Not In Primary Care Physician Unavailable Apolonia Galvan MD Attending Clinician [phone] Elmo Childress MD Attending Clinician Krysta Prado MD Attending Clinician Issa JENSEN Attending Clinician Payers Payer Name Policy Type Policy Effective Date Expiration Date Sour ce Number MEDICAREMEDICARE A [id number] FARA [place] [id number] 2015 00:00:00 - [facility] BLUE CROSS/BLUE [id number] 2020 FARA [facility] SHIELDBCBS INDEMNITY 9 00:00:00 - [facility] [phone] [id number], [place] [address]OTR MEDICAREMEDICARE PART [id number] 2014 Frankie Carl AND 00:00:00 Jainism [id number] 2015 -[facility] [place] BCBS COMMERCIALBCBS 2019 [place] MED[place]ARE 9 00:00:00 Jainism [id number] -PresentComm ercial Problems This patient has no known problems. Allergies, Adverse Reactions, Alerts Allergy Allergy Status Severity Reaction(s) Onset Inactive Treating Comm ents Source Name Type Date Date Clinician Marsha Cordova Active Unknown 2019-0 [place] ty to Reaction 09-27 [facility] adverse 00:00: st reaction 00 s to drug Social History Social Habit Start Date Stop Date Quantity Comments Source History [facility] Meth odist Alcohol Std Drinks History [facility] Meth odist Alcohol Binge Sex Assigned At [facility] ethodist Tobacco use and 2019-12-23 2019-12-23 Never used [facility] ethodist exposure 00:00:00 00:00:00 Alcohol intake 2019-12-23 2019-12-23 Lifetime [facility] thodist 00:00:00 00:00:00 non-drinker (finding) History [facility] 2019-12-23 2019-12-23 1 [place] [facility] Alcohol Frequency 00:00:00 00:00:00 Smoking Status Start Date Stop Date Source [facility] Ordered Filled Start Stop Current Ordering Indication Dosage Frequency Signature Comments Components Source Medication Medication Date Date Medication? Clinician (SIG) Name Name clonIDINE 2019-03 2020- No .2mg Q.5D Take 1 [place] HCl 01-21 tablet [facility] (CATAPRES) 00:00: 23:59 (0.[address] 0.2 MG 00 :00 total) by tablet mouth 2 (two) times a day for 30 days. cholecalcif 2019-0 Yes 1{capsu Take 1 H [facility] jay, 09-27 le} capsule by [facility] vitamin D3, 10:14: mouth. st 1,250 mcg 54 (50,000 unit) capsule diclofenac 2019-0 Yes [place] (VOLTAREN) 09-23 [facility] 1 % gel 00:00: st 00 hydrOXYchlo 2020-0 Yes [place] roQUINE 02 [facility] (PLAQUENIL) 00:00: st 200 mg 00 tablet Tresiba 2019-0 Yes [place] U-100 617 [facility] Insulin 100 00:00: st unit/mL 00 solution terazosin 2019-0 Yes [place] (HYTRIN) 2 09-07 [facility] MG capsule 00:00: st 00 allopurinoL 2019-0 Yes TAKE 1 [place] (ZYLOPRIM) 5-18 TABLET BY Meth vladimir 300 MG 00:00: MOUTH st tablet 00 EVERY DAY lisinopriL Yes Ryan (PRINIVIL) 07-22 [facility] 40 mg 00:00: st tablet 00 metoprolol Yes Ryan tartrate 07-22 [facility] (LOPRESSOR) 00:00: st 50 mg 00 tablet pravastatin Yes Wei n (PRAVACHOL) 07-22 [facility] 40 mg 00:00: st tablet 00 finasteride Yes Wei n (PROSCAR) 5 -17 [facility] mg tablet 00:00: st 00 Vital Signs Vital Name Observation Time Observation Value Comments Source Systolic blood 2019-12-23 16:15:00 138 mm[Hg] [place] n Jainism pressure Diastolic blood 2019-12-23 16:15:00 69 mm[Hg] Carolee on Jainism pressure Heart rate 2019-12-23 16:15:00 62 /min Ryan Alfredo Respiratory rate 2019-12-23 16:15:00 18 /min Calder[place] Alfredo Oxygen saturation in 2019-12-23 16:15:00 96 /min Ryan Alfredo Arterial blood by Pulse oximetry Body temperature 2019-12-23 14:30:00 37.11 Madeline Calderon Alfredo Body height 2019-12-23 14:28:00 172.7 cm Ryan Alfredo Procedures Procedure Date / Time Performing Clinician Source Performed HC COMPLETE BLD COUNT 2019-12-23 15:08:00 Tu, Abelardo Alfredo W/AUTO DIFF PROTHROMBIN TIME WITH INR 2019-12-23 15:08:00 Tu, Abelardo Alfredo PARTIAL THROMBOPLASTIN 2019-12-23 15:08:00 Tu, Abelardo Alfredo TIME (PTT) COMPREHENSIVE METABOLIC 2019-12-23 15:08:00 Tu, Abelardo Alfredo PANEL TROPONIN 2019-12-23 15:08:00 Tu, Abelardo Alfredo B NATRIURETIC PEPTIDE 2019-12-23 15:08:00 Tu, Abelardo Alfredo ESTIMATED GFR 2019-12-23 15:08:00 Tu, Abelardo Alfredo ECG 12-LEAD 2019-12-23 14:43:08 Tu, Abelardo Alfredo XR CHEST 1 VW PORTABLE 2019-12-23 14:43:00 Abelardo Childress [place] [facility] MI ARTHROCENTESIS 2019-09-28 10:00:00 Sima Prado ethodist ASPIR&/INJ SMALL JT/BURSA W/O US XR HANDS 3 VW BILATERAL 2019-09-02 16:35:30 Leatha Garcia Jainism XR FOOT 3 VW BILATERAL 2019-09-02 16:35:00 Leatha Garcia on Jainism Plan of Care Planned Activity Planned Date Details Comments Source Future Scheduled Test 2019-10-23 INFLUENZA VACCINE H [facility] Jainism 00:00:00 [code = INFLUENZA VACCINE] Future Scheduled Test 2015 65+ PNEUMOCOCCAL [facility] 00:00:00 VACCINE (1 of 1 - PPSV23) [code = 65+ PNEUMOCOCCAL VACCINE (1 of 1 - PPSV23)] Future Scheduled Test 2000-01-17 COLONOSCOPY SCREENING [facility] 00:00:00 [code = COLONOSCOPY SCREENING] Future Scheduled Test 2000-01-17 SHINGLES VACCINES [facility]ainism 00:00:00 (#1) [code = SHINGLES VACCINES (#1)] Future Scheduled Test 1966 COVID-19 VACCINE (1 [place] [facility] 00:00:00 of 2) [code = COVID-19 VACCINE (1 of 2)] Future Scheduled Test 1960-01-17 DIABETES: RETINAL EYE [facility] 00:00:00 EXAM [code = DIABETES: RETINAL EYE EXAM] Future Scheduled Test 1960-01-17 DIABETIC FOOT EXAM [facility] 00:00:00 [code = DIABETIC FOOT EXAM] Future Appointment 2020-04-[address] [place] [address] [facility] 11:00:[address], [place] [address] Future Appointment 2020-04-[address] [place] [address] [facility] - 11:00:[address], [place] [address] Encounters Start End Encounter Admission Attending Care Care Encounter Source Date/Time Date/Time Type Type Clinicians Facility Department ID 2019-12-23 2019-12-23 Emergency [facility] [id number] [place] 00:00:00 00:00:[address] 2019-09-28 2019-09-28 Outpatient [facility], [facility] [id number] [place] 00:00:00 00:00:00 SIMA [address] 2019-09-02 2019-09-02 Outpatient ISSA [facility] [id number] [place] 00:00:00 00:00:00 LEATHA [address] 2019-09-02 2019-09-02 Outpatient ISSA [facility] [id number] [place] 00:00:00 00:00:00 LEATHA [address] [...] previous ECGs available- (test code = PXN) Radha Childress-Neil Borrego MD - 12/23/2019 2:43 PM CDT Emergency Department Provider NoteLocation[facility] EMERGENCY DEPARTMENTPatient ID: Tejas Sauceda [...] History provided by: Patient and medical recordsLanguage certified court/medical interpreter used: No HypertensionSeverity: SevereOnset quality: SuddenTiming: ConstantProgression: WorseningChronicity: NewNotable MODEL AND MOLD MAKER blood pressures: 213/98Context: not medication change Associated [...] a day for 30 days. 12/23/19 01/22/20 Tu, Abelardo Borrego MD Review of Systems Review of Systems [...] silhouette are unremarkable. 4.No acute osseous abnormality. [id number] ProceduresECG 12 leadDate/Time: 12/23/2019 2:43 PMPerformed by: Abelardo Childress MDAuthorized by: Abelardo Childress MD ECG reviewed by ED Physician in the absence of a staffing administrator: yes Interpretation: Interpretation: abnormal Quality: Tracing quality: [...] scribe under the direction and presence of Abelardo Childress MD.Provider attestation of scribe: Abelardo Childress MD: I personally performed the services recorded by the scribe in my presence. I confirm the scribe's documentation has been reviewed by me to accurately record my work, treatment, procedures, and medical decision making.Sabrina Ward12/23/19 1645 Trey Ybarra12/23/19 1707 Abelardo Childress MD12/25/19 0952 Lab Interpretation (test code = Abnormal 20538-7) Ryan DuronZsbsmbzqeTtndemcr3594-02-05 15:56:58 Test Item Value Reference Range Interpretation Comments Troponin (test code 0.012 ng/mL 0-0.04 In patie nts suspected = 57547-3) of having a raymond cardial infarction, navjot [...] ss than 0.020 ng/mL Ryan AlfredoB natriuretic [id number] 15:56:44 Test Item Value Reference Range Interpretation Comments BNP (test code = 85893-1) 162 pg/mL 0-100 H Lab Interpretation (test code = Abnormal 44549-4) Ryan AlfredoComprehensive metabolic [id number] 15:55:03 Test Item Value Reference Range Interpretation Comments Sodium (test code = 144 135- 148 mEq/L 2951-2) Potassium (test code = 4.4 3.5- 5.0 mEq/L 2823-3) Chloride (test code = 105 98- 112 mEq/L 2074-0) CO2 (test code = 2027-) 25 24- 31 mEq/L Anion gap (test code = 14@ANIO 7- 15 mEq/L 46696-3) BUN (test code = 3094-0) 32 mg/dL 8-23 H Creatinine (test code = 2.19 mg/dL 0.7-1.2 H 2160-0) Glucose (test code = 89 mg/dL 65-99 5-7) Calcium (test code = 9.2 mg/dL 8.8-10.2 95662-0) Protein (test code = 7.0 g/dL 6.3-8.3 -[place] n 2885-2) 4.6-7.0 g/dL1 week 4.4-7 .6 g/dL7 months-1y ear 5.1-7 .3 g/dL1-2 years 5.6-7 .5 g/dL>3 years 6.0-8 .0 g/pU27-163 6.3-8 .3 g/dL Albumin (test code = 3.5 g/dL 3.5-5 175-7) A/G ratio (test code = 1.0 0.7-3.8 1759-0) Alkaline phosphatase 49 U/L 40-129 (test code = 6768-6) AST (test code = 1920-8) 22 U/L 10-50 ALT (test code = 1742-6) 32 U/L 5-50 Total bilirubin (test <0.2 0-1.2 code = 1974-) Lab Interpretation (test Abnormal code = 88881-6) Ryan MethodistEstimated [id number] 15:55:03 Test Item Value Reference Range Interpretation Comments Estimated GFR (test 29 mL/min/1.73 m2 Siddhartha douglas Units code = 5488) InterpretationG 1 >=90 Harper l or highG2 60-89 Mildly decrease dG3a 45-59 Mil dly to moderately decr logqjF7x 30-44 Moderately to s everely decreasedG4 15-29 Severe ly decreasedG5 <15 Kidney garret lureThe eGFR was calcul ated using the Chron ic Kidney Disease Epidemiology Collaboration ( CKD-EPI) equation. Interpretation is based on recommendati ons of the National Ki dney Foundation-Kidn ey Disease Outcome s Quality Initiat emily (NKF-KDOQI) pub lished in 2013. Lab Interpretation Abnormal (test code = 81484-3) Ryan MethodistPartial thromboplastin time, rltecoqmm8162-05-03 15:46:18 Test Item Value Reference Range Interpretation Comments PTT (test code = 30.4 23.0- 36.0 [place] [address]-0) unfractionated heparin is61.0-112.0 se conds which corresponds to Anti-Xa0.3-0.7 U/ml. Davis MethodistProthrombin time with [id number] 15:45:41 Test Item Value Reference Range Interpretation Comments Prothrombin time (test 14.0 11.5- 14.5 sec code = 5902-2) INR (test code = 1.1 The Interna tional 81840-3) Normalized Rati o (INR) is a therapeutic m onitoring tool for patien ts who are stable on oral anticoagulant t herapy. An INR of 2.0-3.0 is suggested for d eep vein thrombosis/pulm onary embolism. Davis MethodistCBC with platelet and tmounfxunltu5592-19-94 15:27:33 Test Item Value Reference Range Interpretation Comments WBC (test code = 54203-6) 6.47 4.50- 11.00 k/uL RBC (test code = 47666-6) 4.48 m/uL 4.4-6 HGB (test code = 718-7) 12.9 g/dL 14-18 L HCT (test code = 4544-3) 40.3 % 41-51 L MCV (test code = 787-2) 90.0 fL 82-100 MCH (test code = 785-6) 28.8 pg 27-34 MCHC (test code = 786-4) 32.0 g/dL 31-37 RDW - SD (test code = 43.5 fL 37-55 27428-8) MPV (test code = 23555-4) 9.3 fL 8.8-13.2 Platelet count (test code 184 150- 400 k/uL = 80650-4) Nucleated RBC (test code 0.00 /100 WBC = 10522-3) Neutrophils (test code = 60.7 % 39-69 97708-0) Lymphocytes (test code = 24.7 % 25-45 L 39905-7) Monocytes (test code = 9.6 % 0-10 36190-8) Eosinophils (test code = 4.2 % 0-5 39431-6) Basophils (test code = 0.3 % 0-1 23805-8) Immature granulocytes 0.5 % 0-1 "Immat ure (test code = 62621-9) granul ocytes" (promyelocytes, myelocytes, metamyelocytes) Lab Interpretation (test Abnormal code = 46366-1) Davis MethodistXR Chest 1 Vw Ojfripqz0317-60-56 14:59:04Hm Interface, Radiology Results Incoming - 12/23/2019 3:02 PM CDTEXAMINATION: XR CHEST 1 VW PORTABLECLINICAL HISTORY: chest painCOMPARISON: None.IMPRESSION:1.Lungs are clear.2.No evidence of pleural effusion.3.Mediastinal contours and cardiac silhouette are unremarkable.4.No acute osseous abnormality.[id number] [place] MethodistSmall Joint Arthrocentesis: index finger, L index [id number] 10:00:00Sima Prado MD 09/28/2019 10:37 AMSmall Joint Arthrocentesis: index finger, L index PIPConsent given by: patientSupporting DocumentationIndications: pain and joint swelling Procedure DetailsLocation: index finger - L index PIP Left side:Needle size: 25 GLeft index finger medications administered: 6 mg betamethasone acetate & sodium phosphate 6 mg/mL; 1 mL lidocaine 10 mg/mL (1 %)Patient tolerance: patient tolerated the procedure well with no immediate complications[place] ElviraistXR Hands 3 Vw Kbqufnddo3639-45-22 21:41:10Hm Interface, Radiology Results 09/02/2019 9:44 PM [...] serologies as indicatedNo acute fracture of either hand.[facility]-OL19HTPESvxcelz MethodistXR Foot 3 Vw Kcinnlzoi2818-53-75 18:35:19Hm Interface, Radiology Results 09/02/2019 6:38 PM [...] radiographic evidence of acute inflammatory or erosive arthropathy.[facility]-QN59WTDBLqscqka Jainism
--- OUTSIDE RECORDS SUMMARY | 2020-04-08 18:26 | XMS REPORT | Clinical Summary ---
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 diclofenac (VOLTAREN) 1 % 0 09/24/2019 Active [...] 1 tablet 60 tablet 0 12/23/2019 01/22/2020 0.2 MG tablet (0.2 mg total) by mouth 2 (two) times a day for 30 days. Active Problems Not on file Encounters Date Type Specialty Care Team Description 12/23/2019 Emergency Emergency Medicine Radha Childress-Neil Secondary hypertension MD Elmo (Primary Dx) 09/28/2019 Office Visit Orthopedic Surgery Melo Prado of finger of left hand (Primary Dx); MD Krysta Pain of hand, u nspecified laterality 09/28/2019 Travel 09/22/2019 Travel 09/02/2019 Hospital Encounter Radiology Vashti Garcia, Pain in unspecified MD joint 09/02/2019 Hospital Encounter Radiology Lakshmi Garciaureen, Pain in unspecified MD joint 09/02/2019 Travel 09/02/2019 Transcribe Orders Access Lakshmi Garciaureen, Pain in unspecified MD joint (Primary Dx) after 04/08/2019 Surgical History Surgery Date Site/Laterality Comments VASECTOMY [...] EYE EXAM 01/17/1960 DIABETIC FOOT EXAM 01/17/1960 COVID-19 VACCINE (1 of 2) 1966 COLONOSCOPY SCREENING 01/17/2000 SHINGLES VACCINES (#1) 01/17/2000 [...] are i n the results section. after 04/08/2019 Results Estimated GFR (12/23/2019 3:08 PM CDT) Estimated GFR 29 (A) mL/min/1.73 [facility] Comment: m2 HOSPITAL Catergory Units Interpretation G1 [...] published in 2014. Specimen Performing Organization Address City/[facility] Phon e Number [facility] DEPARTMENT OF PATHOLOGY AND [address] [place], [place] [address] [place] [id number] [place] [address] Troponin (12/23/2019 3:08 PM CDT) Pathologist [facility] Troponin 0.012 0.000 - 0.040 [facility] Comment: ng/mL HOSPITAL In patients suspected of [...] 0.020 ng/mL Specimen Blood Performing Organization Address City/[facility] Phon e Number [facility] DEPARTMENT OF PATHOLOGY AND [address] [place], [place] [address] [facility] [address] [place] [address] Partial thromboplastin time, activated (12/23/2019 3:08 PM CDT) PTT 30.4 23.0 - 36.0 [facility] Comment: [facility] HOSPITAL PTT therapeutic range for unfractionated heparin is 61.0-112.0 seconds which corresponds to Anti-Xa 0.3-0.7 U/ml. Specimen Blood Performing Organization Address City/[facility] Phon e Number [facility] DEPARTMENT OF PATHOLOGY AND [address] [place] [address] [address] Prothrombin time with INR (12/23/2019 3:08 PM CDT) Pathologist [facility] Prothrombin time 14.0 11.5 - 14.5 [facility] INR 1.1 [place] Comment: [facility] International Normalized Ratio (INR) is a [facility] monitoring tool for patients who are stable on oral anticoagulant therapy. An INR of 2.0-3.0 is suggested for deep vein thrombosis/pulmonary embolism. Specimen Blood Performing Organization Address City/[facility] Phon e Number [facility] DEPARTMENT OF PATHOLOGY AND [address] [place], [place] [address] [address] [address] CBC with platelet and differential (12/23/2019 3:08 PM CDT) Pathologist [facility] WBC 6.47 4.50 - 11.00 [facility]/uL [facility] RBC 4.48 4.40 - 6.00 [facility] HGB 12.9 (L) 14.0 - 18.0 [facility]/dL [facility] HCT 40.3 (L) 41.0 - 51.0 % [facility] MCV 90.0 82.0 - 100.0 [facility] MCH 28.8 27.0 - 34.0 pg [facility] MCHC 32.0 31.0 - 37.0 [facility] RDW - SD 43.5 37.0 - 55.0 fL [facility] MPV 9.3 8.8 - 13.2 fL [facility] Platelet count 184 150 - 400 k/uL [facility] Nucleated RBC 0.00 /100 WBC [facility] Neutrophils 60.7 39.0 - 69.0 % [facility] Lymphocytes 24.7 (L) 25.0 - 45.0 % [facility] Monocytes 9.6 0.0 - 10.0 % [facility] Eosinophils 4.2 0.0 - 5.0 % [facility] Basophils 0.3 0.0 - 1.0 % [facility] Immature granulocytes 0.5Comment: 0.0 - 1.0 % [facility] "Immature HOSPITAL granulocytes" (promyelocytes , myelocytes, metamyelocytes ) Specimen Blood Performing Organization Address City/[facility] Phon e Number [facility] DEPARTMENT OF PATHOLOGY AND [address] [place], [place] [address] [address] B natriuretic peptide (12/23/2019 3:08 PM CDT) Pathologist Sig nature BNP 162 (H) 0 - 100 pg/mL [facility] Specimen Blood Performing Organization Address City/[facility] Phon e Number [facility] DEPARTMENT OF PATHOLOGY AND [address] [place] [address] [facility] [address] [place] [address] Comprehensive metabolic panel (12/23/2019 3:08 PM CDT) Sodium 144 135 - 148 [facility] mEq/L [facility] Potassium 4.4 3.5 - 5.0 [facility] mEq/L [facility] Chloride 105 98 - 112 [facility] mEq/L [facility] CO2 25 24 - 31 mEq/L [facility] Anion gap 14@ANIO 7 - 15 mEq/L [facility] BUN 32 (H) 8 - 23 mg/dL [facility] Creatinine 2.19 (H) 0.70 - 1.20 [facility] mg/dL [facility] Glucose 89 65 - 99 mg/dL [facility] Calcium 9.2 8.8 - 10.2 [facility] mg/dL [facility] Protein 7.0 6.3 - 8.3 [facility] Comment: g/dL HOSPITAL - [place] 4.6-7.0 g/dL 1 week 4.4-7.6 g/dL 7 months-1year 5.1-7.3 g/dL 1-2 years 5.6-7.5 g/dL >3 years 6.0-8.0 g/dL 18-150 6.3-8.3 g/dL Albumin 3.5 3.5 - 5.0 [facility] g/dL [facility] A/G ratio 1.0 0.7 - 3.8 [facility] Alkaline phosphatase 49 40 - 129 U/L [facility] AST 22 10 - 50 U/L [facility] ALT 32 5 - 50 U/L [facility] Total bilirubin <0.2 0.0 - 1.2 [facility] mg/dL HOSPITAL Specimen Blood Performing Organization Address City/State/ZIP Code Phon e Number [facility] DEPARTMENT OF PATHOLOGY AND [address] [place], [place] [address] [facility] [address] [place] [address] ECG 12 lead (12/23/2019 2:43 PM CDT) Pathologist Sig nature Ventricular rate 62 [facility] Atrial rate 300 [facility] QRSD interval 108 [facility] QT interval 454 [facility] QTC interval 460 [facility] QRS axis 1 50 [facility] T wave axis 60 [facility] EKG impression ^^^ Poor data quality, [facility] MUSE interpretation may be adversely affected-Normal sinus rhythm-Abnormal ECG-No previous ECGs available- Specimen Narrative Performed At This result has an attachment that is no t available. Procedure Note Jg Childress MD - 12/23/2019 2 :43 PM CDT Emergency Department Provider Note Location: 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 4.No acute osseous abnorma lity. [id number] Procedures ECG 12 lead Date/Time: 12/23/2019 2:43 PM Performed by: Jg Childress MD Authorized by: Jg Childress MD ECG reviewed by ED Physician in the abse nce of a optometrist president/practice owner: yes Interpretation: Interpretation: abnormal Quality: Tracing quality: [...] Ybarra 12/23/19 1707 Jg Childress MD 12/25/19 0938 Performing Organization Address City/State/ZIP Code Phon e Number [facility] MUSE [address] [place] [address] XR Chest 1 Vw Portable (12/23/2019 2:43 PM CDT) Specimen Narrative Performed At EXAMINATION: XR CHEST 1 VW PORTABLE RADIANT CLINICAL HISTORY: chest pain COMPARISON: None. IMPRESSION: 1.Lungs are clear. 2.No evidence of pleural effusion. 3.Mediastinal contours and cardiac silho uette are unremarkable. 4.No acute osseous abnormality. [id number] Procedure Note Hm Interface, Radiology Results Incoming - 12/23/2019 3:02 PM CDT EXAMINATION: XR CHEST 1 VW PORTABLE CLINICAL HISTORY: chest pain COMPARISON: None. IMPRESSION: 1.Lungs are clear. 2.No evidence of pleural effusion. 3.Mediastinal contours and cardiac silho uette are unremarkable. 4.No acute osseous abnormality. [id number] Performing Organization Address City/State/ZIP Code Phon e Number [facility] [address] [place] [address] Small Joint Arthrocentesis: index finger, L index [...] indicated No acute fracture of either hand. [id number] Procedure Note Hm Interface, Radiology Results Incoming [...] indicated No acute fracture of either hand. [id number] Performing Organization Address City/State/ZIP Code Phon e Number [facility] [address] [place] [address] XR Foot 3 Vw Bilateral (09/02/2019 4:35 PM CDT) Specimen Narrative Performed At EXAMINATIONS: PURVI CLINE XR FOOT 3 VW BILATERAL CLINICAL HISTORY: [...] of acute inflam matory or erosive arthropathy. [id number] Procedure Note [facility], Radiology Results Incoming - 09/02/2019 6:38 PM [...] of acute inflam matory or erosive arthropathy. [id number] Performing Organization Address City/State/ZIP Code Phon e Number [facility] [address] [place] [address] after 04/08/2019 Insurance Payer Benefit Plan / Subscriber ID Effective Phone Address T ype Group Dates MEDICARE MEDICARE PART A [id number] 2014-Pre [place], [place] Medicare AND B sent BCBS COMMERCIAL BCBS MEDICARE [id number] 2019-Pres Commercial SUPPLEMENT ent Advance Directives For more information, please contact: [phone] Type Date Recorded Patient Court Officer Explanati on Advance Directives, Living Will and Medical Power of Blanket Winder Helper Advance Directives, Living Will 12/23/2019 3:13 PM and Medical Power of Blanket Winder Helper
--- OUTSIDE RECORDS SUMMARY | 2020-04-08 18:26 | XMS REPORT | Clinical Summary ---
:1950 Author Organization [facility] Address [address] [place] [address] Care Team Providers Name Role Phone Unavailable Primary Care Provider Unavailable Allergies Not on File Medications Not on file Active Problems Not on file Encounters Date Type Specialty Care Team Description 04/07/2020 Orders Only Gastroenterology Lucien Galvan carine cancer screening MD [place] (Primary Dx) after 04/08/2019 Social History Tobacco Use Types Packs/Day Years Used Date Never Assessed Sex Assigned at Date Recorded Not on file Last Filed Vital Signs Not on file Plan of Treatment Date Type Specialty Care Team Description 04/24/2020 Hospital Encounter Gastroenterology Eduin Galvan MD [address] [place], [place] [address] [phone] 04/24/2020 Surgery Gastroenterology Lucien Galvan LONOSCOPY MD [place] [address] [place], [place] [address] [phone] Results Not on fileafter 04/08/2019 Insurance Payer Benefit Plan / Subscriber ID Effective Phone Address T ype Group Dates MEDICARE MEDICARE A B [id number] 2014-Pres Medicare ent BLUE BCBS INDEMNITY [id number] 2020-Pres [phone] [address] PPO CROSS/BLUE [place] [id number] [place] [address]
--- NOTE | 2020-04-08 22:46 | ER ---
Nurse's Notes [facility] Name: Kulwinder Zurita Age: 70 yrs Sex: Male : 1950 Arrival Date: 04/08/2020 Time: 18:25 Bed Waiting Private MD: Diagnosis: Presentation: 04/08 18:39 Coronavirus screen: Client denies travel out of the [place] in the last 14 days. At this ll1 time, the client does not indicate any symptoms associated with coronavirus-19. Ebola Screen: Patient denies travel to an Ebola-affected area in the 21 days before illness onset. Initial Sepsis Screen: Does the patient meet any 2 criteria? No. Patient's initial sepsis screen is negative. Does the patient have a suspected source of infection? Yes: Bone or joint infection. Risk Assessment: Do you want to hurt yourself or someone else? Patient reports no desire to harm self or others. Onset of symptoms was April 06, 2020. 18:39 Method Of Arrival: Ambulatory ll1 18:39 Acuity: CHRISTINA 3 ll1 Triage Assessment: 18:40 General: Appears in no apparent distress. Behavior is calm, cooperative, appropriate ll1 for age. Pain: Complains of pain in R lower back Quality of pain is described as aching, Aggravated by increased activity. Neuro: No deficits noted. Cardiovascular: No deficits noted. Respiratory: No deficits noted. GI: No deficits noted. : No deficits noted. Musculoskeletal: Circulation, motion, and sensation intact. Capillary refill < 3 seconds, Reports pain in R lower back. Historical: - Allergies: 18:38 Cortisone; ll1 - PMHx: 18:38 Diabetes - IDDM; Hyperlipidemia; Hypertension; Prostate Cancer; ll1 - PSHx: 18:38 Tonsillectomy; Vasectomy; ll1 - Immunization history:: Flu vaccine is not up to date. - Social history:: Smoking status: Patient denies any tobacco usage or history of. Vital Signs: 18:39 BP 158 / 61; Pulse 66; Resp 18; Temp 98.6; Pulse Ox 96% ; Weight 158.76 kg; Height 5 ll1 ft. 8 in. (172.72 cm); Pain 8/10; 18:39 Body Mass Index 53.22 (158.76 kg, 172.72 cm) ll1 ED Course: 18:25 Patient arrived in ED. rg4 18:38 Arm band placed on. ll1 18:40 Triage completed. ll1 Administered Medications: No medications were administered Outcome: :45 Eloped from waiting room, before seeing physician Time discovered patient gone: March lp1 2020 at 22:45 Nurse informed by Registration staff 22:45 Patient left the ED. lp1 Signatures: Joanne Lloyd RN RN lp1 Addie Gomez rg4 Melissa Lakhani RN RN 1
[2020-04-08 22:51] VITALS: BP 158/61; TEMP 98.6; O2SAT 96
== END 2020-04-08 22:45 | disposition left against medical advice (07) ==
LOC: ER 18:23
DX: Z53.21 Procedure and treatment not carried out due to patient leaving prior to being seen by health care provider (principal)
CPT/HCPCS: 99281

== ENCOUNTER 2020-11-02 06:39 | Day surgery (SDC) | payer OTHER, BC ==
[2020-10-30 17:39] LABS: Absolute Lymphocytes (CBC) 1.8 K/uL (0.7-4.9); Basophils % 0.6 % (0-1.3); Hematocrit 38.3 % (39.6-49.0); Lymphocytes % 22.6 % (15.3-44.8); MPV 7.4 fL (7.6-11.3); RBC Red Blood Cell Count 4.22 M/uL (4.33-5.43)
[2020-10-30 17:42] LABS: Protime INR 1.03
--- NOTE | 2020-10-30 17:57 | RAD REPORT ---
EXAM DESCRIPTION: RAD - Chest Pa And Lat (2 Views) - 10/30/2020 5:34 pm CLINICAL HISTORY: preop COMPARISON: Chest Single View dated 07/19/2019; Chest Single View dated 05/04/2018 FINDINGS: No evidence of edema or pneumonia. The heart size is within normal limits.No acute osseous abnormality. No significant pleural effusions or pneumothorax. IMPRESSION: No acute cardiopulmonary disease.
--- NOTE | 2020-10-31 13:05 | EKG ---
Test Date: 2020-10-30 Test Time: 15:37:21 Business Objects Consultant: DEYA MEASUREMENT RESULTS: Intervals: Rate: 66 NV: 192 QRSD: 126 QT: 418 QTc: 438 Haskins: P: 60 NV: 192 QRS: 57 T: 44 INTERPRETIVE STATEMENTS: Normal sinus rhythm Nonspecific intraventricular block Abnormal ECG Compared to ECG 12/26/2019 01:05:51 Sinus bradycardia no longer present First degree AV block no longer present Intraventricular conduction delay no longer present Electronically Signed On 10-31-20 13:04:42 CDT by Be Rivera
[2020-11-02] MEDS ORDERED: NA CHLORIDE 0.9% 500 ML ONE (07:20)
[2020-11-02] MEDS ORDERED: LIDOCAINE 1% 20 ML MDV ONE (07:41)
[2020-11-02] MEDS ORDERED: HEPA 1000U/500MLS 0 UNIT/0 ML BAG IV ONE (07:41)
[2020-11-02] MEDS ORDERED: MIDAZOLAM HCL 2 MG/2 ML INJ ONE (07:45)
[2020-11-02] MEDS ORDERED: ATROPINE SULF 1 MG/10 ML SYR IV ONE (07:46)
[2020-11-02] MEDS ORDERED: NA CHLORIDE 0.9% 0 ML ONE (07:46)
[2020-11-02] MEDS ORDERED: FENTANYL CITR 100 MCG/2 ML ONE (07:46)
[2020-11-02] MEDS ORDERED: NITROGLYCERIN 100 MCG/ML SYR (for cath lab use only) IV ONE (07:46)
[2020-11-02] MEDS ORDERED: NITROGLYCERIN/D5W 25 MG/250 ML BTL IV ONE (07:46)
[2020-11-02] MEDS ORDERED: ACETYLCYST 20% 4 ML VIAL IH ONE (07:51)
[2020-11-02] MEDS ORDERED: NA CHLORIDE 0.9% 100 ML IV ONE (08:02)
[2020-11-02] MEDS ORDERED: HEPA 1000U/500MLS 1,000 UNIT/500 ML BAG IV ONE (08:04)
[2020-11-02] MEDS ORDERED: ACETYLCYST 20% 800 MG/4 ML VIAL PO ONE (09:15)
[2020-11-02 10:19] VITALS: BP 119/52; TEMP 97.6; O2SAT 98
--- NOTE | 2020-11-02 15:37 | OP ---
Surgeon: Be Rivera MD [employer] Team Member: Mr. Elie Frias. The patient had a creatinine of 2.8 before the procedure. Before the procedure, benazepril was disco ntinued. He will continue Norvasc. Mucomyst was given before and will be given after the case. The patient will remain in the hospital for 2 hours, and I will see him in the office in the next week o r 2 to make plans for a possible TAVR and a GRACIE. Reason For Admission: Left and right heart catheterization, selective coronary arteriogram, O2 satur ation measurements, cardiac output measurement. Indication: Aortic stenosis and unstable angina. Procedure In Detail: The patient was brought to the laborer pie bakery, prepped and draped in the routine ster ile fashion. Given Versed and fentanyl for sedation. A 6-Cook Islander sheath was introduced in the right common femoral artery. A 6-[place]er sheath was introduced in the right common femoral vein. Angiograp hy there was normal. StarClose was used to close the case. Pressure was held for the vein sheath af ter the procedure. Right heart catheterization first was started with a Penfield-Ramon catheter that was advanced through the venous sheath all the way to the right atrium and then right ventricle and then pulmonary artery then wedge pressure. Pressures were measured all along. Right atrial pressure was 28/17, right ventricular pressure was 45/9, PA pressure was 49/19 with a wedge pressure of 21. O2 sa turations were pending. Cardiac output was 8.3 L/min. The Penfield-Ramon catheter was then removed. A J udkins catheter left and right were used to do the diagnostic catheterization. Minimal contrast was used. He was found to have 100% distal RCA with collaterals from the circ and the LAD. He had a nor mal left main. He had mild diffuse plaquing in the LAD and the circumflex. The patient tolerated th e procedure well. There were no complications. Blood Loss: 5 mL. Postoperative Diagnoses: 1.Severe aortic stenosis. 2.Severe coronary artery disease, single-vessel, with collaterals from the left system to the right coronary artery. 3.Severe pulmonary hypertension. Plan: For possible TAVR. I may have him do a transesophageal echocardiogram before that. HENRIK/CARLA Voice ID: [id number] Report ID: [id number]
== END 2020-11-02 10:11 | disposition home or self-care (01) ==
LOC: CCL 06:39
DX: I25.110 Atherosclerotic heart disease of native coronary artery with unstable angina pectoris (principal); I25.82 Chronic total occlusion of coronary artery; I35.0 Nonrheumatic aortic (valve) stenosis; I12.9 Hypertensive chronic kidney disease with stage 1 through stage 4 chronic kidney disease, or unspecified chronic kidney disease; I27.20 Pulmonary hypertension, unspecified; E11.22 Type 2 diabetes mellitus with diabetic chronic kidney disease; N18.4 Chronic kidney disease, stage 4 (severe); I34.0 Nonrheumatic mitral (valve) insufficiency; E78.2 Mixed hyperlipidemia; M10.00 Idiopathic gout, unspecified site; E66.01 Morbid (severe) obesity due to excess calories; Z68.43 Body mass index [BMI] 50.0-59.9, adult; Z20.822 Contact with and (suspected) exposure to COVID-19; Z79.4 Long term (current) use of insulin; Z88.8 Allergy status to other drugs, medicaments and biological substances; Z82.49 Family history of ischemic heart disease and other diseases of the circulatory system
CPT/HCPCS: 93005; 85025; 80048; 36415; 85610; 82947 ×3; 85730; 71046; 93460; U0003; C1893; J2250; J3010; J7040; J1644; 93456; J0583

== ENCOUNTER 2021-11-03 23:40 | Observation (INO) | payer OTHER, BC ==
--- OUTSIDE RECORDS SUMMARY | 2021-11-03 23:43 | XMS REPORT | Continuity of Care Document ---
:1950 Author Organization [facility] t Address [address] [place] [address] Care Team Providers Name Role Phone SOFÍAASAMamadou STEVEN Baugh Primary Care Physician Unavailable SHAGGY GALVAN Attending Clinician Unavail able Abel Spencer RN Attending Clinician Unavailable Only, Ang Db Test Attending Clinician Unavailable Shruti Pina Attending Clinician SHRUTI MARTE Attending Clinician Unavailable Doctor Unassigned, Jenkins Attending Clinician Unavailable Marta Gramajo RN Attending Clinician Unavailable Mroelia Nam Attending Clinician KG MASCORRO Attending Clinician Unavailable MARIAA MOON Attending Clinician Unavailable DIOGO VIZCAINO Attending Clinician Unavailable MD DIOGO VIZCAINO Attending Clinician Unavailable Lapin_S Attending Clinician Unavailable Carmelo Huntley Attending Clinician [phone] RAMON CASTRO Attending Clinician Unavailable CARMELO LOVETT Attending Clinician Unavailable STEPHANIA WAGGONER Attending Clinician Unavailable ALEISHA, YENMaiTE Attending Clinician Unavailable SIMA ESQUIVEL Attending Clinician Unavailable LEATHA PARSONS Attending Clinician Unavailable SHAGGY GALVAN Admitting Clinician Unavail able DIOGO VIZCAINO Admitting Clinician Unavailable MD DIOGO VIZCAINO Admitting Clinician Unavailable KG MASCORRO Admitting Clinician Unavailable Lapin_S Admitting Clinician Unavailable NASRA TIJERINA Admitting Clinician Unavailable Payers Payer Name Policy Type Policy Number Effective Date Expiration Date S mesha MEDICARE A B [id number] 2014 00:00:00 [place] [id number] 2020 [place] 00:00:00 [place] [id number] 2014 [place] [employer] 00:00:00 [place] [id number] 2020 [place] (MEDICARE 00:00:00 SUPPLEMENT) Problems Condition Condition Condition Status Onset Resolution Last Treating Co mments Source Name Details Category Date Date Treatment Clinician Date No known No known Disease Unive rs active active ity of problems problems [facility] Allergies, Adverse Reactions, Alerts Allergy Allergy Status Severity Reaction(s) Onset Inactive Treating Comm ents Source Name Type Date Date Clinician CORTISON Allergy Active Med [facility] NO KNOWN Drug Active Univers ALLERGIE Class ity of S [facility] Social History Social Habit Start Date Stop Date Quantity Comments Source Exposure to 2021-07-22 2021-08-01 Not sure [facility] SARS-CoV-2 (event) 00:00:00 18:50:00 Medica l Branch Sex Ass[birth year] At [birth year] [facility] 00:00:00 00:00:00 [facility] Smoking Status Start Date Stop Date Source Unknown if ever smoked [facility] Medications Ordered Filled Start Stop Current Ordering Indication Dosage Frequency Signature Comments Components Source Medication Medication Date Date Medication? Clinician (SIG) Name Name finasteride 2018-03 Yes 5mg Take 5 mg U nivers 5 mg tablet 2-24 by mouth ity of 12:01: daily. [address] allopurinol 2018-03 Yes 300mg Take 300 U nivers 300 mg 2-24 mg by ity of tablet 12:01: mouth [place] [address] daily. [facility] Branch finasteride 2018-03 Yes 5mg Take 5 mg U nivers 5 mg tablet 2-24 by mouth ity of 12:01: daily. [address] allopurinol 2018-03 Yes 300mg Take 300 U nivers 300 mg 2-24 mg by ity of tablet 12:01: mouth [place] [address] daily. [facility] Branch finasteride 2018-03 Yes 5mg Take 5 mg U nivers 5 mg tablet 2-24 by mouth ity of 12:01: daily. [place] [address] Medical Branch allopurinol 2018-03 Yes 300mg Take 300 U nivers 300 mg 2-24 mg by ity of tablet 12:01: mouth [place] [address] daily. Medical Branch finasteride 2018-03 Yes 5mg Take 5 mg U nivers 5 mg tablet 2-24 by mouth ity of 12:01: daily. [place] [address] Medical Branch allopurinol 2018-03 Yes 300mg Take 300 U nivers 300 mg 2-24 mg by ity of tablet 12:01: mouth [place] [address] daily. Medical Branch finasteride 2018-03 Yes 5mg Take 5 mg U nivers 5 mg tablet 2-24 by mouth ity of 12:01: daily. [place] [address] Medical Branch allopurinol 2018-03 Yes 300mg Take 300 U nivers 300 mg 2-24 mg by ity of tablet 12:01: mouth [place] [address] daily. Medical Branch terazosin 2 2018-03 Yes 2mg Take 2 mg U nivers mg capsule 2-24 by mouth ity o f 12:01: at [place] [address] bedtime. Medical Branch pravastatin 2018-03 Yes 40mg Take 40 mg Univers 40 mg 2-24 by mouth ity of tablet 12:01: at [place] [address] bedtime. Medical Branch aspirin 81 2018-03 Yes 81mg Take 81 mg U nivers mg chewable 2-24 by mouth ity of tablet 12:01: daily. [place] [address] Medical Branch magnesium 2018-03 Yes 400mg Take 400 Uni vers gluconate 2-24 mg by ity of 200 mg 12:01: mouth 2 [facility] 37 (two) Medical times Branch daily. insulin 2018-03 Yes 50U inject 50 Unive rs degludec 2-24 Units ity of (TRESIBA 12:01: under the [facility] s U-100 37 skin Medical INSULIN SC) daily. Branch metFORMIN 2018-03 Yes 500mg Take 500 Uni vers 1,000 mg 2-24 mg by ity of tablet 12:01: mouth 2 [place] 37 (two) Medical times Branch daily with meals. lisinopril 2018-03 Yes 40mg Take 40 mg U nivers 40 mg 2-24 by mouth ity of tablet 12:01: daily. [place] [address] Medical Branch terazosin 2 2018-03 Yes 2mg Take 2 mg U nivers mg capsule 2-24 by mouth ity o f 12:01: at [place] [address] bedtime. Medical Branch pravastatin 2018-03 Yes 40mg Take 40 mg Univers 40 mg 2-24 by mouth ity of tablet 12:01: at [place] [address] bedtime. Medical Branch aspirin 81 2018-03 Yes 81mg Take 81 mg U nivers mg chewable 2-24 by mouth ity of tablet 12:01: daily. [place] [address] Medical Branch magnesium 2018-03 Yes 400mg Take 400 Uni vers gluconate 2-24 mg by ity of 200 mg 12:01: mouth 2 [place] tablet 37 (two) Medical times Branch daily. insulin 2018-03 Yes 50U inject 50 Unive rs degludec 2-24 Units ity of (TRES[place] 12:01: under the [place] U-100 37 skin Medical INSULIN [place]) daily. Branch metFORMIN 2018-03 Yes 500mg Take 500 Uni vers 1,000 mg 2-24 mg by ity of tablet 12:01: mouth 2 [place] [address] ([facility]) Medical times [place] daily with meals. lisinopril 2018-03 Yes 40mg Take 40 mg U nivers 40 mg 2-24 by mouth ity of tablet 12:01: daily. [address] Branch terazosin 2 2018-03 Yes 2mg Take 2 mg U nivers mg capsule 2-24 by mouth ity o f 12:01: at [place] [address] bedtime. Medical Branch pravastatin 2018-03 Yes 40mg Take 40 mg Univers 40 mg 2-24 by mouth ity of tablet 12:01: at [place] [address] bedtime. Medical Branch aspirin 81 2018-03 Yes 81mg Take 81 mg U nivers mg chewable 2-24 by mouth ity of tablet 12:01: daily. [place] [address] Medical Branch magnesium 2018-03 Yes 400mg Take 400 Uni vers gluconate 2-24 mg by ity of 200 mg 12:01: mouth 2 [place] tablet 37 (two) Medical times [place] daily. insulin 2018-03 Yes 50U inject 50 Unive rs degludec 2-24 Units ity of ([place] 12:01: [place] the [place] U-100 37 skin Medical INSULIN [place]) daily. Branch metFORMIN 2018-03 Yes 500mg Take 500 Uni vers 1,000 mg 2-24 mg by ity of tablet 12:01: mouth 2 [place] [address] (two) Medical times [place] daily with meals. lisinopril 2018-03 Yes 40mg Take 40 mg U nivers 40 mg 2-24 by mouth ity of tablet 12:01: daily. [place] [address] Medical Branch terazosin 2 2018-03 Yes 2mg Take 2 mg U nivers mg capsule 2-24 by mouth ity o f 12:01: at [place] [address] bedtime. Medical Branch pravastatin 2018-03 Yes 40mg Take 40 mg Univers 40 mg 2-24 by mouth ity of tablet 12:01: at [place] [address] bedtime. Medical Branch aspirin 81 2018-03 Yes 81mg Take 81 mg U nivers mg chewable 2-24 by mouth ity of tablet 12:01: daily. [place] [address] Medical Branch magnesium 2018-03 Yes 400mg Take 400 Uni vers gluconate 2-24 mg by ity of 200 mg 12:01: mouth 2 [place] tablet 37 (two) Medical times [place] daily. insulin 2018-03 Yes 50U inject 50 Unive rs degludec 2-24 Units ity of (TRESIBA 12:01: under the [facility] s U-100 37 skin Medical INSULIN SC) daily. Branch metFORMIN 2018-03 Yes 500mg Take 500 Uni vers 1,000 mg 2-24 mg by ity of tablet 12:01: mouth 2 [place] [address] (two) Medical times [place] daily with meals. lisinopril 2018-03 Yes 40mg Take 40 mg U nivers 40 mg 2-24 by mouth ity of tablet 12:01: daily. [address] Branch terazosin 2 2018-03 Yes 2mg Take 2 mg U nivers mg capsule 2-24 by mouth ity o f 12:01: at [place] [address] bedtime. Medical Branch pravastatin 2018-03 Yes 40mg Take 40 mg Univers 40 mg 2-24 by mouth ity of tablet 12:01: at [place] [address] bedtime. Medical Branch aspirin 81 2018-03 Yes 81mg Take 81 mg U nivers mg chewable 2-24 by mouth ity of tablet 12:01: daily. [place] [address] Medical Branch magnesium 2018-03 Yes 400mg Take 400 Uni vers gluconate 2-24 mg by ity of 200 mg 12:01: mouth 2 [place] tablet 37 (two) Medical times [place] daily. insulin 2018-03 Yes 50U inject 50 Unive rs degludec 2-24 Units ity of ([place] 12:01: [place] U-100 37 skin Medical INSULIN [place]) daily. Branch metFORMIN 2018-03 Yes 500mg Take 500 Uni vers 1,000 mg 2-24 mg by ity of tablet 12:01: mouth 2 [place] [address] (two) Medical times [place] daily with meals. lisinopril 2018-03 Yes 40mg Take 40 mg U nivers 40 mg 2-24 by mouth ity of tablet 12:01: daily. [address] Immunizations Ordered Filled Immunization Date Status Comments [facility] e Immunization Name Name SARS-COV-2 COVID-19 2020-06-10 Completed Unive rsity of PFIZER VACCINE 00:00:00 [facility] SARS-COV-2 COVID-19 2020-06-10 Completed Unive rsity of PFIZER VACCINE 00:00:00 [facility] SARS-COV-2 COVID-19 2020-06-10 Completed Unive rsity of PFIZER VACCINE 00:00:00 [facility] SARS-COV-2 COVID-19 2020-06-10 Completed Unive rsity of PFIZER VACCINE 00:00:00 [facility] SARS-COV-2 COVID-19 2020-06-10 Completed Unive rsity of PFIZER VACCINE 00:00:00 [facility] SARS-COV-2 COVID-19 2020-05-20 Completed Unive rsity of PFIZER VACCINE 00:00:00 [facility] SARS-COV-2 COVID-19 2020-05-20 Completed Unive rsity of PFIZER VACCINE 00:00:00 [facility] SARS-COV-2 COVID-19 2020-05-20 Completed Unive rsity of PFIZER VACCINE 00:00:00 [facility] SARS-COV-2 COVID-19 2020-05-20 Completed Unive rsity of PFIZER VACCINE 00:00:00 [facility] SARS-COV-2 COVID-19 2020-05-20 Completed Unive rsity of PFIZER VACCINE 00:00:00 [facility] Td 2019-03-16 Completed University of 00:00:00 [facility] Td 2019-03-16 Completed University of 00:00:00 [facility] Td 2019-03-16 Completed University of 00:00:00 [facility] Td 2019-03-16 Completed University of 00:00:00 [facility] Td 2019-03-16 Completed University of 00:00:00 [facility] Vital Signs Vital Name Observation Time Observation Value Comments Source HEIGHT 2020-04-24 09:34:00 172.7 cm WEIGHT 2020-04-24 09:34:00 152.953 kg HEIGHT 2020-04-18 09:35:00 172.7 cm WEIGHT 2020-04-18 09:35:00 158.759 kg HEIGHT 2021-08-06 09:06:00 172.7 cm WEIGHT 2021-08-06 09:06:00 162.07 kg HEIGHT 2021-07-30 15:47:00 172.7 cm WEIGHT 2021-07-30 15:47:00 163.295 kg HEIGHT 2021-08-06 09:06:00 172.7 cm WEIGHT 2021-08-06 09:06:00 162.07 kg HEIGHT 2021-07-30 15:47:00 172.7 cm WEIGHT 2021-07-30 15:47:00 163.295 kg HEIGHT 2020-04-24 09:34:00 172.7 cm WEIGHT 2020-04-24 09:34:00 152.953 kg HEIGHT 2020-04-18 09:35:00 172.7 cm WEIGHT 2020-04-18 09:35:00 158.759 kg Procedures Procedure Date / Time Performed Performing Clinician [facility] e ASSIGNMENT OF BENEFITS 2021-08-01 23:42:52 Doctor Unassigned, No [facility] Encounters Start End Encounter Admission Attending Care Care Encounter Source Date/Time Date/Time Type Type Clinicians Facility Department ID 2020-12-29 Outpatient RENATA [facility] Surgery [id number] SLE 23:08:45 HARSHINIE 2021-08-06 2021-08-06 Outpatient EL AMSHANNA [facility] Surgery [id number] SLE 07:20:00 11:50:00 HARSHINIE 2021-08-02 2021-08-02 Letter MOOK Spencer [id number] Univers 00:00:00 00:00:00 (Out) Abel CASON 350.1.13.10 [facility] 4.2.7.2.686 Luis as [id number] [address] 2021-08-01 2021-08-01 Laboratory Only, Ang Db Test [facility] 1.2.8 40.114 [id number] Univers 19:15:00 19:30:00 Only Shruti Marte HEALTH 350.1.13.10 ity of [place] 4.2.7.2.686 Luis as MANJEET?BLEA [id number] [address] MEDICAL OFFICE [facility] 2021-08-01 2021-08-01 Outpatient R ROSANNA [facility] [id number] Univers 19:15:00 19:15:00 SHRUTI ity of [facility] 2021-08-01 2021-08-01 Orders Doctor MOOK [id number] Univers 00:00:00 00:00:00 Only Unassigned, YOAV 350.1.13.10 ity of [facility] 4.2.7.2.686 Luis as [id number] [address] 2021-07-30 2021-07-30 Outpatient [facility] [id number] [address] [place] [address] 16:20:44 23:59:00 2021-04-07 2021-04-07 Telephone Marta Gramajo [id number] Univers 00:00:00 00:00:00 YOAV 350.1.13.10 it y of [facility] 4.2.7.2.686 Luis as [id number] [facility] 019 [place] 2021-04-06 2021-04-06 Laboratory Only, Ang Db Test [facility] 1.2.8 40.114 [id number] Univers 09:45:00 09:45:00 Only Martha, Rania HEALTH 350.1.13.10 ity of [place] 4.2.7.2.686 Luis as MANJEET?BLEA [id number] [address] OFFICE [facility] 2021-03-01 2021-03-01 Outpatient LUDWIN [facility] [id number] [place] 00:00:00 00:00:00 KG 301 Method i 2021-03-01 2021-03-01 Outpatient LUDWIN, [facility] [id number] [place] 00:00:00 00:00:00 KG 787 Method i 2021-03-012021-03-01 Outpatient LUDWIN, [facility] [id number] [place] 00:00:00 00:00:00 KG [address] 2021-02-12 2021-02-13 Outpatient MARIAA MOON [facility] [id number] [place] 00:00:00 00:00:[address] 2021-01-30 2021-01-31 Inpatient CARRILLO, [facility] [id number] [place] 00:00:00 00:00:00 DIOGO [address] 2021-01-26 2021-01-26 Outpatient CARRILLO, [facility] [id number] [place] 00:00:00 00:00:00 DIOGO [address] 2021-01-26 2021-01-26 Outpatient CARRILLO, [facility] [id number] [place] 00:00:00 00:00:00 DIOGO [address] 2021-01-26 2021-01-26 Outpatient CARRILLO, [facility] [id number] [place] 00:00:00 00:00:00 DIOGO [address] 2021-01-26 2021-01-26 Outpatient CARRILLO, [facility] [id number] [place] 00:00:00 00:00:00 DIOGO [address] 2021-01-26 2021-01-26 Outpatient CARRILLO, [facility] [id number] [place] 00:00:00 00:00:00 DIOGO [address] 2021-01-18 2021-01-18 Outpatient LUDWIN, [facility] [id number] [place] 00:00:00 00:00:00 KG [address] 2021-01-18 2021-01-18 Outpatient LUDWIN, [facility] [id number] [place] 00:00:00 00:00:00 KG [address] 2021-01-09 2021-01-09 Outpatient Lapin_S [facility] [id number] [place] 04:59:00 04:59:00 [id number] [facility] 2021-01-09 2021-01-09 Outpatient Lapin, [facility] [id number] 00:00:00 00:00:00 Carmelo [id number] Lahn [id number] 2021-01-05 2021-01-05 Outpatient LUDWIN, [facility] [id number] [place] 00:00:00 00:00:00 KG [address] 2021-01-04 2021-01-04 Outpatient Lapin_S [facility] [id number] [place] 04:57:00 04:57:00 [id number] [facility] 2021-01-03 2021-01-03 Outpatient Lapin_S [facility] [id number] [place] 05:35:00 05:35:00 [id number] [facility] 2021-01-03 2021-01-03 Outpatient MARIAA MOON [facility] [id number] [place] 00:00:00 00:00:[address] 2020-12-21 2020-12-21 Outpatient MATTHEW [facility] [id number] [place] 00:00:00 00:00:00 , RAMON 639 [facility] [address] 2020-12-21 2020-12-21 Outpatient LUDWIN, [facility] [id number] [place] 00:00:00 00:00:00 KG [address] 2020-12-12 2020-12-12 Outpatient MATTHEW [facility] [id number] [facility] 00:00:00 00:00:00 , RAMON [address] 2020-12-12 2020-12-12 Outpatient MATTHEW [facility] [id number] [facility] 00:00:00 00:00:00 , RAMON 749 [facility] [address] 2020-12-12 2020-12-12 Outpatient BONY, [facility] [id number] [place] 00:00:00 00:00:00 CARMELO [address] 2020-12-06 2020-12-07 Outpatient MARIAA MOON [facility] [id number] [place] 00:00:00 00:00:[address] 2020-11-09 2020-11-09 Outpatient EDILSON, [facility] [id number] [place] 00:00:00 00:00:00 STEPHANIA [address] 2020-04-18 2020-04-18 Outpatient [facility] [id number] [facility] 00:00:00 00:00:00 2019-12-23 2019-12-23 Emergency TU, YEN-TE [facility] [id number] [facility] 00:00:00 00:00:[address] 2019-09-28 2019-09-28 Outpatient SIERRA, [facility] [id number] [place] 00:00:00 00:00:00 SIMA [address] 2019-09-02 2019-09-02 Outpatient ISSA, [facility] [id number] [place] 00:00:00 00:00:00 LEATHA [address] 2019-09-02 2019-09-02 Outpatient ISSA, [facility] [id number] [place] 00:00:00 00:00:00 LEATHA [address] Results Test Description Test Time Test Comments Results Result Comments Source TISSUE EXAM 2021-08-07 Surgical Pathology 16:59:52 Report Case: [id number] Authorizing Provider: Shaggy Galvan Collected: 08/06/2021 10:01 CONCEPCION Barksdale MD Ordering Location: [facility] Endoscopy Received: 08/06/2021 12:01 PM Services Pathologist: Padmini [place] MD Specimen: Polyp, Colon - Cecum, via hot snare CECAL POLYP, BIOPSY: - TUBULAR ADENOMACC/pl Signing Pathologist Direct Phone Line: [phone] nically signed by Padmini [place] MD on 08/07/2021 at 4:59 [id number] history of colonic polypsA. Polyp, Colon - Cecum.Received in formalin labeled with the patient's name, medical record number and "cecal polyp" are two pieces of noble-white mucosa ranging in size from 0.3 x 0.3 x 0.2 to 0.4 x 0.4 x 0.3 cm. The specimen is submitted in toto in A1.Performed POCT-GLUCOSE METER 2021-08-06 10:43:40 Test Item Value Reference Range Interpretation Comme nts POC-GLUCOSE METER (BEAKER) 89 mg/dL 70-110 : TESTED AT [facility] 67[address] HETAL (test code = 1538) SIMIN Zepeda, [address]: Moisture Meter Operator/Techni cesia ID = [id number] for Jaime Joanne POCT-GLUCOSE [id number] 09:36:28 Test Item Value Reference Range Interpretation Comments POC-GLUCOSE METER 81 mg/dL 70-110 : TESTED A T [facility] 6720 ([place]) (test code = OLENA DUVAL ME, 1538) 91173: Moisture Meter Operator/Techni cesia ID = [id number] for FIGUEROA Keller, SHOLA SARS-CoV-2 (COVID-19) RNA [Presence] in Respiratory specimen by ROXI with probe [id number] 16:05:12 Test Item Value Reference Range Interpretation Comments SARS-CoV-2 (COVID-19) RNA Not detected Not-Detected [Presence] in Respiratory specimen by ROXI with probe detection (test code = 05158-2) Whether patient is employed in a healthcare setting (test code = 14783-9) Whether the patient has symptoms related to condition of interest (test code = 06935-0) Patient was hospitalized because of this condition (test code = 97202-3) Whether the patient was admitted to intensive care unit (ICU) for condition of interest (test code = 18153-0) Whether patient resides in a congregate care setting (test code = 39399-5) TISSUE [id number] 15:38:00Surgical Pathology Report Case: [id number] Authorizing Provider: Shaggy Galvan Collected: 04/24/2020 12:23 PM MD Apolonia Ordering Location: [facility] Endoscopy Received: 04/24/2020 02:15 PM Services Pathologist: Blanquita Perez MD Specimens: A) - Polyp, Colon - Cecum, via forcep x 1 B) - Polyp, Colon - Right/Ascending, via frcp C) - Polyp, Colon - Sigmoid, via hot snare A.CECUM, POLYPECTOMY:- HYPERPLASTIC POLYPB. COLON, ASCENDING, POLYPECTOMY:- POLYPOID COLONIC MUCOSAC. C OLON, SIGMOID, POLYPECTOMY:- TUBULAR ADENOMA WITH FOCAL SUPERFICIAL HIGH-GRADE DYSPLASIA Signing Pathologist Direct Phone Line: [phone] signed by Blanquita Perez MD on 04/26/2020 at 3:38 [id number] 3Screening for colon cancer.A. Polyp, colon-cecum B. Polyp, colon-right ascen dingC. Polyp, colon-sigmoidPart A. Received in formalin labeled "cecum, polyp" consists of two noble tissue fragments, the smaller one measuring 0.2 x 0.2 x 0.2 cm, the larger one measuring 0.4 x 0.2 x 0.2 cm. The specimen is submitted in toto in cassette A1, following filtration.Part B. Received in formalin labeled "ascending colon, polyp" consists of a single noble-pink piece of soft tissue fragment measuring 0.4 x 0.3 x 0.2 cm. The specimen is submitted in toto in cassette B1, following filtration.Part C. Received in formalin labeled "sigmoid colon, polyp" consists of a single noble-pink polypoidal tissue measuring 0.7 x 0.6 x 0.5 cm. The polyp is bisected and submitted in its entirety in cassette C1. SA/Raya. Sections of the cecal polyp show a hyperplastic polyp. No dysplasia or malignancy is identified.B. Sections of the ascending colon show a polypoid piece of colonic mucosa. No adenomatous change, high-grade dysplasia, or malignancy is identified. No features of colitis are identified.C. Sections of the sigmoid colon polypectomy show a tubular adenoma with focal superficial high-grade dysplasia. No malignancy is identified.[facility], Department of Pathology, [address] [place] [address], [facility], [address] [place] [address], [facility], Department of Pathology, [address] [place] [address] 12[address], EYIH-GLUCOSE [id number] 13:09:00 Test Item Value Reference Range Interpretation Comments POC-GLUCOSE METER 80 mg/dL 70-110 : TESTED A T [place] [address] ([facility]) (test code = OLENA [place] [facility], 1538) 01126: Moisture Meter Operator/Techni cesia ID = [id number] for Stevie Villegas [id number] 11:54:00 Test Item Value Reference Range Interpretation Comments POC-POTASSIUM 4.3 meq/L 3.6-5.5 : TESTED AT [place] [address] ([facility]) (test code [facility], = 1540) 48277: Moisture Meter Operator/Techni cesia ID = [id number] for MCDO NALD (V), TEDDY [id number] 11:54:00 Test Item Value Reference Range Interpretation Comments POC-POTASSIUM 5.8 meq/L 3.6-5.5 H : TESTED AT [place] [address] ([facility]) (test code [facility], = 1540) 70643: Moisture Meter Operator/Techni cesia ID = [id number] for MCDO NALD (V), TEDDY POCT-GLUCOSE [id number] 10:22:00 Test Item Value Reference Range Interpretation Comments POC-GLUCOSE METER 80 mg/dL 70-110 : TESTED A T [place] [address] ([facility]) (test code = OLENA [place] [facility], 1538) 52791: Moisture Meter Operator/Techni cesia ID = [id number] for MCDO NALD (V), TEDDY
[2021-11-04 00:30] LABS: Absolute Lymphocytes (CBC) 1.4 K/uL (0.7-4.9); Hematocrit 37.7 % (39.6-49.0); Lymphocytes % 21.1 % (15.3-44.8); MCV 86.7 fL (80-100); MPV 7.1 fL (7.6-11.3); RBC Red Blood Cell Count 4.35 M/uL (4.33-5.43)
[2021-11-04 00:50] LABS: Potassium 4.2 mmol/L (3.5-5.1); Troponin High Sensitivity 24.9 pg/mL (<58.9)
--- NOTE | 2021-11-04 00:59 | ER ---
Nurse's Notes [facility] Name: Kulwinder Zurita Age: 71 yrs Sex: Male : 1950 Arrival Date: 11/03/2021 Time: 23:43 Bed 30 Private MD: Diagnosis: Chest pain, unspecified;Essential (primary) hypertension;Obesity, unspecified Presentation: 11/03 23:50 Chief complaint: Patient states: i feel pressure on my chest, no pain, i feel tired aa9 even though I've been in bed all day. Coronavirus screen: Vaccine status: Patient reports receiving the 2nd dose of the covid vaccine. Ebola Screen: No symptoms or risks identified at this time. Initial Sepsis Screen: Does the patient meet any 2 criteria? No. Patient's initial sepsis screen is negative. Does the patient have a suspected source of infection? No. Patient's initial sepsis screen is negative. Risk Assessment: Do you want to hurt yourself or someone else? Patient reports no desire to harm self or others. Onset of symptoms was November 03, 2021. 23:50 Method Of Arrival: Ambulatory aa9 23:50 Acuity: CHRISTINA 3 aa9 Triage Assessment: 23:54 General: Appears in no apparent distress. comfortable, Behavior is calm, cooperative. aa9 Pain: Denies pain. 23:56 Cardiovascular: Reports "no pain, chest pressure that is about low to medium" Denies aa9 chest pain. Historical: - Allergies: 23:52 Cortisone; aa9 - PMHx: 23:52 Diabetes - IDDM; Hypertension; Hyperlipidemia; Prostate Cancer; Kidney disease; aa9 - Immunization history:: Client reports receiving the 2nd dose of the Covid vaccine. - Social history:: Smoking status: Patient denies any tobacco usage or history of. Screenin:57 Abuse screen: Denies threats or abuse. Denies injuries from another. Nutritional aa9 screening: No deficits noted. Tuberculosis screening: No symptoms or risk factors identified. Fall Risk None identified. Assessment: 11/04 00:19 General: Appears in no apparent distress. Behavior is calm, cooperative. Pain: Denies hb pain. Neuro: Level of Consciousness is awake, alert, obeys commands, Oriented to person, place, time, situation. Cardiovascular: Reports since chest tightness Patient's skin is warm and dry. Respiratory: Respiratory effort is even, unlabored, Respiratory pattern is regular, symmetrical. GI: No signs and/or symptoms were reported involving the gastrointestinal system. : No signs and/or symptoms were reported regarding the genitourinary system. EENT: No signs and/or symptoms were reported regarding the EENT system. Derm: Skin is pink, warm \\T\\ dry. Musculoskeletal: No signs and/or symptoms reported regarding the musculoskeletal system. Vital Signs: 11/03 23:50 BP 187 / 94; Pulse 79; Resp 16 S; Temp 98.5(O); Pulse Ox 96% on R/A; Weight 158.76 kg aa9 (R); Height 5 ft. 8 in. (172.72 cm) (R); Pain 0/10; 11/04 02:19 BP 173 / 76; Pulse 56; Resp 14 S; Pulse Ox 97% on R/A; as6 11/03 23:50 Body Mass Index 53.22 (158.76 kg, 172.72 cm) aa9 ED Course: 11/03 23:43 Patient arrived in ED. ja2 23:52 Triage completed. aa9 23:54 Arm band placed on. aa9 23:57 Patient has correct armband on for positive identification. aa9 23:58 Shabbir Funez DO is Attending Physician. ms3 11/04 00:03 Richard Fairbanks, NATALY is Primary Nurse. as6 00:14 Inserted saline lock: 20 gauge in right wrist, using aseptic technique. Blood collected.hb 00:19 Client placed on continuous cardiac and pulse oximetry monitoring. NIBP monitoring hb applied. 00:19 Patient maintains SpO2 saturation greater than 95% on room air. hb 00:46 XRAY Chest (1 view) In Process Unspecified. EDMS 00:58 Nehemias Stroud MD is Hospitalizing Provider. ms3 04:29 No provider procedures requiring assistance completed. Patient admitted, IV remains in as6 place. 19:11 Primary Nurse role handed off by Richard Fairbanks, NATALY tw5 19:11 Gely Talbot is Primary Nurse. tw5 Administered Medications: 00:57 Drug: Aspirin Chewable Tablet 324 mg Route: PO; hb 04:29 Follow up: Response: No adverse reaction as6 Medication: 00:19 VIS not applicable for this client. hb Outcome: 00:58 Decision to Hospitalize by Provider. ms3 04:29 Admitted to ER Hold. Please see [facility] for further documentation. as6 04:29 Condition: stable 04:29 Instructed on the need for admit. 20:37 Admitted to Med/surg Report called to Attempted to call report. No answer tw5 20:46 Admitted to Med/surg Report called to attempted to call report placed on hold for 3 tw5 min. 21:07 Admitted to Med/surg Report called to attempted to call report no answer tw5 21:45 Patient left the ED. tw5 Signatures: Dispatcher [employer] EDMS Sobia Prasad, RN RN Shabbir Funez, DO ms3 Ifeoma Moy Tiffany tw5 Richard Fairbanks, RN RN as6 Lynn Osorio, RN RN aa9
--- NOTE | 2021-11-04 00:59 | EDPHYS ---
Physician Documentation [facility] Name: Kulwinder Zurita Age: 71 yrs Sex: Male : 1950 Arrival Date: 11/03/2021 Time: 23:43 Bed 30 Private MD: ED Physician Shabbir Funez HPI: 11/04 01:11 This 71 yrs old Male presents to ER via Ambulatory with complaints of Chest Pressure, ms3 Lack of Energy. 01:11 The patient or guardian reports chest pain that is located primarily in the substernal ms3 area. Onset: 1 hour(s) ago. The pain does not radiate. Associated signs and symptoms: Pertinent positives: Pertinent negatives: nausea, shortness of breath, vomiting. The chest pain is described as a pressure. Duration: The patient or guardian reports a single episode, that is still ongoing, and unchanged. Modifying factors: The symptoms are alleviated by nothing. the symptoms are aggravated by nothing. Severity of pain: At its worst the pain was moderate in the emergency department the pain is unchanged. 71-year-old male with past medical history of diabetes, hypertension, hyperlipidemia, prostate cancer presents for fatigue that his been persistent today. Patient states he went to bed at 11 PM and developed chest pressure which prompted him to come to the emergency department. Patient states his discomfort is a 2-3 over 10. Patient denies alleviating or inciting factors. Historical: - Allergies: 11/03 23:52 Cortisone; aa9 - PMHx: 23:52 Diabetes - IDDM; Hypertension; Hyperlipidemia; Prostate Cancer; Kidney disease; aa9 - Immunization history:: Client reports receiving the 2nd dose of the Covid vaccine. - Social history:: Smoking status: Patient denies any tobacco usage or history of. ROS: 11/04 01:11 Constitutional: Negative for fever, and chills. Positive for fatigue Neck: Negative ms3 for injury, pain, and swelling, Respiratory: Negative for shortness of breath, cough, wheezing, and pleuritic chest pain, Abdomen/GI: Negative for abdominal pain, nausea, vomiting, diarrhea, and constipation, Skin: Negative for injury, rash, and discoloration, Neuro: Negative for headache, weakness, numbness, tingling. Cardiovascular: Positive for chest pain. All other systems are negative. Exam: 00:07 ECG was reviewed by the Attending Physician. ms3 01:11 Constitutional: This is a well developed, well nourished patient who is awake, alert, ms3 and in no acute distress. Head/Face: Normocephalic, atraumatic. Neck: Trachea midline, no cervical lymphadenopathy. Supple, full range of motion without nuchal rigidity, or vertebral point tenderness. No Meningismus. Chest/axilla: Normal chest wall appearance and motion. Nontender with no deformity. Cardiovascular: Regular rate and rhythm with a normal S1 and S2. No gallops, murmurs, or rubs. Normal PMI, no JVD. No pulse deficits. Respiratory: Lungs have equal breath sounds bilaterally, clear to auscultation and percussion. No rales, rhonchi or wheezes noted. No increased work of breathing, no retractions or nasal flaring. Abdomen/GI: Soft, non-tender, with normal bowel sounds. No distension or tympany. No guarding or rebound. No evidence of tenderness throughout. Skin: Warm, dry with normal turgor. Normal color with no rashes, no lesions, and no evidence of cellulitis. MS/ Extremity: Pulses equal, no cyanosis. Neurovascular intact. Full, normal range of motion. Psych: Awake, alert, with orientation to person, place and time. Behavior, mood, and affect are within normal limits. Vital Signs: 11/03 23:50 BP 187 / 94; Pulse 79; Resp 16 S; Temp 98.5(O); Pulse Ox 96% on R/A; Weight 158.76 kg aa9 (R); Height 5 ft. 8 in. (172.72 cm) (R); Pain 0/10; 11/04 02:19 BP 173 / 76; Pulse 56; Resp 14 S; Pulse Ox 97% on R/A; as6 11/03 23:50 Body Mass Index 53.22 (158.76 kg, 172.72 cm) aa9 MDM: 00:24 Patient medically screened. ms3 01:11 Differential diagnosis: abnormal EKG, acute myocardial infarction, coronary artery ms3 disease chest wall pain, pneumonia. HEART Score: History: Slightly Suspicious (0), ECG: Normal (0), Age: > or = 65 years (2), Risk Factors: > or = 3 Risk factors for atherosclerotic disease (2), [Hypercholesterolemia] [Hypertension] [DM] [Obesity] Troponin: < or = 1 x Normal Limit (0), Total Score = 4. The patient was given aspirin in the Emergency Department. Data reviewed: vital signs, nurses notes, lab test result(s), radiologic studies, and as a result, I will admit patient. Data interpreted: media monitor: rate is 79 beats/min, rhythm is normal sinus rhythm, with no ectopy, Interpretation: normal rate, normal rhythm. Counseling: I had a detailed discussion with the patient and/or guardian regarding: the historical points, exam findings, and any diagnostic results supporting the discharge/admit diagnosis, lab results, radiology results, the need for further work-up and treatment in the hospital. ED course: Discussed case with Dr Stroud and he accepts patient as observation. Discussed plan with patient and he understands/ agrees with plan.. 11/03 23:58 Order name: Basic Metabolic Panel; Complete Time: 00:53 ms3 11/03 23:58 Order name: CBC with Diff; Complete Time: 00:53 ms3 11/03 23:58 Order name: NT PRO-BNP; Complete Time: 00:53 ms3 11/03 23:58 Order name: Troponin HS; Complete Time: 00:53 ms3 11/04 01:07 Order name: Basic Metabolic Panel EDNM 11/04 01:07 Order name: Basic Metabolic Panel EDNM 11/04 01:07 Order name: CBC with Automated Diff EDMS 11/04 01:07 Order name: CBC with Automated Diff EDMS 11/04 01:07 Order name: Troponin High Sensitivity EDMS 11/04 01:07 Order name: Troponin High Sensitivity EDMS 11/04 01:07 Order name: Troponin High Sensitivity EDMS 11/04 01:18 Order name: SARS RAPID as6 11/04 02:27 Order name: SARS-COV-2 Antigen Rapid EDMS 11/04 10:49 Order name: PT-INR vg1 11/03 23:58 Order name: XRAY Chest (1 view) ms3 11/03 23:58 Order name: EKG; Complete Time: 00:01 ms3 11/04 10:49 Order name: Ptt, Activated vg1 11/04 11:17 Order name: Protime (+INR) EDMS 11/04 11:17 Order name: PTT, Activated Partial Thromb EDMS 11/04 15:37 Order name: PT-INR vg1 11/04 15:37 Order name: Ptt, Activated vg1 11/04 16:10 Order name: Protime (+INR) EDMS 11/04 16:10 Order name: PTT, Activated Partial Thromb EDMS 11/04 17:36 Order name: Glucose, Ancillary Testing EDMS 11/04 20:23 Order name: PT-INR tw5 11/04 20:23 Order name: Ptt, Activated tw5 11/04 20:37 Order name: Glucose, Ancillary Testing EDMS 11/04 20:59 Order name: Protime (+INR) EDMS 11/04 20:59 Order name: PTT, Activated Partial Thromb EDMS 11/03 23:58 Order name: Cardiac monitoring; Complete Time: 00:19 ms3 11/03 23:58 Order name: EKG - Nurse/Tech; Complete Time: 00:19 ms3 11/03 23:58 Order name: IV Saline Lock; Complete Time: 00:19 ms3 11/03 23:58 Order name: Labs collected and sent; Complete Time: 00:19 ms3 11/03 23:58 Order name: O2 Per Protocol; Complete Time: 00:19 ms3 11/03 23:58 Order name: O2 Sat Monitoring; Complete Time: 00:19 ms3 11/04 01:07 Order name: 60g Consistent Carbohydrate (ADA 1800/2000) EDMS 11/04 01:07 Order name: EKG Electrocardiogram EDMS 11/04 01:07 Order name: EKG Electrocardiogram EDMS 11/04 01:07 Order name: EKG Electrocardiogram EDMS 11/04 01:07 Order name: EKG Electrocardiogram EDNM EC:07 Rate is 65 beats/min. Rhythm is regular. QRS [place] is Normal. [place] interval is prolonged. ms3 QRS interval is normal. Clinical impression: Normal ECG. Interpreted by me. Reviewed by me. Administered Medications: 00:57 Drug: Aspirin Chewable Tablet 324 mg Route: PO; hb 04:29 Follow up: Response: No adverse reaction as6 Disposition Summary: 11/04/21 00:58 Hospitalization Ordered Hospitalization Status: Observation ms3 Provider: Nehemias Stroud ms3 Condition: Stable ms3 Problem: new ms3 Symptoms: are unchanged ms3 Bed/Room Type: Standard ms3 Location: Telemetry/MedSurg (Inpatient)(11/04/21 20:06) dw Room Assignment: 216(11/04/21 20:06) dw Diagnosis - Chest pain, unspecified ms3 - Essential (primary) hypertension ms3 - Obesity, unspecified ms3 Forms: - Medication Reconciliation Form ms3 - SBAR form ms3 Signatures: Dispatcher [employer] EDElaine Borjas RN RN mw Woody, Diana RN RN Sobia Simmons RN NATALY Shabbir Funez DO DO ms3 Lynn Osorio RN RN aa9 Richard Fairbanks RN as6 Corrections: (The following items were deleted from the chart) 01:17 00:58 Telemetry/MedSurg (observation) ms3 mw 01:17 00:58 ms3 mw 20:06 01:17 [facility] ER HOLD mw dw 20:06 01:17 ERHOLD- mw dw
[2021-11-04] MEDS ORDERED: ACETAMINOPHEN 500 MG TAB PO PRN (01:02)
[2021-11-04] MEDS ORDERED: MORPHINE 4 MG/ML SYR IV PRN (01:02)
[2021-11-04] MEDS ORDERED: ASPIRIN 81 MG CHEWABLE TABLET ONE (01:04)
[2021-11-04 02:27] LABS: SARS-CoV-2 Antigen Rapid Res Negative (Negative)
[2021-11-04 04:30] VITALS: BMI 53.1
[2021-11-04] MEDS ORDERED: ASPIRIN EC 81 MG TAB PO ONE (08:22)
[2021-11-04] MEDS: ASPIRIN EC 81 MG TAB PO SCH (08:28)
[2021-11-04] MEDS ORDERED: HEPARIN/D5W 25,000 UNIT/500 ML BAG IV ONE (10:59)
[2021-11-04 11:16] LABS: Protime INR 1.09
[2021-11-04] MEDS ORDERED: METOPROLOL TAR 50 MG TAB PO ONE (11:30)
[2021-11-04] MEDS: HEPARIN/D5W 25,000 UNIT/500 ML BAG IV PRN (11:50)
--- NOTE | 2021-11-04 13:23 | HP ---
Date of Admission: 11/04/2021 Chief Complaint: Chest pain. History Of Present Illness: This is a 71-year-old pleasant male patient, who was doing fine in his normal usual state of health until he says yesterday he felt just little tired than usual, so all day he decided to just rest and take it easy, but did not have any other specific complaints until sometime last night he felt like he had some chest discomfort and describes it as pressure type of feeling and denies any associated symptoms like shortness of breath or diaphoresis. With this chest pain complaint, he came into the emergency room and after he was evaluated, he was admitted to the hospital. The patient's chest pain lasted 4-5 hours and after that period, his pain disappeared and has not returned. This morning when I saw him, he was asymptomatic, lying in bed, did not have any complaints this morning when I saw him. Allergies: TO CORTISONE AND IT MAKES HIM FEEL WEAK, SHAKY AND HOT. Medications: Allopurinol 300 mg daily, aspirin 81 mg daily, amlodipine 10 mg daily, vitamin D3 5000 units daily, colchicine 0.6 mg 2 times a day as needed for gout, finasteride 5 mg daily, hydralazine 10 mg 2 times a day, hydroxychloroquine 200 mg 2 times a day, metoprolol tartrate 50 mg takes 2 tablets by mouth 2 times a day, Tresiba insulin takes 40 units subcutaneous injection at bedtime, tamsulosin 0.4 mg daily, and atorvastatin 40 mg daily at bedtime. Review of Systems: Cardiovascular: As mentioned above. All other systems reviewed and negative. Past Medical History: Significant for type 2 diabetes mellitus, pulmonary hypertension, hyperlipidemia, hypertension, coronary artery disease, aortic stenosis, renal cyst, left renal artery stenosis with atrophic left kidney, prostate cancer which was diagnosed and treated in 2017, anemia due to chronic kidney disease and has chronic kidney disease stage 4. The patient had cardiac cath done on 11/02/2020, showed 100% stenosis of distal RCA and mild diffuse plaquing of LAD and circumflex. Left main is normal and at that time, he was noted to have severe aortic stenosis and severe pulmonary hypertension and after this cardiac cath, he had aortic valve replacement surgery. The patient had renal artery angiogram January 17, 2020 showed 70% stenosis of left renal artery with atrophic left kidney. Past Surgical History: Cataract surgery, tonsillectomy, had aortic valve replacement, TAVR on 01/30/2021 and had a vasectomy. Family History: Father . Mother , had dementia and stroke. Brother, diabetes and hypertension. Sister alive and well. Social History: Negative for smoking and use of alcohol negative. Physical Examination: Vital Signs: Height 5 feet 8 inches, weight 350 pounds, temperature 97.7, pulse 58, respiratory rate 17, blood pressure 163/64, oxygen saturation 97% and this was on room air. General: Awake, alert, oriented, not in distress. HEENT: Head atraumatic, normocephalic. Conjunctivae nonerythematous. Sclerae white. Mouth, no thrush or edema noted. Ears/Nose, no mass, lesion, discharge noted. Neck: Supple. No JVD, lymph nodes, bruit, thyromegaly noted. Lungs: Bilateral good equal air entry. Clear to auscultation. No rhonchi. No rales. Heart: Normal heart sounds, no murmur or gallop. Abdomen: Soft, bowel sounds normal. No guarding, rigidity, tenderness, mass, hepatosplenomegaly, distention, or bruit noted. Extremities: No leg edema. No calf tenderness. Skin: No rash, ulcer, cellulitis. Lymphatics: No lymph node enlargement in neck, supraclavicular, infraclavicular region. Neuro: No focal neurological deficit. Chest: Unremarkable. External Genitalia: Deferred. Rectal: Deferred. Laboratory Data: White count 6.5, hemoglobin 12.5, platelets 197. Sodium 141, potassium 4.2, chloride 109, bicarb 26, BUN 41, creatinine 2.64, glucose 192. Initial troponin 24.9 and last troponin this morning was 102.1. Impression: 1. Non-ST segment elevation myocardial infarction. 2. Coronary artery disease. 3. Chronic kidney disease, stage 4. 4. Hypertension. 5. Diabetes mellitus with chronic kidney disease. 6. Left renal artery stenosis. 7. Hyperlipidemia. 8. Anemia due to chronic kidney disease. 9. Pulmonary hypertension. 10. Prostate cancer. Plan: We will admit the patient to hospital for further evaluation and management of this problem. The patient is appropriate for inpatient and is expected to spend 2 midnights in hospital. We will continue aspirin. Continue beta-alex. High dose statin therapy will be continued. We will get lipid profile done tomorrow morning and consult plant pathology teacher, Dr. Rivera and I will communicate details with him. Also explained it to the patient regarding our plan of treatment and heparin drip will be started per protocol without using any bolus. After I left the emergency room, the patient's wanted to talk to me and I did call and discussed all the details and initially she wanted us to go ahead and transfer him to [facility], but I explained her the findings of in view of last cardiac cath results about a year ago. I explained to her that at this point the patient probably will not require any further invasive procedures like cardiac cath or any further intervention and very likely will just need medical management, but I have encouraged her to communicate with plant pathology teacher, Dr. Rivera before the patient and make a final decision and request for transfer, and she understands and agrees with that. So at this point, we are not going to initiate any transfer request and will communicate with Dr. Rivera and the patient will also communicate with him and then they will make a decision on what to do next. MICHELE/MODL Voice ID: [id number] RAVIN
[2021-11-04] MEDS ORDERED: GLUCAGON 1 MG/VIAL IM PRN (13:47)
[2021-11-04] MEDS ORDERED: D10W 250 ML BAG IV PRN (14:01)
[2021-11-04 16:10] LABS: Protime INR 1.13
[2021-11-04] MEDS: INSULIN -REGULAR HUMAN 50 UNIT/0.5 ML ML SQ SCH ×2 (16:30→21:00)
[2021-11-04] MEDS ORDERED: KETOROLAC 30 MG/ML INJ ONE (20:57)
[2021-11-04 20:58] LABS: Protime INR 1.13
[2021-11-04] MEDS ORDERED: ATORVASTATIN 40 MG TAB PO SCH (21:00)
[2021-11-04] MEDS ORDERED: INSULIN GLARGINE 100 UNIT/ML SQ SCH (21:00)
[2021-11-04] MEDS: HYDRALAZINE HCL 10 MG TABLET PO SCH (21:59)
[2021-11-04] MEDS: METOPROLOL TAR 50 MG TAB PO SCH (21:59)
--- NOTE | 2021-11-04 23:30 | CON ---
Date of Consultation: 11/04/2021 Reason For Consultations: Elevated troponin. History Of Present Illness: This is a 71-year-old pleasant male, history of coronary artery disease and aortic valve stenosis, status post TAVR, January 2021, presented to the emergency room with ches t pressure and shortness of breath at rest while watching TV, so presented to the ER. At the present time, he is asymptomatic. Past Medical History: Diabetes, hypertension, dyslipidemia, chronic kidney disease, coronary artery disease, and aortic valve stenosis. Past Surgical History: Recent TAVR, January 30, 2021 with [employer]. Medications: Refer reconciliation sheet for detailed list. Allergies: CORTISONE. Family History: No premature coronary artery disease or cancer.. Review of Systems: All systems reviewed. They were negative except as mentioned in the HPI. Physical Examination: Vital Signs: Temperature is 98.4, pulse 59, breathing at 17, blood pressure 161/70, saturating 96% o n room air. General: Pleasant elderly male, no apparent distress. Head and Neck: Pupils are equal, reactive to light. Intact eye movements. No JVD. No cervical lym phadenopathy. Neck supple. Thyroid is not enlarged. Lungs: Clear to auscultation bilaterally. No crackles. No accessory muscle use. Heart: Regular rate and rhythm. No extra sounds. Abdomen: Soft, nontender. Bowel sounds positive. No organomegaly. No masses or hernia. No rigidi ty or rebound. Extremities: No edema, clubbing. Intact pulses. Skin: No rashes. No nodules. Neurologic: Alert, awake, oriented x3. No acute focal deficits appreciated. Investigations: Troponin is 24.9 and then peaked at 103. Assessment And Recommendation: 1.Chest pain with elevated troponin, likely [id number] myocardial infarction. Agree with hepa rin and aspirin, and trend troponins. Obtain a nuclear stress test tomorrow morning as well as an ec ho. If the stress test is abnormal, then further discussion, that should involve Nephrology to plan for possible coronary angiogram for further definitive anatomical evaluation of his coronary arteries . Agree with metoprolol as well and statin. 2.Hypertension. Blood pressure is elevated. Recommend to add coronary vasodilator like Imdur 30 mg daily and reassess. 3.Dyslipidemia. Continue statin. SR/MODL Voice ID: [id number] Report ID: [id number]
[2021-11-05] MEDS: HEPARIN/D5W 25,000 UNIT/500 ML BAG IV PRN (03:40)
[2021-11-05 04:46] LABS: Absolute Lymphocytes (CBC) 1.4 K/uL (0.7-4.9); Hematocrit 34.1 % (39.6-49.0); MCV 86.8 fL (80-100); RBC Red Blood Cell Count 3.93 M/uL (4.33-5.43)
[2021-11-05 05:06] LABS: ALT/SGPT 30 U/L (12-78); AST/SGOT 17 U/L (15-37); Albumin 2.9 g/dL (3.4-5.0); Alkaline Phosphatase 55 U/L (45-117); BUN Blood Urea Nitrogen 35 mg/dL (7-18); Bicarbonate 28 mmol/L (21-32); Bilirubin Total 0.3 mg/dL (0.2-1.0); Glomerular Filtration Rate 29 ml/min (=/>90); Glucose Level 105 mg/dL (74-106); HDL Cholesterol 36 mg/dL (40-60); LDL Cholesterol, Calculated 57 mg/dL (<130); Protein, Total 6.1 g/dL (6.4-8.2); Sodium Level 143 mmol/L (136-145); Troponin High Sensitivity 56.6 pg/mL (<58.9)
[2021-11-05 05:31] LABS: Bilirubin Direct < 0.1 mg/dL (0-0.2)
[2021-11-05] MEDS: INSULIN -REGULAR HUMAN 50 UNIT/0.5 ML ML SQ SCH (07:30)
[2021-11-05] MEDS ORDERED: TAMSULOSIN 0.4 MG SR CAP PO SCH (09:00)
[2021-11-05] MEDS ORDERED: allopurinoL 300 MG TAB PO SCH (09:00)
[2021-11-05] MEDS ORDERED: ISOSORBIDE MONO SR 30 MG TAB PO SCH (09:00)
[2021-11-05] MEDS ORDERED: FINASTERIDE 5 MG TAB PO SCH (09:00)
[2021-11-05] MEDS ORDERED: AMLODIPINE 10 MG TAB PO SCH (09:00)
[2021-11-05] MEDS: METOPROLOL TAR 50 MG TAB PO SCH (10:15)
[2021-11-05] MEDS: ASPIRIN EC 81 MG TAB PO SCH (10:17)
[2021-11-05] MEDS: HYDRALAZINE HCL 10 MG TABLET PO SCH (10:18)
[2021-11-05 10:31] VITALS: O2SAT 94
[2021-11-05 11:48] VITALS: BP 162/59; TEMP 98.4
--- NOTE | 2021-11-05 12:26 | RAD REPORT ---
EXAM DESCRIPTION: Chest Single View CLINICAL HISTORY: 71 years Male, CHEST PAIN TECHNIQUE: 1 view (Single frontal view of the chest) COMPARISON: None. FINDINGS: Projection magnification secondary to patient's body habitus. LINES AND TUBES: None. CARDIOVASCULAR STRUCTURES: Normal heart size. No pulmonary venous congestion. LUNGS: No confluent areas of acute consolidation. PLEURA: No layering pleural effusions. No pneumothorax. BONES: No acute osseous abnormality of the thorax. IMPRESSION: 1. No acute cardiopulmonary disease. Electronically signed by: Tato Sosa MD 11/04/2021 1:05 AM CDT Due to temporary technical issues with the PACS/Fluency reporting system, reports are being signed by the in house radiologists without review as a courtesy to insure prompt reporting. The interpreting radiologist is fully responsible for the content of the report.
--- NOTE | 2021-11-05 13:40 | ECHO ---
HEIGHT: 5 ft 8 in WEIGHT: 350 lb 0 oz DATE OF STUDY: 11/05/[address]: Akhil Pinto 2-DIMENSIONAL: YES M.MODE: YES DOPPLER: YES COLOR FLOW: YES TDS: NO PORTABLE: YES DEFINITY: NO BUBBLE STUDY: NO DIAGNOSIS: ELEVATED TROPONIN CARDIAC HISTORY: CATHERIZATION: YES SURGERY: YES PROSTHETIC VALVE: YES PACEMAKER: NO MEASUREMENTS (cm) DIASTOLIC (NORMALS) SYSTOLIC (NORMALS) IVSd 1.4 (0.6-1.2) LA Diam 3.0 (1.9-4.0) LVEF 66% LVIDd 6.2 (3.5-5.7) LVIDs 3.9 (2.0-3.5) %FS 37% LVPWd 1.4 (0.6-1.2) Ao Diam 2.7 (2.0-3.7) 2 DIMENSIONAL ASSESSMENT: RIGHT ATRIUM: NORMAL LEFT ATRIUM: NORMAL RIGHT VENTRICLE: NORMAL LEFT VENTRICLE: MILD LEFT VENTRICULAR HYPERTROPHY TRICUSPID VALVE: NORMAL MITRAL VALVE: MILD MITRAL REGURGITATION PULMONIC VALVE: NORMAL AORTIC VALVE: TISSUE VALVE IS PRESENT PERICARDIAL EFFUSION: NONE AORTIC ROOT: NORMAL LEFT VENTRICULAR WALL MOTION: NORMAL. DOPPLER/COLOR FLOW: SEE BELOW. COMMENTS: NORMAL LEFT VENTRICULAR EJECTION FRACTION 55-60% WITH NORMAL WALL MOTION. MILD CONCENTRIC LEFT VENTRICULAR HYPERTROPHY. MILD MITRAL REGURGITATION. AORTIC VALVE BIOPROSTHESIS IS SEATED WELL AND FUNCTIONING WELL. TECHNOLOGIST: JENNY CONTRERAS
--- NOTE | 2021-11-05 20:48 | DS ---
Date of Discharge: 11/05/2021 Disposition: Discharged to go home. Physical Examination: HEENT: Unremarkable. Lungs: Clear to auscultation. Heart: Sounds normal. Abdomen: Soft. Bowel sounds normal. No guarding, rigidity, tenderness, or distention. Extremities: No leg edema. Discharge Medications And Instructions: Continue all prior home medication except following changes; 1.Increase hydralazine dose to 10 mg, the patient to take 2 tablets by mouth 2 times a day until you run out and then change it to 25 mg, take 1 tablet by mouth 2 times a day. 2.Start nitroglycerin sublingual tablets 0.4 mg, take 1 tablet under tongue every 5 minutes x3 as ne eded for chest pain. 3.Isosorbide mononitrate 30 mg, take 1 tablet by mouth daily. 4.Clopidogrel 75 mg 1 tablet by mouth daily. 5.Follow up at my office next week. 6.Follow up with pulp house supervisor per his recommendation and pulp house supervisor's office will contact the thierno ent to schedule outpatient stress test at his office. Hospital Course: This is a 71-year-old very pleasant male patient, admitted to the hospital with com plaints of chest pain. Please see dictated H and P for more information. After the patient was eval uated in the emergency room, he was admitted to the hospital. The patient's chest pain lasted for 4- 5 hours, but after his admission to the hospital, his pain actually resolved and has not had any recu rrence of chest pain. His initial cardiac enzyme was normal, and second and third set were slightly elevated, and fourth cardiac enzyme this morning was normal again. Cardiology consultation was reque sted from Dr. Pinto, who evaluated the patient and started the patient on isosorbide mononitrate and also he recommended echocardiogram which was done today and he also recommended a stress test which was scheduled to be done today, but was not done because of the weight limit. I did discuss this wit h Dr. Pinto today and he has suggested that he will perform the stress test as an outpatient through his office and he has given his okay for the patient to go home. Medically, the patient is stable f or discharge and he agrees with starting the patient on Plavix. I did discuss all these details afte r visiting with the patient this morning and at that time, was there, so we did discuss all the treatment plan, but after I saw the patient and after my communication with the pulp house supervisor, I did c all the patient's and communicated with the patient and the patient's both. The patient wa s discharged to go home in stable condition. Laboratory Data: Upon admission; white count 6.5, hemoglobin 12.5, platelets 197. Repeat white coun t today 5.7, hemoglobin 11.3, platelets 162. Upon admission; sodium 141, potassium 4.2, chloride 109 , bicarb 26, BUN 41, creatinine 2.64, glucose 192. Initial troponin 24.9, second set 102.1, third se t 103.8, and fourth set this morning 56.6. BUN this morning was 35, creatinine 2.32. It is importan t to note that the patient received IV heparin drip, which was started yesterday and this was continu ed until time of discharge. Final Diagnoses: 1.Non-ST segment elevation myocardial infarction. 2.Coronary artery disease. 3.Chronic kidney disease, stage 4. 4.Hypertension. 5.Diabetes mellitus with chronic kidney disease. 6.Left renal artery stenosis. 7.Hyperlipidemia. 8.Anemia due to chronic kidney disease. 9.Pulmonary hypertension. 10.Prostate cancer. MICHELE/MODL Voice ID: [id number] Report ID: [id number]
--- NOTE | 2021-11-06 08:21 | EKG ---
Test Date: 2021-11-04 Test Time: 00:07:45 [employer] Employee: SILVINA MEASUREMENT RESULTS: Intervals: Rate: 65 FL: 216 QRSD: 122 QT: 452 QTc: 470 [place]: P: 70 FL: 216 QRS: 57 T: 42 INTERPRETIVE STATEMENTS: Sinus rhythm with 1st degree AV block Nonspecific intraventricular conduction delay Borderline ECG Compared to ECG 10/30/2020 15:37:21 First degree AV block now present Intraventricular conduction delay now present Electronically Signed On 11-06-21 08:12:19 CDT by Be Rivera
== END 2021-11-05 13:16 | disposition home or self-care (01) ==
LOC: ER 23:40 → ERHOLD 11-04 01:01 → OBSVTOIN 11-04 01:01 → INTOOBSV 11-04 01:01 → 2ND 11-04 20:35 → INTOOBSV 11-04 21:01 → OBSVTOIN 11-04 21:01
PROVIDERS: ADMIT Internal Medicine; ATTEND Internal Medicine
DX: I21.4 Non-ST elevation (NSTEMI) myocardial infarction (principal); I25.10 Atherosclerotic heart disease of native coronary artery without angina pectoris; I25.82 Chronic total occlusion of coronary artery; I12.9 Hypertensive chronic kidney disease with stage 1 through stage 4 chronic kidney disease, or unspecified chronic kidney disease; E11.22 Type 2 diabetes mellitus with diabetic chronic kidney disease; N18.4 Chronic kidney disease, stage 4 (severe); D63.1 Anemia in chronic kidney disease; I70.1 Atherosclerosis of renal artery; E78.5 Hyperlipidemia, unspecified; I27.20 Pulmonary hypertension, unspecified; C61 Malignant neoplasm of prostate; N28.1 Cyst of kidney, acquired; E66.9 Obesity, unspecified; Z68.43 Body mass index [BMI] 50.0-59.9, adult; Z95.2 Presence of prosthetic heart valve; Z79.82 Long term (current) use of aspirin; Z79.4 Long term (current) use of insulin; Z79.899 Other long term (current) drug therapy; Z88.8 Allergy status to other drugs, medicaments and biological substances; Z98.52 Vasectomy status; Z20.822 Contact with and (suspected) exposure to COVID-19; Z82.3 Family history of stroke; Z83.3 Family history of diabetes mellitus; Z82.49 Family history of ischemic heart disease and other diseases of the circulatory system; Z82.0 Family history of epilepsy and other diseases of the nervous system
CPT/HCPCS: 36415; 71045; 80048; 80061; 80076; 82947; 83880; 84484; 85025; 85610; 85730; 87811; 93005; 93306; 99285; G0378; J1644

== ENCOUNTER 2022-01-13 18:39 | Inpatient (IN) | payer OTHER, BC ==
--- OUTSIDE RECORDS SUMMARY | 2022-01-13 18:46 | XMS REPORT | Continuity of Care Document ---
:1950 Author Organization [facility] t Address [address] [place] [address] Care Team Providers Name Role Phone Pcp, Patient Does Not Have A Primary Care Physician [phone] SHAGGY GALVAN Attending Clinician Unavail able Андрей Kirk Attending Clinician Unavailable Ludwin JENSEN, Nghia Rhodes Attending Clinician Shaggy Galvan MD Attending Clinician [phone] Windy Gardner MD Attending Clinician Sobia Montoya Attending Clinician Abel Spencer RN Attending Clinician Unavailable Only, Ang Db Test Attending Clinician Unavailable Jimmy Pina Attending Clinician JIMMY MARTE Attending Clinician Unavailable Doctor Unassigned, [place] Attending Clinician Unavailable Ramu INGRAM, Marisol Attending Clinician Unavailable Marta Gramajo RN Attending Clinician Unavailable Morelia Nam Attending Clinician Lilian Freeman MA Attending Clinician Unavailable Mariaa Moon MD Attending Clinician Agnieszka Armas MA Attending Clinician Unavailable Marianela Ayala MA Attending Clinician Unavailable Camelia JENSEN, Diogo Stephenson Attending Clinician [phone] Petey Reyes MD Attending Clinician Celina Rogers Attending Clinician [phone] Jossie Bateman MD, Rito Berkowitz Attending Clinician [phone] MD DIOGO DENISE Attending Clinician Unavailable Elaine Zamora MA Attending Clinician Unavailable Julius RNJulio Cesar Attending Clinician Unavailable Antonio JENSEN, Pawel Morse Attending Clinician Cayetano Ocampo Attending Clinician [phone] Dominog INGRAM, Silvana Attending Clinician Unavailable Matthew JENSEN, Ramon Clements Attending Clinician [phone] Lapin_S Attending Clinician Unavailable Carmelo Huntley Attending Clinician [phone] CARMELO LOVETT Attending Clinician Unavailable STEPHANIA WAGGONER Attending Clinician Unavailable ABELARDO MORAES Attending Clinician Unavailable SIMA ESQUIVEL Attending Clinician Unavailable LEATHA PARSONS Attending Clinician Unavailable JUAN HENAO Attending Clinician Unavailable SHAGGY GALVAN Admitting Clinician Unavail able Андрей Kirk Admitting Clinician Unavailable DIOGO DENISE Admitting Clinician Unavailable MD DIOGO DENISE Admitting Clinician Unavailable NGHIA OMER Admitting Clinician Unavailable Lapkameron_Rachid Admitting Clinician Unavailable NASRA TIJERINA Admitting Clinician Unavailable JUAN HENAO Admitting Clinician Unavailable Payers Payer Name Policy Type Policy Number Effective Date Expiration Date S mesha [place] [id number] 2014 [place] 00:[place]:00 [place] [id number] 2020 [place] ([place]ICARE 00:00:00 SUPPLEMENT) Problems Condition Condition Condition Status Onset Resolution Last Treating Co mments Source Name Details Category Date Date Treatment Clinician Date 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 Ashkan n (disorder) (disorder) Active Problem 01/04/2022 [facility] Gout Gout Problem Active 2022-01-04 Memor ia (disorder) (disorder) 07:04:03 l Active [place] Problem 01/04/2022 [facility] No known No known Disease Unive rs active active ity of problems problems [facility] Allergies, Adverse Reactions, Alerts Allergy Allergy Status Severity Reaction(s) Onset Inactive Treating Comm ents Source Name Type Date Date Clinician [place] Drug Active Other (See Shaking[facility] Allergy Comments) 04-18 weakness [facility] 00:[facility]: Medical 00 Center CORTISON Allergy Active Med [facility] [place] Propensi Active Unknown Metho di e ty to Reaction 09-27 st adverse 00:00: Hospita reaction 00 l s to drug NO KNOWN Drug Active [facility] ALLERGIE Class ity of S [facility] cortison cortison Active Moderate hot Enmanuel madelyn e e sensation, l Tremor K[place]hal (finding) Family History Family Member Diagnosis Comments Start Date Stop Date Source Natural father Heart disease [facility] Natural mother No Known Problems Met [facility] Social History Social Habit Start Date Stop Date Quantity Comments Source History SDNY Yarsanism Frankie spital Alcohol Std Drinks History SDNY Yarsanism [facility] Alcohol Binge Exposure to 2021-07-22 2021-08-01 Not sure [facility]-CoV-2 00:00:00 18:50:00 [facility] (event) [place] Alcohol intake 2021-03-01 2021-03-01 [facility] 00:00:00 00:00:00 non-drinker (finding) Tobacco use and 2020-04-18 2020-04-[address] [facility] [address] [facility] exposure 00:00:00 00:00:00 Medical Center History [facility] 2019-12-23 2019-12-23 1 Yarsanism Frankie spital Alcohol Frequency 00:00:00 00:00:00 Sex Assigned At [address] [facility] 00:00:00 00:00:00 Medical Center Smoking Status Start Date Stop Date Source Unknown if ever smoked [facility] Medications Ordered Filled Start Stop Current Ordering Indication Dosage Frequency Signature Comments Components Source Medication Medication Date Date Medication? Clinician (SIG) Name Name allopurinoL Yes 300mg QD Take [address] (ZYLOPRIM) 5-16 mg by [facility] 300 MG 12:08: mouth Medical tablet 32 daily. [place] finasteride Yes 5mg QD Take [address] (PROSCAR) 5 5-16 by mouth Luke s mg tablet 12:08: daily. Medica l 32 Center insulin Yes 40U QD Inject 40 [facility] t degludec 5-16 Units [facility] (TRESIBA 12:08: subcutaneo Med ical FLEXTOUCH 32 usly daily Cent er U-100 SUBQ) . cloNIDine Yes .1mg Q.5D Take 0.[address] HCL 5-16 mg by [facility] (CATAPRES) 12:08: mouth 2 Medi rema 0.1 MG 32 (two) Center tablet times daily Prn bp > 160/100 . hydroCHLORO 2021-0 Yes 50mg QD Take [address] thiazide 5-16 by mouth [facility] (HYDRODIURI 12:08: daily. Medi rema L) 50 MG 32 Center tablet NIFEdipine 2021-0 Yes 60mg QD Take [address] (ADALAT CC) 5-16 by mouth Luke s 60 MG 24 hr 12:08: daily. Medi rema tablet 32 Center amlodipine- 2021-0 Yes 1{tbl} QD Take [address] olmesartan 5-16 tablet by Luke s (REKHA) 12:08: mouth Medical 10-40 mg 32 daily. Center per tablet hydrALAZINE 2021-0 Yes 10mg Q.5D Take [address] (APRESOLINE 5-16 by mouth 2 Zita kes ) 10 MG 12:08: (two) Medical tablet 32 times Center daily. metoprolol 2021-0 Yes 50mg Q.25D Take [address] tartrate 5-16 by mouth 4 [facility] (LOPRESSOR) 12:08: (four) Medi rmea 50 MG 32 times Center tablet daily. amLODIPine 0 Yes 10mg QD Take [address] (NORVASC) 5-16 by mouth [facility] 10 MG 12:08: daily. Medical tablet 32 Center tamsulosin 0 Yes .4mg QD Take 0.[address] (FLOMAX) 5-16 mg by [facility] 0.4 mg Cap 12:08: mouth Medica l 24 hr 32 daily. Center capsule hydrOXYchlo 2021-0 Yes Q.5D Take by [facility] roQUINE 5-16 mouth 2 [facility] (PLAQUENIL) 12:08: (two) Medic al 200 mg 32 times Center tablet daily. pravastatin 2021-0 Yes 40mg QD Take [address] (PRAVACHOL) 5-16 by mouth Luke s 40 MG 12:08: daily. Medical tablet 32 Center multivitami 2021-0 Yes 1{capsu QD Take [address] n capsule 5-16 le} capsule by Luke s 12:08: mouth Medical 32 daily. Center CHOLECALCIF 2021-0 Yes Take by [facility] JOSSELIN, 5-16 mouth. [facility] VITAMIN D3, 12:08: Medica l ORAL 32 Center metoprolol 2022-0 2022- No 100mg Q.5D Take [address] tartrate 08-06-16 mg by [facility] (LOPRESSOR) 10:16: 00:00 mouth 2 Me dical 100 MG 58 :00 (two) Center tablet times daily. aspirin 81 2021- No 81mg QD Take [address] MG EC 08-06-16 by mouth [facility] tablet 10:16: 00:00 daily. Medical 58 :00 Center pravastatin 2021- No 40mg QD Take [address] (PRAVACHOL) 07-30 by mouth Soo es 40 MG 16:09: 00:00 daily. Medical tablet 12 :00 Center hydrOXYchlo 2021- No QD Take by I [facility] roQUINE 07-30 mouth [facility] (PLAQUENIL) 16:08: 00:00 daily. Med ical 200 mg 38 :00 Center tablet ergocalcife [place] 66607V Q7D Take [facility] rol 07-30 50,000 [facility] (Vitamin 16:08: 00:00 Units by Medi rema D2) 1,250 23 :00 mouth once Cent er mcg (50,000 a week. unit) capsule docusate 2021- No 100mg Q.5D Take [address] sodium 07-30- mg by [facility]ukes (COLACE) 16:08: 00:00 mouth 2 Medic al 100 MG 13 :00 (two) Center capsule times daily. cholecalcif 2020-03 Yes 1{capsu QD Take 1 M ethodi josselin, 05-02 le} capsule by st vitamin D3, 15:00: mouth Hospi ta 5,000 unit 03 daily. l capsule tamsulosin 2020-03 Yes .4mg QD Take 0.4 Met hodi (FLOMAX) 2-[address] 0.4 mg 15:00: mouth Hospita capsule 03 every l morning. amLODIPine 2020-03 Yes 10mg QD Take 10 mg M ethodi (NORVASC) 2-[address] 10 mg 15:00: daily. Hospita tablet 03 l aspirin 2020-03 Yes 81mg QD Take 81 mg Meth vladimir (ECOTRIN) 2-[address] 81 MG 15:00: every Hospita enteric 03 evening. l coated tablet multivitami 2020-03 Yes 1{tbl} QD Take 1 Me thodi n tablet 2-[address] 15:00: mouth Hospita 03 daily. l cholecalcif 2020-03 Yes 1{capsu QD Take 1 M ethodi josselin, 2-09 le} capsule by st vitamin D3, 15:00: mouth Hospi ta 5,000 unit 03 daily. l capsule tamsulosin 2020-03 Yes .4mg QD Take 0.4 Met hodi (FLOMAX) 2-[address] 0.4 mg 15:00: mouth Hospita capsule 03 every l morning. amLODIPine 2020-03 Yes 10mg QD Take 10 mg M ethodi (NORVASC) 2-[address] 10 mg 15:00: daily. Hospita tablet 03 l aspirin 2020-03 Yes 81mg QD Take 81 mg Meth vladimir (ECOTRIN) 2-[address] 81 MG 15:00: every Hospita enteric 03 evening. l coated tablet multivitami 2020-03 Yes 1{tbl} QD Take 1 Me thodi n tablet 2-[address] 15:00: mouth Hospita 03 daily. l gabapentin 2020-03- No 100mg Take 100 M ethodi (NEURONTIN) 0-27 10-[address] 100 mg 09:23: 00:00 mouth. Hospita capsule 21 :00 l gabapentin 2020-03- No 100mg Take 100 M ethodi (NEURONTIN) 0-27 10-[address] 100 mg 09:23: 00:00 mouth. Hospita capsule 21 :00 l clonIDINE 2019-03- No .2mg Take 0.2 Met hodi HCl 0-01 10-[address] (CATAPRES) 00:00: 00:00 mouth. Hosp jax 0.2 MG 00 :00 l tablet clonIDINE 2019-03- No .2mg Take 0.2 Met hodi HCl 0-01 10-[address] (CATAPRES) 00:00: 00:00 mouth. Hosp jax 0.2 MG 00 :00 l tablet hydrOXYchlo 2020-0 Yes 200mg Q.5D Take 200 M ethodi roQUINE 7-[address] (PLAQUENIL) 00:00: mouth 2 Hos acacia 200 mg 00 (two) l tablet times a day. hydrOXYchlo 2020-0 Yes 200mg Q.5D Take 200 M ethodi roQUINE 7-[address] (PLAQUENIL) 00:00: mouth 2 Hos acacia 200 mg 00 (two) l tablet times a day. Tresiba 2020-0 Yes 50U QD 50 Units Method i U-100 6-[address] Insulin 100 00:00: evening. Ho spita unit/mL 00 l solution Tresiba 2020-0 Yes 50U QD 50 Units Method i U-100 6-[address] Insulin 100 00:00: evening. Ho spita unit/mL 00 l solution allopurinoL 2020-0 Yes 300mg QD Take 300 M ethodi (ZYLOPRIM) 5-[address] 300 MG 00:00: mouth Hospita tablet 00 every l evening. allopurinoL 2020-0 Yes 300mg QD Take 300 M ethodi (ZYLOPRIM) 5-[address] 300 MG 00:00: mouth Hospita tablet 00 every l evening. metoprolol 2020-0 Yes 100mg Q.5D Take 100 Me thodi tartrate 5-[address] (LOPRESSOR) 00:00: mouth 2 Hos acacia 50 mg 00 (two) l tablet times a day. pravastatin 2020-0 Yes 40mg QD Take 40 mg Methodi (PRAVACHOL) 5-[address] 40 mg 00:00: every Hospita tablet 00 evening. l metoprolol 2020-0 Yes 100mg Q.5D Take 100 Me thodi tartrate 5-[address] (LOPRESSOR) 00:00: mouth 2 Hos acacia 50 mg 00 (two) l tablet times a day. pravastatin 2020-0 Yes 40mg QD Take 40 mg Methodi (PRAVACHOL) 5-[address] 40 mg 00:00: every Hospita tablet 00 evening. l finasteride 2020-0 Yes 5mg QD Take 5 mg M ethodi (PROSCAR) 5 4-[address] mg tablet 00:00: daily. Hospit a l finasteride 2020-0 Yes 5mg QD Take 5 mg M ethodi (PROSCAR) 5 4-[address] mg tablet 00:00: daily. Hospit a l finasteride 2019-1 Yes 5mg Take 5 mg U nivers 5 mg tablet 2-24 by mouth ity of 12:01: daily. [place] [address] Medical Branch allopurinol 2018-03 Yes 300mg Take 300 U nivers 300 mg 2-24 mg by ity of tablet 12:01: mouth [place] [address] daily. Medical Branch finasteride 2018-03 Yes 5mg Take 5 mg U nivers 5 mg tablet 2-24 by mouth ity of 12:01: daily. [place] [address] Medical Branch allopurinol 2018-03 Yes 300mg Take 300 U nivers 300 mg 2-24 mg by ity of tablet 12:01: mouth [place] [address] daily. Medical Branch finasteride 2018-03 Yes 5mg Take 5 mg U nivers 5 mg tablet 2-24 by mouth ity of 12:01: daily. [place] [address] Medical Branch allopurinol 2018-03 Yes 300mg Take 300 U nivers 300 mg 2-24 mg by ity of tablet 12:01: mouth [place] [address] daily. Medical Branch finasteride 2018-03 Yes 5mg Take 5 mg U nivers 5 mg tablet 2-24 by mouth ity of 12:01: daily. [place] [address] Medical Branch allopurinol 2018-03 Yes 300mg Take 300 U nivers 300 mg 2-24 mg by ity of tablet 12:01: mouth [place] [address] daily. Medical Branch finasteride 2018-03 Yes 5mg Take 5 mg U nivers 5 mg tablet 2-24 by mouth ity of 12:01: daily. [place] [address] Medical Branch allopurinol 2018-03 Yes 300mg Take 300 U nivers 300 mg 2-24 mg by ity of tablet 12:01: mouth [place] [address] daily. Medical Branch metFORMIN 2018-03 Yes 500mg Take 500 Uni vers 1,000 mg 2-24 mg by ity of tablet 12:01: mouth 2 [place] [address] (two) Medical times Branch daily with meals. lisinopril 2018-03 Yes 40mg Take 40 mg U nivers 40 mg 2-24 by mouth ity of tablet 12:01: daily. [place] [address] Medical Branch terazosin 2 2018-03 Yes 2mg Take 2 mg U nivers mg capsule 2-24 by mouth ity o f 12:01: at [place] [address] bedtime. Medical Branch pravastatin 2018-03 Yes 40mg Take 40 mg Univers 40 mg 2-24 by mouth ity of tablet 12:01: at [place] [address] bedtime. Medical Branch aspirin 81 2018-03 Yes 81mg Take 81 mg U nivers mg chewable 2-24 by mouth ity of tablet 12:01: daily. [place] [address] Medical Branch magnesium 2018-03 Yes 400mg Take 400 Uni vers gluconate 2-24 mg by ity of 200 mg 12:01: mouth 2 [place] tablet 37 (two) Medical times Branch daily. insulin 2018-03 Yes 50U inject 50 Unive rs degludec 2-24 Units ity of (TRESIBA 12:01: [facility] skin Medical INSULIN SC) daily. Branch metFORMIN 2018-03 Yes 500mg Take 500 Uni vers 1,000 mg 2-24 mg by ity of tablet 12:01: mouth 2 [place] [address] (two) Medical times [place] daily with meals. lisinopril 2018-03 Yes 40mg Take 40 mg U nivers 40 mg 2-24 by mouth ity of tablet 12:01: daily. [address] Branch terazosin 2 2018-03 Yes 2mg Take 2 mg U nivers mg capsule 2-24 by mouth ity o f 12:01: at [place] [address] bedtime. Medical Branch pravastatin 2018-03 Yes 40mg Take 40 mg Univers 40 mg 2-24 by mouth ity of tablet 12:01: at [place] [address] bedtime. Medical Branch aspirin 81 2018-03 Yes 81mg Take 81 mg U nivers mg chewable 2-24 by mouth ity of tablet 12:01: daily. [place] [address] Medical Branch magnesium 2018-03 Yes 400mg Take 400 Uni vers gluconate 2-24 mg by ity of 200 mg 12:01: mouth 2 [place] tablet 37 (two) Medical times [place] daily. insulin 2018-03 Yes 50U inject 50 Unive rs degludec 2-24 Units ity of (TRESIBA 12:01: [facility] skin Medical INSULIN [place]) daily. Branch metFORMIN 2018-03 Yes 500mg Take 500 Uni vers 1,000 mg 2-24 mg by ity of tablet 12:01: mouth 2 [place] [address] (two) Medical times [place] daily with meals. lisinopril 2018-03 Yes 40mg Take 40 mg U nivers 40 mg 2-24 by mouth ity of tablet 12:01: daily. [address] Branch terazosin 2 2018-03 Yes 2mg Take 2 mg U nivers mg capsule 2-24 by mouth ity o f 12:01: at [place] [address] bedtime. Medical Branch pravastatin 2018-03 Yes 40mg Take 40 mg Univers 40 mg 2-24 by mouth ity of tablet 12:01: at [place] [address] bedtime. Medical Branch aspirin 81 2018-03 Yes 81mg Take 81 mg U nivers mg chewable 2-24 by mouth ity of tablet 12:01: daily. [place] [address] Medical Branch magnesium 2018-03 Yes 400mg Take 400 Uni vers gluconate 2-24 mg by ity of 200 mg 12:01: mouth 2 [place] tablet 37 (two) Medical times [place] daily. insulin 2018-03 Yes 50U inject 50 Unive rs degludec 2-24 Units ity of (TRESIBA 12:01: [place] the [place] U-100 37 skin Medical INSULIN [place]) daily. Branch metFORMIN 2018-03 Yes 500mg Take 500 Uni vers 1,000 mg 2-24 mg by ity of tablet 12:01: mouth 2 [place] [address] ([facility]) [facility] times [place] daily with meals. lisinopril 2018-03 Yes 40mg Take 40 mg U nivers 40 mg 2-24 by mouth ity of tablet 12:01: daily. [address] Branch terazosin 2 2018-03 Yes 2mg Take 2 mg U nivers mg capsule 2-24 by mouth ity o f 12:01: at [place] [address] bedtime. Medical Branch pravastatin 2018-03 Yes 40mg Take 40 mg Univers 40 mg 2-24 by mouth ity of tablet 12:01: at [place] [address] bedtime. Medical Branch aspirin 81 2018-03 Yes 81mg Take 81 mg U nivers mg chewable 2-24 by mouth ity of tablet 12:01: daily. [place] [address] Medical Branch magnesium 2018-03 Yes 400mg Take 400 Uni vers gluconate 2-24 mg by ity of 200 mg 12:01: mouth 2 [place] tablet 37 (two) Medical times [place] daily. insulin 2018-03 Yes 50U inject 50 Unive rs degludec 2-24 Units ity of (TR[place]IBA 12:01: [place] U-[place] 37 skin Medical INSULIN [place]) daily. Branch metFORMIN 2018-03 Yes 500mg Take 500 Uni vers 1,000 mg 2-24 mg by ity of tablet 12:01: mouth 2 [place] [address] ([facility]) Medical times [place] daily with meals. lisinopril 2018-03 Yes 40mg Take 40 mg U nivers 40 mg 2-24 by mouth ity of tablet 12:01: daily. [place] [address] Medical Branch terazosin 2 2018-03 Yes 2mg Take 2 mg U nivers mg capsule 2-24 by mouth ity o f 12:01: at [place] [address] bedtime. Medical Branch pravastatin 2018-03 Yes 40mg Take 40 mg Univers 40 mg 2-24 by mouth ity of tablet 12:01: at [place] [address] bedtime. Medical Branch aspirin 81 2018-03 Yes 81mg Take 81 mg U nivers mg chewable 2-24 by mouth ity of tablet 12:01: daily. [place] [address] Medical Branch magnesium 2018-03 Yes 400mg Take 400 Uni vers gluconate 2-24 mg by ity of 200 mg 12:01: mouth 2 [place] tablet 37 (two) Medical times Branch daily. insulin 2018-03 Yes 50U inject 50 Unive rs degludec 2-24 Units ity of (TRESIBA 12:01: under the [facility] s U-100 37 skin Medical INSULIN SC) daily. Branch allopurinol Yes 300 mg = 1 Memoria 300 mg oral 08 tabs, l tablet 21:48: Oral, [place] 00 Daily Fish Oil Yes 1,000 mg = Mem oria 1000 mg 11-29 1 caps, l oral 21:48: Oral, BID [place] capsule 00 Toujeo Yes 50 units, Memori a SoloStar 11-29 Subcutaneo l 21:47: us, Daily [place] 00 pioglitazon Yes 30 mg = 1 M emoria e 30 mg 11-29 tabs, l oral tablet 21:47: Oral, Paulette nn 00 Daily Vitamin D3 Yes 5,000 Memori a 5000 intl 11-29 IntUnit = l units oral 21:46: 1 caps, Herm marry capsule 00 Oral, Daily pravastatin Yes 40 mg = 1 M emoria 40 mg oral -08 tabs, l tablet 21:45: Oral, [place] 00 Daily aspirin 81 Yes 81 mg = 1 Me moria mg oral 08 tabs, l tablet 21:45: Oral, [place] 00 Daily Ocuvite Yes 1 tabs, Memoria 08 Oral, l 21:45: Daily [place] 00 amLODIPine 2017-0 Yes 10 mg = 1 Me moria 10 mg oral 11-29 tabs, l tablet 21:44: Oral, Daily lisinopril 2017-0 Yes 5 mg, Memori a 11-29 Oral, BID l 21:44: [place] 00 doxazosin 2 2017-0 Yes 2 mg = 1 Me moria mg oral 11-29 tabs, l tablet 21:43: Oral, Daily Immunizations Ordered Filled Immunization Date Status Comments [facility] e Immunization Name Name SARS-COV-2 COVID-19 2020-06-10 Completed Unive rsity of PFIZER VACCINE 00:00:00 [facility] SARS-COV-2 COVID-19 2020-06-10 Completed Unive rsity of PFIZER VACCINE 00:00:00 [facility] SARS-COV-2 COVID-19 2020-06-10 Completed Unive rsity of PFIZER VACCINE 00:00:00 [facility] SARS-COV-2 COVID-19 2020-06-10 Completed Unive rsity of PFIZER VACCINE 00:00:00 [facility] SARS-COV-2 COVID-19 2020-06-10 Completed Unive rsity of PFIZER VACCINE 00:00:00 [facility] SARS-COV-2 COVID-19 2020-05-20 Completed Unive rsity of PFIZER VACCINE 00:00:00 [facility] SARS-COV-2 COVID-19 2020-05-20 Completed Unive rsity of PFIZER VACCINE 00:00:00 [facility] SARS-COV-2 COVID-19 2020-05-20 Completed Unive rsity of PFIZER VACCINE 00:00:00 [facility] SARS-COV-2 COVID-19 2020-05-20 Completed Unive rsity of PFIZER VACCINE 00:00:00 [facility] SARS-COV-2 COVID-19 2020-05-20 Completed Unive rsity of PFIZER VACCINE 00:00:00 [facility] Td 2019-03-16 Completed University of 00:00:00 [facility] Td 2019-03-16 Completed University of 00:00:00 [facility] Td 2019-03-16 Completed University of 00:00:00 [facility] Td 2019-03-16 Completed University of 00:00:00 [facility] Td 2019-03-16 Completed University of 00:00:00 [facility] Vital Signs Vital Name Observation Time Observation [...] 172.7 cm WEIGHT 2020-04-18 09:35:00 158.759 kg Systolic blood 2021-08-06 11:24:00 151 mm[Hg] [facility] Diastolic blood 2021-08-06 11:24:00 58 mm[Hg] [facility] Heart rate 2021-08-06 11:24:00 62 /min [facility] Body temperature 2021-08-06 11:24:00 36.67 Madeline [facility] Respiratory rate 2021-08-06 11:24:00 20 /min [facility] Oxygen saturation in 2021-08-06 11:24:00 96 /min [facility] Arterial blood by Medical Ce nter Pulse oximetry Body height 2021-08-06 09:06:00 172.7 cm [facility] Body weight 2021-08-06 09:06:00 162.07 kg [facility] BMI 2021-08-06 09:06:00 54.33 kg/m2 [facility] Systolic blood 2021-03-01 20:55:00 181 mm[Hg] [facility] pressure Diastolic blood 2021-03-01 20:55:00 81 mm[Hg] [facility] pressure Heart rate 2021-03-01 20:55:00 62 /min [facility] Body temperature 2021-03-01 20:55:00 36.28 Madeline [facility] Body height 2021-03-01 20:55:[address] [facility] Body weight 2021-03-01 20:55:[address] [facility] BMI 2021-03-01 20:55:00 56.28 kg/m2 [facility] Oxygen saturation in 2021-03-01 20:55:00 96 /min [facility] Arterial blood by Pulse oximetry Respiratory rate 2021-01-31 17:20:15 18 /min [facility] Procedures Procedure Date / Time Performing Clinician Source Performed REPORT OF PROCEDURE - 2021-08-06 11:02:14 Amarateduardo [facility] ENDOSCOPY URL [facility] POCT-GLUCOSE METER 2021-08-06 10:32:00 Amaratungrubén [facility] TISSUE EXAM 2021-08-06 10:01:00 Amaratungrubén [facility] COLONOSCOPY, WITH 2021-08-06 09:31:00 Amarateduardo [facility] POLYPECTOMY [facility] POCT-GLUCOSE METER 2021-08-06 09:25:00 Amaratungrubén [facility] ASSIGNMENT OF BENEFITS 2021-08-01 23:42:52 Doctor Unassigned, [facility] HC COMPLETE BLD COUNT 2021-03-01 22:53:00 [facility] W/AUTO DIFF Carmelo COMPREHENSIVE METABOLIC 2021-03-01 22:53:00 [facility] PANEL Carmelo PROTHROMBIN TIME WITH INR 2021-03-01 22:53:00 [facility] Carmelo ESTIMATED GFR 2021-03-01 22:53:00 [facility] Ho spital Carmelo ECG 12-LEAD 2021-03-01 22:00:12 [facility] Ho spital Carmelo TTE COMPLETE, W CONTRAST, 2021-03-01 21:24:32 [facility] W DOPPLER ([id number]) Carmelo TTE COMPLETE, W CONTRAST, 2021-01-31 11:30:00 [facility] W DOPPLER ([id number]) Carmelo BASIC METABOLIC PANEL 2021-01-31 10:06:00 [facility] HC COMPLETE BLD COUNT 2021-01-31 10:06:00 [facility] W/AUTO DIFF ESTIMATED GFR 2021-01-31 10:06:00 [facility] Diaz Ho spital ECG PRE/POST OP 2021-01-31 08:51:21 [facility] Diaz Ho spital ECG PRE/POST OP 2021-01-31 05:39:30 [facility] Diaz Ho spital ECG 12-LEAD 2021-01-31 02:39:19 Diogo Denise XR CHEST 1 VW PORTABLE 2021-01-31 01:48:18 Ranjit Shaikh [facility] POC GLUCOSE 2021-01-31 01:23:00 Diogo Denise EP TEMPORARY LEAD 2021-01-31 01:17:00 [facility] INSERTION Carmelo CV AORTIC VALVULOPLASTY 2021-01-31 01:17:00 [facility] CV LEFT HEART CATH 2021-01-31 01:17:[address] AORTOGRAM ABDOMINAL 2021-01-31 01:17:00 [facility] AORTA Carmelo TTE COMPLETE, WO CONTRAST, 2021-01-31 01:12:00 [facility] W DOPPLER ([id number]) Carmelo POC ARTERIAL BLOOD GAS, 2021-01-31 00:39:00 [facility] CORRECTED AND GARRET Stephenson ACTIVATED CLOTTING TIME 2021-01-31 00:38:00 [facility] POC ARTERIAL BLOOD GAS, 2021-01-30 23:52:00 [facility] CORRECTED AND GARRET Stephenson ACTIVATED CLOTTING TIME 2021-01-30 23:51:00 [facility] ANESTHESIA GRACIE 2021-01-30 23:21:18 Petey Reyes spital ARTERIAL LINE 2021-01-30 23:20:46 Petey Reyes spital [place] AN ELECTIVE 2021-01-30 22:56:02 [facility] ENDOTRACHEAL AIRWAY POC ARTERIAL BLOOD GAS, 2021-01-30 22:56:00 [facility] CORRECTED AND GARRET Stephenson TAVR FOR SURGERY 2021-01-30 22:20:00 Jossie Bateman [facility] Woo ABO AND RH CONFIRMATION BY 2021-01-30 20:23:00 [facility] PROTOCOL Sachin POC GLUCOSE 2021-01-30 19:54:00 [facility] ospilaura Stephenson PV TRANSCRANIAL DOPPLER 2021-01-26 21:48:00 [facility] INTRACRANIAL ARTERIES Sachin COMPLETE US CAROTID DUPLEX 2021-01-26 21:30:00 [facility] BILATERAL Sachin SPIROMETRY, DIFFUSION, 2021-01-26 20:29:11 [facility] LUNG VOLUMES [place] XR CHEST 2 VW 2021-01-26 17:22:09 [facility] ossammi Sachin B NATRIURETIC PEPTIDE 2021-01-26 16:39:00 [facility] HC COMPLETE BLD COUNT 2021-01-26 16:39:00 [facility] W/AUTO DIFF Sachin COMPREHENSIVE METABOLIC 2021-01-26 16:39:00 Diogo Denise [facility] PANEL Sachin HEMOGLOBIN A1C 2021-01-26 16:39:00 [facility]ogo [facility] PARTIAL THROMBOPLASTIN 2021-01-26 16:39:00 CameliaDiogo simpson [facility] TIME (PTT) Sachin PROTHROMBIN TIME WITH INR 2021-01-26 16:39:00 CameliaDiogo simpson [facility] Sachin PREPARE RBC 2021-01-26 16:39:00 Diogo Denise [facility] ESTIMATED GFR 2021-01-26 16:39:00 Diogo Denise Yarsanism [facility] Sachin URINE CULTURE 2021-01-26 16:33:00 [facility] MAGNESIUM LEVEL 2021-01-26 16:33:00 [facility] URINALYSIS SCREEN AND 2021-01-26 16:33:00 [facility] MICROSCOPY, WITH REFLEX TO CULTURE COVID-19 QUALITATIVE 2021-01-26 16:06:00 [facility] [place] [facility] CT CHEST NON CONTRAST 2021-01-18 20:03:24 Nghia mOer [facility] ECHOCARDIOGRAM 2021-01-18 18:21:51 Nghia Omer spilaura TRANSESOPHAGEAL W DOPPLER [place] COLORFLOW POC GLUCOSE 2021-01-18 15:31:00 Nghia Omer spital [place] MRI ABDOMEN W WO CONTRAST 2021-01-05 23:45:00 Nghia Omer [facility] Plan of Care Planned Activity Planned Date Details Comments Source Future Scheduled 2031-08-[address] [facility] 00:[facility] Center colon (procedure) [code = 654587200] Future Scheduled 2031-08-[address] [facility] Test 00:00:00 [facility] colon (procedure) [code = 974840282] Future Scheduled 2022-01-11 HEPATITIS B VACCINES [facility] Test 17:27:46 (1 of 3 - 3-dose series) [code = HEPATITIS B VACCINES (1 of 3 - 3-dose series)] Future Scheduled 2022-01-11 65+ [facility]AL [facility] Test 17:27:46 VACCINE (1 - PCV) [code = 65+ PNEUMOCOCCAL VACCINE (1 - PCV)] Future Scheduled 2022-01-11 DIABETES: RETINAL EYE [facility] Test 17:27:46 EXAM [code = DIABETES: RETINAL EYE EXAM] Future Scheduled 2022-01-11 DIABETIC [facility]OT [facility] Test 17:27:46 [code = DIABETIC FOOT EXAM] Future Scheduled 2022-01-11 Hepatitis C screening [facility] Test 17:27:46 (procedure) [code = 256421773] Future Scheduled 2022-01-11 SHINGLES VACCINES (1 Met [facility] Test 17:27:46 of 2) [code = SHINGLES VACCINES (1 of 2)] Future Scheduled 2022-01-11 COLONOSCOPY SCREENING [facility] Test 17:27:46 [code = COLONOSCOPY SCREENING] Future Scheduled 2022-01-11 COVID-19 VACCINE (4 - Me [facility] Test 17:27:46 Booster for Pfizer series) [code = COVID-19 VACCINE (4 - Booster for Pfizer series)] Future Scheduled 2022-01-11 INFLUENZA VACCINE Method [facility] Test 17:27:46 [code = INFLUENZA VACCINE] Future Scheduled 2021-12-12 HEPATITIS B VACCINES Met [facility] Test 16:05:50 (1 of 3 - 3-dose series) [code = HEPATITIS B VACCINES (1 of 3 - 3-dose series)] Future Scheduled 2021-12-12 65+ [facility]CCAL [facility] Test 16:05:50 VACCINE (1 - PCV) [code = 65+ PNEUMOCOCCAL VACCINE (1 - PCV)] Future Scheduled 2021-12-12 DIABETES: RETINAL EYE [facility] Test 16:05:50 EXAM [code = DIABETES: RETINAL EYE EXAM] Future Scheduled 2021-12-12 DIABETIC FOOT [facility]AM [facility] Test 16:05:50 [code = DIABETIC FOOT EXAM] Future Scheduled 2021-12-12 Hepatitis C screening [facility] Test 16:05:50 (procedure) [code = 695757329] Future Scheduled 2021-12-12 SHINGLES VACCINES (1 Met [facility] Test 16:05:50 of 2) [code = SHINGLES VACCINES (1 of 2)] Future Scheduled 2021-12-12 [facility] 16:05:50 [code = COLONOSCOPY SCREENING] Future Scheduled 2021-12-12 COVID-19 VACCINE (4 - Me [facility] Test 16:05:50 Booster for Pfizer series) [code = COVID-19 VACCINE (4 - Booster for Pfizer series)] Future Scheduled 2021-12-12 INFLUENZA VACCINE Method ist Hospital Test 16:05:50 [code = INFLUENZA VACCINE] Future Scheduled 2021-11-22 INFLUENZA VACCINE (#1[facility] 00:[facility]00 [code = INFLUENZA Medical Ce nter VACCINE (#1)] Future Scheduled 2021-03-[address] [facility] Test 00:00:00 (12+) [code = Medical Center DEPRESSION SCREENING (12+)] Future Scheduled 2021-03-24 FALLS RISK SCREENING [facility] Test 00:00:00 [code = FALLS RISK Medical C enter SCREENING] Future Scheduled 2020-11-10 COVID-19 VACCINE (3 - [facility] 00:00:00 Booster for Pfizer Medical C enter series) [code = COVID-19 VACCINE (3 - Booster for Pfizer series)] Future Scheduled 2015-12-[address] [facility] [facility] Test 00:00:00 WELLNESS (YEAR 2 or Medical Center FIRST YEAR if no IPPE) [code = MEDICARE ANNUAL WELLNESS (YEAR 2 or FIRST YEAR if no IPPE)] Future Scheduled 2015 PNEUMOCOCCAL 65+ YRS [facility] Test 00:00:00 (1 - PCV) [code = Medical Ce nter PNEUMOCOCCAL 65+ YRS (1 - PCV)] Future Scheduled 2000-01-17 SHINGLES VACCINES ([address] [facility] Test 00:00:00 of 2) [code = SHINGLES Medic al Center VACCINES (1 of 2)] Future Scheduled 1969 DTAP/TDAP/TD VACCINES [facility] Test 00:00:00 (1 - Tdap) [code = Medical C enter DTAP/TDAP/TD VACCINES (1 - Tdap)] Future Scheduled 1968-01-17 HEPATITIS C [facility]CREENING [facility] Test 00:00:00 [code = HEPATITIS C Medical Center SCREENING] Future Scheduled [address] [facility] Test 00:00:00 (combo) [code = CT Medical C enter Colonography (combo)] Future Scheduled [address] [facility] 00:[facility]:00 malignant neoplasm of Medica l Center colon (procedure) [code = 901345993] Future Scheduled [address] [facility] Test 00:00:00 malignant neoplasm of Medica [facility] Center colon (procedure) [code = 551210330] Future Scheduled 1950 Sigmoidoscopy [code = [facility] Test 00:00:00 Sigmoidoscopy] Medical Cente r Encounters Start End Encounter Admission Attending Care Care Encounter Source Date/Time Date/Time Type Type Clinicians Facility Department ID 2020-12-29 Outpatient RENATA [facility] Surgery [id number] [facility] 23:08:45 HARSHINIE 2022-01-03 2022-01-04 Outpatient [facility] [id number] Memoria 14:31:07 04:59:59 [facility] 2022-01-03 2022-01-03 Outpatient nullFlavo [facility] [id number] Memoria 09:31:07 23:59:59 r [facility] 2022-01-03 2022-01-03 Outpatient Reagan, [id number] 09:31:07 23:59:59 Андрей 8 2021-12-11 2021-12-11 Telephone Ludwin, 1.2.840.1 [id number] Methodi 00:00:00 00:00:[address] Carmelo 3.430.2.7 Hospit a .3.639146 l .8 2021-12-11 2021-12-11 Telephone Ludwin, 1.2.840.1 [id number] [id number] Methodi 00:00:00 00:00:[address] Carmelo 3.430.2.7 Hospit a .3.967991 l .8 2021-08-06 2021-08-[facility] [id number] [id number] 07:20:00 11:50:00 Encounter Shaggy Barksdale Medic [facility] 2021-08-06 2021-08-06 Outpatient EL RAMON GALVAN Surgery [id number] SLE 07:20:00 11:50:00 HARSHINIE 2021-08-06 2021-08-[address] [facility] [id number] 09:36:00 10:30:00 Event Carlos Lizarragaher Gabriel [facility] 2021-08-06 2021-08-06 Surgery Elinorcarloseduardo, [facility] [id number] 09:30:00 10:00:00 Shaggy dylon [facility] 2021-08-06 2021-08-06 Travel [facility] [id number] [facility] 00:[facility]00 00:00:00 [facility] 2021-08-02 2021-08-02 Letter MOOK Spencer 1.2.420.939 [id number] Univers 00:00:00 00:00:00 (Out) Abel CASON 350.1.13.10 it y of HOSPITAL 4.2.7.2.686 Luis as [phone] [address] 2021-08-01 2021-08-01 Laboratory Only, Ang Db Test [facility] 1.2.8 40.114 [id number] Univers 19:15:00 19:30:00 Only Gordy [facility] 350.1.13.10 ity [facility] 4.2.7.2.686 Luis as MANJEET?BLEA [phone] [address] MEDICAL OFFICE BUILDING 2021-08-01 2021-08-01 Outpatient R GORDY [facility] [id number] Univers 19:15:00 19:15:00 JIMMY ity [facility] 2021-08-01 2021-08-01 Orders Doctor DELVALLE 1.2.840.114 [id number] Univers 00:00:00 00:00:00 Only Unassigned, YOAV 350.1.13.10 ity of [place] [facility] 4.2.7.2.686 Luis as [phone] [address] 2021-07-30 2021-07-30 Outpatient EL [facility] [id number] [facility] 16:20:44 23:59:00 2021-07-30 2021-07-30 [facility] [id number] 14:45:00 23:59:00 [facility] 2021-07-30 2021-07-30 Travel [facility] [id number] [facility] 00:[facility]00 00:00:00 [facility] 2021-07-10 2021-07-10 Telephone Guallpa, 1.2.840.1 [id number] 21 [id number] Methodi 00:00:00 00:00:[address] 3.430.2.7 Hospit a .3.670064 l .8 2021-07-10 2021-07-10 Telephone Guallpa, 1.2.840.1 [id number] 21 [id number] Methodi 00:00:00 00:00:[address] 3.430.2.7 Hospit a .3.325266 l .8 2021-07-03 2021-07-03 Telephone Guallpa, 1.2.840.1 [id number] 21 [id number] Methodi 00:00:00 00:00:[address] 3.430.2.7 Hospit a .3.299017 l .8 2021-07-03 2021-07-03 Telephone Guallpa, 1.2.840.1 [id number] 21 [id number] Methodi 00:00:00 00:00:[address] 3.430.2.7 Hospit a .3.173599 l .8 2021-07-03 2021-07-03 Telephone Guallpa, 1.2.840.1 [id number] 21 [id number] Methodi 00:00:00 00:00:[address] 3.430.2.7 Hospit a .3.707059 l .8 2021-07-03 2021-07-03 Telephone Guallpa, 1.2.840.1 [id number] 21 [id number] Methodi 00:00:00 00:00:[address] 3.430.2.7 Hospit a .3.392216 l .8 2021-06-27 2021-06-27 Telephone Guallpa, 1.2.840.1 [id number] 21 [id number] Methodi 00:00:00 00:00:[address] 3.430.2.7 Hospit a .3.109710 l .8 2021-06-27 2021-06-27 Telephone Guallpa, 1.2.840.1 [id number] 21 [id number] Methodi 00:00:00 00:00:[address] 3.430.2.7 Hospit a .3.855557 l .8 2021-05-03 2021-05-03 Telephone Ludwin, 1.2.840.1 [id number] 253 [id number] Methodi 00:00:00 00:00:[address] Carmelo 3.430.2.7 Hospit a .3.454577 l .8 2021-05-03 2021-05-03 Telephone Ludwin, 1.2.840.1 [id number] 030 [id number] Methodi 00:00:00 00:00:[address] [place]elo 3.430.2.7 Hospit a .3.004296 l .8 2021-04-07 2021-04-07 Telephone Marta Gramajo 1.2.840.[id number] [facility] 00:00:00 00:00:00 YOAV 350.1.13.10 [facility] 4.2.7.2.686 Luis as [phone] [address] 2021-04-06 2021-04-06 Laboratory Only, Ang Db Test [facility] 1.2.[id number] [facility] 09:45:00 09:45:00 [facility] 350.1.13.10 ity vida HUME 4.2.7.2.686 Luis as MANJEET?BLEA [phone] Ia angely [address] MEDICAL OFFICE BUILDING 2021-03-01 2021-03-01 Lab Ludwin, 1.2.840.1 [id number] Methodi 16:30:00 16:35:[address] Carmelo 3.430.2.7 Hospit a .3.117995 l .8 2021-03-01 2021-03-01 Lab Ludwin, 1.2.840.1 [id number] Methodi 16:30:00 16:35:[address] [place]elo 3.430.2.7 Hospit a .3.501004 l .8 2021-03-01 2021-03-01 [facility], 1.2.840.1 [id number] 21 [id number] Methodi 15:30:00 16:15:13 [address]ghia 48975.1.[address] Visit Carmelo 3.430.2.7 Hospit a .3.950990 l .8 2021-03-01 2021-03-01 [facility]id[facility]i [facility], 1.2.840.1 [id number] 21 [id number] Methodi 15:30:00 16:15:13 [address]ghia 52484.1.[address] Visit Carmelo 3.430.2.7 Hospit a .3.982551 l .8 2021-03-01 2021-03-01 [facility] [id number] [place] 00:00:00 00:00:00 NGHIA [address] 2021-02-28 2021-02-28 Travel 1.2.840.1 1.2.504.631 4153 [id number] Methodi 00:00:00 00:00:[address] 3.430.2.7 0.2.7.3.698 Ho spita .3.231627 084.8 l .8 2021-02-28 2021-02-28 Telephone Walker, 1.2.840.1 [id number] 2099 [id number] Methodi 00:00:00 00:00:[address] 3.430.2.7 Hospit a .3.043476 l .8 2021-02-28 2021-02-28 Travel 1.2.840.1 1.2.300.405 1220 [id number] Methodi 00:00:00 00:00:[address] 3.430.2.7 0.2.7.3.698 Ho spita .3.615115 084.8 l .8 2021-02-28 2021-02-28 Telephone Walker, 1.2.840.1 [id number] 2099 [id number] Methodi 00:00:00 00:00:[address] 3.430.2.7 Hospit a .3.140314 l .8 2021-02-12 2021-02-13 Office Mariaa Moon 1.2.840.3 [id number] 2 [id number] Methodi 13:15:00 08:29:[address] 3.430.2.7 Hospit a .3.369477 l .8 2021-02-12 2021-02-13 Office Darrion, Mariaa 1.2.840.7 [id number] 2 [id number] Methodi 13:15:00 08:29:[address] 3.430.2.7 Hospit a .3.420936 l .8 2021-02-12 2021-02-12 Travel 1.2.840.1 1.2.669.178 1911 [id number] Methodi 00:00:00 00:00:[address] 3.430.2.7 0.2.7.3.698 Ho spita .3.888951 084.8 l .8 2021-02-12 2021-02-12 Travel 1.2.840.1 1.2.509.002 4984 666670 Methodi 00:00:00 00:00:[address] 3.430.2.7 0.2.7.3.698 Ho spita .3.956606 084.8 l .8 2021-02-05 2021-02-05 Orders Pawel, 1.2.840.1 [id number] Methodi 00:00:00 00:00:00 Only Agnieszka J 18588.1.[address] 3.430.2.7 Hospit a .3.029645 l .8 2021-02-05 2021-02-05 Orders Pawel, 1.2.840.1 [id number] Methodi 00:00:00 00:00:00 Only Agnieszka J 05016.1.[address] 3.430.2.7 Hospit a .3.710718 l .8 2021-02-01 2021-02-01 Orders Jamie, 1.2.840.6 [id number] 988 [id number] Methodi 00:00:00 00:00:00 Only Marianela L 66781.1.[address] 3.430.2.7 Hospit a .3.262638 l .8 2021-02-01 2021-02-01 Orders Jamie, 1.2.840.0 [id number] 159 [id number] Methodi 00:00:00 00:00:00 Only Marianela L 05114.1.[address] 3.430.2.7 Hospit a .3.746875 l .8 2021-01-30 2021-01-31 [facility] 1.2.840.1 [id number] 2099 [id number] Methodi 08:10:00 13:51:00 Encounter Diogo 92889.1.[address] Sachin 3.430.2.7 Hospit a .3.894628 l .8 2021-01-30 2021-01-31 [facility], 1.2.840.1 [id number] Methodi 08:10:00 13:51:00 Encounter Diogo 70711.1.[address] Sachin 3.430.2.7 Hospit a .3.761460 l .8 2021-01-03 2021-01-31 Office Mariaa Moon 1.2.840.7 [id number] 2 [id number] Methodi 13:30:00 10:29:[address] 3.430.2.7 Hospit a .3.988338 l .8 2021-01-30 2021-01-30 Anesthesia Petey Reyes 1.2.840.1 [id number] 8 [id number] Methodi 16:20:00 19:20:00 Event Celina Rogers 33710.1.[address] 3.430.2.7 Hospit a .3.966947 l .8 2021-01-30 2021-01-30 Anesthesia Petey Reyes 1.2.840.1 [id number] 8 [id number] Methodi 16:20:00 19:20:00 Event Celina Rogers 44689.1.[address] 3.430.2.7 Hospit a .3.517215 l .8 2021-01-30 2021-01-30 Surgery Jossie sanders 1.2.840.1 [id number] 2099 [id number] Methodi 12:10:00 14:40:00 Thais, 72762.1.[address] Rito C. 3.430.2.7 Hosp jax .3.259611 l .8 2021-01-30 2021-01-30 Surgery Jossie sanders 1.2.840.1 [id number] 2099 133153 Methodi 12:10:00 14:40:00 Ballmoos, 31080.1.[address] Rito C. 3.430.2.7 Hosp jax .3.845280 l .8 2021-01-30 2021-01-30 Travel 1Trinh2.840.1 1.2.908.159 3788 034887 Methodi 00:00:00 00:00:[address] 3.430.2.7 0.2.7.3.698 Ho spita .3.396734 084.8 l .8 2021-01-30 2021-01-30 Travel 1.2.840.1 1.2.373.903 4092 577105 Methodi 00:00:00 00:00:[address] 3.430.2.7 0.2.7.3.698 Ho spita .3.207617 084.8 l .8 2021-01-26 2021-01-26 [facility], 1.2.840.1 [id number] 2099 [id number] Methodi 15:00:00 23:59:00 Encounter Diogo 37650.1.[address] Sachin 3.430.2.7 Hospit a .3.426351 l .8 2021-01-26 2021-01-26 [facility], 1.2.840.1 [id number] 2100 [id number] Methodi 15:00:00 23:59:00 Encounter Diogo 00435.1.[address] Sachin 3.430.2.7 Hospit a .3.426323 l .8 2021-01-26 2021-01-26 [facility], 1.2.840.1 [id number] 2099 [id number] Methodi 11:30:00 14:59:00 Encounter Diogo 34099.1.[address] Sachin 3.430.2.7 Hospit a .3.655983 l .8 2021-01-26 2021-01-26 [facility], 1.2.840.1 [id number] 2100 [id number] Methodi 11:30:00 14:59:00 Encounter Diogo 79485.1.[address] Sachin 3.430.2.7 Hospit a .3.745704 l .8 2021-01-26 2021-01-26 Pre-Admiss [facility], 1.2.840.1 [id number] Methodi 13:40:00 14:40:00 ion Diogo 89629.1.[address] Testing Sachin 3.430.2.7 Hospit a .3.348383 l .8 2021-01-26 2021-01-26 Pre-Admiss Camelia, 1.2.840.1 [id number] 21 [id number] Methodi 13:40:00 14:40:00 ion Diogo 63893.1.[address] Testing Sachin 3.430.2.7 Hospit a .3.533853 l .8 2021-01-26 2021-01-26 Telephone Zamora, 1.2.840.1 [id number] 549 [id number] Methodi 00:00:00 00:00:[address] 3.430.2.7 Hospit a .3.221977 l .8 2021-01-26 2021-01-26 Telephone Minor, 1.2.840.1 [id number] 2099 [id number] Methodi 00:00:00 00:00:[address] Jul[address] Cesar 55833.1.[address] 3.430.2.7 Hospit a .3.148704 l .8 2021-01-26 2021-01-26 Travel 1.2.840.1 1.2.434.796 0910 140216 Methodi 00:00:00 00:00:[address] 3.430.2.7 0.2.7.3.698 Ho spita .3.177521 084.8 l .8 2021-01-26 2021-01-26 Outpatient CAMELIA, [facility] [id number] [address] [place] [address] 00:00:00 00:00:[address] DIO[address] 2021-01-26 2021-01-26 Outpatient CAMELIA, [address] 00:00:00 00:00:[address] 2021-01-26 2021-01-26 Telephone Zamora, 1.2.840.1 [id number] 144 [id number] Methodi 00:00:00 00:00:[address] 3.430.2.7 Hospit a .3.054554 l .8 2021-01-26 2021-01-26 Telephone Minor, 1.2.840.1 [id number] 2099 [id number] Methodi 00:00:00 00:00:[address] 3.430.2.7 Hospit a .3.545453 l .8 2021-01-26 2021-01-26 Travel 1.2.840.1 1.2.560.176 9388 056969 Methodi 00:00:00 00:00:[address] 3.430.2.7 0.2.7.3.698 Ho spita .3.740331 084.8 l .8 2021-01-19 2021-01-19 Telephone [place], 1.2.840.1 [id number] 545 [id number] Methodi 00:00:00 00:00:[address] 3.430.2.7 Hospit a .3.012555 l .8 2021-01-19 2021-01-19 Telephone [place]ren[place], 1.2.840.1 [id number] 410 [id number] Methodi 00:00:00 00:00:[address] 3.430.2.7 Hospit a .3.352012 l .8 2021-01-18 2021-01-18 [facility] 1.2.840.1 [id number] 2099 [id number] Methodi 07:41:00 14:01:00 Encounter Nghia 41630.1.[address] Carmelo 3.430.2.7 Hospit a .3.044935 l .8 2021-01-18 2021-01-18 [facility] 1.2.840.1 [id number] 2099 366914 Methodi 07:41:00 14:01:00 Encounter Nghia 58067.1.[address] Carmelo 3.430.2.7 Hospit a .3.856491 l .8 2021-01-18 2021-01-18 Anesthesia Pawel Alvarez 1.2.840.1 [id number] Methodi 12:57:00 13:23:00 Event Cayetano Ocampo 20000.1.[address] 3.430.2.7 Hospit a .3.193929 l .8 2021-01-18 2021-01-18 Anesthesia Pawel Alvarez 1.2.840.1 [id number] Methodi 12:57:00 13:23:00 Event Cayetano Ocampo 13622.1.[address] 3.430.2.7 Hospit a .3.044269 l .8 2021-01-18 2021-01-18 Orders Minor, 1.2.840.1 [id number] 332306 3237 Methodi 00:00:00 00:00:00 Only Janinae 48863.1.[address] 3.430.2.7 Hospit a .3.708337 l .8 2021-01-18 2021-01-18 Orders Minor, 1.2.840.1 [id number] 139726 1597 Methodi 00:00:00 00:00:00 Only Janinae 15954.1.[address] 3.430.2.7 Hospit a .3.569279 l .8 2021-01-18 2021-01-18 Travel 1.2.840.1 1.2.861.484 5227 638863 Methodi 00:00:00 00:00:[address] 3.430.2.7 0.2.7.3.698 Ho spita .3.540257 084.8 l .8 2021-01-18 2021-01-18 Outpatient [facility] 428407 5371 [place] 00:00:00 00:00:[address] [facility] [address] 2021-01-18 2021-01-18 Orders Minor, 1.2.840.1 [id number] 473419 1848 Methodi 00:00:00 00:00:00 Only Janinae 99371.1.[address] 3.430.2.7 Hospit a .3.076733 l .8 2021-01-18 2021-01-18 Orders Minor, 1.2.840.1 [id number] 396325 9854 Methodi 00:00:00 00:00:00 Only Julio Cesar 31807.1.[address] 3.430.2.7 Hospit a .3.848788 l .8 2021-01-18 2021-01-18 Travel 1.2.840.1 1.2.906.996 6864 284926 Methodi 00:00:00 00:00:[address] 3.430.2.7 0.2.7.3.698 Ho spita .3.735699 084.8 l .8 2021-01-17 2021-01-[address], 1.2.840.1 [id number] 720921 4378 Methodi 00:00:00 00:00:00 Only Silvana 42729.1.[address] 3.430.2.7 Hospit a .3.910701 l .8 2021-01-17 2021-01-[address], 1.2.840.1 [id number] 595104 0474 Methodi 00:00:00 00:00:00 Only Silvana 35846.1.[address] 3.430.2.7 Hospit a .3.332952 l .8 2021 2021 Travel 1.2.840.1 1.2.344.106 6600 685423 Methodi 00:00:00 00:00:[address] 3.430.2.7 0.2.7.3.698 Ho spita .3.091881 084.8 l .[address], 1.2.840.1 [id number] 2099 363765 Methodi 00:00:00 00:00:[address] 3.430.2.7 Hospit a .3.386747 l .[address], 1.2.840.1 223494403 251940 7266 Methodi 00:00:00 00:00:00 Only Silvana [address]31.1.[address] 3.430.2.7 Hospit a .3.694298 l .8 2021 2021 Travel 1.2.840.1 1.2.878.500 [id number] Methodi 00:00:00 00:00:[address] 3.430.2.7 0.2.7.3.698 Ho spita .3.483657 084.8 l .8 2021 2021 Telephone Domingo, 1.2.840.1 [id number] 2100 [id number] Methodi 00:00:00 00:00:[address] 3.430.2.7 Hospit a .3.593087 l .[address], 1.2.840.1 [id number] Methodi 00:00:00 00:00:00 Only Silvana 56435.1.[address] 3.430.2.7 Hospit a .3.865904 l .8 2021-01-12 2021-01-12 Telephone Matthew 1.2.840.1 [id number] Methodi 00:00:00 00:00:00 , Ramon 68907.1.[address] [facility] 3.430.2.7 Hosp jax .3.456568 l .8 2021-01-09 2021-01-09 Outpatient Lapin_S U [facility] [id number]- 202 [place] 04:59:00 04:59:00 85458 [facility] 2021-01-09 2021-01-09 Outpatient Lapin, U U 1o8bu85 4-3 00:00:00 00:00:00 Carmelo 120-11ec-a Monserrat 90b-cf6f6b 32cd57 2021-01-05 2021-01-05 [facility], 1.2.840.1 [id number] 2100 [id number] Methodi 16:04:57 23:59:00 Encounter Nghia 36057.1.[address] Carmelo 3.430.2.7 Hospit a .3.335625 l .8 2021-01-05 2021-01-05 Travel 1.2.840.1 1.2.662.628 4533 [id number] Methodi 00:00:00 00:00:[address] 3.430.2.7 0.2.7.3.698 Ho spita .3.503901 084.8 l .8 2021-01-04 2021-01-04 Outpatient Lapin_S [facility] [id number] [place] 04:57:00 04:57:00 85701 [facility] 2021-01-03 2021-01-03 Outpatient Lapin_S [facility] 502109- 202 [place] 05:35:00 05:35:00 28225 [facility] 2021-01-03 2021-01-03 Travel 1.2.840.1 1.2.555.049 [id number] Methodi 00:00:00 00:00:[address] 3.430.2.7 0.2.7.3.698 Ho spita .3.592302 084.8 l .8 2020-12-21 2020-12-21 Outpatient MATTHEW [facility] 133 [id number] [place] 00:00:00 00:00:00 , RAMON 639 Metho di 2020-12-21 2020-12-21 Outpatient LUDWIN, [facility] [id number] 4302 [place] 00:00:00 00:00:00 NGHIA 763 Method i 2020-12-12 2020-12-12 Outpatient MATTHEW [facility] 634 [id number] [place] 00:00:00 00:00:00 , RAMON [address] 2020-12-12 2020-12-12 Outpatient MATTHEW [facility] 222 [id number] [place] 00:00:00 00:00:00 , RAMON 749 Metho di 2020-12-12 2020-12-12 Outpatient BONY, [facility] [id number] 960 [place] 00:00:00 00:00:00 CARMELO 945 Method i 2020-12-06 2020-12-07 Outpatient MARIAA MOON [facility] 577 [id number] [place] 00:00:00 00:00:00 867 Method i 2020-11-09 2020-11-09 Outpatient EDILSON, [facility] 021 [id number] 8977 [place] 00:00:00 00:00:00 STEPHANIA 565 Method i 2020-04-18 2020-04-18 Outpatient [facility] [id number] 1 [facility] 00:00:00 00:00:00 2019-12-23 2019-12-23 Emergency ALEISHA, LCINTN-TE [facility] 064 22092 94631 [place] 00:00:00 00:00:00 031 Method i 2019-09-28 2019-09-28 Outpatient SIERRA, [facility] [id number] 7496 [place] 00:00:00 00:00:00 SIMA 866 Method i 2019-09-02 2019-09-02 Outpatient ALIRanjit, [facility] [id number] 925 [place] 00:00:00 00:00:00 LEATHA 714 Method i 2019-09-02 2019-09-02 Outpatient ALIRanjit, [facility] [id number] 926 [place] 00:00:00 00:00:00 LEATHA 090 Method i 2019-03-16 2019-03-16 Emergency X JUAN [facility]O [facility] ERT 1025 [id number] [facility] 11:57:32 13:08:00 [facility] Results Test Description Test Time Test Comments Results Result Comments Source Tissue Exam 2021-08-07 16:59:52 Test Item Value Reference Range Interpretation Comme nts Case Report (test code = 104) Surgical Pathology Report Case: [id number] Authorizing Provider: Shaggy Galvan Collected: 08/06/2021 10:01 CONCEPCION Barksdale MD Ordering Location: [facility] Endoscopy Received: 08/06/2021 12:01 PM Services Pathologist: Padmini Washington MD Specimen: Polyp, Colon - Cecum, via hot snare DIAGNOSIS (test code = 3220) u1gwmCBoOACrg7tfKYAwhAZdMxBqDtDeFrRgSw pc dWMxIHtccnRmMVxlcGljOTYwMlxhbnNpXHNwbHRw M7WlwashVGweVF8qGG1piDrbgGZppAEsWGGsStFs e4gso621hXTot8xeCBRTbzwtjXs9qXljL38ij2R2 QtveS44ugXCsDNA1FZMfQANiyZJsRPRsODG7VPYj hLUlG7fqDMHnTR5qgjqxJWssKBzcBWWusSZ5HEMe pEZvN6ZnELRcEJdhVIJnjye7ZvMnIk3woXDtnHwd OTvwUTVdCWKiBWhzTRZaViPkQ9BLRAwqGF8OQIUy ILWNY7FYVUfyaMQuNOQsJI0sMAQNBOgATqCQRHRX R01TMFJsxezuNBDhB3PrrXqmcRUeiJtbieLyGPom r8OhHPpbIBRfTX4ywWxnWZFjYV5gJSUcD4mklX1s oth9TiQsYOFiMtY3HBKmhhB6Znx2RUJrHJyav7nc r4GxUOPfUFz2lTgjErKlKKDkz3zjvhKfOfDoQKDw OFIzIDLkrJZqW263m2rfv2nybdIzzTB5QRVpDXJ4 OZopplNrnoL8NMkwnNMkGoN0GKbzdgIyINgiffYc opIqLps2FWNrJ265MKO2iDyem3biVIG9GKJyUWOp RcBoZj1kmVAnJ474NOJvCZESYWXwkGb7DKHbqoQt ouAvhHKZy093V255z6lqRYGtdpGsoBmFhrjrl1jc K603CCTdpUHhmfHuCtHuGPQdnLFryJT3XNWeGU1y qdjaKIyoAWgbXSKguhE8WIVlePKjY7XzTPRoSM6q mdrmZMK8JZpoQRChJBW2CzXnWUOvy8Voema4BqTh na6grd46NEV5f3MncBueTBB4RFR1YmGoQn7kaKGi TWCnIG5lZbInkYSjNPRdcy44nDduHPamYQX8BJUb mgIzu4Sib2mwZqBxbrIbA2cgY8MaVJItYNXyYRIr YmPdjfBmb5Tnk5VhvJZonGn8a6mgVNVlBFQkeAgv x1aqMJS2MQFbaSIjJ0acfC7dCYOvXA6isryzm3sv CAftESrkNYYntHD1hvY9KEMumCRfY2WojT6nTYYi HUaiTZJhiyi0VlZiDx7arLWliPntZNjqPdsjTHkc XHBnbmNvbnRccGduZGVjXHBsYWluXHBsYWluXGYw XGZzMjRccWxcbGFuZzEwMzNcaGljaFxmMVxkYmNo OKAdZBmmV9dbLmLfEcWoCrw0SHZlrDKqIRQsBbb3 YWPrpKPmRBNToJcbmM9eZKIahFocdX4roOX8AOLt qkAgeJOEvE8gKPXTqH4nDjQ2FRQuYzn5DXj9XWXt cGFyfX0= CPT Code(s) (test code = 3357) u4dshQLfNEAgmYR5NpWlHBDeu6stj3JpdBBv cGFy SLgwsRFigxBuvh06fGN0hY14DR7hCNDyYbN2LTJg ojY4Lss3ACDeGDQwiFVoB523k1oiq4efghCnzKV1 qIftDFUxewkqGjR7BIdmRZGrogakFLd9TFzaOGQj uVW3RKRftVDyX5SdDXZePD4hjkj0GPY5ABcjWREi GaP7NQMvxBFeOHCoeXjkAZuqz995CBN0CiDjBNLw jlFltXpmkP2mIkOtNBY6UZEdFIgtIEG9 CLINICAL HISTORY (test code = 3356) u0qiyAHaYYQjsNH2HrFrJHYmw3hdp4V sdHBncGFy MYhvuQFxnoXkef28nXO9aW27RO3bPYKbNwG9IRAq olA3Fzu1CPEvXJDeiFCqP044w2gnv0fopnHrdVS9 bDddPSCxahwfOjQ7TXtzQUXyvlcfBOv4RHsxGBMq wOW0SITfaVIsT4NrTJQjOS9qpjh0YSK3XFwzJMMg WsN6BFHyaRBjUZPusGerNEqmu287DVR4FmWkVWAg qgXhbJhfgS0iYkAnDAXFCJMtj54wyCNvzMJ2j5A0 DG0kNQOdtZ3rqORuzZ4koTRaGHCpdl4= GROSS DESCRIPTION (test code = k8nhnGVuVJNcsJFWLWYeS3gllkFpUBIqeWQk [id number] [file] vImgz2LnzHZpCZ4FQs4= MICROSCOPIC DESCRIPTION (test code = d6esxEPuLTLcjOA0BtDqFRDcv8hvt4 [facility]) FPvncNIjrwEtvs06eFV6nO28LY7dKFFxBeV6LPBi cqC6Hom4ZAVlJXDpnFKbR862w8qjj0rqafQnqQO8 dDwtONJcpvgoNgO6NUssCDUbvaoyIZu3PRksFNFm cJT1GWGvqJZxN8IuBOTeKU8fcwx2OBB5COuoESPh NtN9RKCleTXuSOKrxCjqRVxgb485WIF4FbYlEVIu gaOlbPhqsU5nZaOnTPDZGJPrg7QaQDNbLRMrru1= [id number] 16:59:52Surgical Pathology Report Case: [id number] Authorizing Provider: Shaggy Galvan Collected: 08/06/2021 10:01 CONCEPCION Barksdale MD Ordering Location: [facility] Endoscopy Received: 08/06/2021 12:01 PM Services Pathologist: Padmini Washington MD Specimen: Polyp, Colon - Cecum, via hot snare CECAL POLYP, BIOPSY: - TUBULAR ADENOMACC/pl Signing Pathologist Direct Phone Line: [phone] signed by Padmini Washington MD on 08/07/2021 at 4:59 RI92903Xfwskeon history of colonic polypsA. Polyp, Colon - Cecum.Received in formalin labeled with the patient's name, medical record number and "cecal polyp" are two pieces of noble-white mucosa ranging in size from 0.3 x 0.3 x 0.2 to 0.4 x 0.4 x 0.3 cm. The specimen is submitted in toto in A1.PerformedPOC-Glucose fhqjx3704-75-64 10:43:40 Test Item Value Reference Range Interpretation Comments POC-Glucose Meter (test 89 mg/dL 70-110 : TE STED AT [facility] code = 1538) [address] [facility], [facility] 30: Manufacturing Test Engineer/Techni cesia ID = [id number] for Joanne Sandoval Lab Interpretation (test Normal code = 31739-4) [facility] [id number] 10:43:40 Test Item Value Reference Range Interpretation Comments POC-GLUCOSE METER 89 mg/dL 70-110 : TESTED A T [facility] 6720 (BEAKER) (test code = [place], 1538) [address]: Manufacturing Test Engineer/Techni cesia ID = [id number] for Joanne Driver POCT-GLUCOSE [id number] 09:36:28 Test Item Value Reference Range Interpretation Comments POC-GLUCOSE METER 81 mg/dL 70-110 : TESTED A T [facility] 6720 (BEAKER) (test code = BERTNE [place], 1538) [address]: Manufacturing Test Engineer/Techni cesia ID = [id number] for SHOLA BROWN ECG [id number] 22:41:50 Test Item Value Reference Range Interpretation Comments Ventricular rate (test code = 253) Atrial rate (test code = 255) OH interval (test code = 266) QRSD interval (test code = 260) QT interval (test code = 264) QTC interval (test code = 265) P axis 1 (test code = 267) QRS axis 1 (test code = 268) T wave axis (test code = 270) EKG impression (test Sinus rhythm with 1st code = 273) degree AV block-Nonspecific intraventricular conduction delay-Borderline ECG-In automated comparison with ECG of 31-JAN-2021 02:51,-No significant change was found- [facility] [id number] 22:41:50 Test Item Value Reference Range Interpretation Comments Ventricular rate (test code = 253) Atrial rate (test code = 255) OH interval (test code = 266) QRSD interval (test code = 260) QT interval (test code = 264) QTC interval (test code = 265) P axis 1 (test code = 267) QRS axis 1 (test code = 268) T wave axis (test code = 270) EKG impression (test Sinus rhythm with 1st code = 273) degree AV block-Nonspecific intraventricular conduction delay-Borderline ECG-In automated comparison with ECG of 31-JAN-2021 02:51,-No significant change was found- [facility] at 0400 For 3 Uazdpqjttgu6103-63-40 12:08:48 Test Item Value Reference Range Interpretation Comments Ventricular rate (test code = 253) Atrial rate (test code = 255) OH interval (test code = 266) QRSD interval (test code = 260) QT interval (test code = 264) QTC interval (test code = 265) P axis 1 (test code = 267) QRS axis 1 (test code = 268) T wave axis (test code = 270) EKG impression (test Sinus rhythm with 1st code = 273) degree AV block-Nonspecific intraventricular block- [facility] Pre/Post Op TIMED at 0400 For 3 Wzcdjebvmlr9975-73-28 12:08:48 Test Item Value Reference Range Interpretation Comments Ventricular rate (test code = 253) Atrial rate (test code = 255) OH interval (test code = 266) QRSD interval (test code = 260) QT interval (test code = 264) QTC interval (test code = 265) P axis 1 (test code = 267) QRS axis 1 (test code = 268) T wave axis (test code = 270) EKG impression (test Sinus rhythm with 1st code = 273) degree AV block-Nonspecific intraventricular block- [facility] [id number] 03:48:45 Test Item Value Reference Range Interpretation Comments Activated clotting time See_Comment Oper ator Name: Thomas (test code = 5298) Marie Guillaume ID: [id number] [Autom ated message] The sy stem which generated this result transmitted ref erence range: 96 - 152 sec. The reference range was not used to interpr et this result as normal/abnormal . [facility] hrvc5825-12-97 03:48:45 Test Item Value Reference Range Interpretation Comments Activated clotting time See_Comment Oper ator Name: Thomas (test code = 5298Pili Guillaume ID: [id number] [Autom ated message] The sy stem which generated this result transmitted ref erence range: 96 - 152 sec. The reference range was not used to interpr et this result as normal/abnormal . [facility] [id number] 01:41:00 Test Item Value Reference Range Interpretation Comments Product name (test code Red Blood Cells -1, = 25) Leukored Unit number (test code = [id number]) Product code (test code M7409G12 = 3092) Dispense status (test Returned to BB not code = 24) transfused Blood expiration date (test code = 302) Blood type code (test code = 308) Blood type (test code = A POSITIVE 1314) Compatibility (test code Compatible = 6400) [facility] [id number] 01:41:00 Test Item Value Reference Range Interpretation Comments Product name (test code Red Blood Cells -1, = 25) Leukored Unit number (test code = [id number]) Product code (test code J2981H88 = 3092) Dispense status (test Returned to BB not code = 24) transfused Blood expiration date (test code = 302) Blood type code (test code = 308) Blood type (test code = A POSITIVE 1314) Compatibility (test code Compatible = 6400) [facility]2021-11-10 01:29:06 Test Item Value Reference Range Interpretation Comments POC glucose (test code 118 mg/dL 65-99 H Opera tor Name: Yahir = 00955-5) [facility] ID: [id number] Lab Interpretation Abnormal (test code = 45728-7) [facility] akxiunc3339-15-09 01:29:06 Test Item Value Reference Range Interpretation Comments POC glucose (test code 118 mg/dL 65-99 H Opera tor Name: Yahir = 75209-2) [employer] ID: [id number] Lab Interpretation Abnormal (test code = 74016-8) [facility] arterial blood gas, corrected and nxoeg0808-35-08 00:44:41 Test Item Value Reference Range Interpretation Comments pH, arterial (test code 7.35-7.45 L = 2744-1) pCO2, arterial (test See_Comment [Autom ated code = 2019-8) message] The system which generated this result transmitted reference range : 35 - 45 mmHg. The reference range was not used to interpret this result as normal/abnormal . pO2, arterial (test See_Comment H [Automa janes code = 2703-7) message] The system which generated this result transmitted reference range : 80 - 90 mmHg. The reference range was not used to interpret this result as normal/abnormal . Temperature, Celsius Degrees C (test code = 8310-5) O2 saturation, arterial 98 % 95-100 (test code = 2708-6) pH, arterial corrected (test code = 34062-5) pCO2, arterial mmHg corrected (test code = 05315-6) pO2, arterial corrected mmHg Oper ator ID: (test code = 28415-2) [facility] ID: [id number] Base excess, arterial See_Comment L [Auto mated (test code = 1925-7) message ] The system which generated this result transmitted reference range : -2 - 2 mEq/L. The reference range was not used to interpret this result as normal/abnormal . Hemoglobin, syringe 11.1 g/dL 14.0-18.0 L (test code = 718-7) Potassium, syringe See_Comment [Automat ed (test code = 2007) message] The system which generated this result transmitted reference range : 3.5 - 5.0 mEq/L . The reference r edwina was not used to interpret this result as normal/abnormal . Sodium, syringe (test See_Comment [Auto mated code = 2947-0) message] The system which generated this result transmitted reference range : 135 - 148 mEq/L . The reference r edwina was not used to interpret this result as normal/abnormal . Ionized calcium, 1.09 mmol/L 1.11-1.32 L arterial (test code = 80590-6) Glucose, syringe (test 109 mg/dL 65-99 H code = 2345-7) Lactic acid, syringe 1.0 mmol/L 0.5-2.2 (test code = 74658-9) Lab Interpretation Abnormal (test code = 56295-7) [facility] arterial blood gas, corrected and tqgro2243-41-77 00:44:41 Test Item Value Reference Range Interpretation Comments pH, arterial (test code 7.35-7.45 L = 2744-1) pCO2, arterial (test See_Comment [Autom ated code = 2018-) message] The system which generated this result transmitted reference range : 35 - 45 mmHg. The reference range was not used to interpret this result as normal/abnormal . pO2, arterial (test See_Comment H [Automa janes code = 2703-7) message] The system which generated this result transmitted reference range : 80 - 90 mmHg. The reference range was not used to interpret this result as normal/abnormal . Temperature, Celsius Degrees C (test code = 8310-5) O2 saturation, arterial 98 % 95-100 (test code = 2708-6) pH, arterial corrected (test code = 14586-6) pCO2, arterial mmHg corrected (test code = 52633-3) pO2, arterial corrected mmHg Oper ator ID: (test code = 75077-4) [facility] ID: [id number] Base excess, arterial See_Comment L [Auto mated (test code = 1925-7) message ] The system which generated this result transmitted reference range : -2 - 2 mEq/L. The reference range was not used to interpret this result as normal/abnormal . Hemoglobin, syringe 11.1 g/dL 14.0-18.0 L (test code = 718-7) Potassium, syringe See_Comment [Automat ed (test code = 2007) message] The system which generated this result transmitted reference range : 3.5 - 5.0 mEq/L . The reference r edwina was not used to interpret this result as normal/abnormal . Sodium, syringe (test See_Comment [Auto mated code = 2947-0) message] The system which generated this result transmitted reference range : 135 - 148 mEq/L . The reference r edwina was not used to interpret this result as normal/abnormal . Ionized calcium, 1.09 mmol/L 1.11-1.32 L arterial (test code = 99332-8) Glucose, syringe (test 109 mg/dL 65-99 H code = 2345-7) Lactic acid, syringe 1.0 mmol/L 0.5-2.2 (test code = 49802-5) Lab Interpretation Abnormal (test code = 18553-6) [facility] rmvofyigcfci3115-30-63 21:08:00 Test Item Value Reference Range Interpretation Comments ABO grouping (test code = 883-9) A Rh type (test code = 65285-2) POS [facility] jlfkfreipuxb4545-18-35 21:08:00 Test Item Value Reference Range Interpretation Comments ABO grouping (test code = 883-9) A Rh type (test code = 46362-5) POS [facility], diffusion, lung xruicjm8522-81-80 20:29:11 Test Item Value Reference Range Interpretation Comments FEV1 Pre (test code = 1.91 L 2.22-3.71 5348) FVC Pre (test code = 2.8 L 3.18-4.94 5354) FEV1/FVC % Pre (test 68.22 % 63.72-83.08 code = 5361) FEF 25-75% Pre (test 1.4 L/s 0.73-3.75 code = 5547) PEF Pre (test code = 3.03 L/s 5.63-10.00 5367) DLCO Pre (test code = See_Comment [Auto mated message] 5457) The system [employer] generated this result transmitted ref erence range: 17.12 - 33.05 ml/(min*mmHg). The reference range was not used to interpr et this result as normal/abnormal . DLCOc Pre (test code = See_Comment [Aut omated message] 9496) The system [employer] generated this result transmitted ref erence range: 17.12 - 33.05 ml/(min*mmHg). The reference range was not used to interpr et this result as normal/abnormal . DL/VA Pre (test code = See_Comment [Aut omated message] 3264) The system [employer] generated this result transmitted ref erence range: 2.82 - 5 .22 ml/(min*mmHg*L) . The reference range was not used to interpr et this result as normal/abnormal . KCOc SB Pre (test code See_Comment [Aut omated message] = 0819) The system [employer] generated this result transmitted ref erence range: 2.82 - 5 .22 ml/(min*mmHg*L) . The reference range was not used to interpr et this result as normal/abnormal . VA SB Pre (test code = 3.72 L 5.07-7.80 5444) Hb Pre (test code = g(Hb)/dL 5540) VC Pre (test code = 3.01 L 3.18-4.94 5374) ERV Pre (test code = 0.31 L 1.00-1.00 5381) FRCpl Pre (test code = 2.45 L 2.60-4.58 5388) IC Pre (test code = 2.7 L 2.90-2.90 5395) RV Pre (test code = 2.14 L 1.92-3.27 5402) RV % TLC Pre (test 41.51 % 32.67-50.63 code = 5409) TLC Pre (test code = 5.15 L 5.57-7.87 5416) Raw Pre (test code = See_Comment [Autom ated message] 5507) The system [employer] generated this result transmitted ref erence range: 3.06 - 3 .06 cmH2O*s/L. The reference range was not used to interpr et this result as normal/abnormal . R0.5IN Pre (test code See_Comment [Auto mated message] = 5514) The system [employer] generated this result transmitted ref erence range: 3.06 - 3 .06 cmH2O*s/L. The reference range was not used to interpr et this result as normal/abnormal . sR0.5IN Pre (test code cmH2O*s = 5521) sGaw Predicted (test See_Comment [Autom ated message] code = 5528) The system [employer] generated this result transmitted ref erence range: 0.08 - 0 .08 1/(cmH2O*s). Th e reference range was not used to interpr et this result as normal/abnormal . FEV1 Predicted (test code = 5302) FEV1 LLN (test code = 5347) FEV1 % Pre of 64.4 % Predicted (test code = 5308) FVC Predicted (test code = 5307) FVC LLN (test code = 5353) FVC % Pre of Predicted 69.1 % (test code = 5355) FEV1/FVC % Predicted (test code = 5359) FEV1/FVC % LLN (test code = 5360) FEV1/FVC % Pre of 92.9 % Predicted (test code = 5362) FEF 25-75% Predicted (test code = 5546) FEF 25-75% LLN (test code = 5545) FEF 25-75% % Pre of 62.3 % Predicted (test code = 5548) PEF Predicted (test code = 5310) PEF LLN (test code = 5366) PEF % Pre of Predicted 38.7 % (test code = 5368) VC Predicted (test code = 5372) VC LLN (test code = 5373) VC % Pre of Predicted 74.3 % (test code = 5375) ERV Predicted (test code = 5379) ERV LLN (test code = 5380) ERV % Pre of Predicted 31.1 % (test code = 5382) FRCpl % Predicted (test code = 5386) FRCpl % LLN (test code = 5387) FRCpl % Pre of 68.2 % Predicted (test code = 5389) IC Predicted (test code = 5393) IC LLN (test code = 5394) IC % Pre of Predicted 93.2 % (test code = 5396) RV Predicted (test code = 5400) RV LLN (test code = 5401) RV % Pre of Predicted 82.4 % (test code = 5403) RV % TLC Predicted (test code = 5407) RV % TLC LLN (test code = 5408) RV % TLC % Pre of 99.7 % Predicted (test code = 5410) TLC Predicted (test code = 5414) TLC LLN (test code = 5415) TLC % Pre of Predicted 76.7 % (test code = 5417) Raw Predicted (test code = 5505) Raw LLN (test code = 5506) Raw % Pre of Predicted 154 % (test code = 5508) R0.5IN Predicted (test code = 5512) R0.5IN LLN (test code = 5513) R0.5IN % Pre of 84 % Predicted (test code = 5515) sGaw Predicted (test code = 5526) sGaw LLN (test code = 5527) sGaw % Pre of 83 % Predicted (test code = 5529) DLCO Predicted (test code = 5421) DLCO LLN (test code = 5422) DLCO % Pre of 69.8 % Predicted (test code = 5424) DLCOc Predicted (test code = 5428) DLCOc LLN (test code = 5429) DLCOc % Pre of 73.9 % Predicted (test code = 5431) DL/VA Predicted (test code = 5435) DL/VA LLN (test code = 5436) DL/VA % Pre of 117.1 % Predicted (test code = 5438) KCOc SB Predicted (test code = 5533) KCOc SB LLN (test code = 5534) KCOc SB % Pre of 123.9 % Predicted (test code = 5536) VA SB Predicted (test code = 5442) VA SB LLN (test code = 5443) VA SB % Pre of 57.8 % Predicted (test code = 5445) [facility] [id number] 20:29:11 Test Item Value Reference Range Interpretation Comments FEV1 Pre (test code = 1.91 L 2.22-3.71 5348) FVC Pre (test code = 2.8 L 3.18-4.94 5354) FEV1/FVC % Pre (test 68.22 % 63.72-83.08 code = 5361) FEF 25-75% Pre (test 1.4 L/s 0.73-3.75 code = 5547) PEF Pre (test code = 3.03 L/s 5.63-10.00 5367) DLCO Pre (test code = See_Comment [Auto mated message] 9298) The system [employer] generated this result transmitted ref erence range: 17.12 - 33.05 ml/(min*mmHg). The reference range was not used to interpr et this result as normal/abnormal . DLCOc Pre (test code = See_Comment [Aut omated message] 5431) The system [employer] generated this result transmitted ref erence range: 17.12 - 33.05 ml/(min*mmHg). The reference range was not used to interpr et this result as normal/abnormal . DL/VA Pre (test code = See_Comment [Aut omated message] 5001) The system [employer] generated this result transmitted ref erence range: 2.82 - 5 .22 ml/(min*mmHg*L) . The reference range was not used to interpr et this result as normal/abnormal . [facility] SB Pre (test code See_Comment [Aut omated message] = 5567) The system [employer] generated this result transmitted ref erence range: 2.82 - 5 .22 ml/(min*mmHg*L) . The reference range was not used to interpr et this result as normal/abnormal . [facility] SB Pre (test code = 3.72 L 5.07-7.80 5444) Hb Pre (test code = g(Hb)/dL 5540) VC Pre (test code = 3.01 L 3.18-4.94 5374) ERV Pre (test code = 0.31 L 1.00-1.00 5381) FRCpl Pre (test code = 2.45 L 2.60-4.58 5388) IC Pre (test code = 2.7 L 2.90-2.90 5395) RV Pre (test code = 2.14 L 1.92-3.27 5402) RV % TLC Pre (test 41.51 % 32.67-50.63 code = 5409) TLC Pre (test code = 5.15 L 5.57-7.87 5416) Raw Pre (test code = See_Comment [Autom ated message] 5507) The system [employer] generated this result transmitted ref erence range: 3.06 - 3 .06 cmH2O*s/L. The reference range was not used to interpr et this result as normal/abnormal . R0.5IN Pre (test code See_Comment [Auto mated message] = 5514) The system [employer] generated this result transmitted ref erence range: 3.06 - 3 .06 cmH2O*s/L. The reference range was not used to interpr et this result as normal/abnormal . sR0.5IN Pre (test code cmH2O*s = 5521) sGaw Predicted (test See_Comment [Autom ated message] code = 5528) The system [employer] generated this result transmitted ref erence range: 0.08 - 0 .08 1/(cmH2O*s). Th e reference range was not used to interpr et this result as normal/abnormal . FEV1 Predicted (test code = 5302) FEV1 LLN (test code = 5347) FEV1 % Pre of 64.4 % Predicted (test code = 5308) FVC Predicted (test code = 5307) FVC LLN (test code = 5353) FVC % Pre of Predicted 69.1 % (test code = 5355) FEV1/FVC % Predicted (test code = 5359) FEV1/FVC % LLN (test code = 5360) FEV1/FVC % Pre of 92.9 % Predicted (test code = 5362) FEF 25-75% Predicted (test code = 5546) FEF 25-75% LLN (test code = 5545) FEF 25-75% % Pre of 62.3 % Predicted (test code = 5548) PEF Predicted (test code = 5310) PEF LLN (test code = 5366) PEF % Pre of Predicted 38.7 % (test code = 5368) VC Predicted (test code = 5372) VC LLN (test code = 5373) VC % Pre of Predicted 74.3 % (test code = 5375) ERV Predicted (test code = 5379) ERV LLN (test code = 5380) ERV % Pre of Predicted 31.1 % (test code = 5382) FRCpl % Predicted (test code = 5386) FRCpl % LLN (test code = 5387) FRCpl % Pre of 68.2 % Predicted (test code = 5389) IC Predicted (test code = 5393) IC LLN (test code = 5394) IC % Pre of Predicted 93.2 % (test code = 5396) RV Predicted (test code = 5400) RV LLN (test code = 5401) RV % Pre of Predicted 82.4 % (test code = 5403) RV % TLC Predicted (test code = 5407) RV % TLC LLN (test code = 5408) RV % TLC % Pre of 99.7 % Predicted (test code = 5410) TLC Predicted (test code = 5414) TLC LLN (test code = 5415) TLC % Pre of Predicted 76.7 % (test code = 5417) Raw Predicted (test code = 5505) Raw LLN (test code = 5506) Raw % Pre of Predicted 154 % (test code = 5508) R0.5IN Predicted (test code = 5512) R0.5IN LLN (test code = 5513) R0.5IN % Pre of 84 % Predicted (test code = 5515) sGaw Predicted (test code = 5526) sGaw LLN (test code = 5527) sGaw % Pre of 83 % Predicted (test code = 5529) DLCO Predicted (test code = 5421) DLCO LLN (test code = 5422) DLCO % Pre of 69.8 % Predicted (test code = 5424) DLCOc Predicted (test code = 5428) DLCOc LLN (test code = 5429) DLCOc % Pre of 73.9 % Predicted (test code = 5431) DL/VA Predicted (test code = 5435) DL/VA LLN (test code = 5436) DL/VA % Pre of 117.1 % Predicted (test code = 5438) KCOc SB Predicted (test code = 5533) KCOc SB LLN (test code = 5534) KCOc SB % Pre of 123.9 % Predicted (test code = 5536) VA SB Predicted (test code = 5442) VA SB LLN (test code = 5443) VA SB % Pre of 57.8 % Predicted (test code = 5445) [facility] [id number] 19:35:00 Test Item Value Reference Range Interpretation Comments ABO grouping (test code = 883-9) A Rh type (test code = 63921-9) POS Antibody screen (gel) (test code = NEG 890-4) [facility] [id number] 19:35:00 Test Item Value Reference Range Interpretation Comments ABO grouping (test code = 883-9) A Rh type (test code = 54703-4) POS Antibody screen (gel) (test code = NEG 890-4) [facility] [id number] 19:30:49 Test Item Value Reference Range Interpretation Comments Urine culture (test SEE COMMENT Bacteriu madelyn screen code = 3418578) negative. [facility] [id number] 19:30:49 Test Item Value Reference Range Interpretation Comments Urine culture (test SEE COMMENT Bacteriu madelyn screen code = 0560187) negative. 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 [id number] 15:38:00Surgical Pathology Report Case: [id number] Authorizing Provider: Shaggy Galvan Collected: 03/2020 12:23 PM MD Apolonia Ordering Location: [facility] Endoscopy Received: 04/24/2020 02:15 PM Services Pathologist: Blanquita Perez MD Specimens: A) - Polyp, Colon - Cecum, via forcep x 1 B) - Polyp, Colon - Right/Ascending, via frcp C) - Polyp, Colon - Sigmoid, via hot snare A. CECUM, POLYPECTOMY:- HYPERPLASTIC POLYPB. COLON, ASCENDING, POLYPECTOMY:- POLYPOID COLONIC MUCOSAC. 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 Polyp, colon-cecum B. Polyp, colon-right ascendingC. Polyp, colon-sigmoidPart A. Received in formalin labeled "cecum, polyp" consists of two noble tissue fragments, the smaller one measuring 0.2 x 0.2 x 0.2 cm, the larger one measuring 0.4 x 0.2 x 0.2 cm. The specimen is submitted in toto in cassette A1, following filtration.Part B. Received in form barby labeled "ascending colon, polyp" consists of a [...] focal superficial high-grade dysplasia. No malignancy is identified.[facility], Department of Pathology, [address] [place] [address], [facility] of [facility], [address] [place] [address], [facility], Department of Pathology, [address] [place] [address], HOMU-GLUCOSE [id number] 13:09:00 Test Item Value Reference Range Interpretation Comments POC-GLUCOSE METER 80 mg/dL 70-110 : TESTED [place] [address] ([facility]) (test code = OLENA Palacios [facility], 1538) [address]: Manufacturing Test Engineer/Techni cesia ID = [id number] for Stevie Villegas [id number] 11:54:00 Test Item Value Reference Range Interpretation Comments POC-POTASSIUM 4.3 meq/L 3.6-5.5 : TESTED AT [place] [address] ([facility]) (test code [facility], = 1540) [address]: Manufacturing Test Engineer/Techni cesia ID = [id number] for FRANCKMamadou ILIANA (Kevin)TEDDY [id number] 11:54:00 Test Item Value Reference Range Interpretation Comments POC-POTASSIUM 5.8 meq/L 3.6-5.5 H : TESTED AT [place] [address] ([facility]) (test code [place], = 1540) [address]: Manufacturing Test Engineer/Techni cesia ID = [id number] for FRANCKO NALD (V)TEDDY POCT-GLUCOSE [id number] 10:22:00 Test Item Value Reference Range Interpretation Comments POC-GLUCOSE METER 80 mg/dL 70-110 : TESTED A T [facility] (test code = [place], 1538) [address]: Manufacturing Test Engineer/Techni cesia ID = [id number] for MCDO NALD (V)TEDDY
[2022-01-13] MEDS ORDERED: NA CHLORIDE 0.9% 1,000 ML ONE (20:15)
[2022-01-13 20:19] LABS: Arterial Blood Carboxyhemoglob 1.4 % (0-1.5); Blood Gas Oxyhemoglobin 86.7 % (94-97); Blood O2 Saturation 89.1 % (92-98.5)
[2022-01-13 20:31] LABS: Absolute Lymphocytes (CBC) 0.8 K/uL (0.7-4.9); Hematocrit 34.4 % (39.6-49.0); MCV 87.9 fL (80-100); MPV 7.3 fL (7.6-11.3); RBC Red Blood Cell Count 3.91 M/uL (4.33-5.43)
[2022-01-13 20:34] LABS: Protime INR 1.12
--- NOTE | 2022-01-13 20:36 | RAD REPORT ---
EXAM DESCRIPTION: RAD - Chest Single View - 01/13/2022 8:16 pm CLINICAL HISTORY: DYSPNEA COMPARISON: Chest Single View dated 11/04/2021; Chest Pa And Lat (2 Views) dated 10/30/2020; Chest Sing le View dated 07/19/2019; Chest Single View dated 05/04/2018 FINDINGS: Lines: None. Lungs: No evidence of edema or pneumonia. Pleural: No significant pleural effusions or pneumothorax. Cardiac: The heart size is within normal limits. Mediastinum: Within normal limits. Bones: No acute fractures. Other: None IMPRESSION: No acute cardiopulmonary disease.
[2022-01-13 20:47] LABS: Albumin 3.5 g/dL (3.4-5.0); Bilirubin Direct 0.1 mg/dL (0-0.2); Bilirubin Total 0.3 mg/dL (0.2-1.0); Magnesium 2.1 mg/dL (1.8-2.4); Potassium 4.4 mmol/L (3.5-5.1); Protein, Total 7.4 g/dL (6.4-8.2); Troponin High Sensitivity 14.1 pg/mL (<58.9)
--- NOTE | 2022-01-13 20:55 | ER ---
Nurse's Notes [facility] Name: Kulwinder Zurtia Age: 71 yrs Sex: Male : 1950 Arrival Date: 01/13/2022 Time: 18:42 Bed 4 Private MD: Siddhartha Stroud C Diagnosis: Dyspnea;Edema, unspecified;Type 1 diabetes mellitus with hyperglycemia;Morbid (severe) obesity with alveolar hypoventilation;Unspecified kidney failure-chronic Presentation: 01/13 18:49 Chief complaint: SOB x 2 days. Took clonidine at 1800 for SBP 200s. Coronavirus screen: hb Client presents with at least one sign or symptom that may indicate coronavirus-19. Standard/surgical mask placed on the client. Provider contacted for isolation considerations. Ebola Screen: No symptoms or risks identified at this time. Risk Assessment: Do you want to hurt yourself or someone else? Patient reports no desire to harm self or others. Onset of symptoms was January 12, 2022. 18:49 Method Of Arrival: Ambulatory 18:49 Acuity: CHRISTINA 2 hb 22:38 Initial Sepsis Screen: Does the patient meet any 2 criteria? No. Patient's initial aa9 sepsis screen is negative. Does the patient have a suspected source of infection? No. Patient's initial sepsis screen is negative. Triage Assessment: 20:25 General: Appears uncomfortable, obese, Behavior is calm, cooperative, appropriate for aa9 age. General: pt placed on NC \T\ 2 L, O2 Sat 95% . Neuro: Level of Consciousness is awake, alert, obeys commands, Oriented to person, place, time, situation. Cardiovascular: Patient's skin is warm and dry. Respiratory: Reports shortness of breath at rest the patient has mild shortness of breath. Respiratory: Airway is patent Respiratory effort is even, unlabored. GI: No signs and/or symptoms were reported involving the gastrointestinal system. : No signs and/or symptoms were reported regarding the genitourinary system. 22:38 Respiratory: Onset: The symptoms/episode began/occurred this morning. aa9 Historical: - Allergies: 18:52 Cortisone; hb - PMHx: 18:52 Diabetes - IDDM; Hypertension; Prostate Cancer; Hyperlipidemia; kidney disease; hb - Immunization history:: Adult Immunizations up to date. - Social history:: Smoking status: Patient denies any tobacco usage or history of. Screenin:24 Abuse screen: Denies threats or abuse. Denies injuries from another. Abuse screen: aa9 Denies threats or abuse. Denies injuries from another. Nutritional screening: No deficits noted. Tuberculosis screening: No symptoms or risk factors identified. Fall Risk None identified. Assessment: 19:10 General: Appears uncomfortable, obese, Behavior is calm, cooperative. Pain: Denies pain.aa9 19:10 Neuro: Level of Consciousness is awake, alert, obeys commands, Oriented to person, aa9 place, time, situation. Cardiovascular:. Respiratory: Airway is patent Respiratory effort is even, unlabored. GI: Abdomen is round obese. : No signs and/or symptoms were reported regarding the genitourinary system. EENT: No signs and/or symptoms were reported regarding the EENT system. Derm: No signs and/or symptoms reported regarding the dermatologic system. 20:00 Reassessment: Lab paged for second blood cultures. jb4 21:00 General: Appears uncomfortable, obese, Behavior is calm, cooperative. Pain: Denies aa9 pain. Neuro: Level of Consciousness is awake, alert, obeys commands, Oriented to person, place, time, situation. Cardiovascular: Patient's skin is warm and dry. Respiratory: Airway is patent Respiratory effort is even, unlabored. GI: Abdomen is round obese. 21:00 Reassessment: Patient appears in no apparent distress at this time. : No signs and/or aa9 symptoms were reported regarding the genitourinary system. EENT: No signs and/or symptoms were reported regarding the EENT system. Derm: No signs and/or symptoms reported regarding the dermatologic system. 22:38 Cardiovascular: Rhythm is regular. aa9 22:51 Reassessment: Patient appears in no apparent distress at this time. pt aware of need aa9 for admission, at bedside. Reassessment: NC \T\ 2 L, O\T\ sat 96%. General: Appears comfortable, obese, Behavior is calm, cooperative. 23:03 Reassessment: attempted to call report. aa9 23:30 Reassessment: attempted to call report. aa9 Vital Signs: 18:49 BP 174 / 73; Pulse 83; Resp 28; Temp 98.2; Pulse Ox 96% on R/A; Weight 158.76 kg; hb Height 5 ft. 8 in. (172.72 cm); Pain 0/10; 19:00 BP 163 / 61; Pulse 80; Resp 18 S; Pulse Ox 93% on R/A; Pain 0/10; aa9 21:00 BP 147 / 43; Pulse 85; Resp 18 S; Pulse Ox 98% on 2 lpm NC; aa9 22:00 BP 158 / 47; Pulse 84; Resp 18 S; Pulse Ox 98% on 2 lpm NC; aa9 18:49 Body Mass Index 53.22 (158.76 kg, 172.72 cm) hb ED Course: 18:42 Patient arrived in ED. mr 18:42 Siddhartha Stroud MD is Private Physician. mr 18:52 Triage completed. hb 18:52 Arm band placed on. hb 19:03 Lynn Osorio, RN is Primary Nurse. aa9 19:15 Missed attempt(s): 20 gauge in left antecubital area. Bleeding controlled, band aid aa9 applied, catheter tip intact. 19:21 Abel Lancaster MD is Attending Physician. genie 19:23 Missed attempt(s): 20 gauge in right antecubital area. Bleeding controlled, band aid aa9 applied, catheter tip intact. 20:10 Initial lab(s) drawn, by me, sent to lab. First set of blood cultures drawn by me. tw5 Inserted saline lock: 20 gauge in right antecubital area, using aseptic technique. Blood collected. ultrasound guided IV. 20:22 D-Dimer Sent. aa9 20:23 XRAY CXR (1 view) In Process Unspecified. EDMS 20:25 Patient has correct armband on for positive identification. Placed in gown. Bed in low aa9 position. Call light in reach. Side rails up X2. Client placed on continuous cardiac and pulse oximetry monitoring. NIBP monitoring applied. Warm blanket given. 20:42 Notified ED physician of a critical lab result(s). d-dimer 677. tw5 20:52 Siddhartha Stroud MD is Hospitalizing Provider. genie 21:07 US Extremity Venous W Compression Delgado In Process Unspecified. EDMS 22:38 No provider procedures requiring assistance completed. aa9 Administered Medications: 20:51 Discontinued: NS 0.9% 1000 ml IV at 75 ml/hr continuous genie 20:22 Drug: NS 0.9% 1000 ml Route: IV; Rate: 75 ml/hr; Site: right antecubital; aa9 22:35 Drug: Lovenox (enoxaparin) 40 mg Route: Sub-Q; Site: right lower abdomen; jb4 22:35 Drug: Lasix (furosemide) 40 mg Route: IVP; Site: right antecubital; jb4 22:35 Drug: Pepcid (famotidine) 20 mg Route: IVP; Site: right antecubital; jb4 Medication: 22:38 VIS not applicable for this client. aa9 Outcome: 20:54 Decision to Hospitalize by Provider. genie 01/14 00:16 Patient left the ED. tw5 Signatures: Dispatcher [employer] EDAbel Clay MD MD cha Rivera, Mary mr Baxter, Heather, Zia Wooten RN, RN RN jb4 Gely Talbot tw5 Lynn Osorio RN RN aa9 Corrections: (The following items were deleted from the chart) 01/13 18:52 18:49 Acuity: CHRISTINA 3 hb hb
--- NOTE | 2022-01-13 20:55 | EDPHYS ---
Physician Documentation [facility] Name: Kulwinder Zurita Age: 71 yrs Sex: Male : 1950 Arrival Date: 01/13/2022 Time: 18:42 Bed 4 Private MD: Siddhartha Stroud C ED Physician Abel Lancaster HPI: 01/13 20:19 This 71 yrs old Male presents to ER via Ambulatory with complaints of genie Breathing Difficulty. 20:19 The patient has shortness of breath with light activity. Onset: The symptoms/episode genie began/occurred 3 day(s) ago. Duration: The symptoms are continuous, and are steadily getting worse. The patient's shortness of breath is aggravated by exertion, light activity, supine position, is alleviated by sitting up, application of supplemental oxygen. Associated signs and symptoms: Pertinent positives: non-productive cough. Severity of symptoms: At their worst the symptoms were moderate in the emergency department the symptoms are unchanged despite home interventions. The patient has not experienced similar symptoms in the past. Historical: - Allergies: 18:52 Cortisone; hb - PMHx: 18:52 Diabetes - IDDM; Hypertension; Prostate Cancer; Hyperlipidemia; kidney disease; hb - Immunization history:: Adult Immunizations up to date. - Social history:: Smoking status: Patient denies any tobacco usage or history of. ROS: 20:22 Constitutional: Negative for fever, chills, and weight loss, Eyes: Negative for injury, genie pain, redness, and discharge, ENT: Negative for injury, pain, and discharge, Neck: Negative for injury, pain, and swelling, Cardiovascular: Negative for chest pain, palpitations, and edema, Abdomen/GI: Negative for abdominal pain, nausea, vomiting, diarrhea, and constipation, Back: Negative for injury and pain, : Negative for injury, bleeding, discharge, and swelling, MS/Extremity: Negative for injury and deformity, Skin: Negative for injury, rash, and discoloration, Neuro: Negative for headache, weakness, numbness, tingling, and seizure, Psych: Negative for depression, anxiety, suicide ideation, homicidal ideation, and hallucinations, Allergy/Immunology: Negative for hives, rash, and allergies, Endocrine: Negative for neck swelling, polydipsia, polyuria, polyphagia, and marked weight changes, Hematologic/Lymphatic: Negative for swollen nodes, abnormal bleeding, and unusual bruising. 20:22 Respiratory: Positive for dyspnea on exertion, orthopnea, shortness of breath. Exam: 20:22 Constitutional: This is a well developed, well nourished patient who is awake, alert, genie and in no acute distress. Head/Face: Normocephalic, atraumatic. Eyes: Pupils equal round and reactive to light, extra-ocular motions intact. Lids and lashes normal. Conjunctiva and sclera are non-icteric and not injected. Cornea within normal limits. Periorbital areas with no swelling, redness, or edema. ENT: Nares patent. No nasal discharge, no septal abnormalities noted. Tympanic membranes are normal and external auditory canals are clear. Oropharynx with no redness, swelling, or masses, exudates, or evidence of obstruction, uvula midline. Mucous membranes moist. Neck: Trachea midline, no thyromegaly or masses palpated, and no cervical lymphadenopathy. Supple, full range of motion without nuchal rigidity, or vertebral point tenderness. No Meningismus. Chest/axilla: Normal chest wall appearance and motion. Nontender with no deformity. No lesions are appreciated. Cardiovascular: Regular rate and rhythm with a normal S1 and S2. No gallops, murmurs, or rubs. Normal PMI, no JVD. No pulse deficits. Abdomen/GI: Soft, non-tender, with normal bowel sounds. No distension or tympany. No guarding or rebound. No evidence of tenderness throughout. Back: No spinal tenderness. No costovertebral tenderness. Full range of motion. Male : Normal genitalia with no discharge or lesions. Skin: Warm, dry with normal turgor. Normal color with no rashes, no lesions, and no evidence of cellulitis. MS/ Extremity: Pulses equal, no cyanosis. Neurovascular intact. Full, normal range of motion. Neuro: Awake and alert, GCS 15, oriented to person, place, time, and situation. Cranial nerves II-XII grossly intact. Motor strength 5/5 in all extremities. Sensory grossly intact. Cerebellar exam normal. Normal gait. Psych: Awake, alert, with orientation to person, place and time. Behavior, mood, and affect are within normal limits. 20:22 ECG was reviewed by the Attending Physician. 20:22 Respiratory: the patient does not display signs of respiratory distress, Respirations: no acute changes, is not noted, labored breathing, is not present, asymmetrical chest movement, is not seen, accessory muscle usage, is absent, Breath sounds: decreased breath sounds, that are mild, Respiratory rate: 28 Vital Signs: 18:49 BP 174 / 73; Pulse 83; Resp 28; Temp 98.2; Pulse Ox 96% on R/A; Weight 158.76 kg; hb Height 5 ft. 8 in. (172.72 cm); Pain 0/10; 19:00 BP 163 / 61; Pulse 80; Resp 18 S; Pulse Ox 93% on R/A; Pain 0/10; aa9 21:00 BP 147 / 43; Pulse 85; Resp 18 S; Pulse Ox 98% on 2 lpm NC; aa9 22:00 BP 158 / 47; Pulse 84; Resp 18 S; Pulse Ox 98% on 2 lpm NC; aa9 18:49 Body Mass Index 53.22 (158.76 kg, 172.72 cm) hb MDM: 19:21 Patient medically screened. genie 20:26 Differential diagnosis: Anemia CHF exacerbation, Chronic Obstructive Pulmonary Disease genie pneumonia, Pneumothorax pulmonary edema, Pulmonary Embolism reactive airway disease, Sepsis Unstable Angina. Antibiotic administration: Not indicated. Differential Diagnosis flu. The patient's Wells Deep Vein Thrombosis Score was calculated as follows: Total Score: 0-2 Pts- Low Risk. The patient's pulmonary embolism risk score was calculated as follows: patient has experienced immobilization or surgery in the last four weeks (1.5 Pts) Total Score: 0-2 points. This patient was found to be at low risk for a pulmonary embolism by using the Well's assessment criteria. Immunization status: Pneumococcal vaccine: Influenza vaccine: Data reviewed: vital signs, nurses notes, lab test result(s), EKG, radiologic studies, doppler, plain films. Data interpreted: sodium methylate operator: rate is 83 beats/min, rhythm is regular, Pulse oximetry: on room air is 93 %. Test interpretation: by ED physician or midlevel provider: ECG, plain radiologic studies. Counseling: I had a detailed discussion with the patient and/or guardian regarding: the historical points, exam findings, and any diagnostic results supporting the discharge/admit diagnosis, lab results, radiology results, the need for further work-up and treatment in the hospital. 01/13 18:55 Order name: [facility]; Complete Time: 20:50 rn 01/13 18:55 Order name: Blood Culture Adult (2) 01/13 18:55 Order name: CBC with Diff; Complete Time: 20:32 01/13 18:55 Order name: Hepatic Function; Complete Time: 20:50 01/13 18:55 Order name: Magnesium; Complete Time: 20:50 01/13 18:55 Order name: NT PRO-BNP; Complete Time: 20:50 01/13 18:55 Order name: PT-INR; Complete Time: 20:42 01/13 18:55 Order name: Ptt, Activated; Complete Time: 20:42 01/13 18:55 Order name: Troponin HS; Complete Time: 20:50 01/13 19:23 Order name: SARS-COV-2 RT PCR (Document "Date of Onset" if Symptomatic) [facility] 01/13 19:23 Order name: Flu; Complete Time: 20:42 [facility] 01/13 20:06 Order name: D-Dimer; Complete Time: 20:50 [facility] 01/13 20:07 Order name: ABG: room air; Complete Time: 20:32 [facility] 01/13 18:55 Order name: XRAY CXR (1 view); Complete Time: 20:42 01/13 18:55 Order name: EKG; Complete Time: 18:57 01/13 18:55 Order name: Cardiac monitoring; Complete Time: 19:00 01/13 18:55 Order name: EKG - Nurse/Tech; Complete Time: 19:00 01/13 18:55 Order name: IV Saline Lock; Complete Time: 20:22 01/13 18:55 Order name: Labs collected and sent; Complete Time: 20:22 01/13 18:55 Order name: O2 Per Protocol; Complete Time: 19:00 01/13 18:55 Order name: O2 Sat Monitoring; Complete Time: 19:00 01/13 20:06 Order name: US Extremity Venous W Compression Delgado [facility] 01/13 20:16 Order name: Lactate genie EC: Rate is 81 beats/min. Rhythm is regular. QRS [place] is Normal. ID interval is prolonged genie at 212 msec. QRS interval is normal. QT interval is normal. No Q waves. T waves are Normal. No ST changes noted. Clinical impression: NSR w/ Non-specific ST/T Changes, 1st degree heart block, and No evidence of ischemia. Interpreted by me. Reviewed by me. Administered Medications: 20:51 Discontinued: NS 0.9% 1000 ml IV at 75 ml/hr continuous genie 20:22 Drug: NS 0.9% 1000 ml Route: IV; Rate: 75 ml/hr; Site: right antecubital; aa9 22:35 Drug: Lovenox (enoxaparin) 40 mg Route: Sub-Q; Site: right lower abdomen; jb4 22:35 Drug: Lasix (furosemide) 40 mg Route: IVP; Site: right antecubital; jb4 22:35 Drug: Pepcid (famotidine) 20 mg Route: IVP; Site: right antecubital; jb4 Disposition Summary: 01/13/22 20:54 Hospitalization Ordered Provider: Siddhartha Stroud cha Condition: Fair genie Problem: new genie Symptoms: have improved genie Bed/Room Type: Standard genie Hospitalization Status: Inpatient Admission(01/13/22 21:36) genie Location: Telemetry/MedSurg (Inpatient)(01/13/22 21:36) genie Room Assignment: 419(01/13/22 22:08) tw5 Diagnosis - Dyspnea genie - Edema, unspecified genie - Type 1 diabetes mellitus with hyperglycemia genie - Morbid (severe) obesity with alveolar hypoventilation genie - Unspecified kidney failure - chronic genie Forms: - Medication Reconciliation Form genie - SBAR form genie Signatures: Dispatcher [employer] EDAbel Clay MD MD cha Nieto, Roman, MD MD rn Baxter, Heather RN Zia Wooten RN RN jb4 Gely Talbot tw5 Lynn Osorio, NATALY RN aa9 Corrections: (The following items were deleted from the chart) 20:23 18:57 SARS-COV-2 Antigen Rapid+I.LAB.BRZ ordered. EDMS EDMS 21:36 20:54 Observation genie genie 21:36 20:54 Telemetry/MedSurg (observation) genie genie 21:36 20:54 genie genie 22:08 21:36 genie tw5
[2022-01-13] MEDS ORDERED: GLUCAGON 1 MG/VIAL IM PRN (21:10)
[2022-01-13] MEDS ORDERED: D50W 25 GM/50 ML SYRINGE IV PRN (21:10)
--- NOTE | 2022-01-13 21:11 | RAD REPORT ---
EXAM DESCRIPTION: US - Extrem Venous W Compress Delgado - 01/13/2022 9:05 pm CLINICAL HISTORY: Pain COMPARISON: No comparisons TECHNIQUE: Real-time sonographic evaluation of the lower extremity deep venous systems was performed using color Doppler, grayscale, and compression. FINDINGS: Bilateral lower extremities. Normal compressibility, flow augmentation, phasic flow and spontaneous flow is identified in both the left and right lower extremity deep venous systems. No intraluminal filling defects seen. IMPRESSION: No DVT in either lower extremity.
[2022-01-13] MEDS ORDERED: FAMOTIDINE 20 MG/2 ML VIAL IV ONE (22:09)
[2022-01-13] MEDS ORDERED: FUROSEMIDE 40 MG/4 ML VIAL ONE (22:09)
[2022-01-13] MEDS ORDERED: ENOXAPARIN 40 MG/0.4 ML SQ ONE (22:09)
[2022-01-13] MEDS ORDERED: ONDANSETRON 4 MG/2 ML VIAL IV PRN (23:53)
[2022-01-13] MEDS ORDERED: ALBUTEROL 2.5 MG/3 ML NEB SOL NEB PRN (23:53)
[2022-01-13] MEDS ORDERED: ACETAMINOPHEN 325 MG TABLET PO PRN (23:53)
[2022-01-13] MEDS ORDERED: IPRATROPIUM BROM 0.5MG/2.5ML NEB PRN (23:53)
[2022-01-14 01:08] VITALS: BMI 54.8
[2022-01-14 05:47] LABS: Absolute Lymphocytes (CBC) 0.8 K/uL (0.7-4.9); Hematocrit 31.9 % (39.6-49.0); Lymphocytes % 13.8 % (15.3-44.8); MCV 87.8 fL (80-100); MPV 7.4 fL (7.6-11.3); RBC Red Blood Cell Count 3.64 M/uL (4.33-5.43)
[2022-01-14 06:07] LABS: Potassium 3.9 mmol/L (3.5-5.1)
[2022-01-14] MEDS ORDERED: cloNIDine HCL 0.1 MG TAB PO PRN (06:56)
[2022-01-14] MEDS ORDERED: INSULIN -REGULAR HUMAN 50 UNIT/0.5 ML ML SQ SCH (07:30)
[2022-01-14] MEDS ORDERED: D50W 25 GM/50 ML SYRINGE IV PRN (07:32)
[2022-01-14] MEDS ORDERED: GLUCAGON 1 MG/VIAL IM PRN (07:32)
[2022-01-14] MEDS ORDERED: DEXTROSE 10%-WATER 125 ML IV PRN (07:46)
--- NOTE | 2022-01-14 08:23 | RAD REPORT ---
EXAM DESCRIPTION: RAD - Chest Single View - 01/14/2022 5:24 am CLINICAL HISTORY: Chest Pain Chest pain. COMPARISON: Chest Single View dated 01/13/2022; Chest Single View dated 11/04/2021; Chest Pa And Lat (2 Views) dated 10/30/2020; Chest Single View dated 07/19/2019 FINDINGS: Portable technique limits examination quality. Mild pulmonary edema is seen. The heart is moderately enlarged. No displaced fractures. IMPRESSION: Mild CHF.
[2022-01-14] MEDS ORDERED: DOXAZOSIN 2 MG TAB PO SCH (09:00)
[2022-01-14] MEDS ORDERED: DOXAZOSIN 4 MG TAB PO SCH (09:00)
[2022-01-14] MEDS ORDERED: PNEUMOCOCCAL VACCINE 0.5 ML IMVAC ONE (09:00)
[2022-01-14] MEDS ORDERED: METOPROLOL TAR 50 MG TAB PO SCH (09:00)
[2022-01-14] MEDS: allopurinoL 300 MG TAB PO SCH (09:35)
[2022-01-14] MEDS: HYDROXYCHLOROQUINE 200MG TAB PO SCH ×2 (09:35→20:45)
[2022-01-14] MEDS: TAMSULOSIN 0.4 MG SR CAP PO SCH (09:35)
[2022-01-14] MEDS: ASPIRIN EC 81 MG TAB PO SCH (09:36)
[2022-01-14] MEDS: CLOPIDOGREL 75 MG TABLET PO SCH (09:36)
[2022-01-14] MEDS: AMLODIPINE 10 MG TAB PO SCH (09:36)
[2022-01-14] MEDS: ISOSORBIDE MONO SR 30 MG TAB PO SCH (09:36)
[2022-01-14] MEDS: FINASTERIDE 5 MG TAB PO SCH (09:36)
[2022-01-14] MEDS: METOPROLOL TAR 50 MG TAB PO SCH ×2 (09:36→20:45)
[2022-01-14] MEDS: DOXAZOSIN 2 MG TAB PO SCH ×2 (09:36→20:46)
[2022-01-14] MEDS: FUROSEMIDE 40 MG/4 ML VIAL IV SCH ×2 (09:37→16:04)
[2022-01-14] MEDS: HYDRALAZINE HCL 25 MG TABLET PO SCH ×3 (09:37→20:45)
[2022-01-14] MEDS: INSULIN -REGULAR HUMAN 50 UNIT/0.5 ML ML SQ SCH ×3 (11:30→20:49)
--- NOTE | 2022-01-14 13:50 | HP ---
Date of Admission: 01/13/2022 Chief Complaint: Shortness of breath. History Of Present Illness: This is a 71-year-old male patient with multiple chronic medical problem s, came into emergency room with 2-3 days' history of increasing shortness of breath including some s hortness of breath at nighttime and felt like he has some chest congestion and describes as if he was feeling full in his chest. Denies any fever, chills, cough, congestion. He came into emergency anisa with these complaints and after he was evaluated, he was admitted to the hospital with acute exacer bation of congestive heart failure. Allergies: TO CORTISONE MAKES HIM FEEL WEAK, SHAKY, AND HOT. Medications: Allopurinol 300 mg daily, amlodipine 10 mg daily, aspirin 81 mg daily, atorvastatin 40 mg daily at bedtime, vitamin D3 5000 units daily, clonidine 0.1 mg 3 times a day as needed for systol ic blood pressure more than 160, clopidogrel 75 mg daily, colchicine 0.6 mg 2 times a day as needed f or gout, doxazosin 2 mg 2 times a day, finasteride 5 mg daily, hydralazine 100 mg 3 times a day, hydr oxychloroquine 200 mg 2 times a day, Tresiba insulin injection he takes 40 units subcutaneous injecti on daily at bedtime, isosorbide mononitrate 30 mg daily metoprolol 100 mg 2 times a day, nitroglyceri n sublingual p.r.n. for chest pain, tamsulosin 0.4 mg daily. Review of Systems: Cardiovascular: As mentioned above and also has chronic leg edema. Respiratory: As mentioned above. All other systems reviewed and negative. 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 Past Surgical History: Cataract surgery, tonsillectomy, aortic valve replacement done on 01/30/2021, and vasectomy. Family History: Father , had NH and diabetes. Mother , had dementia and stroke. Brother forbes s hypertension and diabetes. Social History: Negative for smoking and alcohol use. Physical Examination: Vital Signs: Temperature 98.4, pulse 71, respiratory rate 20, blood pressure 143/66, oxygen saturati on 97% on 2 L nasal cannula oxygen. Height 5 feet 8 inches, weight 360 pounds. His last weight at [facility] was 353 pounds. The patient reports that he feels like he has gained some weight lately. General: Awake, alert, oriented, not in distress. HEENT: Head atraumatic, normocephalic. Conjunctivae nonerythematous. Sclerae white. Mouth, no thr ush or edema noted. Ears/Nose, no mass, lesion, discharge noted. Neck: Supple. No JVD, lymph nodes, bruit, thyromegaly noted. Lungs: Presence of rales noted in both lower lung matute. Not using any accessory muscles of respir ation. Heart: Normal heart sounds, no murmur or gallop. Abdomen: Soft, bowel sounds normal. No guarding, rigidity, tenderness, mass, hepatosplenomegaly, dis tention, or bruit noted. Extremities: Bilateral grade 2 to grade 3 pedal edema involving lower 2/3 of both legs. Skin: No rash, ulcer, cellulitis. Lymphatics: No lymph node enlargement in neck, supraclavicular, infraclavicular region. Neuro: No focal neurological deficit. Chest: Unremarkable. External Genitalia: Deferred. Rectal: Deferred. Laboratory Data: Chest x-ray, no acute cardiopulmonary changes noted. White count yesterday was 8.9 , hemoglobin 11.4, platelets 151. This morning; white count 6.1, hemoglobin 10.6, platelets 137. Bl ood gas done yesterday in the emergency room; pH 7.40, pCO2 39.1, pCO2 56.1, oxygen saturation 89.1% on room air. Yesterday chemistry; sodium 139, potassium 4.4, chloride 107, bicarb 26, BUN 42, creati nine 2.75, glucose 108. Liver function tests unremarkable. ProBNP 1577. This morning, ProBNP 2383. Sodium 141, potassium 3.9, chloride 107, bicarb 26, BUN 42, creatinine 2.73, glucose 115. Venous D oppler of lower extremity was negative for DVT. D-dimer 677, INR 1.12. COVID-19 test negative. Impression: 1.Congestive heart failure, chronic, diastolic, with acute exacerbation. 2.Chronic kidney disease, stage 4. 3.Diabetes mellitus with chronic kidney disease. 4.Anemia in chronic kidney disease. 5.Prostate cancer. 6.Hypertension. 7.Hyperlipidemia. 8.Coronary artery disease. 9.Aortic stenosis. Plan: Admit the patient to the hospital for further evaluation and management of this problem. The patient is appropriate for inpatient and is expected to spend 2 midnights in hospital. We will consu lt Cardiology. The patient sees healthcare network pricing consultant in [place] and was encouraged to continue to follow [facility] healthcare network pricing consultant. We will continue home medications for hypertension and hyperlipidemia. Diabetes jarrell l be managed with sliding scale insulin and Lantus insulin at bedtime per order. We will continue IV Lasix per order. Monitor intake, output, daily weight, electrolytes, renal function, and I will see him tomorrow for followup. MICHELE/MODL Voice ID: [id number]
[2022-01-14] MEDS ORDERED: ENOXAPARIN 30 MG/0.3 ML SQ SCH (17:00)
[2022-01-14] MEDS ORDERED: IPRATROPIUM BROM 0.5MG/2.5ML NEB PRN (18:00)
[2022-01-14] MEDS ORDERED: ALBUTEROL 2.5 MG/3 ML NEB SOL NEB PRN (18:00)
--- NOTE | 2022-01-14 18:38 | EKG ---
Test Date: 2022-01-13 Test Time: 18:52:49 Triage Registered Nurse: NAIMA MEASUREMENT RESULTS: Intervals: Rate: 81 WA: 212 QRSD: 132 QT: 408 QTc: 473 [place]: P: 60 WA: 212 QRS: 59 T: 23 INTERPRETIVE STATEMENTS: Sinus rhythm with 1st degree AV block Nonspecific intraventricular block Abnormal ECG Compared to ECG 11/04/2021 00:07:45 Intraventricular conduction delay no longer present Electronically Signed On 01-14-22 18:37:14 CDT by Akhil Pinto
[2022-01-14] MEDS ORDERED: INSULIN GLARGINE 100 UNIT/ML SQ SCH (21:00)
[2022-01-14] MEDS ORDERED: ATORVASTATIN 40 MG TAB PO SCH (21:00)
--- NOTE | 2022-01-14 23:23 | CON ---
Date of Consultation: 01/14/2022 Reason For Consultation: Congestive heart failure. History Of Present Illness: Sheri curran a 71-year-old male with history of congestive heart failure, aor tic valve stenosis, status post TAVR, diabetes, hypertension, dyslipidemia, coronary artery disease, chronic kidney disease, and left renal artery stenosis, prostate cancer, presented with shortness of breath, orthopnea, lower extremity edema, progressive over the past few days, has an acute congestive heart failure exacerbation with diuresis, feeling better. Past Medical History: As outlined above in the HPI. Medications: Refer reconciliation sheet for detailed list. Allergies: CORTISONE. Family History: No premature coronary artery disease or cancer. Social History: He does not smoke or drink. Does not use any drugs. Review of Systems: All systems reviewed and they were negative except as mentioned in the HPI. Physical Examination: Vital Signs: Reviewed. Head and Neck: Pupils are equal, reactive to light. Intact eye movements. Neck is supple. Thyroid is not enlarged. Lungs: Decreased breathing sounds bilaterally with faint crackles in the bases. Heart: Regular rate and rhythm. No extra sounds. Abdomen: Soft, nontender. Bowel sounds positive. No organomegaly. No masses or hernia. No rigidi ty or rebound. Extremities: No clubbing, cyanosis. Positive edema. Neurologic: Alert, awake, oriented x3. No acute focal deficits appreciated. Lymph Nodes: No cervical or axillary lymphadenopathy. Investigations: BUN is 42, creatinine is 2.73, and sodium is 141. Assessment And Recommendation: 1.Acute on chronic congestive heart failure exacerbation. He is feeling better with Lasix. Continu e current management at least 1 more day of diuresis; however, I recommend to increase the Lasix to 8 0 mg instead of 40 because of the chronic kidney disease. 2.Hypertension. Blood pressure is elevated. Should improve with diuresis. 3.Chronic kidney disease, is stable. SR/MODL Voice ID: [id number] Report ID: [id number]
[2022-01-15] MEDS: INSULIN -REGULAR HUMAN 50 UNIT/0.5 ML ML SQ SCH ×2 (07:30→11:30)
--- NOTE | 2022-01-15 07:50 | ECHO ---
HEIGHT: 5 ft 8 in WEIGHT: 360 lb 5 oz DATE OF STUDY: 01/14/[address]: Abel Lancaster MD 2-DIMENSIONAL: YES M.MODE: YES DOPPLER: YES COLOR FLOW: YES TDS: PORTABLE: YES DEFINITY: BUBBLE STUDY: DIAGNOSIS: CONGESTIVE HEART FAILURE CARDIAC HISTORY: CATHERIZATION: SURGERY: PROSTHETIC VALVE: TAVR PACEMAKER: MEASUREMENTS (cm) DIASTOLIC (NORMALS) SYSTOLIC (NORMALS) IVSd 1.1 (0.6-1.2) LA Diam 4.5 (1.9-4.0) LVEF 65% LVIDd 5.8 (3.5-5.7) LVIDs 3.7 (2.0-3.5) %FS 36% LVPWd 1.1 (0.6-1.2) Ao Diam 2.8 (2.0-3.7) 2 DIMENSIONAL ASSESSMENT: RIGHT ATRIUM: NORMAL LEFT ATRIUM: ENLARGED RIGHT VENTRICLE: NORMAL LEFT VENTRICLE: NORMAL TRICUSPID VALVE: NORMAL MITRAL VALVE: MITRAL ANNULAR CALCIFICATION WITH MITRAL REGURGITATION AND MITRAL STENOSIS PULMONIC VALVE: NORMAL AORTIC VALVE: BIOPROSTHETIC IS PRESENT PERICARDIAL EFFUSION: NONE AORTIC ROOT: NORMAL LEFT VENTRICULAR WALL MOTION: NORMAL DOPPLER/COLOR FLOW: SEE BELOW COMMENTS: NORMAL LEFT VENTRICULAR EJECTION FRACTION 60-65%. DIASTOLIC FUNCTION. AORTIC VALVE BIOPROSTHETIC WITH MILD AORTIC STENOSIS. NO AORTIC INSUFFICIENCY. MITRAL ANNULAR CALCIFICATION WITH MILD MITRAL REGURGITATION AND MILD MITRAL STENOSIS. TECHNOLOGIST: BLAKE FRITZ
[2022-01-15 07:58] LABS: Absolute Lymphocytes (CBC) 0.8 K/uL (0.7-4.9); Hematocrit 35.1 % (39.6-49.0); Lymphocytes % 15.6 % (15.3-44.8); MCV 88.4 fL (80-100); MPV 7.1 fL (7.6-11.3); RBC Red Blood Cell Count 3.97 M/uL (4.33-5.43)
[2022-01-15 08:21] LABS: Magnesium 2.2 mg/dL (1.8-2.4); Potassium 3.5 mmol/L (3.5-5.1)
[2022-01-15] MEDS: HYDRALAZINE HCL 25 MG TABLET PO SCH (08:51)
[2022-01-15] MEDS: TAMSULOSIN 0.4 MG SR CAP PO SCH (08:52)
[2022-01-15] MEDS: ASPIRIN EC 81 MG TAB PO SCH (08:52)
[2022-01-15] MEDS: DOXAZOSIN 2 MG TAB PO SCH (08:52)
[2022-01-15] MEDS: ISOSORBIDE MONO SR 30 MG TAB PO SCH (08:53)
[2022-01-15] MEDS: METOPROLOL TAR 50 MG TAB PO SCH (08:53)
[2022-01-15] MEDS: FUROSEMIDE 40 MG/4 ML VIAL IV SCH (08:53)
[2022-01-15] MEDS: allopurinoL 300 MG TAB PO SCH (08:54)
[2022-01-15] MEDS: FINASTERIDE 5 MG TAB PO SCH (08:54)
[2022-01-15] MEDS: HYDROXYCHLOROQUINE 200MG TAB PO SCH (08:54)
[2022-01-15] MEDS: CLOPIDOGREL 75 MG TABLET PO SCH (08:54)
[2022-01-15] MEDS: AMLODIPINE 10 MG TAB PO SCH (08:54)
[2022-01-15 09:32] VITALS: O2SAT 95
[2022-01-15 14:51] VITALS: BP 120/58; TEMP 98.8
== END 2022-01-15 14:30 | disposition home or self-care (01) | DRG 291 ==
LOC: ER 18:39 → ERHOLD 21:59 → OBSVTOIN 21:59 → 4TH 22:48
PROVIDERS: ADMIT Internal Medicine; ATTEND Internal Medicine
PROC: 5A09357 Assistance with Respiratory Ventilation, Less than 24 Consecutive Hours, Continuous Positive Airway Pressure (ICD-10-PCS; principal; 2022-01-14)
DX: I13.0 Hypertensive heart and chronic kidney disease with heart failure and stage 1 through stage 4 chronic kidney disease, or unspecified chronic kidney disease (principal); I50.33 Acute on chronic diastolic (congestive) heart failure; E66.2 Morbid (severe) obesity with alveolar hypoventilation; Z68.43 Body mass index [BMI] 50.0-59.9, adult; N18.4 Chronic kidney disease, stage 4 (severe); E11.22 Type 2 diabetes mellitus with diabetic chronic kidney disease; E11.65 Type 2 diabetes mellitus with hyperglycemia; D63.1 Anemia in chronic kidney disease; E78.5 Hyperlipidemia, unspecified; I25.10 Atherosclerotic heart disease of native coronary artery without angina pectoris; D63.8 Anemia in other chronic diseases classified elsewhere; I35.0 Nonrheumatic aortic (valve) stenosis; Z95.2 Presence of prosthetic heart valve; Z88.8 Allergy status to other drugs, medicaments and biological substances; Z85.46 Personal history of malignant neoplasm of prostate; Z79.82 Long term (current) use of aspirin; Z79.02 Long term (current) use of antithrombotics/antiplatelets; Z79.899 Other long term (current) drug therapy; Z20.822 Contact with and (suspected) exposure to COVID-19
CPT/HCPCS: 36415; 71045; 80048; 80076; 82805; 82947; 83605; 83735; 83880; 84484; 85025; 85379; 85610; 85730; 87040; 87804; 93005; 93306; 93970; 94660; 96372; 96374; 96375; 99284; J1650; J1940; J7030; U0003

== ENCOUNTER 2022-02-18 09:43 | Emergency (ER) | payer OTHER, BC ==
--- OUTSIDE RECORDS SUMMARY | 2022-02-18 09:51 | XMS REPORT | Continuity of Care Document ---
:1950 Author Organization [facility] t Address [address] [place] [address] Care Team Providers Name Role Phone SOFÍASHINE VERACAM Baugh Primary Care Physician Unavailable SHAGGY GALVAN Attending Clinician Unavail able Rody GARCIA, Nancy Stoll Attending Clinician [phone] Андрей Kirk Attending Clinician Unavailable Ludwin JENSEN, Nghia Rhodes Attending Clinician Shaggy Galvan MD Attending Clinician [phone] Windy Gardner MD Attending Clinician Sobia Montoya Attending Clinician Tj INGRAM, Abel Attending Clinician Unavailable Only, Ang Db Test Attending Clinician Unavailable Jimmy Pina Attending Clinician IJMMY MARTE Attending Clinician Unavailable Doctor Unassigned, Mcgregor Attending Clinician Unavailable Ramu INGRAM, Marisol Attending Clinician Unavailable Avila INGRAM, Marta Attending Clinician Unavailable Morelia Nam Attending Clinician Lilian Freeman MA Attending Clinician Unavailable Mariaa Moon MD Attending Clinician Agnieszka Armas MA Attending Clinician Unavailable Marianela Ayala MA Attending Clinician Unavailable Camelia JENSEN, Diogo Stephenson Attending Clinician [phone] Petey Reyes MD Attending Clinician Celina Rogers Attending Clinician [phone] Jossie Bateman MD, Rito Berkowitz Attending Clinician [phone] MD DIOGO DENISE Attending Clinician Unavailable Elaine Zamora MA Attending Clinician Unavailable Julio Cesar Madrid RN Attending Clinician Unavailable Antonio JENSEN, Pawel Morse Attending Clinician Cayetano Ocampo Attending Clinician [phone] RN Attending Clinician Unavailable Matthew JENSEN, Ramon Clements Attending Clinician [phone] Jefry Attending Clinician Unavailable Carmelo Huntley Attending Clinician [phone] CARMELO LOVETT Attending Clinician Unavailable STEPHANIA WAGGONER Attending Clinician Unavailable ALEISHA, ABELARDO Attending Clinician Unavailable SIMA ESQUIVEL Attending Clinician Unavailable LEATHA PARSONS Attending Clinician Unavailable JUAN HENAO Attending Clinician Unavailable SHAGGY GALVAN Admitting Clinician Unavail able Андрей Kirk Admitting Clinician Unavailable DIOGO DENISE Admitting Clinician Unavailable MD DIOGO DENISE Admitting Clinician Unavailable NGHIA MASCORRO Admitting Clinician Unavailable Jefry Admitting Clinician Unavailable NASRA TIJERINA Admitting Clinician Unavailable JUAN HENAO Admitting Clinician Unavailable Payers Payer Name Policy Type Policy Number Effective Date Expiration Date S mesha MEDICARE A B [id number] 2014 00:00:00 [place] [id number] 2020 [place] 00:00:00 [place] [id number] 2014 [place] [employer] 00:[place]:00 [place] [id number] 2020 [place] ([place]ICARE 00:00:00 SUPPLEMENT) Problems Condition Condition Condition Status Onset Resolution Last Treating Co mments Source Name Details Category Date Date Treatment Clinician Date 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 Added automatic ally from request for surgery [id number] Morbid Morbid Problem Active 2020-03 [place] obesity Obesity 0-19 [facility] 00:00: Urology 00 Benign Benign Problem Active 2020-03 [place] prostatic Prostatic 0-19 Met[facility] o hyperplasi Hyperplasi 00:00: Ur ology a with a with 00 outflow Outflow obstructio Obstructio n n Renal Renal Problem Active 2020-03 [place] insufficie Insufficie 0-14 Me tro ncy ncy 00:00: Urology 00 Cyst of Cyst of Problem Active 2020-03 [place] kidney Kidney 0-14 [facility] 00:00: Urology 00 Hyperlipid Hyperlipi Problem Active 2022-01-04 [facility] emia demia 07:04:03 l (disorder) (disorder) He rmann Active Problem 01/04/2022 [facility] Sleep Sleep Problem Active 2022-01-04 [facility] apnea apnea 07:04:03 l (finding) (finding) Herm marry Active Problem 01/04/2022 CPAP [facility] Backache Backache Problem Active 2022-01-04 [facility] (finding) (finding) 07:04:03 l Active [place] Problem 01/04/2022 [facility] Malignant Malignant Problem Active 2022-01-04 [facility] tumor of tumor of 07:04:03 l prostate prostate Ashkan n (disorder) (disorder) Active Problem 01/04/2022 [facility] Gout Gout Problem Active 2022-01-04 [facility] (disorder) (disorder) 07:04:03 l Active [place] Problem 01/04/2022 [facility] Hearing Hearing Problem Active 2022-01-04 Me moria loss loss 07:04:03 l (finding) (finding) Herm marry Active Problem 01/04/2022 [facility] No known No known Disease Unive rs active active ity of problems problems [facility] Allergies, Adverse Reactions, Alerts Allergy Allergy Status Severity Reaction(s) Onset Inactive Treating Comm ents Source Name Type Date Date Clinician [facility] Drug Active Other (See Shaking[facility] Allergy Comments) 04-18 weakness [facility] 00:00: Medical 00 [place] CORTISON Allergy Active Med Other [facility] [place] Propensi Active Unknown Metho di e ty to Reaction 09-27 st adverse 00:00: Hospita reaction 00 l s to drug NO KNOWN Drug Active Univers ALLERGIE Class ity of S [facility] cortison cortison Active Moderate hot Enmanuel madelyn e e sensation, l Tremor Kaushal (finding) Family History Family Member Diagnosis Comments Start Date Stop Date Source Natural father Heart disease [facility] Natural mother No Known Problems Met [facility] Social History Social Habit Start Date Stop Date Quantity Comments Source History [facility] Alcohol Std Drinks History [facility] Ho spital Alcohol Binge Exposure to 2021-07-22 2021-08-01 Not sure [facility] SARS-CoV-2 00:00:00 18:50:00 [facility] (event) [place] Alcohol intake 2021-03-01 2021-03-01 Lifetime [facility] 00:00:00 00:00:00 non-drinker (finding) Tobacco use and 2020-04-18 2020-04-[address] [facility] [address] [facility] exposure 00:00:00 00:00:00 Medical Center History SDOH 2019-12-23 2019-12-23 1 [facility] Alcohol Frequency 00:00:00 00:00:00 Sex Assigned At [address] [facility] 00:00:00 00:00:00 [facility] Center Smoking Status Start Date Stop Date Source Unknown if ever smoked [facility] Social History [facility] Medications Ordered Filled Start Stop Current Ordering Indication Dosage Frequency Signature Comments Components Source Medication Medication Date Date Medication? Clinician (SIG) Name Name allopurinoL 2022-0 Yes 300mg QD Take [address] (ZYLOPRIM) 5-16 mg by [facility] 300 MG 12:08: mouth Medical tablet 32 daily. Center finasteride 0 Yes 5mg QD Take [address] (PROSCAR) 5 5-16 by mouth Luke s mg tablet 12:08: daily. Medica l 32 Center insulin 0 Yes 40U QD Inject 40 [facility] degludec 5-16 Units [facility] (TRESIBA 12:08: subcutaneo Med ical FLEXTOUCH 32 usly daily Cent er U-100 SUBQ) . cloNIDine 0 Yes .1mg Q.5D Take 0.[address] HCL 5-16 mg by [facility] (CATAPRES) 12:08: mouth 2 Medi rema 0.1 MG 32 (two) Center tablet times daily Prn bp > 160/100 . hydroCHLORO 0 Yes 50mg QD Take [address] thiazide 5-16 by mouth [facility] (HYDRODIURI 12:08: daily. Medi rema L) 50 MG 32 Center tablet NIFEdipine 0 Yes 60mg QD Take [address] (ADALAT CC) 5-16 by mouth Luke [facility] 60 MG 24 hr 12:08: daily. Medi rema tablet 32 Center amlodipine- 0 Yes 1{tbl} QD Take [address] olmesartan 5-16 tablet by Luke [facility] (REKHA) 12:08: mouth Medical 10-40 mg 32 daily. Center per tablet hydrALAZINE 0 Yes 10mg Q.5D Take [address] (APRESOLINE 5-16 by mouth 2 Zita kes ) 10 MG 12:08: (two) Medical tablet 32 times Center daily. metoprolol 0 Yes 50mg Q.25D Take [address] tartrate 5-16 by mouth 4 [facility] (LOPRESSOR) 12:08: (four) Medi rema 50 MG 32 times Center tablet daily. amLODIPine 2021-0 Yes 10mg QD Take [address] (NORVASC) 5-16 by mouth [facility] 10 MG 12:08: daily. Medical tablet 32 Center tamsulosin 0 Yes .4mg QD Take 0.[address] (FLOMAX) 5-16 mg by [facility] 0.4 mg Cap 12:08: mouth Medica l 24 hr 32 daily. Center capsule hydrOXYchlo 0 Yes Q.5D Take by [facility] roQUINE 5-16 mouth 2 [facility] (PLAQUENIL) 12:08: (two) Medic al 200 mg 32 times Center tablet daily. pravastatin 0 Yes 40mg QD Take [address] (PRAVACHOL) 5-16 by mouth Luke s 40 MG 12:08: daily. Medical tablet 32 Center multivitami 0 Yes 1{capsu QD Take [address] n capsule 5-16 le} capsule by Luke s 12:08: mouth Medical 32 daily. Center CHOLECALCIF Yes Take by [facility] JOSSELIN, 5-16 mouth. [facility] VITAMIN D3, 12:08: Medica l ORAL 32 Center allopurinoL 0 Yes 300mg QD Take [address] (ZYLOPRIM) 5-16 mg by [facility] 300 MG 12:08: mouth Medical tablet 32 daily. Center finasteride Yes 5mg QD Take [address] (PROSCAR) 5 5-16 by mouth Luke s mg tablet 12:08: daily. Medica l 32 Center insulin 0 Yes 40U QD Inject 40 [facility] degludec 5-16 Units [facility] (TRESIBA 12:08: subcutaneo Med ical FLEXTOUCH 32 usly daily Cent er U-100 SUBQ) . cloNIDine Yes .1mg Q.5D Take 0.[address] HCL 5-16 mg by [facility] (CATAPRES) 12:08: mouth 2 Medi rema 0.1 MG 32 (two) Center tablet times daily Prn bp > 160/100 . hydroCHLORO 0 Yes 50mg QD Take [address] thiazide 5-16 by mouth [facility] (HYDRODIURI 12:08: daily. Medi rema L) 50 MG 32 Center tablet NIFEdipine 0 Yes 60mg QD Take [address] (ADALAT CC) 5-16 by mouth Luke s 60 MG 24 hr 12:08: daily. Medi rema tablet 32 Center amlodipine- 0 Yes 1{tbl} QD Take [address] olmesartan 5-16 tablet by Luke s (REKHA) 12:08: mouth Medical 10-40 mg 32 daily. Center per tablet hydrALAZINE 0 Yes 10mg Q.5D Take [address] (APRESOLINE 5-16 by mouth 2 Zita kes ) 10 MG 12:08: (two) Medical tablet 32 times Center daily. metoprolol 0 Yes 50mg Q.25D Take [address] tartrate 5-16 by mouth 4 [facility] (LOPRESSOR) 12:08: (four) Medi rema 50 MG 32 times Center tablet daily. amLODIPine 0 Yes 10mg QD Take [address] (NORVASC) 5-16 by mouth [facility] 10 MG 12:08: daily. Medical tablet 32 Center tamsulosin 0 Yes .4mg QD Take 0.[address] (FLOMAX) 5-16 mg by [facility] 0.4 mg Cap 12:08: mouth Medica l 24 hr 32 daily. Center capsule hydrOXYchlo 0 Yes Q.5D Take by [facility] roQUINE 5-16 mouth 2 [facility] (PLAQUENIL) 12:08: (two) Medic al 200 mg 32 times Center tablet daily. pravastatin 0 Yes 40mg QD Take [address] (PRAVACHOL) 5-16 by mouth Luke [facility] 40 MG 12:08: daily. Medical tablet 32 Center multivitami Yes 1{capsu QD Take [address] n capsule 5-16 le} capsule by Luke s 12:08: mouth Medical 32 daily. Center CHOLECALCIF Yes Take by [facility] JOSSELIN, 5-16 mouth. [facility] VITAMIN D3, 12:08: Medica l ORAL 32 Center metoprolol 2021-0 2021- No 100mg Q.5D Take [address] tartrate 5-16 05-16 mg by [facility] (LOPRESSOR) 10:16: 00:00 mouth 2 Me dical 100 MG 58 :00 (two) Center tablet times daily. aspirin 81 2021-0 2021- No 81mg QD Take [address] MG EC 5-16 05-16 by mouth [facility] tablet 10:16: 00:00 daily. Medical 58 :00 Center metoprolol 2021-0 2021- No 100mg Q.5D Take [address] tartrate 5-16 05-16 mg by [facility] (LOPRESSOR) 10:16: 00:00 mouth 2 Me dical 100 MG 58 :00 (two) Center tablet times daily. aspirin 81 2021-2021- No 81mg QD Take [address] MG EC 08-06-16 by mouth [facility] tablet 10:16: 00:00 daily. Medical 58 :00 Center pravastatin 2021-2021- No 40mg QD Take [address] (PRAVACHOL) 07-30 by mouth Soo es 40 MG 16:09: 00:00 daily. Medical tablet 12 :00 Center pravastatin 2021-2021- No 40mg QD Take [address] (PRAVACHOL) 07-30 by mouth Soo es 40 MG 16:09: 00:00 daily. Medical tablet 12 :00 Center hydrOXYchlo 2021-0 2021- No QD Take by I [facility] roQUINE 07-30- mouth [facility] (PLAQUENIL) 16:08: 00:00 daily. Med ical 200 mg 38 :00 Center tablet hydrOXYchlo 2021-0 2021- No QD Take by I [facility] roQUINE 07-30-09 mouth [facility] (PLAQUENIL) 16:08: 00:00 daily. Med ical 200 mg 38 :00 Center tablet ergocalcife 2021-0 2021- No [id number] Q7D Take [facility] rol 07-30- 50,000 [facility] (Vitamin 16:08: 00:00 Units by Medi rema D2) 1,250 23 :00 mouth once Cent er mcg (50,000 a week. unit) capsule ergocalcife 2021-0 2021- No [id number] Q7D Take [facility] rol 07-30- 50,000 [facility] (Vitamin 16:08: 00:00 Units by Medi rema D2) 1,250 23 :00 mouth once Cent er mcg (50,000 a week. unit) capsule docusate 2021-0 2021- No 100mg Q.5D Take [address] sodium 07-30 05-09 mg by [facility] (COLACE) 16:08: 00:00 mouth 2 Medic al 100 MG 13 :00 (two) Center capsule times daily. docusate 2021-0 2022- No 100mg Q.5D Take [address] sodium -09 05-09 mg by [facility] (COLACE) 16:08: 00:00 mouth [...] M ethodi josselin, 2-09 le} capsule by vitamin D3, 15:00: mouth Hospi ta 5,000 [...] M ethodi josselin, 2-09 le} capsule by vitamin D3, 15:00: mouth Hospi ta 5,000 [...] 00:00 mouth. Hospita capsule 21 :00 l hydroxychlo hydroxychlo No 1 BID hydroxychl [place] roquine 200 roquine 200 1-01 oroquine [facility] mg tablet 1 mg tablet 1 00:00: 200 mg Urology tablet tablet 00 tablet 1 twice a day twice a day tablet by oral by oral twice a route. route. day by oral route. clonIDINE 2019-03- No .2mg Take 0.2 Met hodi HCl 0-01 10-[address] (CATAPRES) 00:00: 00:00 mouth. Hosp jax 0.2 MG 00 :00 l tablet clonIDINE 2019-03- No .2mg Take 0.2 Met hodi HCl 0-01 10-[address] (CATAPRES) 00:00: 00:00 mouth. Hosp jax 0.2 MG 00 :00 l tablet hydrOXYchlo 2019- Yes 200mg Q.5D Take 200 M ethodi [...] evening. Ho spita unit/mL 00 l solution amlodipine amlodipine 2019-0 No 1 Q1D amlodipine [place] 10 mg 10 mg 6-06 10 mg [facility] tablet 1 tablet 1 00:00: tablet 1 U rology tablet tablet 00 tablet every day every day every day by oral by oral by oral route. route. route. Vitamin D3 Vitamin D3 2019-0 No Vitamin D3 [place] 5,000 iu 5,000 iu 6-06 5,000 iu Met ro tid tid 00:00: tid Urology 00 allopurinoL 2020-0 Yes 300mg QD Take 300 [...] st mg tablet 00:00: daily. Hospit a 00 l finasteride 2020-0 Yes 5mg QD Take 5 mg M ethodi (PROSCAR) 5 4-[address] mg tablet 00:00: daily. Hospit a 00 l finasteride 2018-03 Yes 5mg Take 5 mg U nivers 5 mg tablet 2-24 by mouth ity of 12:01: daily. [address] allopurinol 2018-03 Yes 300mg Take 300 U nivers 300 mg 2-24 mg by ity of tablet 12:01: mouth [place] [address] daily. [facility] finasteride 2018-03 Yes 5mg Take 5 mg U nivers 5 mg tablet 2-24 by mouth ity of 12:01: daily. [address] allopurinol 2018-03 Yes 300mg Take 300 U nivers 300 mg 2-24 mg by ity of tablet 12:01: mouth [place] [address] daily. [facility] finasteride 2018-03 Yes 5mg Take 5 mg U nivers 5 mg tablet 2-24 by mouth ity of 12:01: daily. [place] [address] Medical Branch allopurinol 2018-03 Yes 300mg Take 300 U nivers 300 mg 2-24 mg by ity of tablet 12:01: mouth [place] [address] daily. Medical Branch finasteride 2018-03 Yes 5mg Take 5 mg U nivers 5 mg tablet 2-24 by mouth ity of 12:01: daily. [place] [address] Medical Branch allopurinol 2018-03 Yes 300mg Take 300 U nivers 300 mg 2-24 mg by ity of tablet 12:01: mouth [place] [address] daily. Medical Branch finasteride 2018-03 Yes 5mg Take 5 mg U nivers 5 mg tablet 2-24 by mouth ity of 12:01: daily. [place] [address] Medical Branch allopurinol 2018-03 Yes 300mg Take 300 U nivers 300 mg 2-24 mg by ity of tablet 12:01: mouth [place] [address] daily. Medical Branch metFORMIN 2018-03 Yes 500mg Take 500 Uni vers 1,000 mg 2-24 mg by ity of tablet 12:01: mouth 2 [place] [address] (two) Medical times Branch daily with meals. lisinopril 2018-03 Yes 40mg Take 40 mg U nivers 40 mg 2-24 by mouth ity of tablet 12:01: daily. [place] [address] Medical Branch terazosin 2 2018-03 Yes 2mg Take 2 mg U nivers mg capsule 2-24 by mouth ity o f 12:01: at [place] [address] bedtime. Medical Branch pravastatin 2018-03 Yes 40mg Take 40 mg Univers 40 mg 2-24 by mouth ity of tablet 12:01: at [place] [address] bedtime. Medical Branch aspirin 81 2018-03 Yes 81mg Take 81 mg U nivers mg chewable 2-24 by mouth ity of tablet 12:01: daily. [place] [address] Medical Branch magnesium 2018-03 Yes 400mg Take 400 Uni vers gluconate 2-24 mg by ity of 200 mg 12:01: mouth 2 [facility] 37 (two) Medical times Branch daily. insulin 2018-03 Yes 50U inject 50 Unive rs degludec 2-24 Units ity of (TRESIBA 12:01: [place] the [place] U-100 37 skin Medical INSULIN [place]) daily. Branch metFORMIN 2018-03 Yes 500mg Take 500 Uni vers 1,000 mg 2-24 mg by ity of tablet 12:01: mouth 2 [place] [address] (two) Medical times Branch daily with meals. lisinopril 2018-03 Yes 40mg Take 40 mg U nivers 40 mg 2-24 by mouth ity of tablet 12:01: daily. [place] [address] Medical Branch terazosin 2 2018-03 Yes 2mg Take 2 mg U nivers mg capsule 2-24 by mouth ity o f 12:01: at [place] [address] bedtime. Medical Branch pravastatin 2018-03 Yes 40mg Take 40 mg Univers 40 mg 2-24 by mouth ity of tablet 12:01: at [place] [address] bedtime. Medical Branch aspirin 81 2018-03 Yes 81mg Take 81 mg U nivers mg chewable 2-24 by mouth ity of tablet 12:01: daily. [place] [address] Medical Branch magnesium 2018-03 Yes 400mg Take 400 Uni vers gluconate 2-24 mg by ity of 200 mg 12:01: mouth 2 [place] tablet 37 (two) Medical times [place] daily. insulin 2018-03 Yes 50U inject 50 Unive rs degludec 2-24 Units ity of (TRESIBA 12:01: under the [facility] s U-100 37 skin Medical INSULIN [place]) daily. Branch metFORMIN 2018-03 Yes 500mg Take 500 Uni vers 1,000 mg 2-24 mg by ity of tablet 12:01: mouth 2 [place] [address] ([facility]) Medical times [place] daily with meals. lisinopril 2018-03 Yes 40mg Take 40 mg U nivers 40 mg 2-24 by mouth ity of tablet 12:01: daily. [place] [address] Medical Branch terazosin 2 2018-03 Yes 2mg Take 2 mg U nivers mg capsule 2-24 by mouth ity o f 12:01: at [place] [address] bedtime. Medical Branch pravastatin 2018-03 Yes 40mg Take 40 mg Univers 40 mg 2-24 by mouth ity of tablet 12:01: at [place] [address] bedtime. Medical Branch aspirin 81 2018-03 Yes 81mg Take 81 mg U nivers mg chewable 2-24 by mouth ity of tablet 12:01: daily. [place] [address] Medical Branch magnesium 2018-03 Yes 400mg Take 400 Uni vers gluconate 2-24 mg by ity of 200 mg 12:01: mouth 2 [place] tablet 37 (two) Medical times Branch daily. insulin 2018-03 Yes 50U inject 50 Unive rs degludec 2-24 Units ity of (TRESIBA 12:01: [facility] 37 skin Medical INSULIN [place]) daily. Branch metFORMIN 2018-03 Yes 500mg Take 500 Uni vers 1,000 mg 2-24 mg by ity of tablet 12:01: mouth 2 [place] [address] (two) Medical times [place] daily with meals. lisinopril 2018-03 Yes 40mg Take 40 mg U nivers 40 mg 2-24 by mouth ity of tablet 12:01: daily. [place] [address] Medical Branch terazosin 2 2018-03 Yes 2mg Take 2 mg U nivers mg capsule 2-24 by mouth ity o f 12:01: at [place] [address] bedtime. Medical Branch pravastatin 2018-03 Yes 40mg Take 40 mg Univers 40 mg 2-24 by mouth ity of tablet 12:01: at [place] [address] bedtime. Medical Branch aspirin 81 2018-03 Yes 81mg Take 81 mg U nivers mg chewable 2-24 by mouth ity of tablet 12:01: daily. [place] [address] Medical Branch magnesium 2018-03 Yes 400mg Take 400 Uni vers gluconate 2-24 mg by ity of 200 mg 12:01: mouth 2 [place] [address] (two) Medical times [place] daily. insulin 2018-03 Yes 50U inject 50 Unive rs degludec 2-24 Units ity of (TRESIBA 12:01: under the [facility] s U-100 37 skin Medical INSULIN SC) daily. Branch metFORMIN 2018-03 Yes 500mg Take 500 Uni vers 1,000 mg 2-24 mg by ity of tablet 12:01: mouth 2 [place] [address] (two) Medical times [place] daily with meals. lisinopril 2018-03 Yes 40mg Take 40 mg U nivers 40 mg 2-24 by mouth ity of tablet 12:01: daily. [address] Branch terazosin 2 2018-03 Yes 2mg Take 2 mg U nivers mg capsule 2-24 by mouth ity o f 12:01: at [place] [address] bedtime. Medical Branch pravastatin 2018-03 Yes 40mg Take 40 mg Univers 40 mg 2-24 by mouth ity of tablet 12:01: at [place] [address] bedtime. Medical Branch aspirin 81 2018-03 Yes 81mg Take 81 mg U nivers mg chewable 2-24 by mouth ity of tablet 12:01: daily. [place] [address] Medical Branch magnesium 2018-03 Yes 400mg Take 400 Uni vers gluconate 2-24 mg by ity of 200 mg 12:01: mouth 2 [place] tablet 37 (two) Medical times Branch daily. insulin 2018-03 Yes 50U inject 50 Unive rs degludec 2-24 Units ity of (TRESIBA 12:01: [place] U-[place] 37 skin Medical INSULIN [place]) daily. Branch finasteride finasteride No 1 Q1D finasterid [place] 5 mg tablet 5 mg tablet 08-27 e 5 mg [facility] 1 tablet 1 tablet 00:00: tablet 1 U rology every day every day 00 tablet by oral by oral every day route. route. by oral route. Tresiba Tresiba No 50unit( Q1D Tresiba [place] FlexTouch FlexTouch 6-06 s) FlexTouch [facility] U-100 U-100 00:00: U-100 Urology insulin 100 insulin 100 00 insulin unit/mL (3 unit/mL (3 100 mL) mL) unit/mL (3 subcutaneou subcutaneou mL) s pen 50 s pen 50 subcutaneo units every units every us pen 50 day by day by units sub-q sub-q every day route. route. by sub-q route. Multi Multi No Multi [place] Vitamin Vitamin 1-01 Vitamin [facility] 00:00: Urology 00 allopurinol Yes 300 mg = 1 [facility] 300 mg oral 08 tabs, l tablet 21:48: Oral, [place] 00 Daily Fish Oil Yes 1,000 mg = Mem oria 1000 mg 11-29 1 caps, l oral 21:48: Oral, BID [place] capsule allopurinol Yes 300 mg = 1 [facility] 300 mg oral 08 tabs, l tablet 21:48: Oral, [place] 00 Daily Fish Oil Yes 1,000 mg = Mem oria 1000 mg 908 1 caps, l oral 21:48: Oral, BID [place] capsule Toujeo Yes 50 units, Memori a SoloStar 11-29 Subcutaneo l 21:47: us, Daily [place] Toujeo Yes 50 units, Memori a SoloStar 11-29 Subcutaneo l 21:47: us, Daily [place] 00 pioglitazon 2017-0 Yes 30 mg = 1 M emoria e 30 mg -08 tabs, l oral tablet 21:47: Oral, Daily pioglitazon 2017-0 Yes 30 mg = 1 M emoria e 30 mg -08 tabs, l oral tablet 21:47: Oral, Daily Vitamin D3 0 Yes 5,000 Memori a 5000 intl 08 IntUnit = l units oral 21:46: 1 caps, Herm marry capsule Oral, Daily Vitamin D3 20170 Yes 5,000 Memori a 5000 intl 08 IntUnit = l units oral 21:46: 1 caps, Herm marry capsule 00 Oral, Daily aspirin 81 0 Yes 81 mg = 1 Me moria mg oral 11-29 tabs, l tablet 21:45: Oral, Daily Ocuvite 2017-0 Yes 1 tabs, [facility] 11-29 Oral, l 21:45: Daily pravastatin 2017-0 Yes 40 mg = 1 M emoria 40 mg oral 11-29 tabs, l tablet 21:45: Oral, Daily aspirin 81 20170 Yes 81 mg = 1 Me moria mg oral 11-29 tabs, l tablet 21:45: Oral, Daily Ocuvite 2017-0 Yes 1 tabs, [facility] 11-29 Oral, l 21:45: Daily pravastatin 2017-0 Yes 40 mg = 1 M emoria 40 mg oral 11-29 tabs, l tablet 21:45: Oral, Daily amLODIPine 2017-0 Yes 10 mg = 1 Me moria 10 mg oral 11-29 tabs, l tablet 21:44: Oral, Daily lisinopril 2017-0 Yes 5 mg, Memori a 11-29 Oral, BID l 21:44: amLODIPine 2017-0 Yes 10 mg = 1 Me moria 10 mg oral 11-29 tabs, l tablet 21:44: Oral, Daily lisinopril 2017-0 Yes 5 mg, Memori a - Oral, BID l 21:44: doxazosin 2 2016-0 Yes 2 mg = 1 Me moria mg oral 9-08 tabs, l tablet 21:43: Oral, [place] Daily doxazosin 2 Yes 2 mg = 1 Me moria mg oral 08 tabs, l tablet 21:43: Oral, [place] Daily allopurinol allopurinol No 1 Q1D allopurino [place] 300 mg 300 mg 08-27 l 300 mg [facility] tablet 1 tablet 1 00:00: tablet 1 U rology tablet tablet 00 tablet every day every day every day by oral by oral by oral route. route. route. pravastatin pravastatin No 1 Q1D pravastati [place] 40 mg 40 mg 03-24 n 40 mg [facility] tablet 1 tablet 1 00:00: tablet 1 U rology tablet tablet 00 tablet every day every day every day by oral by oral by oral route. route. route. Baby Baby No 1 Q1D Baby [place] Aspirin 81 Aspirin 81 03-24 Aspirin 81 [facility] mg chewable mg chewable 00:00: mg Urology tablet 1 tablet 1 00 chewable tablet tablet tablet 1 every day every day tablet by oral by oral every day route. route. by oral route. clonidine clonidine No clonidine [place] 0.2 mg prn 0.2 mg prn 0.2 mg prn [facility] Colcrys 0.6 Colcrys 0.6 No 1 Q1D Colcrys [place] mg tablet mg tablet 0.6 mg Met ro Take 1 Take 1 tablet Urology tablet tablet Take 1 every day every day tablet by oral by oral every day route. route. by oral route. metoprolol metoprolol No 2 BID metoprolol [place] tartrate 50 tartrate 50 tartrate [place] mg tablet 2 mg tablet 2 50 mg Urology tablets tablets tablet 2 twice a day twice a day tablets by oral by oral twice a route. route. day by oral route. tamsulosin tamsulosin No 1capsul Q1D tamsulosin [place] 0.4 mg 0.4 mg e(s) 0.4 mg [place] capsule 1 capsule 1 capsule 1 Urology capsule capsule capsule every day every day every day by oral by oral by oral route. route. route. Immunizations Ordered Filled Immunization Date Status Comments [facility] e Immunization Name Name COVID-19, mRNA, COVID-19, mRNA, 2020-06-10 Completed [place] LNP-S, PF, 30 LNP-S, PF, 30 00:00:00 Urology mcg/0.3 mL dose mcg/0.3 mL dose SARS-COV-2 COVID-19 2020-06-10 Completed Unive rsity of PFIZER VACCINE 00:00:00 [facility] SARS-COV-2 COVID-19 2020-06-10 Completed Unive rsity of PFIZER VACCINE 00:00:00 [facility] SARS-COV-2 COVID-19 2020-06-10 Completed Unive rsity of PFIZER VACCINE 00:00:00 [facility] SARS-COV-2 COVID-19 2020-06-10 Completed Unive rsity of PFIZER VACCINE 00:00:00 [facility] SARS-COV-2 COVID-19 2020-06-10 Completed Unive rsity of PFIZER VACCINE 00:00:00 [facility] COVID-19, mRNA, COVID-19, mRNA, 2020-05-20 Completed [place] LNP-S, PF, 30 LNP-S, PF, 30 00:00:00 Urology mcg/0.3 mL dose mcg/0.3 mL dose SARS-COV-2 COVID-19 2020-05-20 Completed Unive rsity of PFIZER VACCINE 00:00:00 [facility] SARS-COV-2 COVID-19 2020-05-20 Completed Unive rsity of PFIZER VACCINE 00:00:00 [facility] SARS-COV-2 COVID-19 2020-05-20 Completed Unive rsity of PFIZER VACCINE 00:00:00 [facility] SARS-COV-2 COVID-19 2020-05-20 Completed Unive rsity of PFIZER VACCINE 00:00:00 [facility] SARS-COV-2 COVID-19 2020-05-20 Completed Unive rsity of PFIZER VACCINE 00:00:00 [facility] Td 2019-03-16 Completed [facility] 00:00:00 [facility] Td 2019-03-16 Completed [facility] 00:00:00 [facility] Td 2019-03-16 Completed [facility] 00:00:00 [facility] Td 2019-03-16 Completed [facility] 00:00:00 [facility] Td 2019-03-16 Completed [facility] 00:00:00 [facility] Vital Signs Vital Name Observation [...] 172.7 cm WEIGHT 2021-07-30 15:47:00 163.295 kg Height 2021-01-09 00:00:00 68 [in_i] [facility] Urolog BMI (Body Mass 2021-01-09 00:00:00 53.2 kg/m2 [facility] Body Weight 2021-01-09 00:00:00 350 [lb_av] [facility] Urology HEIGHT 2020-04-24 09:34:00 172.7 cm WEIGHT 2020-04-24 09:34:00 152.953 kg HEIGHT 2020-04-18 09:35:00 172.7 cm WEIGHT 2020-04-18 09:35:00 158.759 kg Systolic blood 2021-08-06 11:24:00 151 mm[Hg] [facility] Diastolic blood 2021-08-06 11:24:00 58 mm[Hg] [facility] Heart rate 2021-08-06 11:24:00 62 /min [facility] Body temperature 2021-08-06 11:24:00 36.67 Madeline [facility] Respiratory rate 2021-08-06 11:24:00 20 /min [facility] Oxygen saturation in 2021-08-06 11:24:00 96 /min [facility] Arterial blood by Medical Ce nter Pulse oximetry Body height 2021-08-06 09:06:00 172.7 cm [facility] Body weight 2021-08-06 09:06:00 162.07 kg [facility] BMI 2021-08-06 09:06:00 54.33 kg/m2 [facility] Systolic blood 2021-03-01 20:55:00 181 mm[Hg] [facility] pressure Diastolic blood 2021-03-01 20:55:00 81 mm[Hg] [facility] pressure Heart rate 2021-03-01 20:55:00 62 /min [facility] Body temperature 2021-03-01 20:55:00 36.28 Madeline [facility] Body height 2021-03-01 20:55:00 172.7 cm [facility] Body weight 2021-03-01 20:55:00 167.888 kg [facility] BMI 2021-03-01 20:55:00 56.28 kg/m2 [facility] Oxygen saturation in 2021-03-01 20:55:00 96 /min [facility] Arterial blood by Pulse oximetry Respiratory rate 2021-01-31 17:20:15 18 /min [facility] Procedures Procedure Date / Time Performing Clinician Source Performed REPORT OF PROCEDURE - 2021-08-06 11:02:14 Amaratunge, [facility] POCT-GLUCOSE METER 2021-08-06 10:32:00 Amaratunge, [facility] TISSUE EXAM 2021-08-06 10:01:00 Amaratunge, [facility] COLONOSCOPY, WITH 2021-08-06 09:31:00 Amaratunge [facility] POL[facility]CTOMY [facility] POCT-GLUCOSE METER 2021-08-06 09:25:00 Amaratunge, [facility] ASSIGNMENT OF BENEFITS 2021-08-01 23:42:52 Doctor Unassigned, [facility] HC COMPLETE BLD COUNT 2021-03-01 22:53:00 [facility] W/AUTO DIFF [place] COMPREHENSIVE METABOLIC 2021-03-01 22:53:00 [facility] PANEL [place] PROTHROMBIN TIME WITH INR 2021-03-01 22:53:00 [facility] [place] ESTIMATED GFR 2021-03-01 22:53:00 [facility] spital Carmelo ECG 12-LEAD 2021-03-01 22:00:12 [facility] [place] TTE COMPLETE, W CONTRAST, 2021-03-01 21:24:32 [facility] W DOPPLER ([id number]) C[place] TTE COMPLETE, W CONTRAST, 2021-01-31 11:30:00 [facility] W DOPPLER ([id number]) [place] BASIC METABOLIC PANEL 2021-01-31 10:06:00 [facility] HC COMPLETE BLD COUNT 2021-01-31 10:06:00 [facility] W/AUTO DIFF ESTIMATED GFR 2021-01-31 10:06:00 Leonard Diaz Ho spital ECG PRE/POST OP 2021-01-31 08:51:21 [facility] ECG PRE/POST OP 2021-01-31 05:39:30 Al [facility] Ho spital ECG 12-LEAD 2021-01-31 02:39:19 Diogo Denise XR CHEST 1 VW PORTABLE 2021-01-31 01:48:18 Ranjit Shaikh [facility] Woo POC GLUCOSE 2021-01-31 01:23:00 Diogo Denise EP TEMPORARY LEAD 2021-01-31 01:17:00 [facility] INSERTION [place] CV AORTIC VALVULOPLASTY 2021-01-31 01:17:00 [facility] CV LEFT HEART CATH 2021-01-31 01:17:00 [facility] Rito Berkowitz CV AORTOGRAM ABDOMINAL 2021-01-31 01:17:00 [facility] AORTA [place] TTE COMPLETE, WO CONTRAST, 2021-01-31 01:12:00 [facility] W DOPPLER ([id number]) [place] POC ARTERIAL BLOOD GAS, 2021-01-31 00:39:00 [facility] CORRECTED AND GARRET Stephenson ACTIVATED CLOTTING TIME 2021-01-31 00:38:00 [facility] POC ARTERIAL BLOOD GAS, 2021-01-30 23:52:00 [facility] CORRECTED AND GARRET Stephenson ACTIVATED CLOTTING TIME 2021-01-30 23:51:00 [facility] ANESTHESIA GRACIE 2021-01-30 23:21:18 Petey Reyes spital ARTERIAL LINE 2021-01-30 23:20:46 Petey Reyes Ho spital ID AN ELECTIVE 2021-01-30 22:56:02 [facility] ENDOTRACHEAL AIRWAY POC ARTERIAL BLOOD GAS, 2021-01-30 22:56:00 [facility] CORRECTED AND GARRET Stephenson TAVR FOR SURGERY 2021-01-30 22:20:00 Jossie Bateman [facility] Rito Berkowitz ABO AND RH CONFIRMATION BY 2021-01-30 20:23:00 [facility] PROTOCOL Sachin POC GLUCOSE 2021-01-30 19:54:00 [facility] ospilaura [place] PV TRANSCRANIAL DOPPLER 2021-01-26 21:48:00 [facility] INTRACRANIAL ARTERIES [place] COMPLETE US CAROTID DUPLEX 2021-01-26 21:30:00 [facility] BILATERAL Sachin SPIROMETRY, DIFFUSION, 2021-01-26 20:29:11 [facility] LUNG VOLUMES Sachin XR CHEST 2 VW 2021-01-26 17:22:09 [facility] ospilaura Stephen[place] B NATRIURETIC PEPTIDE 2021-01-26 16:39:00 [facility] Sachin HC COMPLETE BLD COUNT 2021-01-26 16:39:00 [facility] W/AUTO DIFF Sachin COMPREHENSIVE METABOLIC 2021-01-26 16:39:00 [facility] PANEL Sachin HEMOGLOBIN A1C 2021-01-26 16:39:00 [facility] PARTIAL THROMBOPLASTIN 2021-01-26 16:39:00 [facility] TIME (PTT) Sachin PROTHROMBIN TIME WITH INR 2021-01-26 16:39:00 [facility] Sachin PREPARE RBC 2021-01-26 16:39:[address] [facility] Sachin ESTIMATED GFR 2021-01-26 16:39:[address] [facility] Sachin URINE CULTURE 2021-01-26 16:33:00 [facility] MAGNESIUM LEVEL 2021-01-26 16:33:00 [facility] URINALYSIS SCREEN AND 2021-01-26 16:33:00 [facility] MICROSCOPY, WITH REFLEX TO CULTURE COVID-19 QUALITATIVE 2021-01-26 16:06:00 Nghia Mascorro [facility] RT-PCR [place] CV CT CHEST NON CONTRAST 2021-01-18 20:03:24 Nghia Mascorro [facility] Carmelo ECHOCARDIOGRAM 2021-01-18 18:21:51 Nghia Mascorro spilaura TRANSESOPHAGEAL W DOPPLER [place] COLORFLOW POC GLUCOSE 2021-01-18 15:31:00 Nghia Mascorro spital [place] MRI ABDOMEN W WO CONTRAST 2021-01-05 23:45:00 Nghia Mascorro [facility] - Needle Biopsy Prostate 2016-08-27 00:00:00 Funmilayo Mckeon Urology - Vasectomy 1989-08-27 00:00:00 Ryan peralta Urology HEENT- [place] Surgery 1969-09[birth year]27 00:00:00 Wei Mckeon Urology Plan of Care Planned Activity Planned Date Details Comments Source Future Scheduled 2031-08-[address] [facility] 00:[facility] ne[facility] Center colon (procedure) [code = 696533179] Future Scheduled 2031-08-[address] [facility] [facility] Test 00:00:00 [facility] colon (procedure) [code = 257629020] Future Scheduled 2031-08-[address] [facility] Test 00:00:00 [facility] colon (procedure) [code = 517510436] Future Scheduled 2031-08-[address] [facility] Test 00:00:00 malignant neoplasm of [facility]ica [facility] Center colon (procedure) [code = 943498376] Future Scheduled 2022-08-[address] [facility] Test 00:00:00 [facility] r Screening (12+) [code = Tobacco Cessation Counseling and Screening (12+)] Future Scheduled 2022-02-18 HEPATITIS B VACCINES Met [facility] Test 09:48:02 (1 of 3 - 3-dose series) [code = HEPATITIS B VACCINES (1 of 3 - 3-dose series)] Future Scheduled 2022-02-18 65+ [facility]CCAL [facility] 09:48:02 VACCINE (1 - PCV) [code = 65+ PNEUMOCOCCAL VACCINE (1 - PCV)] Future Scheduled 2022-02-18 Hepatitis C screening [facility] Test 09:48:02 (procedure) [code = 176306141] Future Scheduled 2022-02-18 SHINGLES VACCINES (1 Met [facility] Test 09:48:02 of 2) [code = SHINGLES VACCINES (1 of 2)] Future Scheduled 2022-02-18 COLONOSCOPY SCREENING [facility] Test 09:48:02 [code = COLONOSCOPY SCREENING] Future Scheduled 2022-02-18 COVID-19 VACCINE (4 - [facility] Test 09:48:02 Booster for Pfizer series) [code = COVID-19 VACCINE (4 - Booster for Pfizer series)] Future Scheduled 2022-02-18 INFLUENZA VACCINE Method [facility] Test 09:48:02 [code = INFLUENZA VACCINE] Future Scheduled 2022-01-11 HEPATITIS B VACCINES Met [facility] Test 17:27:46 (1 of 3 - 3-dose series) [code = HEPATITIS B VACCINES (1 of 3 - 3-dose series)] Future Scheduled 2022-01-11 65+ [facility] 17:27:46 VACCINE (1 - PCV) [code = 65+ PNEUMOCOCCAL VACCINE (1 - PCV)] Future Scheduled 2022-01-11 DIABETES: RETINAL EYE [facility] Test 17:27:46 EXAM [code = DIABETES: RETINAL EYE EXAM] Future Scheduled 2022-01-11 DIABETIC FOOT EXAM [facility] Test 17:27:46 [code = DIABETIC FOOT EXAM] Future Scheduled 2022-01-11 Hepatitis C screening [facility] Test 17:27:46 (procedure) [code = 472827173] Future Scheduled 2022-01-11 SHINGLES VACCINES (1 Met [facility] Test 17:27:46 of 2) [code = SHINGLES VACCINES (1 of 2)] Future Scheduled 2022-01-11 COLONOSCOPY SCREENING [facility] Test 17:27:46 [code = COLONOSCOPY SCREENING] Future Scheduled 2022-01-11 COVID-19 VACCINE (4 - Me [facility] Test 17:27:46 Booster for Pfizer series) [code = COVID-19 VACCINE (4 - Booster for Pfizer series)] Future Scheduled 2022-01-11 INFLUENZA VACCINE Method [facility] Test 17:27:46 [code = INFLUENZA VACCINE] Future Scheduled 2021-12-12 HEPATITIS B VACCINES Met [facility] Test 16:05:50 (1 of 3 - 3-dose series) [code = HEPATITIS B VACCINES (1 of 3 - 3-dose series)] Future Scheduled 2021-12-12 65+ [facility]CCAL [facility] 16:05:50 VACCINE (1 - PCV) [code = 65+ PNEUMOCOCCAL VACCINE (1 - PCV)] Future Scheduled 2021-12-12 DIABETES: RETINAL EYE [facility] Test 16:05:50 EXAM [code = DIABETES: RETINAL EYE EXAM] Future Scheduled 2021-12-12 DIABETIC FOOT EXAM [facility] Test 16:05:50 [code = DIABETIC FOOT EXAM] Future Scheduled 2021-12-12 Hepatitis C screening [facility] Test 16:05:50 (procedure) [code = 462366300] Future Scheduled 2021-12-12 SHINGLES VACCINES (1 Met [facility] Test 16:05:50 of 2) [code = SHINGLES VACCINES (1 of 2)] Future Scheduled 2021-12-12 [facility] Test 16:05:50 [code = COLONOSCOPY SCREENING] Future Scheduled 2021-12-12 COVID-19 VACCINE (4 - Me [facility] Hospital Test 16:05:50 Booster for Pfizer series) [code = COVID-19 VACCINE (4 - Booster for Pfizer series)] Future Scheduled 2021-12-12 INFLUENZA VACCINE Method ist Hospital Test 16:05:50 [code = INFLUENZA VACCINE] Future Scheduled 2021-11-22 INFLUENZA VACCINE (#1[facility]00 [code = INFLUENZA Medical Ce nter VACCINE (#1)] Future Scheduled 2021-11-22 INFLUENZA VACCINE (#1) [facility] 00:00:00 [code = INFLUENZA Medical Ce nter VACCINE (#1)] Future Scheduled 2021-03-[address] [facility] Test 00:00:00 (12+) [code = Medical Center DEPRESSION SCREENING (12+)] Future Scheduled 2021-03-24 FALLS RISK SCREENING [facility] Test 00:00:00 [code = FALLS RISK Medical C enter SCREENING] Future Scheduled 2021-03-[address] [facility] Test 00:00:00 (12+) [code = Medical Center DEPRESSION SCREENING (12+)] Future Scheduled 2021-03-24 FALLS RISK SCREENING [facility] Test 00:00:00 [code = FALLS RISK Medical C enter SCREENING] Diagnostic Test 2021-01-09 urinalysis, dipstick [place] Pending 00:00:00 [code = urinalysis, Urology dipstick] Future Scheduled 2020-11-10 COVID-19 VACCINE (3 [facility]:00[facility]00 Booster for Pfizer Medical C enter series) [code = COVID-19 VACCINE (3 - Booster for Pfizer series)] Future Scheduled 2020-11-10 COVID-19 VACCINE (3 - [...] FIRST YEAR if no IPPE)] Future Scheduled 2015-12-[address] [facility] 00:00:00 WELLNESS (YEAR 2 or Medical Center FIRST YEAR if no IPPE) [code = MEDICARE ANNUAL WELLNESS (YEAR 2 or FIRST YEAR if no IPPE)] Future Scheduled 2015 PNEUMOCOCCAL 65+ YRS [facility] Test 00:00:00 (1 - PCV) [code = Medical Ce nter PNEUMOCOCCAL 65+ YRS (1 - PCV)] Future Scheduled 2015 PNEUMOCOCCAL 65+ YRS [facility] Test 00:00:00 (1 - PCV) [code = Medical Ce nter PNEUMOCOCCAL 65+ YRS (1 - PCV)] Future Scheduled 2000-01-17 SHINGLES VACCINES ([address] [facility] Test 00:00:00 of 2) [code = SHINGLES Medic al Center VACCINES (1 of 2)] Future Scheduled 2000-01-17 SHINGLES VACCINES ([address] [facility] Test 00:00:00 of 2) [code = SHINGLES Medic al Center VACCINES (1 of 2)] Future Scheduled 1969 DTAP/TDAP/TD [facility]ACCINES [facility] 00:00:00 (1 - Tdap) [code = Medical C enter DTAP/TDAP/TD VACCINES (1 - Tdap)] Future Scheduled 1969 DTAP/TDAP/TD VACCINES [facility] 00:00:00 (1 - Tdap) [code = Medical C enter DTAP/TDAP/TD VACCINES (1 - Tdap)] Future Scheduled 1968-01-17 HEPATITIS C [facility]CREENING [facility] 00:00:00 [code = HEPATITIS C Medical Center SCREENING] Future Scheduled 1968-01-17 HEPATITIS C [facility]CRE[facility]ING [facility] 00:00:00 [code = HEPATITIS C Medical Center SCREENING] Future Scheduled [address] [facility] Test 00:00:00 (combo) [code = CT Medical C enter Colonography (combo)] Future Scheduled [address] [facility] 00:00:00 malignant neoplasm of Medica l Center colon (procedure) [code = 455759451] Future Scheduled [address] [facility] 00:00:00 malignant neoplasm of Medica [facility] Center colon (procedure) [code = 079537374] Future Scheduled 1950 Sigmoidoscopy [code [facility] S[facility]oscopy] Medical Cente r Future Scheduled [address] [facility] 00:00:00 (combo) [code = CT Medical C enter Colonography (combo)] Future Scheduled [address] [facility] 00:00:00 malignant neoplasm of [facility]ica [facility] Center colon (procedure) [code = 641648940] Future Scheduled [address] [facility] Test 00:00:00 malignant neoplasm of Medica l Center colon (procedure) [code = 813337115] Future Scheduled 1950 Sigmoidoscopy [facility]code [facility] 00:[facility]:00 Sigmoidoscopy] Medical Delia r Encounters Start End Encounter Admission Attending Care Care Encounter Source Date/Time Date/Time Type Type Clinicians Facility Department ID 2020-12-29 Outpatient RENATA [facility] Surgery [id number] SLE 23:08[facility] 2022-01-29 2022-01-29 Telephone Rody, 1.2.840.1 [id number] Methodi 00:00:00 00:00:00 Nancy 58432.1.1 656 [facility]430[facility]7 [facility]18 [facility] .8 2022-01-03 2022-01-04 Outpatient [facility] [id number] Memoria 14:31:07 04:59:59 r [facility] 2022-01-03 2022-01-04 Outpatient [facility] [id number] Memoria 14:31:07 04:59:59 r [facility] 2022-01-03 2022-01-03 Outpatient [facility] [id number] Memoria 09:31:07 23:59:59 r amirah Easley 2022-01-03 2022-01-03 Outpatient Reagan, [id number] 09:31:07 23:59:59 Андрей 8 2021-12-11 2021-12-11 Telephone Ludwin, 1.2.840.1 [id number] Methodi 00:00:00 00:00:[address] [place] 3.430.2.7 Hospit a .3.492304 l .8 2021-12-11 2021-12-11 Telephone [place]win, 1.2.840.1 [id number] Methodi 00:00:00 00:00:[address] [place] 3.430.2.7 Hospit a .3.927472 l .8 2021-08-06 2021-08-06 Outpatient [facility] Surgery [id number] [facility] 07:20:00 11:50:00 HARSHINIE 2021-08-06 2021-08-06 [facility] [id number] 07:20:00 11:50:00 Encounter Reillyinie Zita dylonsadie Hugginsika [facility] 2021-08-06 2021-08-06 [facility] [id number] [id number] 07:20:00 11:50:00 Encounter Reillyinirubén Zita jennie Bhavnaika Medic [facility] 2021-08-06 2021-08-06 Anesthesia Windy Gardner [facility] [id number] 09:36:00 10:30:00 Event Zia Sobia [facility] 2021-08-06 2021-08-06 Anesthesia Windy Gardner [facility] [id number] 09:36:00 10:30:00 Event Zia [facility] 2021-08-06 2021-08-06 Surgery [facility] [id number] 09:30:00 10:00:00 Shaggy Barksdale Medic [facility] 2021-08-06 2021-08-06 Surgery [facility] [id number] 09:30:00 10:00:00 [facility] 2021-08-06 2021-08-06 Travel [facility] [id number] [facility] 00:[facility]00 00:00:00 [facility] 2021-08-06 2021-08-06 Travel [facility] [id number] [facility] 00:[facility] 00:00:00 [facility] 2021-08-02 2021-08-02 Letter MOOK Spencer [id number] Univers 00:00:00 00:00:00 (Out) Bael YOAV [id number] it y of [facility] 4.2.7.2.686 Luis as [id number] [facility] [address]19 [place] 2021-08-01 2021-08-01 Laboratory Only, Ang Db Test [facility] 1.2.8 40.114 [id number] Univers 19:15:00 19:30:00 Only Gordy [facility] [id number] ity [facility] 4.2.7.2.686 Luis as MANJEET?BLEA [phone] [address] MEDICAL OFFICE BUILDING 2021-08-01 2021-08-01 Outpatient R GORDY [facility] [id number] Univers 19:15:00 19:15:00 JIMMY ity [facility] 2021-08-01 2021-08-01 Orders Doctor DELVALLE [id number] [id number] Univers 00:00:00 00:00:00 Only Unassigned, YOAV [id number] ity of [place] [facility] 4.2.7.2.686 Luis as [phone] [facility] [address] 2021-07-30 2021-07-30 Outpatient EL [facility] [id number] [facility] 16:20:44 23:59:00 2021-07-30 2021-07-30 [facility] [id number] 14:45:00 23:59:00 [facility] 2021-07-30 2021-07-30 [facility] [id number] 14:45:00 23:59:00 [facility] 2021-07-30 2021-07-30 Travel [facility] [id number] [facility] 00:00:00 00:00:00 [facility] 2021-07-30 2021-07-30 Travel [facility] [id number] [facility] 00:[facility]00 00:00:00 [facility] 2021-07-10 2021-07-10 Telephone Guallpa, 1.2.840.1 [id number] Methodi 00:00:00 00:00:[address] 3.430.2.7 Hospit a .3.720502 l .8 2021-07-10 2021-07-10 Telephone Guallpa, 1.2.840.1 [id number] Methodi 00:00:00 00:00:[address] 3.430.2.7 Hospit a .3.692056 l .8 2021-07-03 2021-07-03 Telephone Guallpa, 1.2.840.1 [id number] Methodi 00:00:00 00:00:[address] 3.430.2.7 Hospit a .3.428508 l .8 2021-07-03 2021-07-03 Telephone Guallpa, 1.2.840.1 [id number] Methodi 00:00:00 00:00:[address] 3.430.2.7 Hospit a .3.422168 l .8 2021-07-03 2021-07-03 Telephone Guallpa, 1.2.840.1 [id number] Methodi 00:00:00 00:00:[address] 3.430.2.7 Hospit a .3.777577 l .8 2021-07-03 2021-07-03 Telephone Guallpa, 1.2.840.1 [id number] Methodi 00:00:00 00:00:[address] 3.430.2.7 Hospit a .3.877818 l .8 2021-06-27 2021-06-27 Telephone Guallpa, 1.2.840.1 [id number] Methodi 00:00:00 00:00:[address] 3.430.2.7 Hospit a .3.865238 l .8 2021-06-27 2021-06-27 Telephone Guallpa, 1.2.840.1 [id number] Methodi 00:00:00 00:00:[address] 3.430.2.7 Hospit a .3.986119 l .8 2021-05-03 2021-05-03 Telephone Ludwin, 1.2.840.1 [id number] Methodi 00:00:00 00:00:[address] [place] 3.430.2.7 Hospit a .3.835855 l .8 2021-05-03 2021-05-03 Telephone Ludwin, 1.2.840.1 [id number] Methodi 00:00:00 00:00:[address] [place] 3.430.2.7 Hospit a .3.833250 l .8 2021-04-07 2021-04-07 Telephone Marta Gramajo 1.2.840.114 [id number] [facility] 00:00:00 00:00:00 [place] 350.1.13.10 it y of [facility] 4.2.7.2.686 Luis as [id number] [address] 2021-04-06 2021-04-06 Laboratory Only, Ang Db Test [facility] 1.2.8 40.114 [id number] [facility] 09:45:00 09:45:00 Only [facility] 350.1.13.10 ity of [place] 4.2.7.2.686 Luis as MANJEET?BLEA [id number] [place] [address] MEDICAL OFFICE BUILDING 2021-03-01 2021-03-01 Lab [place], 1.2.840.1 [id number] Methodi 16:30:00 16:35:[address] [address] [place] 3.430.2.7 Hospit a .3.139330 l .8 2021-03-01 2021-03-01 Lab [place], 1.2.840.1 [id number] Methodi 16:30:00 16:35:[address] [place] 3.430.2.7 Hospit a .3.238300 l .8 2021-03-01 2021-03-01 Multidisci [place], 1.2.840.1 [id number] 21 [id number] Methodi 15:30:00 16:15:13 [address] 57477.1.[address] Visit Carmelo 3.430.2.7 Hospit a .3.425441 l .8 2021-03-01 [facility]01 [facility] 1.2.840.1 [id number] 21 [id number] Methodi 15:30:00 16:15:13 [address] 43899.1.[address] Visit Carmelo 3.430.2.7 Hospit a .3.467452 l .8 2021-03-01 2021-03-01 [facility] 447013 1909 [place] 00:00:00 00:00:00 NGHIA [address] 2021-02-28 2021-02-28 Travel 1.2.840.1 1.2.684.444 6105 829676 Methodi 00:00:00 00:00:[address] 3.430.2.7 0.2.7.3.698 Ho spita .3.446243 084.8 l .8 2021-02-28 2021-02-28 Telephone Walker, 1.2.840.1 [id number] 2099 599142 Methodi 00:00:00 00:00:[address] 3.430.2.7 Hospit a .3.482033 l .8 2021-02-28 2021-02-28 Travel 1.2.840.1 1.2.665.677 0815 940949 Methodi 00:00:00 00:00:[address] 3.430.2.7 0.2.7.3.698 Ho spita .3.353300 084.8 l .8 2021-02-28 2021-02-28 Telephone Pete, 1.2.840.1 [id number] 2099 [id number] Methodi 00:00:00 00:00:[address] 3.430.2.7 Hospit a .3.252989 l .8 2021-02-12 2021-02-13 Mariaa Candelaria 1.2.840.1 [id number] 2 [id number] Methodi 13:15:00 08:29:[address] 3.430.2.7 Hospit a .3.076033 l .8 2021-02-12 2021-02-12 Travel 1.2.840.1 1.2.651.043 3526 393293 Methodi 00:00:00 00:00:[address] 3.430.2.7 0.2.7.3.698 Ho spita .3.907487 084.8 l .8 2021-02-05 2021-02-05 Orders Pawel, 1.2.840.1 [id number] 830933 4556 Methodi 00:00:00 00:00:00 Only Agnieszka Dolan 30685.1.[address] 3.430.2.7 Hospit a .3.900520 l .8 2021-02-01 2021-02-01 Orders Jamie, 1.2.840.8 [id number] 854 [id number] Methodi 00:00:00 00:00:00 Only Marianela L [address]666.1.[address] 3.430.2.7 Hospit a .3.087869 l .8 2021-01-30 2021-01-31 [facility], 1.2.840.1 [id number] 2100 757396 Methodi 08:10:00 13:51:00 Encounter Diogo 36868.1.[address] Sachin 3.430.2.7 Hospit a .3.352008 l .8 2021-01-03 2021-01-31 Office Mariaa Moon 1.2.840.9 [id number] 2 [id number] Methodi 13:30:00 10:29:[address] 3.430.2.7 Hospit a .3.173838 l .8 2021-01-30 2021-01-30 Anesthesia Petey Reyes 1.2.840.1 [id number] 8 [id number] Methodi 16:20:00 19:20:00 Event Celina Rogers 12124.1.[address] 3.430.2.7 Hospit a .3.438289 l .8 2021-01-30 2021-01-30 Surgery Jossie sanders 1.2.840.1 [id number] 2100 514578 Methodi 12:10:00 14:40:[address] Rito C. 3.430.2.7 Hosp jax .3.423516 l .8 2021-01-30 2021-01-30 Travel 1.2.840.1 1.2.727.169 0383 621555 Methodi 00:00:00 00:00:[address] 3.430.2.7 0.2.7.3.698 Ho spita .3.142397 084.8 l .8 2021-01-26 2021-01-[address] [facility] 1.2.840.1 [id number] 2099 889292 Methodi 15:00:00 23:59:00 Encounter Diogo 33954.1.[address] Sachin 3.430.2.7 Hospit a .3.957208 l .8 2021-01-26 2021-01-26 [facility] Camelia, 1.2.840.1 [id number] 2100 632779 Methodi 11:30:00 14:59:00 Encounter Diogo 26228.1.[address] Sachin 3.430.2.7 Hospit a .3.768929 l .8 2021-01-26 2021-01-26 Pre-Admiss Camelia, 1.2.840.1 [id number] Methodi 13:40:00 14:40:00 ion Diogo 70364.1.[address] [facility] Sachin 3.430.2.7 Hospit a .3.235068 l .8 2021-01-26 2021-01-26 Telephone Noah, 1.2.840.1 [id number] 413 [id number] Methodi 00:00:00 00:00:[address] 3.430.2.7 Hospit a .3.091738 l .8 2021-01-26 2021-01-26 Telephone Minor, 1.2.840.1 [id number] 2099 600178 Methodi 00:00:00 00:00:[address] 3.430.2.7 Hospit a .3.347347 l .8 2021-01-26 2021-01-26 Travel 1.2.840.1 1.2.776.745 6363 994156 Methodi 00:00:00 00:00:[address] 3.430.2.7 0.2.7.3.698 spita .3.240758 084.8 l .8 2021-01-26 2021-01-26 Outpatient CAMELIA, [facility] 354196 7580 [place] 00:00:00 00:00:00 DIOGO [address] 2021-01-26 2021-01-26 Outpatient CAMELIA, [facility] [id number] 2457 [place] 00:00:00 00:00:00 DIOGO Terrell[address] [facility] [address] 2021-01-19 2021-01-19 Telephone Noah, 1.2.840.1 [id number] 930 [id number] Methodi 00:00:00 00:00:[address] 3.430.2.7 Hospit a .3.844698 l .8 2021-01-18 2021-01-18 [facility] 1.2.840.1 [id number] 2100 539172 Methodi 07:41:00 14:01:00 Encounter Nghia 28575.1.[address] Carmelo 3.430.2.7 Hospit a .3.517821 l .8 2021-01-18 2021-01-18 Anesthesia Pawel Alvarez 1.2.840.1 [id number] Methodi 12:57:00 13:23:00 Event Cayetano Ocampo 33416.1.[address] 3.430.2.7 Hospit a .3.264035 l .8 2021-01-18 2021-01-18 Orders Minor, 1.2.840.1 [id number] 463025 5411 Methodi 00:00:00 00:00:00 Only Julio Cesar 88989.1.[address] 3.430.2.7 Hospit a .3.832306 l .8 2021-01-18 2021-01-18 Orders Minor, 1.2.840.1 [id number] 219919 2190 Methodi 00:00:00 00:00:00 Only Julio Cesar 90398.1.[address] 3.430.2.7 Hospit a .3.030336 l .8 2021-01-18 2021-01-18 Travel 1.2.840.1 1.2.039.004 8747 155069 Methodi 00:00:00 00:00:[address] 3.430.2.7 0.2.7.3.698 Ho spita .3.958428 084.8 l .8 2021-01-18 2021-01-18 [facility] 630057 8712 [place] 00:00:00 00:00:00 NGHIA [address] 2021-01-17 2021-01-[address], 1.2.840.1 [id number] 5038 Methodi 00:00:00 00:00:00 Only Silvana 77290.1.[address] 3.430.2.7 Hospit a .3.681228 l .8 2021 2021 Travel 1.2.840.1 1.2.085.632 3468 910550 Methodi 00:00:00 00:00:[address] 3.430.2.7 0.2.7.3.698 Ho spita .3.981182 084.8 l .[address], 1.2.840.1 [id number] 2100 [id number] Methodi 00:00:00 00:00:[address] 3.430.2.7 Hospit a .3.873871 l .[address], 1.2.840.1 [id number] 318373 9951 Methodi 00:00:00 00:00:00 Only Silvana 13359.1.[address] 3.430.2.7 Hospit a .3.080616 l .8 2021-01-12 2021-01-12 Telephone Matthew 1.2.840.1 [id number] Methodi 00:00:00 00:00:00 , Ramon 04809.1.[address] [facility] 3.430.2.7 Hosp jax .3.432028 l .8 2021-01-09 2021-01-09 Outpatient Audi_S [facility] 108146- 202 [place] 04:59:00 04:59:00 69533 [facility] 2021-01-09 2021-01-09 [place] [facility] [place] [id number] Funmilayo blanca 00:00:00 00:00:00 Monserrat Huntley MD: [facility] [address] [address] [address], [place] [address] , Ph. 2021-01-09 2021-01-09 Outpatient Lapin, [place] [facility] 3t7da48 4-3 00:00:00 00:00:00 Carmelo 120-11ec-a La 90b-cf6f6b 32cd57 2021-01-05 2021-01-05 [facility], 1.2.840.1 [id number] 2099 299298 Methodi 16:04:57 23:59:00 Encounter Nghia 37398.1.[address] Carmelo 3.430.2.7 Hospit a .3.140054 l .8 2021-01-05 2021-01-05 Travel 1.2.840.1 1.2.476.121 3721 655487 Methodi 00:00:00 00:00:[address] 3.430.2.7 0.2.7.3.698 Ho spita .3.650923 084.8 l .8 2021-01-04 2021-01-04 Outpatient Lapin_S [facility] 923487- [place] 04:57:00 04:57:00 75996 [facility] 2021-01-03 2021-01-03 Outpatient Lapin_S [facility] 263284 [place] 05:35:00 05:35:00 74131 [facility] 2021-01-03 2021-01-03 Travel 1.2.840.1 1.2.563.161 8041 718386 Methodi 00:00:00 00:00:[address] 3.430.2.7 0.2.7.3.698 Ho spita .3.615315 084.8 l .8 2020-12-21 2020-12-21 Outpatient MATTHEW [facility] 316 [id number] [place] 00:00:00 00:00:00 , RAMON [address] 2020-12-21 2020-12-21 Outpatient LUDWIN, [facility] 293124 5277 [place] 00:00:00 00:00:00 NGHIA 763 Method i 2020-12-12 2020-12-12 Outpatient MATTHEW [facility] 632 1023360 [place] 00:00:00 00:00:00 , RAMON [address] 2020-12-12 2020-12-12 Outpatient MATTHEW [facility] 792 [id number] [place] 00:00:00 00:00:00 , RAMON 749 [address] 2020-12-12 2020-12-12 Outpatient BONY, [facility] [id number] 960 [place] 00:00:00 00:00:00 CARMELO 945 Method i 2020-12-06 2020-12-07 Outpatient MARIAA MOON [facility] 203 [id number] [place] 00:00:00 00:00:00 867 Method i 2020-11-09 2020-11-09 Outpatient EDILSON, [facility] 021 477152 9472 [place] 00:00:00 00:00:00 STEPHANIA 565 Method i 2020-04-18 2020-04-18 Outpatient EL SLEH [facility] [id number] 081 SLE 00:00:00 00:00:00 2019-12-23 2019-12-23 Emergency ABELARDO MORAES [facility] 064 07373 68624 [place] 00:00:00 00:00:00 031 Method i 2019-09-28 2019-09-28 Outpatient ESQUIVEL, [facility] 401662 0357 [place] 00:00:00 00:00:00 SIMA 866 Method i 2019-09-02 2019-09-02 Outpatient ALIRanjit, [facility] [id number] 925 [place] 00:00:00 00:00:00 LEATHA 714 Method i 2019-09-02 2019-09-02 Outpatient ALIRanjit, [facility] [id number] 926 [place] 00:00:00 00:00:00 LEATHA 090 Method i 2019-03-16 2019-03-16 Emergency X JUAN HENAO [facility] ERT 1025 [id number] [facility] 11:57:32 13:08:00 [facility] Results Test Description Test Time Test Comments Results Result Comments Source Tissue Exam 2021-08-07 16:59:52 Test Item Value Reference Range Interpretation Comme nts Case Report (test code = 104) Surgical Pathology Report Case: [id number] Authorizing Provider: Shaggy Galvan Collected: 08/06/2021 10:01 CONCEPCION Barksdale MD Ordering Location: [facility] Endoscopy Received: 08/06/2021 12:01 PM Services Pathologist: Padmini Washington MD Specimen: Polyp, Colon - Cecum, via hot snare DIAGNOSIS (test code = 3220) d4okpROdDVIft5rvAIMzpRRdZtXkFxRmRwGuAz pc dWMxIHtccnRmMVxlcGljOTYwMlxhbnNpXHNwbHRw E1QcyqigXEqqBS9bLM3npEnhiFUrrUSqFGKmPuHl s5yie325oWSre1jrAAFPdxcfuSh2eYgbJ42cp0X7 SrteA58nlRSzNMS8ZIJhOZQgmUBtRTKzUZT6OZVn yXGlM8qzZRHkEE0lqgsgFEhsJWpqOOCuxJG8NHYm dHFkX6OeNVLrRCqeZRQaszp3ZgEgDt2piMRghHgf MGzlRXJrMZHtYUnoULXnHsNjS5QYHDrjBG6LHPYr DAODP9URDIplkHPbXXDuIX9nVLXHOVkZQcYQYWJE I07FRQZinhzwXIZbV2VjmRvqdRRoxVgsjxZmOBkx e7VaDWrxBHChFI8tjEyyEZSwMN7xNPZbU9fgfB2z ixx4XkNyVMCpMhE3MZUmerD6Ccd5RSNvSGdnn2ph m2WkJQJaRYa2hSgyTpRgDXZjw2tlvsZgLeEgHQXd WWVcEGEvtARsH673t7zvz2ckmjLxuMR7CDHuCJC6 JObztkMjwvN2ZSojsLQhOeS4INzzguGwBZydrmMu koFpVzx6MHZlK862YMB8gCysc5amRWL6XQAvHLHs CaQuOd9beOLpL463VHGzWZAJCWOkmLn3JLOlgxQd keXliMYVb048B681z4biLINjwzAuhIqUlcxnd3de O830KPAgiQLomeLbRjIrVDJlgNLztIT8JUEiJF5m yeayNHowREfiSUAavxT5XGUexKFaF0GmMMGvHV0q lykhHJK6RNehUFMyKSI2ZlZxLCFjh9Ognkn0WbNu oy5nov50FVB1w1ZryYskRKW7GOL8NfVdYr7adFLv GLJwBC1kDlWquKOqKAVzkx06eNnfVLskVEF3PNWo pwHth7Syq1wbVdDhynDfN5klG0RaILFwFAEcCTVo MfQwzbDyg2Lxe9PvmMAbxSl1q3pbIQDuTZCptDjn m8faVHR8KVZtxTNoJ3gnrW1hNOGhGR9zwpwar9ue EMrlPUdnTELpsEW5zdA6HVGwvZCuW7DyzO9tUCTf ZTofKREynfs6HiUyUb0vwGVnyFllEQfxJcsiDQov XHBnbmNvbnRccGduZGVjXHBsYWluXHBsYWluXGYw XGZzMjRccWxcbGFuZzEwMzNcaGljaFxmMVxkYmNo PCIgFUxwE4vvIlHpCbKwKok1QYXbbRCsZVRqVvt9 AKCurAHaPSVVzMpvvX2oBGFetQcbxE6itFV9REBb hsMvhJSZdR2mZWOKyY0qDtO2BJMxNyt1SRi1LJCj cGFyfX0= CPT Code(s) (test code = 3357) r7tlzBLiELFzlMG0SuIeCFOez0gaq9UgsGOi cGFy UWcudBSqvvUkyf61jON1eL83PB5gOWGsPtV0RVQz uoE0Vcm7TANfLIOqjQTbN413m4gtp2qeraUkvCV7 tXpnZVQirghaUwU6SZdxBLCycgsaWXa7AWvbZBDs bAS9WXAubCQaX6OiAVGyHN3wxut7QTU2GFzbAMNu CjO6WCOpyWMqKCSucDczMZpft555EWL1WnPdCCBz muOawUtdaL1lKgXpXXV6LPLvHObaRTL2 CLINICAL HISTORY (test code = 3356) q5xvkIEqOVUczTX5WpXeWJSus5whn2N sdHBncGFy EEpwwLYindUthb10fXG2qX44TK5bSQSvOeS1FZKn nmZ0Xjw2ZVLdSJPmtMNlU937z0hzq5ugdkGkqOQ1 mLkfRFDznzniWxS4NErnCGNbkaowHVn1GUvgOITu rLD5BPYllDTtI1IhFAJfXE8lmsj1MJO0QVcgHQCg LbC5NSFmnWRvPJRdnJazWPhwr836ZCE0MfPdVUWr vjOasZjqtZ4zJbNfVOVKGPUna08hiCRquAE5y7Y8 KZ6cYTEbcE9vlJKtuE2yvHOlTIYyyj6= GROSS DESCRIPTION (test code = q9qrsFHbUSRkoYPXQELnK4dldeIxPTXcbHUb Z3B [id number]) [file] wTzcb1ZvxTKtZX2PLk6= MICROSCOPIC DESCRIPTION (test code = k9wvjFSoXSJfhFD9InMiCIZyr1oou8 [facility] QUkgwHEqxyPora33cYX0kG35DG8sWSPoTgI8BVSt xhO0Zsm3JBBwNWXpoHErO582b3eyu7ytazUvzHK8 pQbhTTRbedhnLwA2SSbeNCLfwrotZLt4BCefRZVx mBV7VGZrlFJcZ6YtCFScZF4eitc5ZCI1WFfzVWUu OsG6PJXsxWFaUCMmzXltHIeyl476YHI5SgIuYAHh klLigHnkoC5aKpDdLCFGZVMsr3TzYOQnPJRbup5= [facility] B[facility]j7837-[facility]-13 16:59:52 Test Item Value Reference Range Interpretation Comments Case Report (test code Surgical Pathology = 104) Report Case: [id number] Authorizing Provider: Shaggy Galvan Collected: 08/06/2021 10:01 CONCEPCION Barksdale MD Ordering Location: [facility] Endoscopy Received: 08/06/2021 12:01 PM Services Pathologist: Padmini Washington MD Specimen: Polyp, Colon - Cecum, via hot snare DIAGNOSIS (test code = o3fotYSnLOUpo5brHFWaiY 3220) FuZzEwMzNcZnRuYmpcdWMx IHtccnRmMVxlcGljOTYwMl gxvuKyLIVizMSjC4Fjggnx SUncHC5vZF3kpEojsMJmzH QmQDMzGrLmr0yis782oAWl m1diEYLRgarxjZn3yBjrS0 8os2O0MffcU32voVDtLGP8 WIXhEDNpfGPdDCLdGRT1SI HlzOEpJ4uePBUbQJ3ofykx RGsfGAcpAUGdcWJ0VGNnjZ OcX3NqQVAkSDpkKFWpxjf3 MxDeNt4urOBxiUonQDntTE NeKZCkAIvxOOKoIfVbC1LU ZRncWQ9XMTDkQMLOO0BAGA zgbJWmXWPgLS1dNDQEFOtE NwEZMJSLM60YUBVyplrfHP CaL0RdlKkssQBdsJzfdzQp SBkqc6MvHAwkGQBvSD0luJ acMEKsJD3rTDArC3tkvA1r ckd7KbQoYODxGfS5QKKldi X4Vdk6IUPfXSsoa0eyw9Cx ACDfASd3hSwvBhXmQKPmk8 lzcyBcZmNoYXJzZXQwIEFy nMXlU270l1ujy9dzfyKxyH B6OTJiZFW0INotigDmiiE6 BIjupGRvJoK0ZSizhbOkBD oauhEbddHbKqm9XOErC969 KAJ3cIzkz5vcFSF9GOXsMH BzXmIiIj1hzRQlT148GQQl CMOEYLYylFw6DJXzbjByaw KchZMDg767E038n1juJRPl xhTbnXzDvarji3daO271XR BhcGVydzEyMjQwXHBhcGVy oBR1KOBoBR5iypvtAPmlFR lqZVBbnsN2NMKgbKFjB1Wb ZNEzCP0vgjgpVSQ5COkvWT AuNVJ8UaZbRSDqa6Kajqe7 ZhDiox6iow63SKD0c8ZmqF fqDIJ7OVY8DdJiAc5qpMPt SGXsAP0oHuFctDKcNRLotp 18nSrcYOuiPRB5NDJibsAu t2Feo2qnMhExwuVjM8kwU3 JyZHJoZWFkXHBnYnJkcmZv t0Eam0DzkOIiwEa6y6duIS CgJYSxhNzjs7viIPX6DPQh qZZwO8ybnM8lLOTcRE4sft zac8vlPTiyJBoeTHApgZV0 oxP7MZFndPYmB5QklF6wPR BmZVqzJDWtepn8UtYuMv1v dGVyeTcyMFxzYmtwYWdlXH BnbmNvbnRccGduZGVjXHBs YWluXHBsYWluXGYwXGZzMj RccWxcbGFuZzEwMzNcaGlj aFxmMVxkYmNoXGYxXGxvY2 rzZwDfDtXmSln6ESRqxQYr IEHuNmh5DLSkrTJbULZLfL eotG9gPTCmaNkmtQ7ndWU7 DRXfvtHtrZZUgF5vOICXwA 8jPpB1JQHsPce6ECg3LRBn cGFyfX0= CPT Code(s) (test code r6dvaEIqUICihLD8YkEmZB = 3357) Nsk7jzp8IhyHXrbTNoAXri vNGscqCmzs78cNL0iG67SS 4qOVLwKaO9FXEyymD5Fma7 NAKbJYLofFEeT012a1ilv9 dyreIbwYY7pOyzUFKbkntm ZpR1UTzsGZKqdpikBIm2NV mvTDFxnYT3JFNjnMWoL3Sz NXTdOG7ltnt7EPV1CFysBZ KrNiH6LSSiqTGpBNOjqLvl QLezd236KRR9JxAbTDAxqg AxqGjqpW4kDdZoUYH0RJYo NVxwYXJ9 CLINICAL HISTORY (test x0nkqKMyJABphES9TbXzSO code = 3356) Wzt5diz8InwUPqpSIeCYbu kFJvkyHssl92xQV9fL23TH 1eGBQwEfW1JYKkeuM3Sfv9 JSDjKLRthQXmD455f3lvj7 zyrpFctVZ3qQbvVASmsczo SaA3SZmoRVHymdkqZGz7BX upPNCpoGL3NBEitJItO6Lk SVSjMX6ikrt6AXX5XIocSC TkLeM6VPFvgLWaVIRhwDwk VWsfh229LHK8InPgAHUtia GpbOgsuF8qPhJiODNMVDQt w71idLLjiBY1k3E8AA1dYP NawW9eqJOnsG0qhWErJJBj cn0= GROSS DESCRIPTION (test f1hkrHOfLMFtgEDXIHQvL4 code = [id number]) qjgpWyYHWthWQjQ9Quksht RLbyOL1iRN9grUkmtLCnaK VhJH7PYGHlPwZjRSCveRGy bkOlDmKbGHOplFMhpYN8WP EqWQ0fslijYOuwZHsuKIUp feI0XWUhiDMoJ0BkHPJoTR 3dfggbOON8ZUkulQ2zasIN LzcxHl9qyVFyqIloRaEcLl NoYXJzZXQwXGZuaWwgQXJp TOc6yI4DLjxzO90dy7W5Pv c6TCFiCBMkJ7OkJS8tOMOo hLKuE98RPabuXLC0ZZWACg mxVAAzZB5Mm1yiHPCywLHr HDL7LUmgxTQbPSHyNPKiEG e5WEUaCSemaZBaIO8jiLxb RaffpBhln9QcxRDhQIlySW XtVSXgAPwwPMOrDY3XMuFj RBI4PtU1AXTyJIh2DWd0WC 7SNqAzIOKkXIO0GUb6UvZx RSa6DSetDW7WSQQ8EXT9Xw Y1ZtU8YCO4KkFyBFHqGgDs XGYgQXJpYWwgXFxmbCBcXG 7ylDcjcYUyhoPFGjUAa8f0 dWfjH38vq01wPBGPJAM9eM 0jmOMzFS6SFIBsuRAHLUY5 CZ1xZCGCPpotnOFaQEDchQ rvWGxczT3dUV2SGQs5ejIy EDFwYKylraWsHNFrH5Hvce YuGWkwUWHbti6sjFweZPof ZnXhQSCzu1x0gBA0yHEdnS O1qWFlyQxzEjXhIA4xaYWk II5iKKrpJNfhycQyp2HsCP 07bTGfedEagrDgPTW6VoYk YEavARGiYGHrgNLmp9j6lO NiIPGqNYI6ivOnqSCtFRDy u2IirGRxGFgceDFyQN71H5 5tGOKeWV4llA5jFKmsXJDl emUgZnJvbSAwLjMgeCAwLj VqhXZrWnVmnU6fWJ92NEoj FO40ATwoEV9uYTJdKeMAgQ Meb2KvA5unON3snKJpt0Kl hNh3hEXhNEkqJRGxiZ4iaK 4gQTEuXHBhciANClxwYXIg LVfbG5VpEZCoWiNeVEfqkV jpkI1zYLGcG25vk0NTf2Hz LAApZKdew5tjpUyhg7AorL UdJJmvYDGjxOUzXCzskT5q TkQlq1mjyGu8CJnclyV2RG Qhhr7DRfouvH1cMcScr8bw lEh0LVJWNyhbeiK8g3onzJ btu8JksHAjKO3LLv9= MICROSCOPIC DESCRIPTION n7uqsDGgPHWtkHE9IiBuJT (test code = 3371) Fvh4gki7LnxEZauMVfNTxa tLNtmtDepk32oFP5tA66AS 4rGSHmNrM8HGKlstX0Xyf8 JBPaBHXrmXLvO294u1sfm8 mrfyIszFN3uKjyQPDadjsm FyS6PHeuAFOmgaglQWi0ER fhJPRbnUB9AXSumBAnU6Xj AKGgLC5avjo4MOP8DOmoVM GeEvM4MQHkxUHwBAHgqFqq UFwwf454QIW8VbSeIBNojb CqeVbiuJ8xCeQzNIUWJVKt e6DbQAJgYOOkor7= [facility] [id number] 16:59:52Surgical Pathology Report Case: [id number] Authorizing Provider: Shaggy Galvan Collected: 08/06/2021 10:01 CONCEPCION Barksdale MD Ordering Location: [facility] Endoscopy Received: 08/06/2021 12:01 PM Services Pathologist: Padmini Washington MD Specimen: Polyp, Colon - Cecum, via hot snare CECAL POLYP, BIOPSY: - TUBULAR ADENOMACC/pl Signing Pathologist Direct Phone Line: [phone] signed by Padmini Washington MD on 08/07/2021 at 4:59 [id number] history of colonic polypsA. Polyp, Colon - Cecum.Received in formalin labeled with the patient's name, medical record number and "cecal polyp" are two pieces of noble-white mucosa ranging in size from 0.3 x 0.3 x 0.2 to 0.4 x 0.4 x 0.3 cm. The specimen is submitted in toto in A1.PerformedPOC-Glucose oagxp1226-12-71 10:43:40 Test Item Value Reference Range Interpretation Comments POC-Glucose Meter (test 89 mg/dL 70-110 : TE STED AT [facility] code = 1538) [address] [facility] [place], [address]: Choker Hooker/Techni cesia ID = [id number] for Joanne Sandoval Lab Interpretation (test Normal code = 51379-2) [facility]-Glucose utmxx7952-31-09 10:43:40 Test Item Value Reference Range Interpretation Comments POC-Glucose Meter (test 89 mg/dL 70-110 : TE STED AT [facility] code = 1538) [address] [facility], [address]: Choker Hooker/Techni cesia ID = [id number] for Joanne Sandoval Lab Interpretation (test Normal code = 00631-6) [facility] [id number] 10:43:40 Test Item Value Reference Range Interpretation Comments POC-GLUCOSE METER 89 mg/dL 70-110 : [facility] ([facility] (test code = [facility], 1538) [address]: Choker Hooker/Techni cesia ID = [id number] for Joanne Driver POCT-GLUCOSE [id number] 09:36:28 Test Item Value Reference Range Interpretation Comments POC-GLUCOSE METER 81 mg/dL 70-110 : [facility] ([facility] (test code = [facility], 1538) [address]: Choker Hooker/Techni cesia ID = [id number] for SHOLA BROWN ECG [id number] 22:41:50 Test Item Value Reference Range Interpretation Comments Ventricular rate (test code = 253) Atrial rate (test code = 255) ID interval (test code = 266) QRSD interval [...] of 31-JAN-2021 02:51,-No significant change was found- [facility] [id number] 22:41:50 Test Item Value Reference Range Interpretation Comments Ventricular rate (test code = 253) Atrial rate (test code = 255) ID interval (test code = 266) QRSD interval [...] of 31-JAN-2021 02:51,-No significant change was found- [facility] 12 [id number] 22:41:50 Test Item Value Reference Range Interpretation Comments Ventricular rate (test code = 253) Atrial rate (test code = 255) ID interval (test code = 266) QRSD interval [...] of 31-JAN-2021 02:51,-No significant change was found- [facility] Pre/Post Op TIMED at 0400 For 3 Gstkykivwfo5816-29-59 12:08:48 Test Item Value Reference Range Interpretation Comments Ventricular rate (test code = 253) Atrial rate (test code = 255) ID interval (test code = 266) QRSD interval (test code = 260) QT interval (test code = 264) QTC interval (test code = 265) P axis 1 (test code = 267) QRS axis 1 (test code = 268) T wave axis (test code = 270) EKG impression (test Sinus rhythm with 1st code = 273) degree AV block-Nonspecific intraventricular block- [facility] Pre/Post Op TIMED at 0400 For 3 [id number] 12:08:48 Test Item Value Reference Range Interpretation Comments Ventricular rate (test code = 253) Atrial rate (test code = 255) ID interval (test code = 266) QRSD interval (test code = 260) QT interval (test code = 264) QTC interval (test code = 265) P axis 1 (test code = 267) QRS axis 1 (test code = 268) T wave axis (test code = 270) EKG impression (test Sinus rhythm with 1st code = 273) degree AV block-Nonspecific intraventricular block- [facility] [id number] 03:48:45 Test Item Value Reference Range Interpretation Comments Activated clotting time See_Comment Oper ator Name: Thomas (test code = 5298) Marie Miso ID: [id number] [Autom ated message] The sy stem which generated this result transmitted ref erence range: 96 - 152 sec. The reference range was not used to interpr et this result as normal/abnormal . [facility] clotting [id number] 03:48:45 Test Item Value Reference Range Interpretation Comments Activated clotting time See_Comment Oper ator Name: Thomas (test code = 5298) Marie [employer] ID: [id number] [Autom ated message] The sy stem which generated this result transmitted ref erence range: 96 - 152 sec. The reference range was not used to interpr et this result as normal/abnormal . [facility] [id number] 01:41:00 Test Item Value Reference Range Interpretation Comments Product name (test code Red Blood Cells -1, = 25) Leukored Unit number (test code = [id number]) Product code (test code [id number] = 3092) Dispense status (test Returned to not code = 24) transfused Blood expiration date (test code = 302) Blood type code (test code = 308) Blood type (test code = A POSITIVE 1314) Compatibility (test code Compatible = 6400) [facility]2021-11-10 01:41:00 Test Item Value Reference Range Interpretation Comments Product name (test code Red Blood Cells -1, = 25) Leukored Unit number (test code = [id number]) Product code (test code F2697I77 = 3092) Dispense status (test Returned to not code = 24) transfused Blood expiration date (test code = 302) Blood type code (test code = 308) Blood type (test code = A POSITIVE 1314) Compatibility (test code Compatible = 6400) [facility] stngxza3979-64-68 01:29:06 Test Item Value Reference Range Interpretation Comments POC glucose (test code 118 mg/dL 65-99 H Opera tor Name: Yahir = 44029-1) [facility]: [id number] Lab Interpretation Abnormal (test code = 08275-9) [facility] ymidljm6481-49-60 01:29:06 Test Item Value Reference Range Interpretation Comments POC glucose (test code 118 mg/dL 65-99 H Opera tor Name: Yahir = 99893-8) [facility] ID: [id number] Lab Interpretation Abnormal (test code = 82098-6) [facility] arterial blood gas, corrected and doutv8979-38-77 00:44:41 Test Item Value Reference Range Interpretation [...] 2708-6) pH, arterial corrected (test code = 62669-0) pCO2, arterial mmHg corrected (test code = 70320-7) pO2, arterial corrected mmHg Oper ator ID: (test code = 41865-3) [facility] ID: [id number] Base excess, arterial See_Comment L [Auto mated [...] mmol/L 1.11-1.32 L arterial (test code = 35453-4) Glucose, syringe (test 109 mg/dL 65-99 H code = 2345-7) Lactic acid, syringe 1.0 mmol/L 0.5-2.2 (test code = 01774-6) Lab Interpretation Abnormal (test code = 86030-5) [facility] arterial blood gas, corrected and nxvha0008-76-64 00:44:41 Test Item Value Reference Range Interpretation Comments pH, arterial (test code 7.35-7.45 L = 2744-1) pCO2, arterial (test See_Comment [Autom ated code = 2018-10) message] The system which generated this result [...] 2708-6) pH, arterial corrected (test code = 82581-2) pCO2, arterial mmHg corrected (test code = 25053-1) pO2, arterial corrected mmHg Oper ator ID: (test code = 35122-1) [facility] ID: [id number] Base excess, arterial See_Comment L [Auto mated (test code = 1924-7) message ] The system which generated this [...] mmol/L 1.11-1.32 L arterial (test code = 87958-5) Glucose, syringe (test 109 mg/dL 65-99 H code = 2345-7) Lactic acid, syringe 1.0 mmol/L 0.5-2.2 (test code = 54970-1) Lab Interpretation Abnormal (test code = 81682-6) [facility] and Rh [id number] 21:08:00 Test Item Value Reference Range Interpretation Comments ABO grouping (test code = 883-9) A Rh type (test code = 51772-6) POS [facility] and Rh [id number] 21:08:00 Test Item Value Reference Range Interpretation Comments ABO grouping (test code = 883-9) A Rh type (test code = 14419-1) [facility] [id number] 20:29:11 Test Item Value Reference Range Interpretation [...] (test code = See_Comment [Auto mated message] 5472) The system [employer] generated this result transmitted ref erence range: 17.12 - 33.05 ml/(min*mmHg). The reference range was not used to interpr et this result as normal/abnormal . DLCOc Pre (test code = See_Comment [Aut omated message] 5430) The system [employer] generated this result transmitted ref erence range: 17.12 - 33.05 ml/(min*mmHg). The reference range was not used to interpr et this result as normal/abnormal . DL/VA Pre (test code = See_Comment [Aut omated message] 5437) The system [employer] generated this result transmitted ref erence range: 2.82 - 5 .22 ml/(min*mmHg*L) . The reference range was not used to interpr et this result as normal/abnormal . KCOc SB Pre (test code See_Comment [Aut omated message] = 5535) The system [employer] generated this result transmitted ref erence range: [...] (test code = See_Comment [Autom ated message] 3425) The system [employer] generated this result transmitted ref erence range: 3.06 - 3 .06 cmH2O*s/L. The reference range was not used to interpr et this result as normal/abnormal . R0.5IN Pre (test code See_Comment [Auto mated message] = 5514) The system [employer] generated this result transmitted ref erence range: 3.06 - 3 .06 cmH2O*s/L. The reference range was not used to interpr et this result as normal/abnormal . sR0.5IN Pre (test code cmH2O*s = 5521) sGaw Predicted (test See_Comment [Autom ated message] code = 5528) The system [employer] generated this result transmitted ref erence range: [...] 57.8 % Predicted (test code = 5445) [facility] [id number] 20:29:11 Test Item Value Reference Range Interpretation [...] (test code = See_Comment [Auto mated message] 5482) The system [employer] generated this result transmitted ref erence range: 17.12 - 33.05 ml/(min*mmHg). The reference range was not used to interpr et this result as normal/abnormal . DLCOc Pre (test code = See_Comment [Aut omated message] 5430) The system [employer] generated this result transmitted ref erence range: 17.12 - 33.05 ml/(min*mmHg). The reference range was not used to interpr et this result as normal/abnormal . DL/VA Pre (test code = See_Comment [Aut omated message] 3794) The system [employer] generated this result transmitted ref erence range: 2.82 - 5 .22 ml/(min*mmHg*L) . The reference range was not used to interpr et this result as normal/abnormal . KCOc SB Pre (test code See_Comment [Aut omated message] = 5535) The system [employer] generated this result transmitted ref erence range: [...] See_Comment [Autom ated message] 5507) The system [employer] generated this result transmitted ref erence range: 3.06 - 3 .06 cmH2O*s/L. The reference range was not used to interpr et this result as normal/abnormal . R0.5IN Pre (test code See_Comment [Auto mated message] = 5514) The system [employer] generated this result transmitted ref erence range: 3.06 - 3 .06 cmH2O*s/L. The reference range was not used to interpr et this result as normal/abnormal . sR0.5IN Pre (test code cmH2O*s = 5521) sGaw Predicted (test See_Comment [Autom ated message] code = 5528) The system [employer] generated this result transmitted ref erence range: [...] 57.8 % Predicted (test code = 5445) [facility] [id number] 19:35:00 Test Item Value Reference Range Interpretation Comments ABO grouping (test code = 883-9) A Rh type (test code = 36677-5) POS Antibody screen (gel) (test code = NEG 890-4) [facility] [id number] 19:35:00 Test Item Value Reference Range Interpretation Comments ABO grouping (test code = 883-9) A Rh type (test code = 90429-3) POS Antibody screen (gel) (test code = NEG 890-4) [facility] [id number] 19:30:49 Test Item Value Reference Range Interpretation Comments Urine culture (test SEE COMMENT Bacteriu madelyn screen code = 2024136) negative. [facility] [id number] 19:30:49 Test Item Value Reference Range Interpretation Comments Urine culture (test SEE COMMENT Bacteriu madelyn screen code = 1411784) negative. 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 (test code = 23469-5) Whether the patient has symptoms related to condition of interest (test code = 92212-6) Patient was hospitalized because of this condition (test code = 92307-0) Whether the patient was admitted to intensive care unit (ICU) for condition of interest (test code = 19170-5) Whether patient resides in a congregate care setting (test code = 82552-9) [facility] [id number] 15:38:00Surgical Pathology Report Case: [id number] Authorizing Provider: Shaggy Galvan Collected: 03/2020 12:23 PM MD Apolonia Ordering Location: [facility] Endoscopy Received: 04/24/2020 02:15 PM Services Pathologist: Blanquita Perez MD Specimens: A) - Polyp, Colon - Cecum, via forcep x 1 B) - Polyp, Colon - Right/Ascending, via frcp C) - Polyp, Colon - Sigmoid, via hot snare A. CECUM, POLYPECTOMY:- HYPERPLASTIC POLYPB. 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 Polyp, colon-cecum B. Polyp, colon-right ascendingC. Polyp, colon-sigmoidPart A. Received in formalin labeled "cecum, polyp" consists of two noble tissue fragments, the smaller one measuring 0.2 x 0.2 x 0.2 cm, the larger one measuring 0.4 x 0.2 x 0.2 cm. The specimen is submitted in toto in cassette A1, following filtration.Part B. Received in for viky labeled "ascending colon, polyp" consists of a [...] focal superficial high-grade dysplasia. No malignancy is identified.[facility], Department of Pathology, [address] [place] [address], [facility], [facility] of [facility], [address] [place] [address], [facility], [facility] of [facility]ology, [address] [place] [address], DFHG-GLUCOSE [id number] 13:09:00 Test Item Value Reference Range Interpretation Comments POC-GLUCOSE METER 80 mg/dL 70-110 : TESTED [place] [address] ([facility]) (test code = [facility], 1538) [address]: Choker Hooker/Techni cesia ID = [id number] for Stevie Villegas [id number] 11:54:00 Test Item Value Reference Range Interpretation Comments POC-POTASSIUM 4.3 meq/L 3.6-5.5 : TESTED AT [place] [address] ([facility]) (test code [facility], = 1540) [address]: Choker Hooker/Techni cesia ID = [id number] for MCDO NALD (V), TEDDY [id number] 11:54:00 Test Item Value Reference Range Interpretation Comments POC-POTASSIUM 5.8 meq/L 3.6-5.5 H : TESTED AT [place] [address] ([facility]) (test code [facility], = 1540) [address]: Choker Hooker/Techni cesia ID = [id number] for MCDO NALD (V), TEDDY POCT-GLUCOSE [id number] 10:22:00 Test Item Value Reference Range Interpretation Comments POC-GLUCOSE METER 80 mg/dL 70-110 : TESTED [place] [address] ([facility]) (test code = [facility], 1535) [address]: Choker Hooker/Techni cesia ID = [id number] for MCDO NALD (V), TEDDY
[2022-02-18 13:03] LABS: Specific Gravity 1.013 (1.005-1.030); Urine Bilirubin NEGATIVE (Negative); Urine Blood Negative (Negative); Urine Clarity Clear (Clear); Urine Color Light-Yellow (Yellow); Urine Glucose NEGATIVE (Negative); Urine Mucus Slight /HPF (None Seen); Urine Protein 2+ (Negative); Urine RBC <5 /HPF (None Seen); Urine Urobilinogen Normal (Normal); Urine pH 6.5 (5.0-7.0)
[2022-02-18 13:44] LABS: Hematocrit 36.6 % (39.6-49.0); Lymphocytes % 10.8 % (15.3-44.8); MCV 87.1 fL (80-100); MPV 7.2 fL (7.6-11.3)
[2022-02-18 13:52] LABS: Potassium 3.8 mmol/L (3.5-5.1)
[2022-02-18 14:38] LABS: SARS-COV-2 RT PCR NEGATIVE (NEGATIVE)
--- NOTE | 2022-02-18 16:00 | EDPHYS ---
Physician Documentation [facility] Name: Kulwinder Zurita Age: 72 yrs Sex: Male : 1950 Arrival Date: 02/18/2022 Time: 09:47 Bed 10 Private MD: ED Physician Shabbir Funez HPI: 02/18 10:45 This 72 yrs old Male presents to ER via Ambulatory with complaints of Fever, Weakness, ms3 Urinary Problem. 10:45 The patient reports fever, that was measured at 101 degrees Fahrenheit. Onset: The ms3 symptoms/episode began/occurred 2 day(s) ago. Modifying factors: there are no obvious modifying factors. Associated signs and symptoms: Pertinent positives: urinary frequency. Severity of symptoms: At their worst the symptoms were moderate in the emergency department the symptoms are unchanged Pain is currently a 0 / 10. 72-year-old male with past medical history of diabetes, hypertension, hyperlipidemia presents for urinary frequency for 2 days. Patient denies pain at this time. Patient denies alleviating or inciting factors.. Historical: - Allergies: 10:04 Cortisone; ld1 - PMHx: 10:04 Diabetes - IDDM; Hypertension; Hyperlipidemia; kidney disease; Prostate Cancer; ld1 - Immunization history:: Adult Immunizations up to date, Client reports receiving the 2nd dose of the Covid vaccine. - Social history:: Smoking status: Patient denies any tobacco usage or history of. Patient/guardian denies using alcohol. ROS: 10:46 Neck: Negative for injury, pain, and swelling, Cardiovascular: Negative for chest pain, ms3 and palpitations. Respiratory: Negative for shortness of breath, cough, wheezing, and pleuritic chest pain, Abdomen/GI: Negative for abdominal pain, nausea, vomiting, diarrhea, and constipation, Back: Negative for injury and pain. 10:46 Constitutional: Positive for fever. 10:46 : Positive for frequent urination. 10:46 All other systems are negative. Exam: 10:46 Constitutional: This is a well developed, well nourished patient who is awake, alert, ms3 and in no acute distress. Head/Face: Normocephalic, atraumatic. Eyes: Pupils equal round and reactive to light, extra-ocular motions intact. Lids and lashes normal. Conjunctiva and sclera are non-icteric and not injected. Periorbital areas with no swelling, redness, or edema. Neck: Trachea midline, no cervical lymphadenopathy. Supple, full range of motion without nuchal rigidity, or vertebral point tenderness. No Meningismus. Chest/axilla: Normal chest wall appearance and motion. Nontender with no deformity. Cardiovascular: Regular rate and rhythm with a normal S1 and S2. No gallops, murmurs, or rubs. Normal PMI, no JVD. No pulse deficits. Respiratory: Lungs have equal breath sounds bilaterally, clear to auscultation and percussion. No rales, rhonchi or wheezes noted. No increased work of breathing, no retractions or nasal flaring. Abdomen/GI: Soft, non-tender, with normal bowel sounds. No distension or tympany. No guarding or rebound. No evidence of tenderness throughout. Skin: Warm, dry with normal turgor. Normal color with no rashes, no lesions, and no evidence of cellulitis. MS/ Extremity: Pulses equal, no cyanosis. Neurovascular intact. Full, normal range of motion. Vital Signs: 10:03 Pulse 81; Resp 18; Temp 99.8(O); Pulse Ox 96% on R/A; Weight 158.76 kg; Height 5 ft. 8 ld1 in. (172.72 cm); Pain 0/10; 14:36 BP 178 / 77; Pulse 77; Resp 18; Pulse Ox 96% on R/A; em6 16:22 BP 168 / 74; Pulse 72; Resp 18; Pulse Ox 95% on R/A; em6 10:03 Body Mass Index 53.22 (158.76 kg, 172.72 cm) ld1 MDM: 10:03 Patient medically screened. ms3 10:46 Differential diagnosis: UTI, hyperglycemia. ms3 16:00 Data reviewed: vital signs, nurses notes, lab test result(s), and as a result, I will ms3 discharge patient. Counseling: I had a detailed discussion with the patient and/or guardian regarding: the historical points, exam findings, and any diagnostic results supporting the discharge/admit diagnosis, lab results, the need for outpatient follow up, to return to the emergency department if symptoms worsen or persist or if there are any questions or concerns that arise at home. Special discussion: I discussed with the patient/guardian in detail that at this point there is no indication for admission to the hospital. It is understood, however, that if the symptoms persist or worsen the patient needs to return immediately for re-evaluation. ED course: Discussed labs with patient. Patient to follow-up with his primary care physician in 2 to 3 days. Patient understands and agrees with plan. All questions were answered. Return precautions discussed include worsening symptoms, or any other concerns. On reevaluation patient is alert and oriented x4, in no apparent distress, nontoxic appearing, speaking full sentences. 02/18 11:40 Order name: CBC with Diff; Complete Time: 15:50 ms3 02/18 11:40 Order name: BMP; Complete Time: 15:50 ms3 02/18 11:40 Order name: Urine Dipstick-Ancillary (obtain specimen); Complete Time: 12:52 ms3 02/18 11:40 Order name: Urinalysis; Complete Time: 15:50 ms3 02/18 13:45 Order name: COVID-19/FLU A+B; Complete Time: 15:50 em6 Administered Medications: No medications were administered Disposition Summary: 02/18/22 16:00 Discharge Ordered Location: Home ms3 Condition: Stable ms3 Diagnosis - Frequency of micturition ms3 - Chronic kidney disease, unspecified ms3 - Anemia, unspecified ms3 Followup: ms3 - With: Nehemias Stroud MD - When: 2 - 3 days - Reason: Recheck today's complaints Discharge Instructions: - Discharge Summary Sheet ms3 - Anemia ms3 - Urinary Frequency, Adult ms3 Forms: - Medication Reconciliation Form ms3 - Thank You Letter ms3 - Antibiotic Education ms3 - Prescription Opioid Use ms3 Signatures: Dispatcher [employer] EDMS Shabbir Funez DO DO ms3 Ce Bonner, RN RN ld1
--- NOTE | 2022-02-18 16:00 | ER ---
Nurse's Notes [facility] Name: Kulwinder Zurita Age: 72 yrs Sex: Male : 1950 Arrival Date: 02/18/2022 Time: 09:47 Bed 10 Private MD: Diagnosis: Frequency of micturition;Chronic kidney disease, unspecified;Anemia, unspecified Presentation: 02/18 10:03 Chief complaint: Patient states: Frequent urination X 2 days. Voiding every hour during ld1 night. Dry mouth, fever, weakness, loss of appetite - 2-3 days. Coronavirus screen: Client presents with at least one sign or symptom that may indicate coronavirus-19. Standard/surgical mask placed on the client. Ebola Screen: No symptoms or risks identified at this time. Initial Sepsis Screen: Does the patient meet any 2 criteria? No. Patient's initial sepsis screen is negative. Does the patient have a suspected source of infection? No. Patient's initial sepsis screen is negative. Risk Assessment: Do you want to hurt yourself or someone else? Patient reports no desire to harm self or others. Onset of symptoms was February 18, 2022 at 10:04. 10:03 Method Of Arrival: Ambulatory ld1 10:03 Acuity: CHRISTINA 3 ld1 Triage Assessment: 10:04 General: Appears in no apparent distress. comfortable, Behavior is calm, cooperative, ld1 appropriate for age. Pain: Denies pain. EENT: No signs and/or symptoms were reported regarding the EENT system. Neuro: Level of Consciousness is awake, alert, obeys commands, Oriented to person, place, time, situation. Cardiovascular: Capillary refill < 3 seconds Patient's skin is warm and dry. Respiratory: Airway is patent Respiratory effort is even, unlabored. GI: Abdomen is round non-distended. : Reports urgency, urinary frequency. Derm: No signs and/or symptoms reported regarding the dermatologic system. Musculoskeletal: No signs and/or symptoms reported regarding the musculoskeletal system. Historical: - Allergies: 10:04 Cortisone; ld1 - PMHx: 10:04 Diabetes - IDDM; Hypertension; Hyperlipidemia; kidney disease; Prostate Cancer; ld1 - Immunization history:: Adult Immunizations up to date, Client reports receiving the 2nd dose of the Covid vaccine. - Social history:: Smoking status: Patient denies any tobacco usage or history of. Patient/guardian denies using alcohol. Screenin:20 Abuse screen: Denies threats or abuse. Nutritional screening: No deficits noted. em6 Nutritional screening: No deficits noted. Tuberculosis screening: No symptoms or risk factors identified. 12:50 Fall Risk Total Canales Fall Scale indicates No Risk (0-24 pts). em6 Assessment: 12:20 General: Appears comfortable, Behavior is cooperative. Pain: Denies pain. Neuro: em6 Lew Agitation-Sedation Scale (RASS): 0 - Alert and Calm. Cardiovascular: Heart tones present Patient's skin is warm and dry. Respiratory: Airway is patent Respiratory effort is even, unlabored, Respiratory pattern is regular, symmetrical, Breath sounds are clear bilaterally. GI: Abdomen is non-distended, Bowel sounds present X 4 quads. Abd is soft and non tender X 4 quads. : Reports burning with urination. EENT: No signs and/or symptoms were reported regarding the EENT system. Derm: No signs and/or symptoms reported regarding the dermatologic system. Musculoskeletal: Circulation, motion, and sensation intact. Range of motion: intact in all extremities. 13:20 Reassessment: Patient appears in no apparent distress at this time. No changes from em6 previously documented assessment. Patient and/or family updated on plan of care and expected duration. Pain level reassessed. Patient is alert, oriented x 3, equal unlabored respirations, skin warm/dry/pink. 14:20 Reassessment: Patient appears in no apparent distress at this time. No changes from em6 previously documented assessment. Patient and/or family updated on plan of care and expected duration. Pain level reassessed. Patient is alert, oriented x 3, equal unlabored respirations, skin warm/dry/pink. 15:20 Reassessment: Patient appears in no apparent distress at this time. No changes from em6 previously documented assessment. Patient and/or family updated on plan of care and expected duration. Pain level reassessed. Patient is alert, oriented x 3, equal unlabored respirations, skin warm/dry/pink. 16:20 Reassessment: Patient appears in no apparent distress at this time. No changes from em6 previously documented assessment. Patient and/or family updated on plan of care and expected duration. Pain level reassessed. Patient is alert, oriented x 3, equal unlabored respirations, skin warm/dry/pink. Vital Signs: 10:03 Pulse 81; Resp 18; Temp 99.8(O); Pulse Ox 96% on R/A; Weight 158.76 kg; Height 5 ft. 8 ld1 in. (172.72 cm); Pain 0/10; 14:36 BP 178 / 77; Pulse 77; Resp 18; Pulse Ox 96% on R/A; em6 16:22 BP 168 / 74; Pulse 72; Resp 18; Pulse Ox 95% on R/A; em6 10:03 Body Mass Index 53.22 (158.76 kg, 172.72 cm) ld1 ED Course: 09:47 Patient arrived in ED. rg4 09:48 Shabbir Funez DO is Attending Physician. ms3 10:04 Triage completed. ld1 10:04 Arm band placed on right wrist. ld1 12:04 Elizabeth Ayala, RN is Primary Nurse. em6 12:20 Bed in low position. Call light in reach. Side rails up X2. Pulse ox on. NIBP on. Warm em6 blanket given. 12:50 Accessed ultrasound guided. performed by George Keen. 22 G . em6 12:52 Urinalysis Sent. em6 12:52 BMP Sent. em6 12:52 CBC with Diff Sent. em6 13:52 COVID-19/FLU A+B Sent. em6 15:59 Nehemias Stroud MD is Referral Physician. ms3 16:22 No provider procedures requiring assistance completed. em6 16:24 IV discontinued, intact, bleeding controlled, No redness/swelling at site. Pressure em6 dressing applied. Administered Medications: No medications were administered Medication: 16:24 VIS not applicable for this client. em6 Outcome: 16:00 Discharge ordered by . ms3 16:24 Discharged to home ambulatory. em6 16:24 Condition: stable 16:24 Discharge instructions given to patient, Instructed on discharge instructions, follow up and referral plans. Demonstrated understanding of instructions, follow-up care. 16:24 Patient left the ED. em6 Signatures: Addie Gomez rg4 Shabbir Funez DO DO ms3 Ce Bonner, RN RN ld1 Elizabeth Ayala, NATALY RN em6
[2022-02-18 16:34] VITALS: TEMP 99.8
[2022-02-18 16:37] VITALS: BP 168/74; O2SAT 95
== END 2022-02-18 16:24 | disposition home or self-care (01) ==
LOC: ER 09:43
DX: R35.0 Frequency of micturition (principal); Z20.822 Contact with and (suspected) exposure to COVID-19; D64.9 Anemia, unspecified; R50.9 Fever, unspecified; E11.22 Type 2 diabetes mellitus with diabetic chronic kidney disease; I12.9 Hypertensive chronic kidney disease with stage 1 through stage 4 chronic kidney disease, or unspecified chronic kidney disease; N18.9 Chronic kidney disease, unspecified; Z88.8 Allergy status to other drugs, medicaments and biological substances
CPT/HCPCS: 85025; 81001; 80048; 36415; 0240U; 99284